=== PATIENT | male | born 1955 | race Caucasian/White ===

== ENCOUNTER 2019-06-26 18:53 | Emergency (ER) | payer MEDICARE, SELFPAY ==
--- NOTE | ~2019-06-26 | CT_ITS ---
EXAMINATION: CT brain wo con DATE: 06/26/2019 21:18 INDICATION: Tremor TECHNIQUE: Computed tomography (CT) of the head was performed without intravenous contrast. Sagittal and coronal reconstructions were performed. The mA was adjusted according to patient size. Iterative reconstruction technique was employed. The dose-length product was 681.00 mGy-cm. COMPARISON: None FINDINGS: No acute intracranial hemorrhage, acute infarction or abnormal extra axial fluid collection. There is mild scattered white matter hypoattenuation most prominent in the right peritrigonal white matter co nsistent with chronic small vessel ischemic disease. Symmetric prominence of the sulci consistent wi th mild age-appropriate diffuse cerebral volume loss. Ventricles are normal and symmetric. No mass/m ass effect. The orbits and mastoid air cells are normal. Small osteoma in the left ethmoid sinus. Mil d hyperostosis frontalis. IMPRESSION: 1. No acute intracranial process. 2. Age-related changes including mild diffuse volume loss and mild scattered white matter hypoattenua tion consistent with chronic small vessel ischemic disease. Reviewed, dictated and finalized at location A. R BUILDER LOADER IMPRESSION: 1. No acute intracranial process. 2. Age-related changes including mild diffuse volume loss and mild scattered wh ite matter hypoattenuation consistent with chronic small vessel ischemic diseas e.
--- NOTE | 2019-06-26 19:18 | ED.EXTPRO ---
HPI - Extremity Problem General Chief complaint: Extremity Problem,Nontraumatic Stated complaint: EXTREMITY CRAMPING [id number] Time Seen by Provider: 06/26/19 19:14 Source: patient Mode of arrival: ambulatory Limitations: no limitations History of Present Illness HPI Narrative: The pt is a 63 y/o male who presents to the ED c/o bilateral hand cramping onset 2 months ago. Pt states that he went to his PCP, Erin Nicole APRN, who prescribed him Duloxetine one week ago along with magnesium. Pt notes that he has not received much relief, so it was recommended that he take 2 Duloxetine tablets in addition to his muscle relaxers. Pt reports TAN, but denies CP and SOB. MD Complaint: other (Bilateral hand cramping) Onset (ago): month(s) (2) Relieving factors: nothing Associated symptoms: other (TAN) Related Data Allergies Allergy/AdvReac Type Severity Reaction Status Date / Time No Known Allergies Allergy Unknown Unverified 08/03/11 08:43 Review of Systems Review of Systems: All systems reviewed & are unremarkable except as noted in HPI and below Cardiovascular: Cardiovascular: Denies chest pain Respiratory: Respiratory: Denies dyspnea Musculoskeletal: Musculoskeletal: Reports other (Bilateral hand cramping) Neurologic: Reports headache(s) PMFSH Past Medical History Medical History (Updated 06/26/19 @ 22:00 by Kallie Zhu MD) Bronchitis Hypertension Obesity Sleep apnea Surgical History Surgical History (Updated 06/26/19 @ 19:21 by Chano Mora) H/O colonoscopy Social History Social History (Updated 04/27/19 @ 20:16 by Aden Yusuf PA-C) Smoking status: Never smoker Comments PCP: Erin Nicole APRN Exam Const: General: cooperative, no acute distress and alert Nutritional Appearance: obese Orientation/consciousness: patient oriented x3 Limitations: no limitations HENMT: Mouth: Yes lip normal and Yes moist mucous membranes Resp: Effort & Inspection: normal respiratory effort Auscultation: clear to auscultation bilaterally Cardio: Rate: regular rate Rhythm: regular rhythm GI: GI Palp: Yes Soft to palpation and No Tenderness to palpation present (GI) Auscultation: normal bowel sounds Skin: General skin exam: normal color Neuro: General: patient oriented x3 Cognition (Neuro): normal cognition Speech: normal speech Extrem: General: normal to inspection, full ROM and no clubbing, cyanosis or edema Psych: Mental Status: mental status grossly normal Affect: normal affect Attitude: cooperative Course Course Emergency Course: Patient with no acute findings noted on labs. On reevaluation, patient with slight tremor to his right hand which was not notable on his initial exam. Patient states he has been having issues with a tremor. CT scan of the brain was ordered and is unremarkable except for age-related changes. Patient advised following up with his primary care physician to discuss neurology referral on account of his tremor. Patient continue current medications. Vital Signs Vital signs: Vital Signs Temperature 97.3 F L 06/26/19 19:22 Pulse Rate 85 06/26/19 19:22 Respiratory Rate 19 06/26/19 19:22 Blood Pressure 122/83 06/26/19 19:22 Pulse Oximetry 97 06/26/19 19:22 Temperature 97.3 F L 06/26/19 19:22 Pulse Rate 63 06/26/19 20:57 Respiratory Rate 18 06/26/19 20:57 Blood Pressure 113/68 06/26/19 20:57 Pulse Oximetry 100 06/26/19 20:57 MDM - Extremity (Nontraumatic) Lab Data Attestation: I reviewed the patient's lab results. Result diagrams: 06/26/19 19:40 06/26/19 19:40 Labs: Lab Results 06/26/19 06/26/19 06/26/19 Range/Units 19:40 19:40 20:33 WBC 6.5 (4.5-10.0) K/mm3 RBC 4.70 (4.6-6.20) M/mm3 Hgb 14.2 (14.0-18.0) g/dL Hct 42.9 (42.0-52.0) % MCV 91.3 (80-100) fl MCH 30.2 (26-34) pg MCHC 33.1 (32-36) g/dl RDW 14.1 (11.5-14.5) % Plt Count 231 (150-375)
[2019-06-26 19:22] VITALS: BP 122/83; PULSE 85; RESP 19; TEMP 36.3; O2SAT 97
[2019-06-26 19:45] VITALS: BP 137/78; PULSE 82; RESP 15; O2SAT 98
[2019-06-26 19:46] LABS: Basophils Absolute Auto 0.1 K/mm3 (0.0-0.1); Basophils Percent Auto 0.9 % (0.2-1.2); Eosinophils Absolute Auto 0.3 K/mm3 (0-0.3); Eosinophils Percent Auto 3.9 % (0-4.4); Hematocrit 42.9 % (42.0-52.0); Hemoglobin 14.2 g/dL (14.0-18.0); Immature Granulocyte Absolute 0.03 K/mm3 (0.00-0.031); Immature Granulocyte Percent A 0.5 % (0-0.5); Lymphocytes Absolute Auto 1.31 K/mm3 (0.9-3.2); Lymphocytes Percent Auto 20.3 % (18.3-44.2); Mean Corpuscular HGB Conc 33.1 g/dl (32-36); Mean Corpuscular Hemoglobin 30.2 pg (26-34); Mean Corpuscular Volume 91.3 fl (80-100); Mean Platelet Volume 9.2 fl (7.4-10.4); Monocytes Absolute Auto 0.7 K/mm3 (0.1-0.6); Monocytes Percent Auto 10.4 % (2.6-8.5); Neutrophils Absolute Auto 4.1 K/mm3 (1.3-6.7); Platelet Count Result 231 k/mm3 (150-375); Red Cell Distribution Width 14.1 % (11.5-14.5); White Blood Count 6.5 K/mm3 (4.5-10.0)
[2019-06-26 19:58] LABS: Alanine Aminotransferase 30 U/L (4-50); Alkaline Phosphatase 71 U/L (38-126); Aspartate Amino Transferase 30 U/L (17-59); Bilirubin,Total 0.3 mg/dL (0.2-1.3); Blood Urea Nitrogen 19 mg/dL (9-20); Calcium 8.8 mg/dL (8.4-10.2); Carbon Dioxide 24 mmol/L (22-30); Chloride 99 mmol/L (98-107); Estimated CRCL calculation 84 ml/min; Estimated Glomerular Filt Rate 55; Glucose 79 mg/dL (75-110); Magnesium 2.2 mg/dL (1.6-2.3); Phosphorus 3.5 mg/dL (2.5-4.5); Potassium 3.9 mmol/L (3.4-5.0); Sodium 136 mmol/L (137-145)
--- NOTE | 2019-06-26 20:08 | PC.NURSE ---
pt states he isn't able to urinate at this time. refused straight ctah. pt given urinal at bedside. instructed to use call light when hes able to urinate.
[2019-06-26 20:35] VITALS: BP 126/71; PULSE 76; RESP 16; O2SAT 97
[2019-06-26 20:42] LABS: Add Urine Microscopic? YES; Appearance Urine Clear (Clear); Bacteria Urine Trace /hpf; Bilirubin Urine Negative (Negative); Blood Urine Negative (Negative); Color Urine Yellow (Yellow); Glucose Urine UA Negative (Negative); Ketones Urine Negative (Negative); Leukocyte Esterase Ur Negative LEU/UL (Negative); Mucus Urine Heavy /lpf; Nitrate Urine Negative (Negative); Protein Urine 1+ mg/dL (Negative); RBC Urine 0-2 /hpf (0-2); Specific Grav Ur 1.024 (1.001-1.035); Squamous Epithelial Cell Urine Moderate /hpf (Few); Urobilinogen Urine Negative mg/dL (<2.0); WBC Urine 0-3 /hpf
--- NOTE | 2019-06-26 20:50 | PC.NURSE ---
pt states his hands are cramping at this time. md notified.
[2019-06-26 20:57] VITALS: BP 113/68; PULSE 63; RESP 18; O2SAT 100
[2019-06-26 21:59] VITALS: BP 119/74; PULSE 63; RESP 18; O2SAT 96
== END 2019-06-26 22:24 | disposition home or self-care (01) ==
PROVIDERS: Emergency Provider Emergency Medicine; PCP Nurse Practitioner Family
DX: R25.2 Cramp and spasm (principal); R25.1 Tremor, unspecified; G47.30 Sleep apnea, unspecified; E66.9 Obesity, unspecified; Z68.42 Body mass index [BMI] 45.0-49.9, adult; I10 Essential (primary) hypertension
CPT/HCPCS: 36415; 70450; 80053; 81001; 83735; 84100; 85025; 96374; 99284; J3360

== ENCOUNTER 2019-06-28 17:00 | Emergency (ER) | payer MEDICARE, SELFPAY ==
[2019-06-28 17:10] VITALS: BP 157/86; PULSE 91; RESP 18; TEMP 36.4; O2SAT 97
--- NOTE | 2019-06-28 17:25 | ED.MALEGU ---
HPI - Male Genitourinary General Chief complaint: Urogenital-Male Stated complaint: unable to urinate Time Seen by Provider: 06/28/19 17:23 Source: patient Mode of arrival: ambulatory Limitations: no limitations History of Present Illness HPI Narrative: A 63 y/o male presents to the ED with c/o urinary retention. Pt states that since 1400 today he has not been able to urinate. He notes that he can only go in little amounts each time and has suprapubic ABD pain when he urinates. The ABD pain is rated an 8/10 in severity in the ED and is described as a burning sensation. He adds that he has had urinary incontinence for the past 3 months. Pt denies dysuria, CP, fever, and SOB. He has a PMHx of gallstones. Complaint: other (Urinary retention) Onset (ago): hour(s) (3) Duration: constant Associated symptoms: Reports incontinence and other (ABD pain) Related Data Allergies Allergy/AdvReac Type Severity Reaction Status Date / Time No Known Allergies Allergy Unknown Unverified 08/03/11 08:43 Review of Systems Review of Systems: All systems reviewed & are unremarkable except as noted in HPI and below Constitutional: Constitutional: Denies fever(s) Cardiovascular: Cardiovascular: Denies chest pain Respiratory: Respiratory: Denies dyspnea Gastrointestinal: Gastrointestinal: Reports abdominal pain Genitourinary: Genitourinary: Reports oliguria, Denies dysuria and Reports urinary incontinence [facility] Past Medical History Medical History (Updated 06/28/19 @ 21:33 by Maya Vazquez MD) Arthritis Bronchitis Chronic back pain Depression Gallstones GERD (gastroesophageal reflux disease) Head ache Hypertension Obesity Seasonal allergies Sleep apnea Surgical History Surgical History (Updated 06/28/19 @ 17:38 by Jenna [place]) H/O colonoscopy History of ankle surgery Bilateral tendon repair History of carpal tunnel release Social History Social History Smoking status: Never smoker Gender identity (if verbalized by the patient): Male Exam Const: General: no acute distress and well developed Orientation/consciousness: oriented to person, oriented to place, oriented to time and patient oriented x3 HENMT: Head: normocephalic Ears: external ears normal General nose exam: Normal external nose present Eyes: General: appearance normal, both eyes and all related structures Conjunctivae: conjunctivae normal Neck: Neck: normal visual inspection and full ROM Chest: Chest palpation & inspection: normal inspection of the chest and no tenderness Resp: Effort & Inspection: normal respiratory effort Auscultation: clear to auscultation bilaterally Cardio: Rate: regular rate Rhythm: regular rhythm GI: GI Palp: No abdominal tenderness and Yes Soft to palpation Skin: General skin exam: normal color and turgor normal Neuro: General: oriented to person, oriented to place, oriented to time and patient oriented x3 Cognition (Neuro): normal cognition Extrem: General: normal to inspection, full ROM and no pedal edema Psych: Appearance: grossly normal Mental Status: mental status grossly normal Affect: normal affect Course Vital Signs Vital signs: Vital Signs Temperature 36.4 C 06/28/19 17:10 Pulse Rate 91 06/28/19 17:10 Respiratory Rate 18 06/28/19 17:10 Blood Pressure 157/86 H 06/28/19 17:10 Pulse Oximetry 97 06/28/19 17:10 Temperature 37.5 C 06/28/19 21:44 Pulse Rate 88 06/28/19 21:44 Respiratory Rate 18 06/28/19 21:44 Blood Pressure 117/81 06/28/19 21:44 Pulse Oximetry 97 06/28/19 21:44 MDM - Male Genitourinary Lab Data Result diagrams: 06/28/19 18:06 06/28/19 18:06 Labs: Lab Results 06/28/19 06/28/19 06/28/19 Range/Units 18:06 18:06 18:06 WBC 10.1 H (4.5-10.0) K/mm3 RBC 4.76 (4.6-6.20) M/mm3 Hgb 14.4 (14.0-18.0) g/dL Hct 43.5 (42.0-52.0) % MCV 91.4 (80-100
[2019-06-28 18:16] LABS: Basophils Absolute Auto 0.1 K/mm3 (0.0-0.1); Basophils Percent Auto 0.6 % (0.2-1.2); Eosinophils Absolute Auto 0.2 K/mm3 (0-0.3); Eosinophils Percent Auto 2.3 % (0-4.4); Hematocrit 43.5 % (42.0-52.0); Hemoglobin 14.4 g/dL (14.0-18.0); Immature Granulocyte Absolute 0.04 K/mm3 (0.00-0.031); Immature Granulocyte Percent A 0.4 % (0-0.5); Lymphocytes Absolute Auto 1.03 K/mm3 (0.9-3.2); Lymphocytes Percent Auto 10.2 % (18.3-44.2); Mean Corpuscular HGB Conc 33.1 g/dl (32-36); Mean Corpuscular Hemoglobin 30.3 pg (26-34); Mean Corpuscular Volume 91.4 fl (80-100); Mean Platelet Volume 9.4 fl (7.4-10.4); Monocytes Absolute Auto 0.9 K/mm3 (0.1-0.6); Neutrophils Absolute Auto 7.8 K/mm3 (1.3-6.7); Neutrophils Percent Auto 77.5 % (45.5-73.1); Platelet Count Result 246 k/mm3 (150-375); Red Blood Count 4.76 M/mm3 (4.6-6.20); Red Cell Distribution Width 14.3 % (11.5-14.5); White Blood Count 10.1 K/mm3 (4.5-10.0)
[2019-06-28 18:25] LABS: Add Urine Microscopic? YES; Appearance Urine Turbid (Clear); Bilirubin Urine Negative (Negative); Blood Urine 3+ (Negative); Color Urine Yellow (Yellow); Glucose Urine UA Negative (Negative); Ketones Urine Trace mg/dL (Negative); Leukocyte Esterase Ur 2+ LEU/UL (Negative); Nitrate Urine Negative (Negative); Protein Urine 2+ mg/dL (Negative); RBC Urine >75 /hpf (0-2); Specific Grav Ur 1.024 (1.001-1.035); Urobilinogen Urine Negative mg/dL (<2.0); WBC Urine >75 /hpf
[2019-06-28 18:29] LABS: Blood Urea Nitrogen 19 mg/dL (9-20); Calcium 9.1 mg/dL (8.4-10.2); Carbon Dioxide 28 mmol/L (22-30); Chloride 98 mmol/L (98-107); Estimated CRCL calculation 78 ml/min; Estimated Glomerular Filt Rate 51; Glucose 107 mg/dL (75-110); Potassium 4.8 mmol/L (3.4-5.0); Sodium 138 mmol/L (137-145)
--- NOTE | 2019-06-28 18:45 | PC.NURSE ---
Patient requesting medication for headache, Dr George briceño.
[2019-06-28 19:39] VITALS: BP 114/70; PULSE 80; RESP 18; TEMP 36.6; O2SAT 99
[2019-06-28 20:58] VITALS: BP 122/72; PULSE 88; RESP 18; O2SAT 98
[2019-06-28 21:44] VITALS: BP 117/81; PULSE 88; RESP 18; TEMP 37.5; O2SAT 97
== END 2019-06-28 21:49 | disposition home or self-care (01) ==
PROVIDERS: Emergency Provider Emergency Medicine; PCP Nurse Practitioner Family
DX: N39.0 Urinary tract infection, site not specified (principal); M19.90 Unspecified osteoarthritis, unspecified site; K21.9 Gastro-esophageal reflux disease without esophagitis; I10 Essential (primary) hypertension; E66.9 Obesity, unspecified; Z68.42 Body mass index [BMI] 45.0-49.9, adult; G47.30 Sleep apnea, unspecified
CPT/HCPCS: 36415; 80048; 81001; 85025; 87077; 87086; 87088; 87186; 99283

== ENCOUNTER 2019-07-02 14:56 | Outpatient (CLI) | payer MEDICARE, SELFPAY ==
--- NOTE | ~2019-07-02 | CT_ITS ---
EXAMINATION: CT abdomen pelvis w con DATE: 07/02/2019 15:53 INDICATION: Abdominal pain. TECHNIQUE: Computed tomography (CT) of the abdomen and pelvis was performed with 100 mL Omnipaque 350 intravenous contrast. Automated exposure control and iterative reconstruction technique were employe d. The dose-length product was 1726.45 mGy-cm. COMPARISON: None. FINDINGS: The visualized portions of the lung bases demonstrate mild atelectasis. There are a few pul monary nodules measuring up to 3 mm, likely benign. No pleural effusion. The heart size is normal. No pericardial effusion. The liver, spleen, gallbladder, pancreas, and adrenal glands are normal. There is cortical thinning of the kidneys. There is 11 mm cyst in left kidney. There is diverticulosis of the colon without evidence of diverticulitis. There are no dilated loops of bowel. The appendix is no rmal. There is mild periportal lymphadenopathy. There is a left inguinal hernia containing fat. There is no free intraperitoneal fluid. There are bridging endplate osteophytes at multiple levels in the thoracic spine, consistent with diffuse idiopathic skeletal hyperostosis (DISH). There is mild lumbar spondylosis. IMPRESSION: 1. Mild periportal lymphadenopathy, likely reactive. 2. Small left inguinal hernia containing fat. Reviewed, dictated and finalized at location A. ACE GRINDER
[2019-07-02 16:47] LABS: Basophils Absolute Auto 0.1 K/mm3 (0.0-0.1); Basophils Percent Auto 0.8 % (0.2-1.2); Eosinophils Absolute Auto 0.2 K/mm3 (0-0.3); Eosinophils Percent Auto 2.8 % (0-4.4); Hematocrit 43.8 % (42.0-52.0); Hemoglobin 14.6 g/dL (14.0-18.0); Immature Granulocyte Absolute 0.05 K/mm3 (0.00-0.031); Immature Granulocyte Percent A 0.7 % (0-0.5); Lymphocytes Absolute Auto 1.39 K/mm3 (0.9-3.2); Lymphocytes Percent Auto 18.5 % (18.3-44.2); Mean Corpuscular HGB Conc 33.3 g/dl (32-36); Mean Corpuscular Volume 90.1 fl (80-100); Mean Platelet Volume 9.7 fl (7.4-10.4); Monocytes Percent Auto 13.8 % (2.6-8.5); Neutrophils Absolute Auto 4.8 K/mm3 (1.3-6.7); Neutrophils Percent Auto 63.4 % (45.5-73.1); Platelet Count Result 266 k/mm3 (150-375); Red Blood Count 4.86 M/mm3 (4.6-6.20); Red Cell Distribution Width 14.1 % (11.5-14.5); White Blood Count 7.5 K/mm3 (4.5-10.0)
[2019-07-02 17:02] LABS: Alanine Aminotransferase 27 U/L (4-50); Alkaline Phosphatase 62 U/L (38-126); Amylase 47 U/L (30-110); Aspartate Amino Transferase 33 U/L (17-59); Bilirubin,Total 0.8 mg/dL (0.2-1.3); Blood Urea Nitrogen 17 mg/dL (9-20); Calcium 8.6 mg/dL (8.4-10.2); Carbon Dioxide 22 mmol/L (22-30); Chloride 100 mmol/L (98-107); Estimated Glomerular Filt Rate > 60; Glucose 100 mg/dL (75-110); Lipase 68 U/L (23-300); Potassium 4.5 mmol/L (3.4-5.0); Sodium 133 mmol/L (137-145)
== END 2019-07-02 14:57 | disposition home or self-care (01) ==
PROVIDERS: PCP Nurse Practitioner Family; Visit Provider Internal Medicine
DX: R10.84 Generalized abdominal pain (principal); R50.9 Fever, unspecified; R30.0 Dysuria; K40.90 Unilateral inguinal hernia, without obstruction or gangrene, not specified as recurrent
CPT/HCPCS: 36415; 74177; 80053; 82150; 83690; 85025; Q9967

== ENCOUNTER 2019-07-27 13:19 | Emergency (ER) | payer MEDICARE, SELFPAY ==
--- NOTE | ~2019-07-27 | XR_ITS ---
EXAMINATION: XR chest 2V DATE: 07/27/2019 14:08 INDICATION: Shortness of breath with exertion. Wheezing. TECHNIQUE: Frontal and lateral views of the chest were obtained. COMPARISON: Chest 2 views 04/27/2019, CT abdomen and pelvis 07/02/2019 FINDINGS: The chest demonstrates clear lungs without pneumonia, pleural effusion, or pneumothorax. Th e heart size is normal. IMPRESSION: 1. No acute cardiopulmonary disease. Reviewed, dictated and finalized at location A.
--- NOTE | 2019-07-27 13:33 | ED.SOB ---
HPI - SOB/Dyspnea General Chief Complaint: Shortness of Breath/Dyspnea Stated Complaint: sob, cough Time Seen by Provider: 07/27/19 13:22 Source: patient and RN notes reviewed Mode of arrival: ambulatory Limitations: no limitations History of Present Illness HPI Narrative: Pt is a 63 y/o male who presents to the ED with c/o SOB starting several days ago. He notes that he was diagnosed with bronchitis in May, stating that he had relatively severe SOB at that time. Pt notes that he was prescribed an Albuterol nebulizer and Singulair for his symptoms. He states that he quit using the treatments for awhile, but notes that he began using them again several days ago. Pt states that he has been doubling the dosage of his breathing treatments due to his increased SOB. He reports chest congestion, wheezing, diaphoresis, and a productive cough accompanying his SOB, but denies any fever, chills, rhinorrhea, sore throat, CP, or chest pressure. Pt denies having any Hx of COPD. MD elicited complaint: shortness of breath Pertinent past history: other (recent bronchitis) Onset (ago): day(s) (several) Known history of: other (bronchitis) Associated symptoms: cough (productive), wheezing, diaphoresis and chest congestion Treatment prior to arrival: bronchodilator Related Data Allergies Allergy/AdvReac Type Severity Reaction Status Date / Time No Known Allergies Allergy Unknown Unverified 07/27/19 13:41 Review of Systems Review of Systems: All systems reviewed & are unremarkable except as noted in HPI and below Constitutional: Constitutional: Denies chills and Denies fever(s) ENT: Denies nasal discharge and Denies sore throat Cardiovascular: Cardiovascular: Denies chest pain, Reports diaphoresis and Denies other (chest pressure) Respiratory: Respiratory: Reports chest congestion, Reports cough (productive), Reports dyspnea and Reports wheezing PMFSH Past Medical History Medical History (Updated 07/27/19 @ 16:01 by Frantz Cardoso MD) Arthritis Bronchitis Carpal tunnel syndrome Chronic back pain Depression Gallstones GERD (gastroesophageal reflux disease) Head ache Hypertension Obesity Seasonal allergies Sleep apnea Surgical History Surgical History H/O colonoscopy History of ankle surgery Bilateral tendon repair History of carpal tunnel release Social History Social History (Reviewed 03/28/20 @ 13:44 by [place] Smoking status: Never smoker Gender identity (if verbalized by the patient): Male Exam Narrative: Exam Narrative: GENERAL: Well-appearing, well-nourished, and in no acute distress. HEAD: Normocephalic, atraumatic. ENT: Mucous membranes moist. CHEST: Diffuse expiratory wheezing. No respiratory distress. HEART: Regular rate and rhythm. Normal peripheral pulses. ABDOMEN: Soft, nontender, nondistended. EXTREMITIES: Normal range of motion. 1+ edema. SKIN: Warm, dry, no rash. NEURO: Alert and oriented x3. Course Course Emergency Course: Patient informed of results. Improved with nebulizer treatment but still with some wheezing. Feels comfortable with discharge home with oral steroids. Patient reports he does not need a prescription for inhaler or nebulizer treatment. Vital Signs Vital signs: Vital Signs Temperature 98 F 07/27/19 13:39 Pulse Rate 77 07/27/19 13:39 Respiratory Rate 18 07/27/19 13:39 Blood Pressure 149/91 H 07/27/19 13:39 Pulse Oximetry 95 07/27/19 13:39 Temperature 98 F 07/27/19 13:39 Pulse Rate 75 07/27/19 15:15 Respiratory Rate 24 H 07/27/19 15:15 Blood Pressure 131/79 07/27/19 15:15 Pulse Oximetry 99 07/27/19 15:15 MDM - SOB/Dyspnea Lab Data Result diagrams: 07/27/19 13:43 07/27/19 13:43 Labs: Lab Results 07/27/19 07/27/19 Range/Units 13:43 13:43 WBC 6.6 (4.5-10.0) K/mm3 RBC 4.42 L (4.6-6.20) M/mm3 Hgb 13.4 L (14.0-18.0) g/dL Hct
[2019-07-27 13:39] VITALS: BP 149/91; PULSE 77; RESP 18; TEMP 36.6; O2SAT 95
--- NOTE | 2019-07-27 13:41 | ECG_ITS ---
Measurements Intervals [place] Rate: 68 P: 31 [place]: 195 QRS: -44 QRSD: 113 T: 37 QT: 386 QTc: 413 Interpretive Statements SINUS RHYTHM LEFT AXIS DEVIATION INTRAVENTRICULAR CONDUCTION DELAY DELAYED PRECORDIAL R/S TRANSITION BASELINE WANDER- II, V2 BORDERLINE ECG Electronically Signed On 07-27-2019 16:02:46 CDT by Prabhakar Cornell D.O.
[2019-07-27 13:42] VITALS: PULSE 77
[2019-07-27 13:47] LABS: Basophils Absolute Auto 0.1 K/mm3 (0.0-0.1); Basophils Percent Auto 1.2 % (0.2-1.2); Eosinophils Absolute Auto 0.4 K/mm3 (0-0.3); Eosinophils Percent Auto 6.2 % (0-4.4); Hemoglobin 13.4 g/dL (14.0-18.0); Immature Granulocyte Absolute 0.02 K/mm3 (0.00-0.031); Immature Granulocyte Percent A 0.3 % (0-0.5); Lymphocytes Absolute Auto 1.25 K/mm3 (0.9-3.2); Mean Corpuscular HGB Conc 32.7 g/dl (32-36); Mean Corpuscular Hemoglobin 30.3 pg (26-34); Mean Corpuscular Volume 92.8 fl (80-100); Mean Platelet Volume 10.1 fl (7.4-10.4); Monocytes Absolute Auto 0.5 K/mm3 (0.1-0.6); Monocytes Percent Auto 7.9 % (2.6-8.5); Neutrophils Absolute Auto 4.3 K/mm3 (1.3-6.7); Neutrophils Percent Auto 65.4 % (45.5-73.1); Platelet Count Result 210 k/mm3 (150-375); Red Blood Count 4.42 M/mm3 (4.6-6.20); Red Cell Distribution Width 14.6 % (11.5-14.5); White Blood Count 6.6 K/mm3 (4.5-10.0)
[2019-07-27] MEDS: IPRATROPIUM BR 0.02% INH SOLN 0.5 MG/2.5 ML VIAL 1.5 MG INHALATION (13:49)
[2019-07-27] MEDS: ALBUTEROL SULFATE NEB 2.5 MG/0.5 ML INH 15 MG INHALATION (13:49)
[2019-07-27 13:50] VITALS: PULSE 70; RESP 16; O2SAT 97
[2019-07-27 14:00] LABS: Blood Urea Nitrogen 18 mg/dL (9-20); Calcium 8.8 mg/dL (8.4-10.2); Carbon Dioxide 22 mmol/L (22-30); Chloride 104 mmol/L (98-107); Estimated CRCL calculation 91 ml/min; Estimated Glomerular Filt Rate > 60; Glucose 155 mg/dL (75-110); Potassium 3.6 mmol/L (3.4-5.0); Sodium 135 mmol/L (137-145)
[2019-07-27 14:30] VITALS: BP 107/77; PULSE 68; RESP 12; O2SAT 100
[2019-07-27 15:15] VITALS: BP 131/79; PULSE 75; PULSE 77; RESP 21; RESP 24; O2SAT 99
[2019-07-27 16:09] VITALS: BP 117/63; PULSE 67; RESP 15; O2SAT 98
== END 2019-07-27 16:10 | disposition home or self-care (01) ==
PROVIDERS: Emergency Provider Emergency Medicine; PCP Nurse Practitioner Family
DX: J40 Bronchitis, not specified as acute or chronic (principal); M19.90 Unspecified osteoarthritis, unspecified site; K21.9 Gastro-esophageal reflux disease without esophagitis; I10 Essential (primary) hypertension; G47.30 Sleep apnea, unspecified; E66.9 Obesity, unspecified; Z68.42 Body mass index [BMI] 45.0-49.9, adult; I45.9 Conduction disorder, unspecified; R94.31 Abnormal electrocardiogram [ECG] [EKG]
CPT/HCPCS: 36415; 71046; 80048; 85025; 93005; 99283

== ENCOUNTER 2020-05-30 07:03 | Outpatient (NON) | payer MEDICARE, SELFPAY ==
[2020-05-30 22:28] LABS: SARS-CoV-2 RNA PCR Negative
== END 2020-05-30 07:04 ==
LOC: ANHCOVIDDT 07:03
PROVIDERS: PCP Nurse Practitioner Family; Visit Provider Registered Nurse
DX: Z20.822 Contact with and (suspected) exposure to COVID-19 (principal); R06.2 Wheezing; R05 Cough; R09.81 Nasal congestion
CPT/HCPCS: C9803; U0003; U0005

== ENCOUNTER 2022-05-18 15:57 | Outpatient (CLI) | payer OTHER, MEDICARE, SELFPAY ==
--- NOTE | ~2022-05-18 | MR_ITS ---
EXAMINATION: MR lumbar spine wo con DATE: 05/18/2022 16:36 INDICATION: Back pain. TECHNIQUE: Magnetic resonance imaging (MRI) of the lumbar spine was performed without intravenous con trast. Sequences included sagittal T2-weighted FSE, sagittal T2-weighted FS FSE, sagittal T1-weighted FSE, and axial T2-weighted FSE. COMPARISON: Lumbar spine radiographs 05/18/2022 FINDINGS: There is 3 degrees levocurvature of lumbar spine. There is mild chronic anterior wedging of L1 vertebral body. There are Schmorl's nodes at multiple levels. There is mildly decreased disc heig ht at L5-S1 with endplate remodeling. The distal spinal cord signal intensity is normal. The conus me dullaris is at L1. The following disc levels are specifically discussed: L1-L2: The disc does not extend beyond the endplate margin. There is mild bilateral facet joint osteo arthritis. There is no neural foraminal stenosis. There is no central canal stenosis. L2-L3: The disc is bulging. There is severe bilateral facet joint osteoarthritis. There is mild bilat eral neural foraminal stenosis. There is no central canal stenosis. L3-L4: The disc is bulging. There is severe bilateral facet joint osteoarthritis. There is mild bilat eral neural foraminal stenosis. There is mild central canal stenosis. L4-L5: There is a right foraminal protrusion. There is moderate and severe left facet joint osteoarth ritis. There is mild bilateral neural foraminal stenosis. There is no central canal stenosis. L5-S1: There is a left foraminal protrusion. There is severe bilateral facet joint osteoarthritis. Th ere is mild bilateral neural foraminal stenosis. There is no central canal stenosis. IMPRESSION: 1. Mild lumbar spondylosis. Reviewed, dictated and finalized at location A. TRONIC DATA INTERCHANGE SPECIALIST IMPRESSION: 1. Mild lumbar spondylosis.
--- NOTE | ~2022-05-18 | XR_ITS ---
EXAMINATION: XR lumbar spine min 4V DATE: 05/18/2022 16:20 INDICATION: Back pain. TECHNIQUE: 5 views of lumbar spine were obtained. COMPARISON: None. FINDINGS: Bone alignment is normal. Vertebral body heights are normal. There is moderately decreased disc height at L5-S1. There are endplate osteophytes at all levels. There is severe facet joint osteo arthritis at multiple levels bilaterally. IMPRESSION: 1. Moderate lower lumbar spondylosis. Reviewed, dictated and finalized at location A. F ENGINEER WATERWORKS
== END 2022-05-18 15:58 | disposition home or self-care (01) ==
LOC: ANHIMG 15:59
PROVIDERS: PCP Nurse Practitioner Family; Visit Provider Nurse Practitioner Adult Health
DX: M47.26 Other spondylosis with radiculopathy, lumbar region (principal)
CPT/HCPCS: 72110; 72148

== ENCOUNTER 2022-05-18 20:51 | Emergency (ER) | payer MEDICARE, SELFPAY ==
[2022-05-18] VITALS (11 sets, daily range): BP systolic 102–136; BP diastolic 60–78; PULSE 66–102; RESP 18–19; TEMP 36.4; O2SAT 96–99
[2022-05-18 21:09] LABS: Appearance Urine Cloudy (Clear); Bilirubin Urine 1+ (Negative); Blood Urine 2+ (Negative); Color Urine Amber (Yellow); Glucose Urine UA Negative (Negative); Ketones Urine Negative (Negative); Leukocyte Esterase Ur 1+ LEU/UL (Negative); Nitrate Urine Negative (Negative); Protein Urine 1+ mg/dL (Negative); Specific Grav Ur 1.025 (1.001-1.035); Urobilinogen Urine 0.2 mg/dL (<2.0); pH Urine 5.5 (5.0-9.0)
[2022-05-18 21:13] LABS: Bacteria Urine Trace /hpf; Mucus Urine Few /lpf; RBC Urine 21-50 /hpf (0-2); Squamous Epithelial Cell Urine Rare /hpf (Few); WBC Urine >75 /hpf
[2022-05-18 21:15] LABS: Add Urine Microscopic? YES
--- NOTE | 2022-05-18 22:44 | PC.NURSE ---
Bladder scan 100ml post void
[2022-05-18] MEDS: CIPROFLOXACIN 500 MG TAB PO (23:07)
--- NOTE | 2022-05-18 23:18 | ED.MALEGU ---
HPI - Male Genitourinary General Chief complaint: Urogenital-Male Stated complaint: r/o UTI Time Seen by Provider: 05/18/22 21:25 History of Present Illness HPI Narrative: Patient is a 66-year-old male who presents ER with concerns for UTI. Reports dysuria for the last 2 days. When he has to go the bathroom he cannot stop and urinates on himself. He has had intermittent incontinence over the last months. 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 No fevers or chills or sweats. No lower abdominal pain. Does not feel like he is unable to urinate when he wants to urinate. No testicular discomfort or swelling or redness Related Data Home Medications Medication Instructions Recorded Confirmed albuterol sulfate 90 mcg/actuation 1 puff inhalation Q4H PRN 05/03/22 05/03/22 aerosol inhaler diazepam 10 mg tablet (Valium) 10 mg PO TID PRN 05/03/22 05/03/22 hydrochlorothiazide 12.5 mg tablet 12.5 mg PO DAILY 05/03/22 05/03/22 lisinopril 20 mg tablet 20 mg PO DAILY 05/03/22 05/03/22 methocarbamol 750 mg tablet 750 mg PO TID 05/03/22 05/03/22 Allergies Allergy/AdvReac Type Severity Reaction Status Date / Time No Known Allergies Allergy Unknown Verified 05/18/22 22:58 Review of Systems Review of Systems: All systems reviewed & are unremarkable except as noted in HPI and below Constitutional: Constitutional: Denies chills, Denies fatigue and Denies fever(s) Cardiovascular: Cardiovascular: Denies chest pain, Denies rapid heart rate and Denies radiating jaw, neck or arm pain Respiratory: Respiratory: Denies cough and Denies dyspnea Gastrointestinal: Gastrointestinal: Denies abdominal pain, Denies nausea and Denies vomiting Genitourinary: Genitourinary: Reports dysuria, Denies penile discharge, Denies testicular pain, Reports urinary frequency and Reports urinary incontinence [facility] Past Medical History Medical History (Updated 05/18/22 @ 23:19 by Frantz Cardoso MD) Arthritis Bronchitis Carpal tunnel syndrome Chronic back pain Depression Gallstones GERD (gastroesophageal reflux disease) Head ache Hypertension Lumbar radiculopathy Lumbar spondylosis Obesity Seasonal allergies Sleep apnea Surgical History Surgical History H/O colonoscopy History of ankle surgery Bilateral tendon repair History of carpal tunnel release Social History Social History Smoking status: Never smoker Gender identity (if verbalized by the patient): Male Exam Narrative: GENERAL: Well-appearing, morbidly obese, and in no acute distress. HEAD: Normocephalic, atraumatic. ENT: Mucous membranes moist. CHEST: Clear to auscultation. No respiratory distress. HEART: Regular rate and rhythm. Normal peripheral pulses. ABDOMEN: Soft, nontender, nondistended. EXTREMITIES: Normal range of motion. No edema. SKIN: Warm, dry, no rash. NEURO: Alert and oriented x3. PSYCH: Normal mood and affect. Course Course Emergency Course: Bladder scan with 100 mL. No evidence for retention. Will be started on ciprofloxacin for UTI. Recommend follow-up with his PCP. Vital Signs Vital signs: Vital Signs Temperature 97.6 F 05/18/22 20:52 Pulse Rate 102 H 05/18/22 20:52 Respiratory Rate 18 05/18/22 20:52 Blood Pressure 136/67 05/18/22 20:52 Pulse Oximetry 96 05/18/22 20:52 Temperature 97.6 F 05/18/22 20:52 Pulse Rate 102 H 05/18/22 20:52 Respiratory Rate 18 05/18/22 20:52 Blood Pressure 104/60 05/18/22 22:15 Pulse Oximetry 99 05/18/22 22:15 MDM - Male Genitourinary Lab Data Labs: Lab Results 05/18/22 Range/Units 21:01 Urine Color Nasrin (Yellow) Urine Appearance Cloudy H (Clear) Urine pH 5.5 (5.0-9.0) Ur Specific [place] 1.025 (1.001-1.035) Urine Protein 1+ H (Negative) mg/dL Urine Glucose (UA) Negative (Negative) mg/dL Urine
== END 2022-05-18 23:33 | disposition home or self-care (01) ==
PROVIDERS: Emergency Medicine; Emergency Provider Emergency Medicine; PCP Nurse Practitioner Family
DX: N39.0 Urinary tract infection, site not specified (principal); I10 Essential (primary) hypertension; J45.909 Unspecified asthma, uncomplicated
CPT/HCPCS: 81001; 87077; 87086; 87186; 99283; A9270

== ENCOUNTER 2023-04-03 15:33 | Emergency (ER) | payer MEDICARE, SELFPAY ==
--- NOTE | ~2023-04-03 | XR_ITS ---
EXAMINATION: XR chest 2V DATE: 04/03/2023 21:05 INDICATION: Shortness of breath. Chest pain. TECHNIQUE: Frontal and lateral views of the chest were obtained. COMPARISON: Chest 2 views 07/27/19 FINDINGS: There is mild atelectasis at left lung base. No pleural effusion or pneumothorax. The heart size is normal. IMPRESSION: 1. Mild atelectasis at left lung base. Reviewed, dictated and finalized at location [facility]. RESTAURANT
[2023-04-03 16:11] VITALS: BP 135/71; PULSE 85; RESP 18; TEMP 37; O2SAT 97
--- NOTE | 2023-04-03 20:25 | ECG_ITS ---
Measurements Intervals [place] Rate: 51 P: 67 [place]: 232 QRS: -29 QRSD: 113 T: -2 QT: 442 QTc: 407 Interpretive Statements SINUS BRADYCARDIA WITH FIRST DEGREE AV BLOCK WITH OCCASIONAL VENTRICULAR PREMATURE COMPLEXES BORDERLINE LEFT AXIS DEVIATION [QRS AXIS < -20] LOW QRS VOLTAGE IN PRECORDIAL LEADS [QRS DEFLECTION < 1.0 mV IN CHEST LEADS] PATTERN CONSISTENT WITH PULMONARY DISEASE NONSPECIFIC ST CHANGES COMPARED TO ECG 07/27/2019 13:30:28 SINUS BRADYCARDIA NOW PRESENT Electronically Signed On 04-04-2023 13:26:10 VEHICLE CHECK IN CLERK by Marie Aguilar M.D.
--- NOTE | 2023-04-03 20:26 | ED.NAVMDI ---
HPI - Nausea/Vomiting/Diarrhea General Chief complaint: Nausea/Vomiting/Diarrhea Stated complaint: vomiting Time Seen by Provider: 04/03/23 20:08 History of Present Illness HPI Narrative: Patient is a 67-year-old male with history of hypertension presenting with vomiting and diarrhea. Patient states that for the last 4-5 days he has been nauseated with multiple episodes of emesis. States that he has had persistent diarrhea. States that he has had some intermittent shortness of breath and an episode of chest pain this morning. He states that these resolve spontaneously. He called his doctor today who advised she come in for evaluation. He states that he currently does not feel nauseated but he did throw up several hours ago. reports subjective fever. He also complains of a headache. No numbness or weakness. No cough, abdominal pain, dysuria, leg swelling. Related Data Home Medications Medication Instructions Recorded Confirmed albuterol sulfate 90 mcg/actuation 1 puff inhalation Q4H PRN 05/03/22 05/03/22 aerosol inhaler diazepam 10 mg tablet (Valium) 10 mg PO TID PRN 05/03/22 05/03/22 hydrochlorothiazide 12.5 mg tablet 12.5 mg PO DAILY 05/03/22 05/03/22 lisinopril 20 mg tablet 20 mg PO DAILY 05/03/22 05/03/22 methocarbamol 750 mg tablet 750 mg PO TID 05/03/22 05/03/22 Allergies Allergy/AdvReac Type Severity Reaction Status Date / Time No Known Allergies Allergy Unknown Verified 04/03/23 15:34 Review of Systems Review of Systems: All systems reviewed & are unremarkable except as noted in HPI and below PMFSH Past Medical History Medical History Arthritis Bronchitis Carpal tunnel syndrome Chronic back pain Depression Gallstones GERD (gastroesophageal reflux disease) Head ache Hypertension Lumbar radiculopathy Lumbar spondylosis Obesity Seasonal allergies Sleep apnea Surgical History Surgical History H/O colonoscopy History of ankle surgery Bilateral tendon repair History of carpal tunnel release Social History Social History Smoking status: Never smoker Gender identity (if verbalized by the patient): Male Exam Narrative: GENERAL: Well-appearing, nontoxic, no acute distress HEAD: Normocephalic, atraumatic. EYES: PERRLA and EOMI. ENT: Grossly unremarkable NECK: Supple. CHEST: Clear to auscultation. No respiratory distress. HEART: Regular rate and rhythm. ABDOMEN: Soft, nontender, nondistended EXTREMITIES: Normal range of motion. No edema. SKIN: Warm, dry, no rash. NEURO: No focal deficits. Alert and oriented x3. PSYCH: Normal mood and affect. Course Vital Signs Vital signs: Vital Signs Temperature 98.6 F 04/03/23 16:11 Pulse Rate 85 04/03/23 16:11 Respiratory Rate 18 04/03/23 16:11 Blood Pressure 135/71 04/03/23 16:11 Pulse Oximetry 97 04/03/23 16:11 Oxygen Delivery Room Air 04/03/23 16:11 Temperature 97.9 F 04/03/23 20:51 Pulse Rate 68 04/04/23 01:09 Respiratory Rate 16 04/04/23 01:09 Blood Pressure 130/68 04/04/23 01:09 Pulse Oximetry 100 04/04/23 01:09 Oxygen Delivery Room Air 04/03/23 16:11 MDM - Nausea/Vomiting/Diarrhea MDM Narrative Medical decision making narrative: 67-year-old male presenting with vomiting and diarrhea for several days. Vitals are within normal limits. Exam remarkable for the above. EKG per my interpretation shows normal sinus rhythm, left axis deviation, first-degree AV block, nonspecific T-wave flattening, no ST elevations or depressions. Similar to prior from 2019. Blood work is unremarkable. Chest x-ray without acute abnormalities. Patient received fluids, migraine cocktail and is now asking for discharge. States that he feels much improved. I suspect he has a viral illness contributing to his symptoms. We mary ann
[2023-04-03] MEDS: SODIUM CHLORIDE 0.9% IV 1,000 ML 999 ML IV CONT (20:45)
[2023-04-03] MEDS: KETOROLAC 30 MG/ML VIAL (*BKC) IV PUSH (20:45)
[2023-04-03 20:51] VITALS: BP 125/76; PULSE 55; RESP 16; TEMP 36.6; O2SAT 100
[2023-04-03 20:57] LABS: Basophils Absolute Auto 0.1 K/mm3 (0.0-0.1); Basophils Percent Auto 0.5 % (0.2-1.2); Eosinophils Absolute Auto 0.1 K/mm3 (0-0.3); Eosinophils Percent Auto 1.2 % (0-4.4); Hematocrit 39.3 % (42.0-52.0); Hemoglobin 13.2 g/dL (14.0-18.0); Immature Granulocyte Absolute 0.03 K/mm3 (0.00-0.031); Immature Granulocyte Percent A 0.3 % (0-0.5); Lymphocytes Absolute Auto 1.95 K/mm3 (0.9-3.2); Lymphocytes Percent Auto 20.7 % (18.3-44.2); Mean Corpuscular HGB Conc 33.6 g/dl (32-36); Mean Corpuscular Hemoglobin 30.7 pg (26-34); Mean Corpuscular Volume 91.4 fl (80-100); Mean Platelet Volume 10.5 fl (7.4-10.4); Monocytes Percent Auto 10.1 % (2.6-8.5); Neutrophils Absolute Auto 6.3 K/mm3 (1.3-6.7); Neutrophils Percent Auto 67.2 % (45.5-73.1); Platelet Count Result 173 k/mm3 (150-375); Red Cell Distribution Width 14.1 % (11.5-14.5); White Blood Count 9.4 K/mm3 (4.5-10.0)
[2023-04-03 21:11] LABS: Alanine Aminotransferase 16 U/L (6-50); Albumin Level 3.8 g/dL (3.5-5.1); Alkaline Phosphatase 90 U/L (38-126); Anion Gap 6 mmol/L (8-16); Aspartate Amino Transferase 24 U/L (17-59); Bilirubin,Total 0.9 mg/dL (0.2-1.3); Blood Urea Nitrogen 18 mg/dL (9-20); Calcium 8.4 mg/dL (8.4-10.2); Carbon Dioxide 28 mmol/L (22-30); Chloride 101 mmol/L (98-107); Estimated Glomerular Filt Rate 60; Glucose 100 mg/dL (65-110); Lipase 61 U/L (23-300); Potassium 3.4 mmol/L (3.4-5.0); Sodium 135 mmol/L (137-145)
[2023-04-03 21:12] LABS: INR 1.1; Prothrombin Time 14.6 Seconds (11.1-14.7)
[2023-04-03 21:13] LABS: Partial Thromboplastin Time 37.2 SECONDS (22.3-36.8)
[2023-04-03 21:22] LABS: NT Pro B Type Natriuretic Pept 1880 pg/mL (19.9-100); Troponin I < 0.012 ng/mL (0.000-0.034)
[2023-04-03 21:38] LABS: Influenza A QL RT-PCR Negative (Negative); Influenza B QL RT-PCR Negative (Negative); SARS-CoV-2 RNA PCR Negative (Negative)
[2023-04-03 21:58] LABS: Appearance Urine Clear (Clear); Bilirubin Urine Negative (Negative); Blood Urine Negative (Negative); Color Urine Yellow (Yellow); Glucose Urine UA Negative (Negative); Ketones Urine Trace mg/dL (Negative); Leukocyte Esterase Ur Negative LEU/UL (Negative); Nitrate Urine Negative (Negative); Protein Urine Negative (Negative); Specific Grav Ur 1.023 (1.001-1.035)
[2023-04-03 22:03] LABS: Add Urine Microscopic? NO
[2023-04-03] MEDS: PROCHLORPERAZINE EDISYLATE 10 MG/2 ML VIAL IV PUSH (23:32)
[2023-04-03] MEDS: SODIUM CHLORIDE 0.9% IV 500 ML 999 ML IV CONT (23:32)
[2023-04-03] MEDS: diphenhydrAMINE HCl INJ 50 MG/ML VIAL 25 MG IV PUSH (23:32)
[2023-04-04 00:31] LABS: Troponin I < 0.012 ng/mL (0.000-0.034)
[2023-04-04 01:09] VITALS: BP 130/68; PULSE 68; RESP 16; O2SAT 100
== END 2023-04-04 01:10 | disposition home or self-care (01) ==
PROVIDERS: Student in an Organized Health Care Education/Training Program; Emergency Provider Emergency Medicine; PCP Nurse Practitioner Family
DX: B34.9 Viral infection, unspecified (principal); R51.9 Headache, unspecified; R06.02 Shortness of breath; Z20.822 Contact with and (suspected) exposure to COVID-19; I10 Essential (primary) hypertension; G47.30 Sleep apnea, unspecified; E66.9 Obesity, unspecified; K21.9 Gastro-esophageal reflux disease without esophagitis; M19.90 Unspecified osteoarthritis, unspecified site; F32.A Depression, unspecified; I44.0 Atrioventricular block, first degree; I49.3 Ventricular premature depolarization; R94.31 Abnormal electrocardiogram [ECG] [EKG]
CPT/HCPCS: 36415; 71046; 80053; 81003; 83690; 83880; 84484; 85025; 85610; 85730; 87636; 93005; 96361; 96374; 96375; 99284; J0780; J1200; J1885; J7030; J7040

== ENCOUNTER 2023-05-09 16:10 | Outpatient (CLI) | payer MEDICARE, SELFPAY ==
[2023-05-09 16:50] LABS: Basophils Absolute Auto 0.1 K/mm3 (0.0-0.1); Basophils Percent Auto 0.7 % (0.2-1.2); Eosinophils Absolute Auto 0.2 K/mm3 (0-0.3); Eosinophils Percent Auto 3.2 % (0-4.4); Hematocrit 44.6 % (42.0-52.0); Hemoglobin 14.7 g/dL (14.0-18.0); Immature Granulocyte Absolute 0.02 K/mm3 (0.00-0.031); Immature Granulocyte Percent A 0.3 % (0-0.5); Lymphocytes Absolute Auto 1.45 K/mm3 (0.9-3.2); Lymphocytes Percent Auto 20.9 % (18.3-44.2); Mean Corpuscular Hemoglobin 30.9 pg (26-34); Mean Corpuscular Volume 93.7 fl (80-100); Mean Platelet Volume 10.2 fl (7.4-10.4); Monocytes Absolute Auto 0.5 K/mm3 (0.1-0.6); Monocytes Percent Auto 7.8 % (2.6-8.5); Neutrophils Absolute Auto 4.7 K/mm3 (1.3-6.7); Neutrophils Percent Auto 67.1 % (45.5-73.1); Platelet Count Result 204 k/mm3 (150-375); Red Blood Count 4.76 M/mm3 (4.6-6.20); Red Cell Distribution Width 14.4 % (11.5-14.5); White Blood Count 6.9 K/mm3 (4.5-10.0)
[2023-05-09 17:02] LABS: Alanine Aminotransferase 26 U/L (6-50); Albumin Level 3.8 g/dL (3.5-5.1); Alkaline Phosphatase 121 U/L (38-126); Anion Gap 5 mmol/L (8-16); Aspartate Amino Transferase 27 U/L (17-59); Bilirubin,Total 1.4 mg/dL (0.2-1.3); Blood Urea Nitrogen 14 mg/dL (9-20); Calcium 8.6 mg/dL (8.4-10.2); Carbon Dioxide 30 mmol/L (22-30); Chloride 102 mmol/L (98-107); Cholesterol 149 mg/dL (0-200); Estimated Glomerular Filt Rate > 60; Glucose 100 mg/dL (65-110); HDL Direct 42 mg/dL; Sodium 137 mmol/L (137-145); Triglycerides 71 mg/dL (<150); Uric Acid 5.3 mg/dL (3.5-8.5)
[2023-05-09 17:11] LABS: Appearance Urine Cloudy (Clear); Bacteria Urine None Seen /hpf; Bilirubin Urine Negative (Negative); Blood Urine Negative (Negative); Color Urine Dark Yellow (Yellow); Glucose Urine UA Negative (Negative); Ketones Urine Trace mg/dL (Negative); Leukocyte Esterase Ur Negative LEU/UL (Negative); Nitrate Urine Negative (Negative); Non Pathogenic Casts 0-2; Protein Urine Negative (Negative); RBC Urine 0-2 /hpf (0-2); Specific Grav Ur 1.023 (1.001-1.035); Squamous Epithelial Cell Urine Occasional /hpf (Few); WBC Urine 0-5 /hpf
[2023-05-09 17:13] LABS: LDL Cholesterol Direct 81 mg/dL
[2023-05-09 17:14] LABS: Add Urine Microscopic? YES
[2023-05-09 17:36] LABS: Vitamin D 25 Hydroxy 40.8 ng/mL
[2023-05-10 09:37] LABS: Magnesium 2.3 mg/dL (1.6-2.3)
== END 2023-05-09 16:11 | disposition home or self-care (01) ==
LOC: ANHLAB 16:19
PROVIDERS: PCP Nurse Practitioner Family; Visit Provider Nurse Practitioner Family
DX: E78.00 Pure hypercholesterolemia, unspecified (principal); I10 Essential (primary) hypertension; Z12.5 Encounter for screening for malignant neoplasm of prostate; E55.9 Vitamin D deficiency, unspecified; E53.8 Deficiency of other specified B group vitamins; F41.9 Anxiety disorder, unspecified
CPT/HCPCS: 36415; 80053; 80061; 81001; 82306; 82607; 82746; 83735; 84153; 84443; 84550; 85025; G0103

== ENCOUNTER 2024-03-24 15:09 | Emergency (ER) | payer OTHER, MEDICARE, SELFPAY ==
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
[2024-03-24 15:12] VITALS: BP 111/61; PULSE 60; RESP 14; TEMP 36.5; O2SAT 98
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
[2024-03-24] MEDS: KETOROLAC 15 MG/ML VIAL (*BKC) IM (17:31)
[2024-03-24] MEDS: oxyCODONE HCL (*CRX) 5 MG TAB IR PO (17:31)
[2024-03-24 18:51] LABS: Add Urine Microscopic? YES; Appearance Urine Clear (Clear); Bacteria Urine None Seen /hpf; Bilirubin Urine Negative (Negative); Blood Urine Negative (Negative); Color Urine Dark Yellow (Yellow); Glucose Urine UA Negative (Negative); Ketones Urine Negative (Negative); Leukocyte Esterase Ur Negative LEU/UL (Negative); Mucus Urine Present /lpf; Need Manual Microscopic Reviewed; Nitrate Urine Negative (Negative); Non Pathogenic Casts 0-2; Protein Urine Trace mg/dL (Negative); RBC Urine 0-2 /hpf (0-2); Specific Grav Ur 1.024 (1.001-1.035); Squamous Epithelial Cell Urine None Seen /hpf (Few); WBC Urine 0-5 /hpf (0-3); pH Urine 5.5 (5.0-9.0)
--- NOTE | 2024-03-24 19:06 | PC.NURSE ---
Report received from DESTINI De León. Assumed care of patient at this time.
[2024-03-24 20:05] VITALS: BP 123/75; PULSE 45; RESP 17; TEMP 36.8; O2SAT 100
== END 2024-03-24 20:08 | disposition home or self-care (01) ==
PROVIDERS: Emergency Provider Emergency Medicine; PCP Nurse Practitioner Family
DX: M54.9 Dorsalgia, unspecified (principal); G89.29 Other chronic pain; I10 Essential (primary) hypertension; J45.909 Unspecified asthma, uncomplicated; E66.9 Obesity, unspecified; Z68.37 Body mass index [BMI] 37.0-37.9, adult; G47.30 Sleep apnea, unspecified; K21.9 Gastro-esophageal reflux disease without esophagitis; M47.812 Spondylosis without myelopathy or radiculopathy, cervical region; M48.14 Ankylosing hyperostosis [Forestier], thoracic region; M47.816 Spondylosis without myelopathy or radiculopathy, lumbar region; F32.A Depression, unspecified; Z79.899 Other long term (current) drug therapy
CPT/HCPCS: 72125; 72128; 72131; 81001; 96372; 99284; A9270; J1885

== ENCOUNTER 2024-06-04 10:35 | Emergency (ER) | payer MEDICARE, SELFPAY ==
--- NOTE | 2024-06-04 10:44 | PC.NURSE ---
left before triaged. Handed this RN papers from his PCP and has order for xray left knee and outpt labs. Pt reports he is going to front of the building for lab/radiology
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
--- OUTSIDE RECORDS SUMMARY | 2024-06-04 11:04 | XMS_ITS | Encounter Summary ---
Author Organization [facility] Address [address] [place] [address]. [place], [place] [address] [place] [address] Care Team Providers Care Transmission And Coordination Engineer Name Role Phone Erin Nicole SUJATHA Primary Care Provider [phone] Renny Weaver MD Unavailable [phone] Encounter Details Date Type Department Care Team (Late st Contact Info) Description 12/02/2019 Prep for Procedure [facility] [place] [address] Denis Higgins MD [address] [place] [address] Social History Tobacco Use Types Packs/Day Years Used Date Smoking Tobacco: Never Smokeless Tobacco: Never Alcohol Use Standard Drinks/Week Comments Yes 0 (1 standard drink = 0.6 oz pur e alcohol) 2-3 beers a week AUDIT-C Answer Date Recorded Frequency of Alcohol Consumption 4 or more times a week 08/30/2018 Average Number of Drinks Not on file 019 Frequency of Binge Drinking Not on file 06/2018 PHQ-2 Answer Date Recorded PHQ-2 Score 2 05/07/2019 Sex and Gender Information Value Date Recorded Sex Assigned at Male 06/04/2024 9:38 AM CRATE BUILDER Legal Sex Male 10:27 PM CRATE BUILDER Gender Identity Male 06/04/2024 9:38 AM CRATE BUILDER Sexual Orientation Not on file 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 No / Unsure 12/02/2019 2:24 PM CDT documented as of this encounter Plan of Treatment Upcoming Encounters Date Type Department Care Team (Late st Contact Info) Description 07/02/2024 1:20 PM CRATE BUILDER Office Visit [facility] Family & Internal Medicine - [place] [id number] [place] [address] Erin Nicole FNP [address] [place] [address] documented as of this encounter Visit Diagnoses Diagnosis Preop examination- Primary Preoperative examination, unspecified documented in this encounter Additional Health Concerns Infection Onset Date Last Indicated Resolved Time COVID-19 Rule Out 02/01/2020 02/01/2020 02/02/2020 1:26 PM CDT COVID-19 Rule Out 03/17/2020 09/11/2019 03/17/2020 10:13 AM CRATE BUILDER COVID-19 Rule Out 05/26/2020 05/30/2020 06/02/2020 12:34 AM CRATE BUILDER COVID-19 Rule Out 04/13/2022 04/13/2022 04/20/2022 12:32 AM CRATE BUILDER Assessment Noted Time PHQ-9 Depression Total Score: 5 05/31/19 20 1:19 PM CRATE BUILDER documented as of this encounter Care Teams Transmission And Coordination Engineer Relationship Specialty Start Date End Date Erin Nicole FNP [address] [place] [address] PCP - General Nurse Practitioner Family 12/06/18 Renny Weaver MD [address] [place] [address] PCP - Med Group - [facility] Attributed Provider 03/05/19 05/01/20 documented as of this encounter
--- OUTSIDE RECORDS SUMMARY | 2024-06-04 11:04 | XMS_ITS | Referral Summary ---
Author Organization [facility] Address [address] [facility] [place] [address] Care Team Providers Care Computing Tutor Name Role Phone Erin Nicole APRN-ENERGY DERIVATIVES TRADER Primary Care Provider [phone] Source Comments [facility],non-owned Affiliates and Associated Physician Practices is amultiple site organization consisting of ambulatory clinics and hospital sitesin [place], [place], [place] and [place]. This disclosure is being madepursuant to the Care Everywhere program and may not contain all information available regarding this patient. Last updated 18.[facility] Allergies No known active allergies Medications * Be aware that medications may not be up to date on this document. Alwaysverify current medications with the patient. Medication Sig Dispensed Refills Start Date End Date Status METOPROLOL TARTRATE PO Take by mouth. Active hydrocodone-acetaminop hen (NORCO) 5-325 MG tablet Take 1 Tab by mouth every 4 hours as needed for Pain. Active ibuprofen (MOTRIN) 800 MG tablet Take 800 mg by mouth every 6 hours as needed for Pain. Active oxyCODONE-acetaminophe n (PERCOCET) 5-325 MG tablet Take 1 Tab by mouth every 4 hours as needed for Pain. 10 Tab 0 02/19/2014 Active Social History Tobacco Use Types Packs/Day Years Used Date Smoking Tobacco: Never Alcohol Use Standard Drinks/Week Comments Yes 5 (1 standard drink = 0.6 oz pur e alcohol) Sex and Gender Information Value Date Recorded Sex Assigned at Not on file Gender Identity Not on file Sexual Orientation Not on file Last Filed Vital Signs Vital Sign Reading Time Taken Comments Blood Pressure 132/83 02/19/2014 12:23 PM CDT Pulse 61 02/19/2014 12:23 PM CDT Temperature 36.5 ??C (97.7 ??F) 02/19/2014 12:23 PM C DT Respiratory Rate 20 02/19/2014 12:23 PM CDT Oxygen Saturation 96% 02/19/2014 12:23 PM CDT Inhaled Oxygen Concentration - - Weight 165.6 kg (365 lb) 02/19/2014 12:23 PM CDT Height 190.5 cm (6' 3 ) 02/19/2014 12:23 PM CDT Body Mass Index 45.62 02/19/2014 12:23 PM CDT Plan of Treatment Not on file Care Teams Computing Tutor Relationship Specialty Start Date End Date Erin Nicole APRN-PRO [address] [place] [address] PCP - General 07/03/19
--- OUTSIDE RECORDS SUMMARY | 2024-06-04 11:04 | XMS_ITS | Encounter Summary ---
Author Organization [facility] Address [address] [place] [address]. [place], [place] [address] [place] [address] Care Team Providers Care Records And Tape Recordings Engineer Name Role Phone Erin Nicole Primary Care Provider [phone] Reason for Referral * Imaging (Routine) - New Request Specialty Diagnoses / Procedures Referred By José Miguel rivera Referred To Contact RADIOLOGY Diagnoses Chronic pain of left knee Procedures XR KNEE LT 3V Erin Nicole FNP [address] [place] [address] Phone: tel: fax: Referral ID Status Reason Start Date Expiration Date V isits Requested Visits Authorized [id number] New Request 06/04/2024 06/04/2025 1 1 SION ORDER TECHNICIAN * Consultation (Routine) - New Request Specialty Diagnoses / Procedures Referred By José Miguel rivera Referred To Contact NEUROLOGY Diagnoses Tremors of nervous system Family history of Parkinson disease Procedures OFFICE/OUTPATIENT NEW LOW MDM 30-44 MINUTES OFFICE/OUTPT VISIT,NEW,LEVL IV OFFICE/OUTPT VISIT,NEW,LEVL V OFFICE/OUTPT VISIT,EST,LEVL III OFFICE/OUTPT VISIT,EST,LEVL IV OFFICE/OUTPT VISIT,EST,LEVL V Erin Nicole FNP [address] [place] [address] Phone: tel: fax: Referral ID Status Reason Start Date Expiration Date Visits Requested Visits Authorized [id number] New Request Specialty Services 06/04/2024 07/05/2025 1 1 SION ORDER TECHNICIAN Reason for Visit * Reason Comments Information Need a help at home, Depression Having thoughts, Encounter Details Date Type Department Care Team (Late st Contact Info) Description 06/04/2024 9:20 AM DIVISION ORDER TECHNICIAN Office Visit [facility] Family & Internal Medicine [id number] [place] [address] Erin Nicole FNP [address] [place], [place] [phone] Information (Need a help at home, /); Depression (Having thoughts, ) Social History Tobacco Use Types Packs/Day Years Used Date Smoking Tobacco: Never Smokeless Tobacco: Never Tobacco Cessation:Counseling Given: Not Answered Alcohol Use Standard Drinks/Week Comments Yes 0 (1 standard drink = 0.6 oz pur e alcohol) 2-3 beers a week AUDIT-C Answer Date Recorded Frequency of Alcohol Consumption 4 or more times a week 08/30/2018 Average Number of Drinks Not on file Frequency of Binge Drinking Not on file 06/2018 PHQ-2 Answer Date Recorded Patient Health Questionnaire-2 Score 6 06/04/2024 Sex and Gender Information Value Date Recorded Sex Assigned at Male 06/04/2024 9:38 AM DIVISION ORDER TECHNICIAN Legal Sex Male 10:27 PM DIVISION ORDER TECHNICIAN Gender Identity Male 06/04/2024 9:38 AM DIVISION ORDER TECHNICIAN Sexual Orientation Not on file 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 Not on file Not on file Not on file Not on file Not on file Not on file documented as of this encounter Last Filed Vital Signs Vital Sign Reading Time Taken Comments Blood Pressure 130/60 06/04/2024 9:40 AM DIVISION ORDER TECHNICIAN Pulse 62 06/04/2024 9:40 AM DIVISION ORDER TECHNICIAN Temperature 36.6 ??C (97.9 ??F) 06/04/2024 9:40 AM CS T Respiratory Rate 15 06/04/2024 9:40 AM DIVISION ORDER TECHNICIAN Oxygen Saturation 99% 06/04/2024 9:40 AM DIVISION ORDER TECHNICIAN Inhaled Oxygen Concentration - - Weight 145.3 kg (320 lb 6.4 oz) 06/04/2024 9:40 AM DIVISION ORDER TECHNICIAN Height 190.5 cm (6' 3 ) 06/04/2024 9:40 AM DIVISION ORDER TECHNICIAN Body Mass Index 40.05 06/04/2024 9:40 AM DIVISION ORDER TECHNICIAN documented in this encounter Plan of Treatment Upcoming Encounters Date Type Department Care Team (Late st Contact Info) Description 07/02/2024 1:20 PM DIVISION ORDER TECHNICIAN Office Visit [facility] Family & Internal Medicine - [place] [address] [place] [address] Erin Nicole FNP [address] [place] [address] Scheduled Orders Name Type Priority Associated Diagnoses Orde r Schedule XR KNEE LT 3V Imaging Routine Chronic pain of left knee Expected: 06/04/2024, Expires: 06/04/2025 Scheduled Referrals Name Type Priority Associated Diagnoses Orde r Schedule Ambulatory referral to Neurology (OTHER) Referral Routine Tremors of nervous system Family history of Parkinson disease Ordered: 06/04/2024 documented as of this encounter Visit Diagnoses Diagnosis 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 Chronic a-fib (CMS/HCC HHS/HCC) Atrial fibrillation Morbid obesity (CMS/HCC HHS/HCC) Morbid obesity Other chronic pain Tremors of nervous system Abnormal involuntary movements Family history of Parkinson disease Chronic pain of left knee Pain in joint, lower leg documented in this encounter Additional Health Concerns Assessment Noted Time PHQ-9 Depression Total Score: 24 025 9:38 AM DIVISION ORDER TECHNICIAN documented as of this encounter Care Teams Records And Tape Recordings Engineer Relationship Specialty Start Date End Date Erin Nicole FNP [address] [place] [address] PCP - General Nurse Practitioner Family 12/06/18 documented as of this encounter
--- OUTSIDE RECORDS SUMMARY | 2024-06-04 11:04 | XMS_ITS | Clinical Summary ---
Author Organization [facility] Address [address] [place] [address]. [place], [place] [id number] [place] [address] Care Team Providers Care University Administrator Name Role Phone Erin Nicole SUJATHA Primary Care Provider [phone] Allergies No known active allergies Medications Cholecalciferol (VITAMIN D) 2000 units Tab Take 1 tablet (50 mcg total) by mouth daily. 30 tablet 019 Active hydrocortisone 2.5 % Cream cream Apply 1 each topically 2 (two) times daily as needed (rash). 019 Active magnesium 250 MG tabletIndication s:Leg cramp Take 2 tablets (500 mg total) by mouth daily. 30 tablet 020 Active NEBULIZER/TUBING /MOUTHPIECE KIT, DME,Indications: COPD (chronic obstructive pulmonary disease) ([facility]) 1 kit by Other route every 4 (four) hours as needed. 1 kit 1 020 Active Additional Information Patient not taking.Reported on 06/04/2024 Multiple Vitamins-Mineral s (MENS MULTIVITAMIN OR) Take 1 tablet by mouth daily. Active SYRINGE-NEEDLE, DISP, 3 ML (LUER LOCK SAFETY SYRINGES) 25G X 1 3 ML MiscIndications: Vitamin B 12 deficiency 1 Device by Does not apply route monthly. 50 each 020 Active albuterol sulfate HFA (PROAIR HFA) 108 (90 Base) MCG/ACT inhalerIndicatio ns:SOB (shortness of breath) Inhale 2 puffs into the lungs every 6 (six) hours as needed for Wheezing. 1 Inhaler 11 Active Additional Information Patient not taking.Reported on 06/04/2024 NEBULIZER SUPPLY, DME,Indications: COPD (chronic obstructive pulmonary disease) ([facility]) 1 Package by Other route every 4 (four) hours as needed. 1 Package Active Additional Information Patient not taking.Reported on 06/04/2024 nitroglycerin 0.[address] 1 tablet (0.4 mg total) under the tongue every 15 (fifteen) minutes as needed. Active folic acid 400 MCG tablet daily. Active IPRATROPIUM-ALBU TEROL 0.5-2.5 (3) MG/3ML SolutionIndicati ons:SOB (shortness of breath) INHALE THE CONTENTS OF ONE VIAL (3 ML) BY MOUTH VIA NEBULIZER EVERY 4 HOURS 90 mL 1 Active Additional Information Patient not taking.Reported on 06/04/2024 NEBULIZER DEVICE, DME,Indications: Chronic obstructive pulmonary disease, unspecified COPD type ([facility]) Take 1 Device by nebulization every 4 (four) hours as needed. 1 Device Active Additional Information Patient not taking.Reported on 06/04/2024 fluticasone furoate-vilanter ol (BREO ELLIPTA) 100-25 MCG/INH inhaler Breo Ellipta 100 mcg-25 mcg/dose powder for inhalation TAKE 1 PUFF BY MOUTH EVERY DAY Active triamcinolone (KENALOG) 0.1 % ointmentIndicati ons:Rash Apply topically 3 (three) times daily as needed. To legs and areas of concern 454 g 1 Active Cyanocobalamin (VITAMIN B-12) 50 MCG Tab Active atorvastatin (LIPITOR) 20 MG tabletIndication s:Hypercholester olemia take 1 tablet by mouth every day 90 tablet 3 Active naloxone (NARCAN) 4 MG/0.1ML nasal sprayIndications :High risk medication use 1 spray by Nasal route as needed for Opioid reversal. may repeat every 2 to 3 minutes in alternating nostrils until medical assistance becomes available 1 each 024 04/04/ 2025 Active lisinopril (PRINIVIL) 40 MG tabletIndication s:Essential hypertension take 1 tablet by mouth every day 90 tablet 3 024 Active nystatin (MYCOSTATIN) creamIndications :Rash Apply to buttock rash two times a day 30 g 2 024 Active Additional Information Patient not taking.Reported on 06/04/2024 hydroCHLOROthiaz ofelia (MICROZIDE) 12.5 MG capsuleIndicatio ns:Essential hypertension,Loc alized swelling of both lower legs Take 1 capsule (12.5 mg total) by mouth every morning. 90 capsule 024 Active omeprazole (PRILOSEC) 40 MG capsuleIndicatio ns:GERD (gastroesophagea l reflux disease) TAKE 1 CAPSULE (40 MG TOTAL) BY MOUTH DAILY. 90 capsule 024 Active traZODone (DESYREL) 100 MG tabletIndication s:Primary insomnia Take 2 tablets (200 mg total) by mouth nightly as needed. FOR SLEEP 180 tablet 1 024 Active ibuprofen (MOTRIN) 800 MG tabletIndication s:Osteoarthritis of multiple joints, unspecified osteoarthritis type TAKE 1 TABLET BY MOUTH EVERY 8 HOURS NEEDED 90 tablet 1 024 Active neomycin-polymyx in-dexamethasone (MAXITROL) 3.5-63721-1.1 SuspensionIndica tions:Ear pain Place into both eyes 4 (four) times daily. 5 mL 025 Active methocarbamol (ROBAXIN) 750 MG TabIndications:O steoarthritis of multiple joints, unspecified osteoarthritis type TAKE 1 TABLET BY MOUTH FOUR TIMES DAILY NEEDED (PAIN). 120 tablet 025 Active HYDROcodone-acet aminophen (NORCO) 5-325 MG tabletIndication s:Chronic Pain Take 1-2 tablets by mouth every 8 (eight) hours as needed for Pain. Indications: Chronic Pain 120 tablet 025 Active diazePAM (VALIUM) 5 MG tabletIndication s:Other chronic pain,DDD (degenerative disc disease), cervical,DDD (degenerative disc disease), lumbar TAKE 1-2 TABS BY MOUTH EVERY 12 HOURS NEEDED FOR ANXIETY/MUSCLE SPASMS. DONT TAKE W/ HYDROCODONE 60 tablet 1 025 Active DULoxetine (CYMBALTA) 20 MG capsuleIndicatio ns:Mild episode of recurrent major depressive disorder (CMS/HCC),Other chronic pain Take 1 capsule (20 mg total) by mouth daily. 90 capsule 1 025 Active albuterol (2.5 MG/3ML) 0.083% nebulizer solutionIndicati ons:COPD (chronic obstructive pulmonary disease) (CMS/HCC HHS/HCC) Take 3 mLs (2.5 mg total) by nebulization every 4 (four) hours as needed for Wheezing. 360 mL 1 021 2024 Discontinued(P t. elected to discontinue med) neomycin-polymyx in-hydrocortison e (CORTISPORIN) otic solutionIndicati ons:Ear pain Place 3 drops in ear(s) 4 (four) times daily for 10 days. 10 mL 023 2024 Discontinued(R eorder) DULoxetine (CYMBALTA) 30 MG capsuleIndicatio ns:Other chronic pain TAKE 3 CAPSULES BY MOUTH EVERY DAY 270 capsule 1 023 2024 Discontinued(D ose adjustment) methocarbamol (ROBAXIN) 750 MG TabIndications:O steoarthritis of multiple joints, unspecified osteoarthritis type Take 1 tablet (750 mg total) by mouth 4 (four) times daily as needed (pain). 120 tablet 024 2024 Discontinued IBRAHIMA Soria, (MEDROL DOSEPAK) 4 MG tabletIndication s:Chronic midline low back pain with left-sided sciatica Take 1 tablet (4 mg total) by mouth see administration instructions. 6 TABLETS ON DAY ONE, 5 TABLETS DAY TWO, 4 TABLETS DAY THREE, 3 TABLETS DAY FOUR, 2 TABLETS DAY FIVE, AND 1 TABLET DAY SIX 1 each 024 2024 Discontinued(T herapy completed) diazePAM (VALIUM) 5 MG tabletIndication s:Other chronic pain,DDD (degenerative disc disease), cervical,DDD (degenerative disc disease), lumbar TAKE 1-2 TABS BY MOUTH EVERY 12 HOURS NEEDED FOR ANXIETY/MUSCLE SPASMS. DONT TAKE W/ HYDROCODONE 60 tablet 1 025 2024 Discontinued(R eorder) HYDROcodone-acet aminophen (NORCO) 5-325 MG tabletIndication s:Chronic Pain Take 1-2 tablets by mouth every 8 (eight) hours as needed for Pain. Indications: Chronic Pain 120 tablet 025 2024 Discontinued(R eorder) neomycin-polymyx in-hydrocortison e (CORTISPORIN) otic solutionIndicati ons:Ear pain Place 3 drops in ear(s) 4 (four) times daily for 10 days. 10 mL 025 2024 Discontinued Hospital, Clinic, or Other Facility Administered Medication Ordered Dose Route Frequency Start Date End Date Status cyanocobalamin (B-12) injection 1,000 mcgIndications:B12 deficiency 1000 mcg IM Once 05/31/2019 Active Active Problems Problem Noted Date Diagnosed Date Lumbar spondylosis 05/09/2023 Family history of diabetes mellitus 02/06/2023 Acquired buried penis 07/18/2022 Recurrent UTI 06/08/2022 Other chronic pain 06/08/2022 At risk for self care deficit 06/08/2022 Unsatisfactory living conditions 06/08/2022 Paroxysmal atrial fibrillation ([facility]) 03/18/2022 Sciatica 03/16/2022 Fall, subsequent encounter 03/16/2022 Chronic a-fib ([facility]) 03/16/2022 Renal mass 02/14/2022 Tendinopathy of right biceps tendon 12/21/2021 Decreased range of motion of right shoulder 11/30 Benign prostatic hyperplasia 07/19/2021 Candidal balanitis 07/19/2021 Microscopic hematuria 07/19/2021 Mass of left thigh 07/14/2021 Fungal skin infection 07/14/2021 Irritation of penis 12/30/2020 Hypercholesterolemia 10/30/2020 Allergic dermatitis 09/14/2020 Family history of heart disease 09/14/2020 Obstructive sleep apnea 09/11/2020 Backache 09/08/2020 Disorder of bursae of shoulder region 09/08/2020 Disorder of rotator cuff 09/08/2020 Disorder of knee 09/08/2020 Enthesopathy of hip region 09/08/2020 Hip pain 09/08/2020 Lumbosacral strain 09/08/2020 Neck sprain 09/08/2020 Recurrent dislocation of shoulder region 021 Shoulder joint pain 09/08/2020 Mild episode of recurrent major depressive disor cl 06/08/2020 Muscle cramps 06/19/2019 Rash 02/10/2019 Vitamin B12 deficiency 02/07/2019 Gastroesophageal reflux dise ase, esophagitis presence not specified 02/07/2019 Neuropathy 10/28/2018 Fatigue, unspecified type 10/28/2018 Gallstones 10/08/2018 Lumbar radiculopathy 10/03/2018 Bradycardia 09/04/2018 Morbid obesity ([facility]) 09/04/2018 Essential hypertension 09/04/2018 Osteoarthritis of multiple j oints, unspecified osteoarthritis type 09/04/2018 Vitamin D deficiency 09/04/2018 Primary insomnia 09/04/2018 Anxiety 09/04/2018 DDD (degenerative disc disease), cervical 2018 DDD (degenerative disc disease), lumbar 09/05/19 19 Chronic back pain 07/06/2017 Chronic back pain 07/05/2017 Resolved Problems Problem Noted Date Diagnosed Date Resolved Date Localized swelling of both lower legs 07/14/2021 02/08/2023 Premature atrial contraction 11/27/2020 02/08/2023 Chest pain, unspecified type 09/14/2020 02/08/2023 Chronic obstructive pulmonar y disease ([facility]) 09/11/2020 07/08/2021 Traumatic injury of external genitalia 09/08/2020 05/09/2023 Sinus node dysfunction ([facility]) 09/11/2019 09/14/2020 Chronic coughing 08/13/2019 02/06/2023 History of chronic cough 08/13/201911/2022 Chronic nausea 08/13/2019 02/06/2023 Acute cystitis without hematuria 08/13/2019 09/14/2020 SOB (shortness of breath) 08/13/2019 Urinary frequency 08/13/2019 09/14/2020 Depression 06/19/2019 06/08/2022 Wheezing 06/05/2019 02/06/2023 B12 deficiency 06/05/2019 09/14/2020 Facial numbness 02/10/2019 06/08/2022 Influenza vaccine needed 02/10/201903/2020 Dark brown-colored urine 10/28/2018 Abdominal bloating 10/08/2018 Pilonidal cyst with abscess 10/08/2018 02/08/2023 Chronic right shoulder pain 09/04/2018 02/06/2023 Right upper quadrant abdominal pain 09/04/2018 02/06/2023 Encounters Date Type Department Care Team Description 06/04/2024 9:20 AM ANIMAL ANATOMIST Office Visit [facility] Internal [address] [address] Erin Nicole FNP Information (Need a help at home, /); Depression (Having thoughts, ) 06/04/2024 Travel 05/28/[address] [phone] Erin Nicole FNP Prior Authorization (Diazepam 5mg tablets) 05/21/2024 Orders Only [facility] [address] [phone] Erin Nicole FNP 05/03/2024 Telephone [facility] [address] [address] Erin Nicole FNP Medication Request 04/05/2024 Scan [facility] Scanned, [facility] 04/04/[address] [phone] Erin Nicole FNP Refill Request 03/24/2024 Scan [facility] Scanned, [facility] CT (SCAN); Lab (SCAN) 03/08/[address] [address] Erin Nicole FNP Medication 03/08/2024 Orders Only [facility] [address] [address] Je Luna PA-C 03/05/2024 9:40 AM ANIMAL ANATOMIST Office Visit [facility] [address] [address] Erin Nicole FNP Follow Up (Patient due for follow up.); Anxiety; Hypertension; Hyperlipidemia; Back Pain (Patient c/o increasing sciatic pain x 3 weeks.); Wound (Patient c/o wound on buttocks x 3 weeks. Patient believes it may be healing. Patient states it has come and gone for approximately 10 years. ) 03/05/2024 Telephone [facility] [address] [address] Erin Nicole FNP Information 03/05/2024 Travel from Last 3 Months Immunizations Name Administration Dates Next Due Arexvy Respiratory Syncytial Virus (RSV, adjuvanted) 0.5 mL, PF 04/28/2023 Fluzone High Dose (IIV, triv alent, 0.5mL) 12/10/2023 Fluzone High Dose - >Age 65 (Prefilled Syringe) 02/06/2023,03/08/2022,03/30/2021,2018 Influenza (Generic) 01/29/2018 Influenza Adult (Generic) 02/06/2023,11/2021,03/30/2021,2019,05/17/2018,05/17/2018,01/29/2018,1 ,04/09/2014 PFIZER COVID-19 (ORIGINAL FORMULATION, PURPLE CAP) mRNA, LNP-S, PF, 30 MCG/0.3 ML DOSE 04/16/2021,08/24/2020,07/26/2020 Pneumococcal (Pneumovax 23) 12/29/2020 Pneumococcal (Prevnar 13) 05/31/2019 Tdap (Generic) 12/10/2023 Family History Medical History Relation Comments Cancer Brother 1 Bone Diabetes Brother 1 Pacemaker Brother 1 Sleep Apnea Brother 1 Diabetes Brother 2 Lung Cancer Brother 2 Sleep Apnea Brother 2 CHF Father Diabetes Father Parkinson's Disease Maternal Grandfather Obesity Maternal Grandmother Parkinson's Disease Maternal Uncle Anxiety Mother CHF Mother Hypertension Mother Obesity Mother Relation Status Comments Brother 1 (Age 72) Brother 2 (Age 64) Brother 3 Alive Father Maternal Grandfather Maternal Grandmother Maternal Uncle Mother Sister Alive Social History Tobacco Use Types Packs/Day Years [...] Sex Assigned at Male 06/04/2024 9:38 AM ANIMAL ANATOMIST Legal Sex Male 10:27 PM ANIMAL ANATOMIST Gender Identity Male 06/04/2024 9:38 AM ANIMAL ANATOMIST Sexual Orientation Not on file 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05 06/04/2024 9:40 AM ANIMAL ANATOMIST Plan of Treatment Upcoming Encounters Date Type Department Care Team (Late st Contact Info) Description 07/02/2024 1:20 PM ANIMAL ANATOMIST Office Visit [facility] Family & Internal Medicine - [address] [phone] Erin Nicole FNP [address] [place] [id number] Health Maintenance Due Date Last Done Comments Zoster Vaccines (1 of 2) 09/07/2003 Annual Medicare Wellness Visit 2018 COVID-19 Vaccine ( season) 2023 04/28/2023, 04/16/2021, 08/24/2020, Additional history exists PHQ-2 (Physician [place]) 05/01/2024 05/09/2023 Colorectal Cancer Screening Colonoscopy (10 Years) 09/21/2028 09/21/2018 DTaP, Tdap and Td Vaccines (2 - Td or Tdap) 12/09/2033 12/10/2023 AAA SCREENING Completed 10/03/2019 Pneumococcal Vaccine: 65+ Years Completed 12/29/2020, 05/31/2019 Hepatitis C Completed 07/08/2021 RSV Immunization or 60+ Years Completed 04/28/2023 Influenza Adult Completed 12/10/2023, 12/2022, 02/06/2023, Additional history exists Meningococcal B Vaccine Aged Out No l onger eligible based on patient's age to complete this topic Meningococcal Vaccine Aged Out No vicky marlon eligible based on patient's age to complete this topic RSV Immunizations Under 20 Months Aged Out No longer eligible based on patient's age to complete this topic Procedures Procedure Name Priority Date/Time Associated Diagnosis Comments CT GENERIC 03/24/2024 CT GENERIC 03/24/2024 CT GENERIC 03/24/2024 OUTSIDE LAB (SCAN ORDER) 03/24/2024 MG/PCCL UDS W CONF Routine 03/05/2024 10 :42 AM ANIMAL ANATOMIST High risk medication use Other chronic pain HEPATITIS C ANTIBODY 07/08/2021 3:[address] ABD+PEL W CON STAT 10/03/2019 3:51 PM CDT Generalized abdominal pain Fever, unspecified fever cause Dysuria COLONOSCOPY GENERIC (SCAN ORDER) Routine 09/21/2018 from Last 3 Months or Most Recently Relevant to Health Maintenance Results * CT GENERIC (03/24/2024) Only the most recent of3 resultswithin the time period is included. Anatomical Region Laterality Modality Other 03/24/2024 [facility] Scanned SCANNING Final Resu lt * OUTSIDE LAB (SCAN ORDER) (03/24/2024) 03/24/2024 [facility] Scanned SCANNING Final Resu lt * (ABNORMAL) MG/PCCL UDS W CONF (03/05/2024 10:42 AM ANIMAL ANATOMIST) RESULT SUMMARY [facility] Comment: ?Prescribed ?Prescribed ?Not Prescribed ?Consistent ?Inconsistent ?Inconsistent ?Diazepam ?Hydrocodone ? PRESCRIBED DRUG 1 (U) Hydrocodone [facility] PRESCRIBED DRUG 2 (U) Diazepam [facility] FENTANYL SCREEN (U) NEGATIVE <0.5 ng/mL [facility] MORPHINE (U) NEGATIVE <10 ng/mL [facility] DESMETHYLTRAMADOL (U) NEGATIVE <100 ng/mL [facility] TRAMADOL (U) NEGATIVE <100 ng/mL [facility] TRAMADOL COMMENTS [facility] Comment:See LDT Notes AMPHETAMINES PM NEGATIVE <500 ng/mL [facility] BARBITURATES PM (U) NEGATIVE <300 ng/mL [facility] BENZODIAZEPINES PM (U) POSITIVE(A) <100 ng/mL [facility] [place] ALPHAHYDROXYALPRAZOLAM PM (U) NEGATIVE <25 ng/mL [facility] [place] [facility] MIDAZOLAM PM (U) NEGATIVE <50 ng/mL [facility] [place] ALPHAHYDROXYTRIAZOLAM PM (U) NEGATIVE <50 ng/mL [facility] [place] AMINOCLONAZEPAM PM (U) NEGATIVE <25 ng/mL [facility] [place] OH ET FLURAZEPAM PM (U) NEGATIVE <50 ng/mL [facility] [place] LORAZEPAM PM (U) NEGATIVE <50 ng/mL [facility] [place] NORDIAZEPAM PM (U) 486(H) <50 ng/mL [facility] [place] NORDIAZEPAM PM MM (U) CONSISTENT [facility] [place] [facility] OXAZEPAM PM (U) 1,047(H) <50 ng/mL [facility] [place] OXAZEPAM PM MEDMATCH (U) CONSISTENT [facility] [place] [facility] TEMAZEPAM PM 1,095(H) <50 ng/mL [facility] [place] TEMAZEPAM PM MEDMATCH (U) CONSISTENT [facility] [place] BENZODIAZEPINES COMMENTS [facility] [place] Comment:See Benzodiazepines Notes, LDT Notes COCAINE METABOLITE PM (U) NEGATIVE <150 ng/mL [facility] [place] MARIJUANA METABOLITE PM (U) NEGATIVE <20 ng/mL [facility] [place] METHADONE PM (U) NEGATIVE <100 ng/mL [facility] [place] OPIATES PM (U) POSITIVE(A) <100 ng/mL [facility] [place] CODEINE PM (U) NEGATIVE <50 ng/mL [facility] [place] HYDROCODONE PM (U) 131(H) <50 ng/mL [facility] [place] HYDROCODONE PM MEDMATCH (U) CONSISTENT [facility] [place] HYDROMORPHONE PM (U) 60(H) <50 ng/mL [facility] [place] HYDROMORPHONE PM MEDMATCH CONSISTENT [facility] [place] MORPHINE PM (U) NEGATIVE <50 ng/mL [facility] [place] NORHYDROCODONE PM (U) 376(H) <50 ng/mL [facility] [place] NORHYDROCODONE PM MM (U) CONSISTENT [facility] [place] OPIATES COMMENTS [facility] Comment:See Opiates Notes, L DT Notes OXYCODONE PM (U) NEGATIVE <100 ng/mL [facility] [place] CREATININE RANDOM (U) 77.8 > or = 20.0 mg/dL [facility] [place] pH PM (U) 7.4 4.5 - 9.0 [facility] [place] OXIDANT NEGATIVE <200 mcg/mL [facility] NOTE [facility] Comment: This drug testing is for medical treatment only. Analysis was performed as non-forensic testing and these results should be used only by healthcare providers to render diagnosis or treatment, or to monitor progress of medical conditions. Benzodiazepines Notes: Nordiazepam, Temazepam, Oxazepam detected is consistent with the use of the drug Diazepam. Temazepam ??can be a prescribed drug. Nordiazepam is also a metabolite of Chlordiazepoxide and Clorazepate. Oxazepam can be a prescribed drug and is also a metabolite of Chlordiazepoxide, Clorazepate and Temazepam. Nordiazepam, Oxazepam detected is consistent with the use of the drug Chlordiazepoxide. Nordiazepam is a also metabolite of Diazepam and Clorazepate. Oxazepam can be a prescribed drug and is also a metabolite of Diazepam and Temazepam. Temazepam, Oxazepam detected is consistent with the use of the drug Temazepam. Temazepam ??can be a prescribed drug and is also a metabolite of Diazepam. Oxazepam can be a prescribed drug and also a metabolite of Diazepam, Chlordiazepoxide, Clorazepate and Temazepam. Oxazepam detected is consistent with the use of the drug Oxazepam. Oxazepam can be a prescribed drug and is also a metabolite of Diazepam, Chlordiazepoxide, Clorazepate and Temazepam. Opiates Notes: Hydrocodone, Norhydrocodone, Hydromorphone detected is consistent with the use of the drug Hydrocodone. Hydromorphone detected is consistent with the use of the drug Hydromorphone. Hydromorphone can be a prescribed drug and is also a metabolite of Hydrocodone. LDT Notes: Confirmation tests were developed and their analytical performance characteristics have been determined by [facility]. It has not been cleared or approved by the FDA. This assay has been validated pursuant to the CLIA regulations and is used for clinical purposes. [employer] enables providers to identify if drug use is consistent or inconsistent with a corresponding prescribed medication(s) list. Healthcare Providers needing Interpretation assistance, please contact us at [phone] ( ) M-F, 8am to 10pm EST URINE SPECIMEN / Unknown 03/05/2024 10:42 AM ANIMAL ANATOMIST 03/06/2024 12:43 AM ANIMAL ANATOMIST Narrative Resulting Agency Comment Performing Organization Information: ?Site ID: ?Name: [facility] ?Address: [address] [place] [address] ?Director: Rogelio Barrios ?Site ID: [place] ?Name: [email or web address] ?Address: [address] [place] [address] ?Director: Marilyn Gordon MD Erin Nicole CUSTOMER RELATIONS CONSULTANT URINE ORDERABLES Final Result [employer] DIAGNOSTICS - LUCIA ORDERS [facility] [address] [place] [place] [address], [facility] [place] [facility] [address] [place] [address] * HEPATITIS C ANTIBODY (07/08/2021 3:20 PM ANIMAL ANATOMIST) HEPATITIS C AB <0.1 0.0 - 0.9 s/co ratio [facility] 1 Comment: ?Negative: ? < 0.8 ? Indeterminate: 0.8 - 0.9 ?Positive: ? > 0.9 The CDC recommends that a positive HCV antibody result be followed up with a HCV Nucleic Acid Amplification test ([id number]). 07/08/2021 3:20 PM ANIMAL ANATOMIST 07/08/2021 Narrative [facility] - 07/09/2021 12:10 PM ANIMAL ANATOMIST Performed at: ??01 - [facility] [address] ??[id number] Rerecording Mixer: Blaise Kirk PhD, Phone: ??[phone] us Erin [facility] Final Result Performing Organization Address City/State/[facility] Co de Phone Number [facility] [address] [place] [address] [facility] 1 * CT ABD+PEL W CON (10/03/2019 3:51 PM CDT) Anatomical Region Laterality Modality Abdomen Computed Tomogra phy 10/03/2019 3:51 PM CDT us Renny Weaver MD CT Final Result * COLONOSCOPY (09/21/2018) us Erin [facility] SCANNING Final Result from Last 3 Months or Most Recently Relevant to Health Maintenance Insurance [employer] Care Teams University Administrator Relationship Specialty Start Date End Date Erin Nicole FNP [facility] [place] [address] PCP - General Nurse Practitioner Family 12/06/18
--- OUTSIDE RECORDS SUMMARY | 2024-06-04 11:04 | XMS_ITS | Clinical Summary ---
Author Organization [facility] Address [address] [place] [address] Care Team Providers Care Naturopathic Oncology Provider Name Role Phone Erin Nicole APRN-COMPOSITE BOND TECHNICIAN Primary Care Provider [phone] Source Comments [facility],non-owned Affiliates and Associated Physician Practices is amultiple site organization consisting of ambulatory clinics and hospital sitesin [place], [place], [place] and [place]. This disclosure is being madepursuant to the Care Everywhere program and may not contain all information available regarding this patient. Last updated 18.[facility] Allergies No known active allergies Medications * [...] 02/19/2014 12:23 PM CDT Plan of Treatment Health Maintenance Due Date Last Done Comments COLOGUARD (AGES 45-75) - COLON CA SCREENING 1953 COLON MONITORING 1953 COLONOSCOPY - COLON CA SCREENING 1953 CT COLONOGRAPHY - COLON CA SCREENING 1953 Colorectal Cancer Screening 1953 FIT - COLON CA SCREENING 1953 FLEX SIG - COLON CA SCREENING 1953 LIPID TESTING 1953 HEPATITIS C SCREENING 09/02/1971 DTAP/TDAP/TD VACCINES (1 - Tdap) 1972 PNEUMOCOCCAL VACCINE 50+ (1 of 1 - PCV) 09/07/2003 ZOSTER VACCINE (1 of 2) 09/07/2003 Respiratory Syncytial Virus (RSV) Vaccine Pt: or over 60 yrs (1 - Risk 60-74 years 1-dose series) 2013 COVID-19 VACCINE (1 - 2023- season) 2023 INFLUENZA VACCINE (#1) 2023 0, 05/17/2018, 01/29/2018, Additional history exists DEPRESSION SCREENING 05/01/2024 HEPATITIS B VACCINE Aged Out No longe r eligible based on patient's age to complete this topic HIB VACCINE Aged Out No longer eligi ble based on patient's age to complete this topic HPV VACCINE Aged Out No longer eligi ble based on patient's age to complete this topic MENINGOCOCCAL (Group B) VACCINE Aged Out No longer eligible based on patient's age to complete this topic MENINGOCOCCAL VACCINE Aged Out No vicky marlon eligible based on patient's age to complete this topic Care Teams Naturopathic Oncology Provider Relationship Specialty Start Date End Date Erin Nicole APRN-PRO [address] [place] [address] PCP - General 07/03/19
--- OUTSIDE RECORDS SUMMARY | 2024-06-04 11:05 | XMS_ITS | Continuity of Care Document ---
Author Organization [facility] Address [address] [facility] [address] [place] [address] Phone Care Team Providers Care Premises Technician Name Role Phone Rajendra Yoo MD Unavailable Unavailable Allergies, Adverse Reactions, Alerts Substance Reaction Status Criticality No Known Allergies Active No Inform ation Medications Medication Instructions Dosage Effective Dates (start - stop) Status Comments HYDROCODONE-ACETAMINOPHE N (unknown strength) Not Available - Active DIAZEPAM (unknown strength) Not Available - Active CYCLOBENZAPRINE HCL (unknown strength) Not Available - Active TRAZODONE HCL (unknown strength) Not Available - Active Procedures Procedure Date RADEX SPI LUMBOSAC 2/3 VIEWS DISABILITY EXAMINATION Advance Directives Directive Yes / No Effective Date File Name No Information Encounters Encounter Description Practice Location Reason(s) For Visit Diagnoses Date Provider Providers Copied on Encounter DISABILITY EXAMINATION [facility] , [address] [facility] [address], [place], [address], [place] tel:[phone] [facility] My back hurts alot (chief complaint) Body mass index (BMI) 45.0-49.9, adultLow back pain Fredo Drew. [address] [facility] [address] [place], [place], [id number]. tel:[phone] Family History Family Member Type Diagnosis Age At Onset Mother Problem (finding) Alive and well Father Problem (finding) Alive and well Payers Payer name Insurance type Covered alliance party ID Authoriza tion(s) No Information Social History Type Description Quantity Date Captured Comments Alcohol Use Details Unknown Caffeine Use Details Unknown Tobacco Use Status Never smoked tobacco 2016 Smoking Status Never smoker Non-Smoking Tobacco Use Details : No Details Available : No Details Available Sex Male Vital Signs Date / Time: Height Weight BMI Pulse Rate Blood Pressure Temperature Respiratory Rate Body Surface Area Head Circumference Head Circ. Percentile Wt./Otilio. Percentile BMI percentile Pulse Ox Inhaled Ox 3:08 PM 75.00 in 172.365 kg (380.00 lbs) 47.5 0 kg/m eter (2) 130/76 mm[Hg] Chief Complaint And Reason For Visit From encounter dated '05/30/2016 14:15'. My back hurts alot (chief complaint) Reason For Referral Reason For Referral No Information Plan Of Treatment Date Type Action Status Referral Ordered: RADEX SPI LUMBOSAC 2/3 VIEWS ordered History Of Present Illness Encounter Date Complaint History Of Prese nt Illness My back hurts alot Functional Status Date Functional Assessmen t No Information Instructions Date Instruction Additional Infor mation Dietary needs education Related to Body mass index (BMI) 45.0-49.9, adult Assessments Type Assessment Date assessment Body mass index (BMI) 45.0-49.9, adult assessment Low back pain Patient Care Teams Name Effective Dates (start - stop) Status Members No Information
--- OUTSIDE RECORDS SUMMARY | 2024-06-04 11:05 | XMS_ITS | Clinical Summary ---
Author Organization [facility] Address [address] [place] [phone] Care Team Providers Care Abalone Fisherman Name Role Phone Erin Nicole NP Primary Care Provider [phone] Allergies No known active allergies Medications betamethasone valerate (VALISONE) 0.1 % ointment Apply topically 2 (two) times a day Apply for 3 week on and 1 week off then repeat. 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 Gender Identity Not on file Sexual Orientation Not on file Obstetrics History Plan of Treatment Health Maintenance Due Date Last Done Comments Colon Cancer Screening-Colonoscopy 1953 Depression Screening 1953 Fall Risk Assessment 1953 Hepatitis C Screening 1953 DTaP/Tdap/Td Vaccine (1 - Tdap) 1964 Hepatitis B Screening 09/07/1971 Zoster Vaccine (1 of 2) 09/07/2003 Abdominal Aortic Aneurysm (A AA) Screen 2018 Well Visit 65+ 2018 Covid-19 Vaccine (2023-2 5 season) 2023 04/16/2021, 08/24/2020, 07/26/2020 Influenza Vaccine (#1) 2023 , 03/30/2021, 02/03/2020, Additional history exists Pneumococcal vaccine 65+ Completed 12/29/2020, 05/03 Insurance [employer] CHOICE MEDICARE PPO Care Teams Abalone Fisherman Relationship Specialty Start Date End Date Erin Nicole NP [address] [place] [address] PCP - General Nurse Practitioner 08/17/22
--- OUTSIDE RECORDS SUMMARY | 2024-06-04 11:05 | XMS_ITS | Encounter Summary ---
Author Organization [facility] Address [address] [place] [address]. [place], [place] [address] [place] [address] Care Team Providers Care Ditching Machine Operating Engineer Name Role Phone Erin Nicole SUJATHA Primary Care Provider [phone] Encounter Details Date Type Department Care Team (Late Contact Info) Description 02/16/2023 Blast Ramp Message Enc [facility] Family & Internal Medicine [address] [phone] [facility] Provider phone number Social History Tobacco Use Types Packs/Day Years [...] Answer Date Recorded Patient Health Questionnaire-2 Score 0 02/06/2023 Sex and Gender Information Value Date Recorded Sex Assigned at Male 06/04/2024 9:38 AM BROKER Legal Sex Male 10:27 PM BROKER Gender Identity Male 06/04/2024 9:38 AM BROKER Sexual Orientation Not on file 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 Not on file Not on file Not on file Not on file Not on file Not on file documented as of this encounter Plan of Treatment Upcoming Encounters Date Type Department Care Team (Late Contact Info) Description 07/02/2024 1:20 PM BROKER Office Visit [facility] Family & Internal Medicine - [place] [address] [place] [address] Erin Nicole FNP [address] [place] [address] documented as of this encounter Visit Diagnoses Not on filedocumented in this encounter Additional Health Concerns Assessment Noted Time PHQ-9 Depression Total Score: 1 02/07/20 23 2:52 PM CDT documented as of this encounter Care Teams Ditching Machine Operating Engineer Relationship Specialty Start Date End Date Erin Nicole FNP [address] [place] [address] PCP - General Nurse Practitioner Family 12/06/18 documented as of this encounter
--- OUTSIDE RECORDS SUMMARY | 2024-06-04 11:05 | XMS_ITS | Encounter Summary ---
Author Organization [facility] Address [address] [place] [address]. [place], [place] [address] [place] [address] Care Team Providers Care Mirror Framer Name Role Phone Erin Nicole SUJATHA Primary Care Provider [phone] Renny Weaver MD Unavailable [phone] Encounter Details Date Type Department Care Team (Late st Contact Info) Description 01/29/2020 Prep for Procedure [facility] Pre-Admission Testing 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 No / Unsure 01/28/2020 3:31 PM CDT documented as of this encounter Plan of Treatment Upcoming Encounters Date Type Department Care Team (Late st Contact Info) Description 07/02/2024 1:20 PM TURNER MACHINE OPERATOR Office Visit [facility] Family & Internal Medicine - [place] [id number] [place] [address] Corey Erin, APPLIED RESEARCHER [address] [place], [place] [id number] documented as of this encounter Results * PRE-SURGICAL/PRE-PROCEDURE CORONAVIRUS (COVID 19) (02/01/2020 11:55 AM CDT) CORONAVIRUS SARS COV 2 PCR (RESP) NOT DETECTED NOT DETECTED 02/02/2020 1:26 PM CDT [facility] Comment: A Not Detected (negative) test result for this test means that SARS- CoV-2 RNA was not present in the specimen above the limit of detection. A negative result does not rule out the possibility of COVID-19 and should not be used as the sole basis for treatment or patient management decisions. ??If COVID-19 is still suspected, based on exposure history together with other clinical findings, re-testing should be considered in consultation with public health authorities. Laboratory test results should always be considered in the context of clinical observations and epidemiological data in making a final diagnosis and patient management decisions. Please review the Fact Sheets and FDA authorized labeling available for health care providers and patients using the following websites: https://www.[employer]/home/Covid-19/HCP/NAAT/fact-sheet2 https://www.[employer]/home/Covid-19/Patients/NAAT/ fact-sheet2 This test has been authorized by the FDA under an Emergency Use Authorization (EUA) for use by authorized laboratories. Due to the current public health emergency, [facility] is receiving a high volume of samples from a wide variety of swabs and media for COVID-19 testing. In order to serve patients during this public health crisis, samples from appropriate clinical sources are being tested. Negative test results derived from specimens received in non-commercially manufactured viral collection and transport media, or in media and sample collection kits not yet authorized by FDA for COVID-19 testing should be cautiously evaluated and the patient potentially subjected to extra precautions such as additional clinical monitoring, including collection of an additional specimen. Methodology: ??Nucleic Acid Amplification Test (NAAT) includes PCR or TMA Additional information about COVID-19 can be found at the [facility] website: www.[employer]/Covid19. Test performed at [facility] [address] ??[id number] Director: ART BROCK DO,MPH FIRST TEST NO 02/01/2020 3:53 PM CDT [facility] EMPLOYED IN HEALTHCARE NO 02/01/2020 3:53 PM CDT [facility] SYMPTOMATIC DEFINED BY CDC NO 02/01/2020 3:53 PM CDT [facility] DATE OF SYMPTOM ONSET NO 02/01/2020 5:08 PM CDT [facility] HOSPITALIZATION STATUS NO 02/01/2020 3:53 PM CDT [facility] PATIENT IN ICU NO 02/01/2020 3:53 PM CDT [facility] RESIDENT OF [facility] NO 02/01/2020 3:53 PM CDT [facility] NOT 02/01/2020 5:08 PM CDT [facility] PATIENT'S RACE WHITE OR 02/01/2020 3:53 PM CDT [facility] ETHNICITY NONHISPANIC 02/01/2020 3:53 PM CDT [facility] SOURCE (QST) NASOPHARYNGEAL SWAB 02/01/2020 3:53 PM CDT [facility] NASOPHARYNGEAL SWAB / Unknown 02/01/2020 11:55 AM CDT us Denis Higgins MD MICROBIOLOGY - GENERAL CECILE KUNZ Final Result [facility] [address] [place] [address], [place] [phone] [facility] [address] [place] [address], [place] documented in this encounter Visit Diagnoses Diagnosis Preop examination- Primary Preoperative examination, unspecified documented in this encounter Additional Health Concerns Infection Onset Date Last Indicated Resolved Time COVID-19 Rule Out 02/01/2020 02/01/2020 02/02/2020 1:26 PM CDT COVID-19 Rule Out 03/17/2020 09/11/2019 03/17/2020 10:13 AM TURNER MACHINE OPERATOR COVID-19 Rule Out 05/26/2020 05/30/2020 06/02/2020 12:34 AM TURNER MACHINE OPERATOR COVID-19 Rule Out 04/13/2022 04/13/2022 04/20/2022 12:32 AM TURNER MACHINE OPERATOR Assessment Noted Time PHQ-9 Depression Total Score: 5 05/31/19 20 1:19 PM TURNER MACHINE OPERATOR documented as of this encounter Care Teams Mirror Framer Relationship Specialty Start Date End Date Erin Nicole FNP [address] [place] [address] PCP - General Nurse Practitioner Family 12/06/18 Renny Weaver MD [address] [place] [address] PCP - Med Group - [facility] Attributed Provider 03/05/19 05/01/20 documented as of this encounter
--- OUTSIDE RECORDS SUMMARY | 2024-06-04 11:05 | XMS_ITS | Referral Summary ---
Author Organization [facility] Address [address] [place] [phone] Care Team Providers Care Surgical Sales Representative Name Role Phone Erin Nicole NP Primary Care Provider [phone] Allergies No known active allergies Medications betamethasone valerate (VALISONE) 0.1 % ointment Apply topically 2 (two) times a day Apply for 3 week on and 1 week off then repeat. 30 g 11 Active Active Problems No known active problems Social History Tobacco Use Types Packs/Day Years Used Date Smoking Tobacco: Never Assessed Sex and Gender Information Value Date Recorded Sex Assigned at Not on file Legal Sex Male 6:40 PM CLINICAL RESEARCH NURSE COORDINATOR Gender Identity Not on file Sexual Orientation Not on file Plan of Treatment Not on file Insurance [employer] CHOICE MEDICARE PPO Care Teams Surgical Sales Representative Relationship Specialty Start Date End Date Erin Nicole NP [address] [place] [address] PCP - General Nurse Practitioner 08/17/22
--- OUTSIDE RECORDS SUMMARY | 2024-06-04 11:05 | XMS_ITS | Patient Health Summary ---
Author Organization [facility] Address [address] [facility] [place] [address] Care Team Providers Care Loss Prevention/Safety District Manager Name Role Phone Erin Nicole APRN-CANDLE MAKING SUPERVISOR Primary Care Provider [phone] Note from [facility],non-owned Affiliates and Associated Physician Practices is amultiple site organization consisting of ambulatory clinics and hospital sitesin [place], [place], [place] and [place]. This disclosure is being madepursuant to the Care Everywhere program and may not contain all information available regarding this patient. Last updated 18.[facility] [employer] Allergies No known active allergies Medications * Be aware that medications may not be up to date on this document. Alwaysverify current medications with the patient. * METOPROLOL TARTRATE PO Take by mouth. * hydrocodone-acetaminophen (NORCO) 5-325 MG tablet Take 1 Tab by mouth every 4 hours as needed for Pain. * ibuprofen (MOTRIN) 800 MG tablet Take 800 mg by mouth every 6 hours as needed for Pain. * oxyCODONE-acetaminophen (PERCOCET) 5-325 MG tablet(Started 02/19/2014) Take 1 Tab by mouth every 4 hours as needed for Pain. Social History Tobacco Use Types Packs/Day Years [...] Mass Index 45.62 02/19/2014 12:23 PM CDT Procedures * XR ANKLE LEFT 3VW OR MORE(Performed 02/19/2014) Performed for Ankle pain, left Results * XR ANKLE 3+ VW LEFT (02/19/2014 4:20 AM CDT) Anatomical Region Laterality Modality Lower Extremity Radiographic Pam ging 02/19/2014 8:38 AM CDT Impressions 02/19/2014 8:39 AM CDT 1. No acute fracture or dislocation. Narrative 02/19/2014 8:39 AM CDT Left ankle 02/19/2014. Indication: Trauma. Comparison: None. Findings: 3 views of the left ankle. No acute fracture. No dislocation. The mortise is not widened. There is small osseous fragment distal to the medial malleolus, well corticated, sequela of remote trauma. Procedure Note Inga Blackmon MD - 02/19/2014 Left ankle 02/19/2014. Indication: Trauma. Comparison: None. Findings: 3 views of the left ankle. No acute fracture. No dislocation. The mortise is not widened. There is small osseous fragment distal to the medial malleolus, well corticated, sequela of remote trauma. IMPRESSION 1. No acute fracture or dislocation. Daniel Vidal MD [facility] Care Teams Loss Prevention/Safety District Manager Relationship Specialty Start Date End Date Erin Nicole APRN-CANDLE MAKING SUPERVISOR [address] [place], [place] [phone] PCP - General 07/03/19
--- OUTSIDE RECORDS SUMMARY | 2024-06-04 11:05 | XMS_ITS | CONTINUITY OF CARE DOCUMENT ---
Author Name moses lopes Address Unknown Organization [facility] Address [address] [place] [address] Phone [phone] Care Team Providers Care Family Partner Name Role Phone Sourav Harris MD Unavailable VINAY STEIN MD Unavailable VINAY STEIN MD Unavailable PROBLEMS Condition Status Date Provider Notes Hypercholesterolemia active Negro Sanders RN Long-term (current) use of o ther medications active Negro Sanders RN Chest pain active Lorena Phoenix NP Hypertension active Lorena Phoenix NP Chronic back pain active Lorena Phoenix NP Obstructive sleep apnea active Lorena marcos NP Morbid obesity active Lorena Phoenix NP COPD active Lorena Phoenix NP Indigestion active Sourav Harris MD PACs active Chano Reese Atrial fibrillation, paroxysmal active Warren Salcedo ENCOUNTERS Date Type Provider Location Encounter Diag nosis - In-person encounter Office Visit Sourav Harris MD [facility] - In-person encounter Office Visit Sourav Harris MD [facility] - In-person encounter Office Visit Sourav Harris MD [facility] - In-person encounter Office Visit Sourav Harris MD [facility] - In-person encounter Office Visit Sourav Harris MD [facility] Atrial fibrillation, paroxysmal - In-person encounter Office Visit Sourav Harris MD [facility] PACs - In-person encounter Office Visit Sourav Harris MD [facility] Chest painHypertensionChronic back painObstructive sleep apneaMorbid obesityCOPDIndigestion VITAL SIGNS Date Observation Value Provider Body Mass Index (Ratio) 40.74 kg/m2 Grah katharine Nori blood pressure, cuff size large Ke rri Gruenenfelder blood pressure, diastolic 86 mm[Hg] Ke rri Gruenenfelder blood pressure, systolic 142 mm[Hg] Jase ri Seferinouenenfelder oxygen saturation, oximetry 98 % Tere Wallacenenfelder respiratory rate E&M 12 /min Tere G gopienenfelder pulse rate 61 /min Tere Wallacenesivae er weight E&M 326 [lb_av] Tere Gruenenfe er height E&M 75 [in_i] Tere Wallacenesivae er Body Mass Index (Ratio) 41.99 kg/m2 Warren Salcedo blood pressure, cuff size large Ke rri Gruenenfelder blood pressure, diastolic 60 mm[Hg] Ke rri Gruenenfelder blood pressure, systolic 120 mm[Hg] Ker ri Gruenenfelder oxygen saturation, oximetry 95 % Tere Gruenenfelder respiratory rate E&M 14 /min Tere G ruenenfelder pulse rate 63 /min Tere Gruenenfe lder weight E&M 336 [lb_av] Tere Wallacenenfe er height E&M 75 [in_i] Tere Grjosefnenfe er Body Mass Index (Ratio) 43.62 kg/m2 Warren Ahmedzai blood pressure, cuff size large Ke rri Gruenenfelder blood pressure, diastolic 72 mm[Hg] Ke rri Gruenenfelder blood pressure, systolic 126 mm[Hg] Jase ri Wallacenenfelder oxygen saturation, oximetry 96 % Tere Grjosefnenfelder respiratory rate E&M 14 /min Tere Lisbeth gopienenfelder pulse rate 61 /min Tere Gruenenfe er weight E&M 349 [lb_av] Tere Wallacenenfe [facility] height E&M 75 [in_i] Tere Kamaljitnfe [facility] Body Mass Index (Ratio) 42.49 kg/m2 Warren Ahmedzai blood pressure, diastolic 90 mm[Hg] Li nkLogic blood pressure, systolic 141 mm[Hg] Jeannine kLogic blood pressure, diastolic 90 mm[Hg] St ephanie Soquel blood pressure, systolic 141 mm[Hg] Gregg phanie Soquel oxygen saturation, oximetry 97 % Sumi Soquel pulse rate 66 /min Sumi Lohma n respiratory rate E&M 16 /min Britton ie Cory blood pressure, cuff size large St ephanie Soquel weight E&M 340 [lb_av] Sumi Lohma n height E&M 75 [in_i] Sumi Lohma n Body Mass Index (Ratio) 42.62 kg/m2 Warren Sorianojennifer blood pressure, diastolic 79 mm[Hg] Ri lyndsay Ward blood pressure, systolic 116 mm[Hg] Percy aliyah Ward blood pressure, cuff size large Ri lyndsay Ward pulse rate 55 /min Elida Myles son oxygen saturation, oximetry 98 % Elida Ward respiratory rate E&M 16 /min Ashok Ward weight E&M 341 [lb_av] lEida Myles son height E&M 75 [in_i] Elida Myles son Body Mass Index (Ratio) 45.49 kg/m2 Jonathan Harris MD blood pressure, diastolic 72 mm[Hg] Li nkLogic blood pressure, systolic 118 mm[Hg] Jeannine kLogic blood pressure, cuff size large Ke rri Gruenese blood pressure, diastolic 72 mm[Hg] Ke rri Gruenenfelder blood pressure, systolic 118 mm[Hg] Jase ri Yefri oxygen saturation, oximetry 96 % Tere Yefri respiratory rate E&M 18 /min Tere claroseldnikki pulse rate 67 /min Tere Ameena lder weight E&M 364 [lb_av] Tere Toriee lder height E&M 75 [in_i] Tere Seferinouenesivae lder Body Mass Index (Ratio) 43.24 kg/m2 Jonathan Harrsi MD blood pressure, resting Yes Ildefonso emily Phoenix NP blood pressure, cuff size large Ke rri Gruenenfelder blood pressure, diastolic 80 mm[Hg] Ke rri Gruenese blood pressure, systolic 122 mm[Hg] Ker ri Seferinouenechaier oxygen saturation, oximetry 98 % Tere Asif respiratory rate E&M 18 /min Tere sanchez pulse rate 66 /min Tere Lindquist er weight E&M 346 [lb_av] Tere begumer height E&M 75 [in_i] Tere Lindquist nikki ALLERGIES No Known Drug Allergies RESULTS Date Observation Value Provider Reference Range Interpretation Location 5 B-type natriuretic peptide 24.7 pg/mL [facility] 0.0-100.0 5 magnesium, serum 2.3 mg/dL [facility] 1.6-2.3 5 prothrombin time (patient) 10.5 s [facility] 9.1-12.0 5 international normalized ratio (INR) 1.0 [facility] 0.9-1.2 5 lipoprotein, beta, serum, point, quantitative, calculated 129 mg/dL [facility] 0-99 High 5 HDL cholesterol, serum 43 mg/dL [facility] >39 5 triglyceride, serum, random 70 mg/dL [facility] 0-149 5 cholesterol, serum 185 mg/dL [facility] 873-681 4732/05/1 5 platelet count 242 X10E3/UL [facility] 371-068 0573/05/1 5 red blood cell distribution width 12.7 % [facility] 11.6-15.4 5 mean corpuscular hemoglobin concentration, RBC 34.3 G/DL [facility] 31.5-35.7 5 mean corpuscular hemoglobin, RBC 30.8 pg [facility] 26.6-33.0 5 mean corpuscular volume, RBC 90 fL [facility] 79-97 5 hematocrit, blood 41.1 % [facility] 37.5-51.0 5 hemoglobin, blood 14.1 g/dL [facility] 13.0-17.7 erythrocyte (RBC) count 4.58 X10E6/UL [facility] 4.14-5.80 5 leukocyte count, blood 5.2 X10E3/UL [facility] 3.4-10.8 5 alanine aminotransferase (SGPT), serum 12 1/L [facility] 0-44 5 aspartate aminotransferase (SGOT), serum 14 1/L [facility] 0-40 5 alkaline phosphatase, serum 88 1/L [facility] 39-117 5 bilirubin, serum, total 0.6 mg/dL [facility] 0.0-1.2 5 albumin/globulin ratio, serum 1.6 [facility] 1.2-2.2 globulin, serum 2.5 [facility] 1.5-4.5 5 albumin, serum 3.9 g/dL [facility] 3.8-4.8 protein, total, serum 6.4 g/dL [facility] 6.0-8.5 5 calcium, serum 8.6 mg/dL [facility] 8.6-10.2 5 carbon dioxide, venous blood 26 mmol/L [facility] 20-29 5 chloride, serum 102 mmol/L [facility] 96-106 5 potassium, serum 4.5 mmol/L [facility] 3.5-5.2 5 sodium, serum 141 mmol/L [facility] 632-170 9017/05/1 5 urea nitrogen/creatinine ratio, serum 15 [facility] 10-24 5 eGFR if 80 mL/min/{1 .73_m2} [facility] >59 5 eGFR if not 69 mL/min/{1 .73_m2} [facility] >59 5 creatinine, serum 1.10 mg/dL [facility] 0.76-1.27 5 urea nitrogen, blood 16 mg/dL [facility] 8-27 5 blood glucose, random 97 mg/dL [facility] 65-99 HISTORY OF MEDICATION USE Medication Status Instructions Dates Provider Indications Com ments metoprolol succinate 50 mg tablet extended release 24 hr active Take 1 tablet by mouth at bedtime Myriam Lewis NP magnesium oxide 400 mg magnesium tablet active Take 1 tablet by mouth twice a day Warren Ahmedzai Eliquis 5 mg tablet active Warren Ahmedzai atorvastatin 20 mg tablet active TAKE 1 TABLET BY MOUTH ONCE DAILY Myriam Lewis NP omeprazole 40 mg capsule,delayed release(DR/EC) active 1 capsule twice a day Sourav Harris MD nitroglycerin 0.4 mg tablet, sublingual active DISSOLVE ONE TABLET UNDER TONGUE NEEDED FOR CHEST PAIN EVERY 5 MINUTES FOR 3 TOTAL DOSES. IF NO RELIEF AFTER THIRD DOSE, GO TO ER Roma Wagner Lipitor 80 mg tablet active 1 tablet once a day Sourav Harris MD diazepam 10 mg tablet active as needed Tere Asif METHOCARBAMOL 750 MG TABS active as needed Tere Asif ibuprofen 800 mg tablet active as needed Tere Asif ProAir HFA 90 mcg/actuation HFA aerosol inhaler active as directed Tere Asif Ventolin HFA 90 mcg/actuation HFA aerosol inhaler active 2 puff every four to six hours Tere Asif duloxetine 60 mg capsule,delayed release(DR/EC) active Take 1 once a day Tere Asif lisinopril 40 mg tablet active Take 1 tablet by mouth once a day Warren Salcedo amlodipine 5 mg tablet completed 1 tablet by mouth once a day - Myriam Lewis NP prednisone 10 mg tablet active Take as directed Tere Asif SOCIAL HISTORY Date Observation Value Provider alcohol use, average drinks per day 2 /d Sourav Harris MD alcohol use, type beer Sourav lozano MD alcohol use yes Sourav naylor MD passive cigarette sm becky exposure yes Sourav Harris MD smoking status Never smoker Sourav jackson MD smoking status Never smoker Myriam Dylan garrett NP social history E&M S moking History: Katt mcgowan has never smoked. Warren Salcedo social history reviewed E&M revi ewed - no changes required Warren Salcedo Exercise counseling yes Tere walker passive cigarette sm becky exposure yes Tere Asif smoking status Never smoker Tere gil social history E&M S moking History: Katt mcgowan has never smoked. Warren Salcedo social history reviewed E&M revi ewed - no changes required Warren Salcedo Exercise counseling yes Gisselle Ray passive cigarette sm becky exposure yes Sumi Ray smoking status Never smoker Sumi ingram social history E&M S moking History: Katt mcgowan has never smoked. Warren Salcedo social history reviewed E&M revi ewed - no changes required Warren beatrice Exercise counseling yes Elida Ward passive cigarette sm becky exposure yes Elida Ward smoking status Never smoker Elida joshi social history E&M S moking History: Katt mcgowan has never smoked. Chano Reese social history reviewed E&M revi ewed - no changes required Chano Reese Exercise counseling yes Tere walker passive cigarette sm becky exposure yes Tere Asif smoking status Never smoker Tere gil alcohol use, frequency 2-3 times a week S wolf Phoenix DIRECTOR SCRIPT alcohol use, type beer Lorena leon DIRECTOR SCRIPT alcohol use, average drinks per day 2 /d Lorena Phoenix ALVARO alcohol use yes Lorena Phoenix ALVARO passive cigarette sm becky exposure yes Lorena Phoenix ALVARO Exercise counseling yes Lorena hilton ALVARO smoking status Never smoker Tere gil INSURANCE PROVIDERS Payer name Policy type / Coverage type [place] [employer] party ID [employer] PPO O [id number] ADVANCE DIRECTIVES Name Date DISCUSSED - NO DECISION MADE TREATMENT PLAN Date Name Performer [id number],C, B P today: 120/60 P rior BP: 126/72 (09/02/2022) Labs Reviewed: C reat: 1.10 (09/12/2020) C hol: 185 (09/12/2020) HDL: 43 (09/12/2020) The following medications were removed from the medication list: Amlodipine 5 Mg Tablet (Amlodipine) ..... 1 tablet by mouth once a day His updated medication list for this problem includes: Metoprolol Succinate 50 Mg Tablet Extended Release 24 Hr (Metoprolol succinate) ..... Take 1 tablet by mouth at bedtime Lisinopril 40 Mg Tablet (Lisinopril) ..... Take 1 tablet by mouth once a day Myriam Lewis DIRECTOR SCRIPT [id number],C,EKG today SB 58 Myriam Lewis DIRECTOR SCRIPT [id number],C,E KG today SB 58 T he following medications were removed from the medication list: Amlodipine 5 Mg Tablet (Amlodipine) ..... 1 tablet by mouth once a day His updated medication list for this problem includes: Metoprolol Succinate 50 Mg Tablet Extended Release 24 Hr (Metoprolol succinate) ..... Take 1 tablet by mouth at bedtime Lisinopril 40 Mg Tablet (Lisinopril) ..... Take 1 tablet by mouth once a day Nitroglycerin 0.4 Mg Tablet, Sublingual (Nitroglycerin) ..... 1 tablet as needed Myriam Escalonajayleen DIRECTOR SCRIPT [id number],C,V arying pressures at home with BPs as high as 160-170. Will keep him on Metoprolol 50 mg which he is taking BID, will increase his Lisinopril 20 mg to two tablets daily BP today: 126/72 P rior BP: 141/90 (07/01/2022) Labs Reviewed: C reat: 1.10 (09/12/2020) C hol: 185 (09/12/2020) HDL: 43 (09/12/2020) [facility] [id number],C,N o recent episodes. EKG todays showed sinus rhythm. phototypesetting equipment monitor showed Sinus Rhythm with occasional PVCs and rare PACs. The average HR was 60bpm with a maximum rate of 115bpm and a minimum rate of 43bpm. VE?s were documented as triplets, couplets, trigeminal cycles, and isolated beats with a total burden of 1.63%. [facility] [id number],C,M ild Obstructive Airways Disease f rom PFT [facility] [id number],C, H is updated medication list for this problem includes: Atorvastatin 20 Mg Tablet (Atorvastatin) Lipitor 80 Mg Tablet (Atorvastatin) ..... 1 tablet once a day [facility] [id number],C,A dvised him to reduce salt intake. BP today: 141/90 P rior BP: 116/79 (03/18/2022) Labs Reviewed: C reat: 1.10 (09/12/2020) C hol: 185 (09/12/2020) HDL: 43 (09/12/2020) [facility] [id number],C,E cho showed normal LVEF. C hest pain is unlikley cardiac related. He is asymptmatic currently. Warren Salcedo [id number],C,E KG todays showed sinus rhythm. phototypesetting equipment monitor showed Sinus Rhythm with occasional PVCs and rare PACs. The average HR was 60bpm with a maximum rate of 115bpm and a minimum rate of 43bpm. VE?s were documented as triplets, couplets, trigeminal cycles, and isolated beats with a total burden of 1.63%. Warren Salcedo [id number],C,No sxs curren tly Warren Salcedo [id number],C, B P today: 116/79 P rior BP: 118/72 (11/27/2020) Labs Reviewed: C reat: 1.10 (09/12/2020) C hol: 185 (09/12/2020) HDL: 43 (09/12/2020) Warren Salcedo [id number],S, Warren Soriano i [id number],C,N ew finding of AFIB at the hospital after he injured himself from a slip and fall at work. I will arrange for telemetry to assess for AF burden. W ill check echo and PFTs as well. He has been started on Eliquis 5 mg BID Warren Salcedo [id number],B, r ega stress showed abnormal perfusion imaging in inferior wall which is small n ml BNP e cho with EF 60%, normal LVSF, mild LVH, no sig valve pathology His updated medication list for this problem includes: Nitroglycerin 0.4 Mg Tablet, Sublingual (Nitroglycerin) ..... 1 tablet as needed Lisinopril 20 Mg Tablet (Lisinopril) ..... Take 1 twice a day Amlodipine 5 Mg Tablet (Amlodipine) ..... 1 tablet by mouth once a day Orders: 9 9214 MOD 30-39min (CPT-37655) C omplete Echo (CPT-17768) A tamy Duplex Ultrasound (CPT-13541) Monitor - Telemetry (Mobile Cardiac) (CPT-39298) S chedule Followup (*) Sourav Harris MD [id number],S, n eeds AAA screening BP today: 118/72 P rior BP: 122/80 (09/11/2020) His updated medication list for this problem includes: Lisinopril 20 Mg Tablet (Lisinopril) ..... Take 1 twice a day Amlodipine 5 Mg Tablet (Amlodipine) ..... 1 tablet by mouth once a day Orders: E KG (CPT-43341) 9213 MOD 30-39min (CPT-95141) C omplete Echo (CPT-21908) A tamy Duplex Ultrasound (CPT-60588) M onitor - Telemetry (Mobile Cardiac) (CPT-24590) S chedule Followup (*) Sourav Harris MD [id number],S, a void NSAID if possible. t aking ibuprofen every other day O rders: 9213 MOD 30-39min (CPT-29994) C omplete Echo (CPT-45720) A tamy Duplex Ultrasound (CPT-03009) M onitor - Telemetry (Mobile Cardiac) (CPT-51461) Sourav Harris MD [id number],S, c an not tolerate CPAP Orders: 9213 MOD 30-39min (CPT-12560) C omplete Echo (CPT-21020) A tamy Duplex Ultrasound (CPT-45929) M onitor - Telemetry (Mobile Cardiac) (CPT-54686) Sourav Harris MD [id number],S, i mproved with exercise c [place] 1 week tele in 1 year Orders: 9213 MOD 30-39min (CPT-06966) C omplete Echo (CPT-06058) A tamy Duplex Ultrasound (CPT-82855) M onitor - Telemetry (Mobile Cardiac) (CPT-56832) Chano Reese [id number],S, w eight loss encouraged Chano Reese [id number],S, a void NSAID if possible. t aking ibuprofen every other day Chano Reese [id number],B, r ega stress showed abnormal perfusion imaging in inferior wall which is small n ml BNP e cho with EF 60%, normal LVSF, mild LVH, no sig valve pathology His updated medication list for this problem includes: Nitroglycerin 0.4 Mg Tablet, Sublingual (Nitroglycerin) ..... 1 tablet as needed Lisinopril 20 Mg Tablet (Lisinopril) ..... Take 1 twice a day Amlodipine 5 Mg Tablet (Amlodipine) ..... 1 tablet by mouth once a day Orders: 9 9213 MOD 30-39min (CPT-77457) C omplete Echo (CPT-41620) A tamy Duplex Ultrasound (CPT-74777) M onitor - Telemetry (Mobile Cardiac) (CPT-42017) Chano Reese [id number],S, n eeds AAA screening BP today: 118/72 P rior BP: 122/80 (09/11/2020) His updated medication list for this problem includes: Lisinopril 20 Mg Tablet (Lisinopril) ..... Take 1 twice a day Amlodipine 5 Mg Tablet (Amlodipine) ..... 1 tablet by mouth once a day Orders: E KG (CPT-52431) 9 14 MOD 30-39min (CPT-49168) C omplete Echo (CPT-60869) A tamy Duplex Ultrasound (CPT-61031) M onitor - Telemetry (Mobile Cardiac) (CPT-96109) Chano Reese [id number],S, c an not tolerate CPAP Chano Reese Electrophysiology Ashkan Mckeon i Electrophysiology:EK G today sinus bradycardia H is updated medication list for this problem includes: Nitroglycerin 0.4 Mg Tablet, Sublingual (Nitroglycerin) ..... Dissolve one tablet under tongue as needed for chest pain every 5 minutes for 3 total doses. if no relief after third dose, go to er Metoprolol Succinate 50 Mg Tablet Extended Release 24 Hr (Metoprolol succinate) ..... Take 1 tablet by mouth at bedtime Lisinopril 40 Mg Tablet (Lisinopril) ..... Take 1 tablet by mouth once a day Sourav Harris MD Electrophysiology:does not delonte ate CPAP Sourav Harris MD Electrophysiology: H is updated medication list for this problem includes: Atorvastatin 20 Mg Tablet (Atorvastatin) ..... Take 1 tablet by mouth once daily Lipitor 80 Mg Tablet (Atorvastatin) ..... 1 tablet once a day Sourav Harris MD Electrophysiology:no recurrance w ill obtain f/u echo and AAA Echo 10/27/22 showed EF 62% s evere enlargement of right atrium and ventricle Sourav Harris MD Electrophysiology:we ll controlled B P today: 142/86 P rior BP: 120/60 (09/16/2022) Labs Reviewed: C reat: 1.10 (09/12/2020) C hol: 185 (09/12/2020) HDL: 43 (09/12/2020) LDL: 129 (09/12/2020) T (09/12/2020) His updated medication list for this problem includes: Metoprolol Succinate 50 Mg Tablet Extended Release 24 Hr (Metoprolol succinate) ..... Take 1 tablet by mouth at bedtime Lisinopril 40 Mg Tablet (Lisinopril) ..... Take 1 tablet by mouth once a day Sourav Harris MD Electrophysiology: B P today: 120/60 P rior BP: 126/72 (09/02/2022) Labs Reviewed: C reat: 1.10 (09/12/2020) C hol: 185 (09/12/2020) HDL: 43 (09/12/2020) The following medications were removed from the medication list: Amlodipine 5 Mg Tablet (Amlodipine) ..... 1 tablet by mouth once a day His updated medication list for this problem includes: Metoprolol Succinate 50 Mg Tablet Extended Release 24 Hr (Metoprolol succinate) ..... Take 1 tablet by mouth at bedtime Lisinopril 40 Mg Tablet (Lisinopril) ..... Take 1 tablet by mouth once a day Myriam Joshua DIRECTOR SCRIPT Electrophysiology:EKG today SB 5 8 Myriam Escalonajayleen DIRECTOR SCRIPT Electrophysiology:EK G today SB 58 T he following medications were removed from the medication list: Amlodipine 5 Mg Tablet (Amlodipine) ..... 1 tablet by mouth once a day His updated medication list for this problem includes: Metoprolol Succinate 50 Mg Tablet Extended Release 24 Hr (Metoprolol succinate) ..... Take 1 tablet by mouth at bedtime Lisinopril 40 Mg Tablet (Lisinopril) ..... Take 1 tablet by mouth once a day Nitroglycerin 0.4 Mg Tablet, Sublingual (Nitroglycerin) ..... 1 tablet as needed Myriam Hellergerard DIRECTOR SCRIPT Electrophysiology:Julieta winston pressures at home with BPs as high as 160-170. Will keep him on Metoprolol 50 mg which he is taking BID, will increase his Lisinopril 20 mg to two tablets daily BP today: 126/72 P rior BP: 141/90 (07/01/2022) Labs Reviewed: C reat: 1.10 (09/12/2020) C hol: 185 (09/12/2020) HDL: 43 (09/12/2020) Warren Salcedo Electrophysiology:No recent episodes. EKG todays showed sinus rhythm. phototypesetting equipment monitor showed Sinus Rhythm with occasional PVCs and rare PACs. The average HR was 60bpm with a maximum rate of 115bpm and a minimum rate of 43bpm. VE?s were documented as triplets, couplets, trigeminal cycles, and isolated beats with a total burden of 1.63%. Warren Salcedo Cardiology:Mild Obst ructive Airways Disease f rom PFT Warren Salcedo Cardiology: H is updated medication list for this problem includes: Atorvastatin 20 Mg Tablet (Atorvastatin) Lipitor 80 Mg Tablet (Atorvastatin) ..... 1 tablet once a day Warren Salcedo Cardiology:Advised h im to reduce salt intake. BP today: 141/90 P rior BP: 116/79 (03/18/2022) Labs Reviewed: C reat: 1.10 (09/12/2020) C hol: 185 (09/12/2020) HDL: 43 (09/12/2020) Warren radhaedilson Cardiology:Echo show ed normal LVEF. C hest pain is unlikley cardiac related. He is asymptmatic currently. Warren Arenasradhaedilson Cardiology:EKG today s showed sinus rhythm. phototypesetting equipment monitor showed Sinus Rhythm with occasional PVCs and rare PACs. The average HR was 60bpm with a maximum rate of 115bpm and a minimum rate of 43bpm. VE?s were documented as triplets, couplets, trigeminal cycles, and isolated beats with a total burden of 1.63%. Warren beatrice Electrophysiology:No sxs current ly Warren radhafrandy Electrophysiology: B P today: 116/79 P rior BP: 118/72 (11/27/2020) Labs Reviewed: C reat: 1.10 (09/12/2020) C hol: 185 (09/12/2020) HDL: 43 (09/12/2020) [facility] Electrophysiology:Ne w finding of AFIB at the hospital after he injured himself from a slip and fall at work. I will arrange for telemetry to assess for AF burden. W ill check echo and PFTs as well. He has been started on Eliquis 5 mg BID Warren Arenasradhaedilson Electrophysiology Fo llow up : r ega stress showed abnormal perfusion imaging in inferior wall which is small n ml BNP e cho with EF 60%, normal LVSF, mild LVH, no sig valve pathology & #13;His updated medication list for this problem includes: Nitroglycerin 0.4 Mg Tablet, Sublingual (Nitroglycerin) ..... 1 tablet as needed Lisinopril 20 Mg Tablet (Lisinopril) ..... Take 1 twice a day Amlodipine 5 Mg Tablet (Amlodipine) ..... 1 tablet by mouth once a day Orders: 9 9214 MOD 30-39min (CPT-71802) C omplete Echo (CPT-67829) A tamy Duplex Ultrasound (CPT-07041) M onitor - Telemetry (Mobile Cardiac) (CPT-20322) S chedule Followup (*) Sourav Harris MD Electrophysiology Fo llow up : n eeds AAA screening BP today: 118/72 P rior BP: 122/80 (09/11/2020) His updated medication list for this problem includes: Lisinopril 20 Mg Tablet (Lisinopril) ..... Take 1 twice a day Amlodipine 5 Mg Tablet (Amlodipine) ..... 1 tablet by mouth once a day Orders: E KG (CPT-82878) 9 9214 MOD 30-39min (CPT-33463) C omplete Echo (CPT-47200) A tamy Duplex Ultrasound (CPT-38576) M onitor - Telemetry (Mobile Cardiac) (CPT-93265) S chedule Followup (*) Sourav Harris MD Electrophysiology Fo llow up : a void NSAID if possible. t aking ibuprofen every other day O rders: 9 14 MOD 30-39min (CPT-02412) C omplete Echo (CPT-49551) A tamy Duplex Ultrasound (CPT-64119) M onitor - Telemetry (Mobile Cardiac) (CPT-58112) Sourav Harris MD Electrophysiology Fo llow up : c an not tolerate CPAP Orders: 9 14 MOD 30-39min (CPT-27195) C omplete Echo (CPT-01147) A tamy Duplex Ultrasound (CPT-46538) M onitor - Telemetry (Mobile Cardiac) (CPT-39330) Sourav Harris MD Electrophysiology Fo llow up : i mproved with exercise c heck 1 week tele in 1 year Orders: 9 14 MOD 30-39min (CPT-97772) C omplete Echo (CPT-10855) A tamy Duplex Ultrasound (CPT-61664) M onitor - Telemetry (Mobile Cardiac) (CPT-38256) Chano Reese Electrophysiology Fo llow up : w eight loss encouraged Chano Reese Electrophysiology Fo llow up : a void NSAID if possible. t aking ibuprofen every other day Chano Reese Electrophysiology Fo llow up : r ega stress showed abnormal perfusion imaging in inferior wall which is small n ml BNP e cho with EF 60%, normal LVSF, mild LVH, no sig valve pathology & #13;His updated medication list for this problem includes: Nitroglycerin 0.4 Mg Tablet, Sublingual (Nitroglycerin) ..... 1 tablet as needed Lisinopril 20 Mg Tablet (Lisinopril) ..... Take 1 twice a day Amlodipine 5 Mg Tablet (Amlodipine) ..... 1 tablet by mouth once a day Orders: 9 9213 MOD 30-39min (CPT-35297) C omplete Echo (CPT-49022) A tamy Duplex Ultrasound (CPT-14846) M onitor - Telemetry (Mobile Cardiac) (CPT-22834) Chano Reese Electrophysiology Fo llow up : n eeds AAA screening BP today: 118/72 P rior BP: 122/80 (09/11/2020) His updated medication list for this problem includes: Lisinopril 20 Mg Tablet (Lisinopril) ..... Take 1 twice a day Amlodipine 5 Mg Tablet (Amlodipine) ..... 1 tablet by mouth once a day Orders: E KG (CPT-72582) 9 14 MOD 30-39min (CPT-95741) C omplete Echo (CPT-02689) A tamy Duplex Ultrasound (CPT-84520) M onitor - Telemetry (Mobile Cardiac) (CPT-20499) Chano Reese Electrophysiology Fo llow up : c an not tolerate CPAP Chano Reese Electrophysiology Ne w Patient - call patient please:PPI one capsule twice a day - total duration of treatment 2 months Sourav Harris MD Electrophysiology Ne w Patient - call patient please:avoid NSAID if possible. Orders: S tress Regadenoson (CPT-33844) C omplete Echo (CPT-76815) C OMPREHENSIVE METABOLIC PANEL, W/EGFR (47584) L IPID PANEL (4710) C BC (H/H, RBC, INDICES, WBC, PLT) (1759) M AGNESIUM (622) B TYPE NATRIURETIC PEPTIDE (BNP) (72449) P ROTHROMBIN TIME WITH INR (8847) T SH, free T4, total T3 (7444) 9 9205 HIGH 60-74 min (CPT-17241) Sourav Harris MD Electrophysiology Ne w Patient - call patient please: H is updated medication list for this problem includes: Proair Hfa 108 (90 Base) Mcg/act Inhalation Aerosol Solution (Albuterol sulfate) ..... As directed Ventolin Hfa 108 (90 Base) Mcg/act Inhalation Aerosol Solution (Albuterol sulfate) ..... 2 puffs every 4-6 hours Orders: B TYPE NATRIURETIC PEPTIDE (BNP) (08549) P ROTHROMBIN TIME WITH INR (8847) T SH, free T4, total T3 (7444) 9 9205 HIGH 60-74 min (CPT-14161) Sourav Harris MD Electrophysiology Ne w Patient - call patient please:weight loss encouraged O rders: S tress Regadenoson (CPT-26638) C omplete Echo (CPT-63742) C OMPREHENSIVE METABOLIC PANEL, W/EGFR (31842) L IPID PANEL (7600) C BC (H/H, RBC, INDICES, WBC, PLT) (1759) M AGNESIUM (622) B TYPE NATRIURETIC PEPTIDE (BNP) (45560) P ROTHROMBIN TIME WITH INR (8847) T SH, free T4, total T3 (7444) 9 9205 HIGH 60-74 min (CPT-59240) Sourav Harris MD Electrophysiology Ne w Patient - call patient please:can not tolerate CPAP O rders: S tress Regadenoson (CPT-30861) C omplete Echo (CPT-74302) C OMPREHENSIVE METABOLIC PANEL, W/EGFR (32866) L IPID PANEL (7600) C BC (H/H, RBC, INDICES, WBC, PLT) (1759) M AGNESIUM (622) B TYPE NATRIURETIC PEPTIDE (BNP) (37468) P ROTHROMBIN TIME WITH INR (8847) T SH, free T4, total T3 (7444) 9 9205 HIGH 60-74 min (CPT-02746) Sourav Harris MD Electrophysiology Ne w Patient - call patient please:controlled Will decrease amlodipine to 5 mg daily Orders: S tress Regadenoson (CPT-90664) C omplete Echo (CPT-98795) C OMPREHENSIVE METABOLIC PANEL, W/EGFR (12845) L IPID PANEL (7600) C BC (H/H, RBC, INDICES, WBC, PLT) (1759) M AGNESIUM (622) B TYPE NATRIURETIC PEPTIDE (BNP) (28740) P ROTHROMBIN TIME WITH INR (8847) T SH, free T4, total T3 (7444) 9 9205 HIGH 60-74 min (CPT-87257) His updated medication list for this problem includes: Lisinopril 20 Mg Oral Tablet (Lisinopril) ..... Take one pill twice a day Amlodipine Besylate 5 Mg Oral Tablet (Amlodipine besylate) ..... One tab by mouth daily BP today: 122/80 Sourav Harris MD Electrophysiology Ne w Patient - call patient please:Stress test E cho L abs Lorena Phoenix NP Electrophysiology Ne w Patient - call patient please:controlled Will decrease amlodipine to 5 mg daily Lorena Phoenix NP Electrophysiology Ne w Patient - call patient please:can not tolerate CPAP Lorena Phoenix NP Electrophysiology Ne w Patient - call patient please:weight loss encouraged Lorena Alban JOHN Date Name Aorta Duplex Ultraso und Complete Echo Aorta Duplex Ultraso und Monitor - Telemetry (Mobile Cardiac) DLCO - 57099 FRC - 25521 FVC - 68287 Complete Echo Monitor - Telemetry (Mobile Cardiac) Aorta Duplex Ultraso und Complete Echo TSH, free T4, total T3 PROTHROMBIN TIME WIT H INR B TYPE NATRIURETIC P EPTIDE (BNP) MAGNESIUM CBC (H/H, RBC, INDIC ES, WBC, PLT) LIPID PANEL COMPREHENSIVE METABO LIC PANEL, W/EGFR Complete Echo Stress Regadenoson HISTORY OF PROCEDURES Procedure Date Procedure Name Provider Procedure Notes S tatus EKG Sourav fitzpatrick MD completed Schedule Followup Sourav woodson MD [address] Harris completed EKG Sourav fitzpatrick MD completed EKG Sourav fitzpatrick MD completed Spirometry Sourav fitzpatrick MD completed FVC / MVV with bronchodilator - 86227 Sourav Harris MD completed FRC - 40799 Sourav fitzpatrick MD completed SpO2 w/o 6min walk/titration Sourav Harris MD completed SVC - 49449 Sourav fitzpatrick MD completed DLCO - 22133 Sourav fitzpatrick MD completed EKG Sourav fitzpatrick MD completed Schedule Followup Sourav woodson MD fu in 1 year completed EKG Sourav fitzpatrick MD completed Spirometry Sourav fitzpatrick MD completed FVC / MVV with bronchodilator - 96705 Sourav Harris MD completed FRC - 61080 Sourav fitzpatrick MD completed SVC - 43204 Sourav fitzpatrick MD completed EKG Sourav fitzpatrick MD completed
--- OUTSIDE RECORDS SUMMARY | 2024-06-04 11:05 | XMS_ITS | Encounter Summary ---
Author Organization [facility] Address [address] [place] [address]. 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 Not on file Not on file Not on file Not on file Not on file Not on file Not on file documented as of this encounter Plan of Treatment Upcoming Encounters Date Type Department Care Team (Late st Contact Info) Description 07/02/2024 1:20 PM FORGING PRESS OPERATOR Office Visit [facility] [address] [id number] Erin Nicole FNP [address] [place] [address] documented as of this encounter Visit Diagnoses Not on filedocumented in this encounter Additional Health Concerns Assessment Noted Time PHQ-9 Depression Total Score: 24 06/04/ 025 9:38 AM FORGING PRESS OPERATOR documented as of this encounter Care Teams Ham Doctor Relationship Specialty Start Date End Date Erin Nicole FNP [address] [place] [id number] PCP - General Nurse Practitioner Family 12/06/18 documented as of this encounter
--- OUTSIDE RECORDS SUMMARY | 2024-06-04 11:21 | XMS_ITS | CONTINUITY OF CARE DOCUMENT ---
Author Name moses lopes Address Unknown Organization [facility] Address [address] [place] [address] Phone [phone] Care Team Providers Care Automobile Sales Representative Name Role Phone Sourav Harris MD Unavailable [phone] VINAY STEIN MD Unavailable [phone] VINAY STEIN MD Unavailable PROBLEMS Condition Status [...] In-person encounter Office Visit Sourav Harris MD [facility] - In-person encounter Office Visit Sourav Harris MD [facility] - In-person encounter Office Visit Sourav Harris MD [facility] - In-person encounter Office Visit Sourav Harris MD [facility] - In-person encounter Office Visit Sourav Harris MD [facility] Atrial fibrillation, paroxysmal - In-person encounter Office Visit Sourav Harris MD [facility] PACs - In-person encounter Office Visit Sourav Harris MD [facility] Chest painHypertensionChronic back painObstructive sleep apneaMorbid [...] G gopienenfelder pulse rate 61 /min Tere Wallacenesviae er weight E&M 326 [lb_av] Tere Gruenenfe [...] er weight E&M 349 [lb_av] Tere Wallacenenfe [facility] height E&M 75 [in_i] Tere Kamaljitnfe [facility] Body Mass Index (Ratio) 42.49 kg/m2 Warren Ahmedzai blood pressure, diastolic 90 mm[Hg] Li nkLogic blood pressure, systolic 141 mm[Hg] Jeannine kLogic blood pressure, diastolic 90 mm[Hg] St ephanie Boston blood pressure, systolic 141 mm[Hg] Gregg phanie Boston oxygen saturation, oximetry 97 % Sumi Boston pulse rate 66 /min Sumi Lohma n respiratory rate E&M 16 /min Britton ie Cory blood pressure, cuff size large St ephanie Boston weight E&M 340 [lb_av] Sumi Lohma n [...] /min Ashok Ward weight E&M 341 [lb_av] Elida Myles son height E&M 75 [in_i] Elida [...] Body Mass Index (Ratio) 43.24 kg/m2 Jonathan Harris MD blood pressure, resting Yes Ildefonso emily [...] 0-149 5 cholesterol, serum 185 mg/dL [employer] [phone]/05/1 5 platelet count 242 X10E3/UL [employer] [phone]/05/1 5 red blood cell distribution width 12.7 [...] 3.5-5.2 5 sodium, serum 141 mmol/L [employer] [phone]/05/1 5 urea nitrogen/creatinine ratio, serum 15 [employer] [...] 2-3 times a week S wolf Phoenix MOLD RUNNER alcohol use, type beer Lorena leon MOLD RUNNER alcohol use, average drinks per day 2 /d Lorena Phoenix ALVARO alcohol use yes Lorena Phoenix ALVARO passive cigarette sm becky exposure yes Lorena Phoenix ALVARO Exercise counseling yes Lorena hilton ALVARO smoking status Never smoker Tere gil INSURANCE PROVIDERS Payer name Policy type / Coverage type [employer] party ID [employer] PPO O [id number] ADVANCE DIRECTIVES Name Date DISCUSSED - NO DECISION MADE TREATMENT PLAN Date Name Performer [id number],C, B P today: 120/60 P rior BP: [...] by mouth once a day Myriam Lewis MOLD RUNNER [id number],C,EKG today SB 58 Myriam Lewis MOLD RUNNER [id number],C,E KG today SB 58 T he following [...] ..... 1 tablet as needed Myriam Escalonajayleen MOLD RUNNER [id number],C,V arying pressures at home with BPs as high as 160-170. Will keep him on Metoprolol 50 mg which he is taking BID, will increase his Lisinopril 20 mg to two tablets daily BP today: 126/72 P rior BP: 141/90 (07/01/2022) Labs Reviewed: C reat: 1.10 (09/12/2020) C hol: 185 (09/12/2020) HDL: 43 (09/12/2020) Warren [facility] [id number],C,N o recent episodes. EKG todays showed sinus rhythm. library monitor showed Sinus Rhythm with occasional PVCs and rare PACs. The average HR was 60bpm with a maximum rate of 115bpm and a minimum rate of 43bpm. VE?s were documented as triplets, couplets, trigeminal cycles, and isolated beats with a total burden of 1.63%. Warren [facility] [id number],C,M ild Obstructive Airways Disease f rom PFT [facility] [id number],C, H is updated medication list for this problem includes: Atorvastatin 20 Mg Tablet (Atorvastatin) Lipitor 80 Mg Tablet (Atorvastatin) ..... 1 tablet once a day [facility] [id number],C,A dvised him to reduce salt intake. BP today: 141/90 P rior BP: 116/79 (03/18/2022) Labs Reviewed: C reat: 1.10 (09/12/2020) C hol: 185 (09/12/2020) HDL: 43 (09/12/2020) [facility] [id number],C,E cho showed normal LVEF. C hest pain is unlikley cardiac related. He is asymptmatic currently. Warren Salcedo [id number],C,E KG todays showed sinus rhythm. library monitor showed Sinus Rhythm with occasional PVCs and rare PACs. The average HR was 60bpm with a maximum rate of 115bpm and a minimum rate of 43bpm. VE?s were documented as triplets, couplets, trigeminal cycles, and isolated beats with a total burden of 1.63%. Warren Salcedo [id number],C,No sxs curren tly Warren Salcedo [id number],C, B P today: 116/79 P rior BP: 118/72 (11/27/2020) Labs Reviewed: C reat: 1.10 (09/12/2020) C hol: 185 (09/12/2020) HDL: 43 (09/12/2020) Warren Salcedo [id number],S, Warren Soriano i [id number],C,N ew finding of AFIB at the hospital after he injured himself from a slip and fall at work. I will arrange for telemetry to assess for AF burden. W ill check echo and PFTs as well. He has been started on Eliquis 5 mg BID Warren Salcedo [id number],B, r ega stress showed abnormal perfusion imaging [...] a day Orders: 9 9214 MOD 30-39min (CPT-68929) C omplete Echo (CPT-61380) A tamy Duplex Ultrasound (CPT-20127) Monitor - Telemetry (Mobile Cardiac) (CPT-12052) S chedule Followup (*) Sourav Harris MD [id number],S, n eeds AAA screening BP today: 118/72 P rior BP: 122/80 (09/11/2020) His updated medication list for this problem includes: Lisinopril 20 Mg Tablet (Lisinopril) ..... Take 1 twice a day Amlodipine 5 Mg Tablet (Amlodipine) ..... 1 tablet by mouth once a day Orders: E KG (CPT-73781) 9213 MOD 30-39min (CPT-59580) C omplete Echo (CPT-92686) A tamy Duplex Ultrasound (CPT-39102) M onitor - Telemetry (Mobile Cardiac) (CPT-61354) S chedule Followup (*) Sourav Harris MD [id number],S, a void NSAID if possible. t aking ibuprofen every other day O rders: 9213 MOD 30-39min (CPT-60461) C omplete Echo (CPT-98371) A tamy Duplex Ultrasound (CPT-56260) M onitor - Telemetry (Mobile Cardiac) (CPT-04156) Sourav Harris MD [id number],S, c an not tolerate CPAP Orders: 9213 MOD 30-39min (CPT-60092) C omplete Echo (CPT-36986) A tamy Duplex Ultrasound (CPT-39693) M onitor - Telemetry (Mobile Cardiac) (CPT-68699) Sourav Harris MD [id number],S, i mproved with exercise c arnelk 1 week tele in 1 year Orders: 9213 MOD 30-39min (CPT-00614) C omplete Echo (CPT-70722) A tamy Duplex Ultrasound (CPT-15868) M onitor - Telemetry (Mobile Cardiac) (CPT-85292) Chano Reese [id number],S, w eight loss encouraged Chano Reese [id number],S, a void NSAID if possible. t aking ibuprofen every other day Chano Reese [id number],B, r ega stress showed abnormal perfusion imaging [...] a day Orders: 9 9213 MOD 30-39min (CPT-61629) C omplete Echo (CPT-01639) A tamy Duplex Ultrasound (CPT-19151) M onitor - Telemetry (Mobile Cardiac) (CPT-19516) Chano Reese [id number],S, n eeds AAA screening BP today: 118/72 P rior BP: 122/80 (09/11/2020) His updated medication list for this problem includes: Lisinopril 20 Mg Tablet (Lisinopril) ..... Take 1 twice a day Amlodipine 5 Mg Tablet (Amlodipine) ..... 1 tablet by mouth once a day Orders: E KG (CPT-81120) 9 14 MOD 30-39min (CPT-21744) C omplete Echo (CPT-75885) A tamy Duplex Ultrasound (CPT-52798) M onitor - Telemetry (Mobile Cardiac) (CPT-95106) Chano Reese [id number],S, c an not tolerate CPAP Chano Reese [...] by mouth once a day Myriam Joshua MOLD RUNNER Electrophysiology:EKG today SB 5 8 Myriam Escalonajayleen MOLD RUNNER Electrophysiology:EK G today SB 58 T he [...] ..... 1 tablet as needed Myriam Hellergerard MOLD RUNNER Electrophysiology:Julieta winston pressures at home with BPs [...] recent episodes. EKG todays showed sinus rhythm. library monitor showed Sinus Rhythm with occasional PVCs [...] Arenasradhaedilson Cardiology:EKG today s showed sinus rhythm. library monitor showed Sinus Rhythm with occasional PVCs [...] hol: 185 (09/12/2020) HDL: 43 (09/12/2020) [facility]:Ne w finding of AFIB [...] a day Orders: 9 9214 MOD 30-39min (CPT-29102) C omplete Echo (CPT-89643) A tamy Duplex Ultrasound (CPT-86987) M onitor - Telemetry (Mobile Cardiac) (CPT-64497) S chedule Followup (*) Sourav Harris MD Electrophysiology Fo llow up : n eeds AAA screening BP today: 118/72 P rior BP: 122/80 (09/11/2020) His updated medication list for this problem includes: Lisinopril 20 Mg Tablet (Lisinopril) ..... Take 1 twice a day Amlodipine 5 Mg Tablet (Amlodipine) ..... 1 tablet by mouth once a day Orders: E KG (CPT-75171) 9 9214 MOD 30-39min (CPT-96212) C omplete Echo (CPT-96670) A tamy Duplex Ultrasound (CPT-11526) M onitor - Telemetry (Mobile Cardiac) (CPT-50605) S chedule Followup (*) Sourav Harris MD Electrophysiology Fo llow up : a void NSAID if possible. t aking ibuprofen every other day O rders: 9 14 MOD 30-39min (CPT-95983) C omplete Echo (CPT-81574) A tamy Duplex Ultrasound (CPT-46023) M onitor - Telemetry (Mobile Cardiac) (CPT-12309) Sourav Harris MD Electrophysiology Fo llow up : c an not tolerate CPAP Orders: 9 14 MOD 30-39min (CPT-26170) C omplete Echo (CPT-58843) A tamy Duplex Ultrasound (CPT-50429) M onitor - Telemetry (Mobile Cardiac) (CPT-65585) Sourav Harris MD Electrophysiology Fo llow up : i mproved with exercise c heck 1 week tele in 1 year Orders: 9 14 MOD 30-39min (CPT-35868) C omplete Echo (CPT-87372) A tamy Duplex Ultrasound (CPT-49077) M onitor - Telemetry (Mobile Cardiac) (CPT-72237) Chano Reese Electrophysiology Fo llow up : [...] a day Orders: 9 9213 MOD 30-39min (CPT-76764) C omplete Echo (CPT-28759) A tamy Duplex Ultrasound (CPT-61697) M onitor - Telemetry (Mobile Cardiac) (CPT-37802) Chano Reese Electrophysiology Fo llow up : n eeds AAA screening BP today: 118/72 P rior BP: 122/80 (09/11/2020) His updated medication list for this problem includes: Lisinopril 20 Mg Tablet (Lisinopril) ..... Take 1 twice a day Amlodipine 5 Mg Tablet (Amlodipine) ..... 1 tablet by mouth once a day Orders: E KG (CPT-99216) 9 14 MOD 30-39min (CPT-94663) C omplete Echo (CPT-50290) A tamy Duplex Ultrasound (CPT-25516) M onitor - Telemetry (Mobile Cardiac) (CPT-81449) Chano Reese Electrophysiology Fo llow up : c an not tolerate CPAP Chano Reese Electrophysiology Ne w Patient - call patient please:PPI one capsule twice a day - total duration of treatment 2 months Sourav Harris MD Electrophysiology Ne w Patient - call patient please:avoid NSAID if possible. Orders: S tress Regadenoson (CPT-33296) C omplete Echo (CPT-76298) C OMPREHENSIVE METABOLIC PANEL, W/EGFR (33325) L IPID PANEL (1260) C BC (H/H, RBC, INDICES, WBC, PLT) (1759) M AGNESIUM (622) B TYPE NATRIURETIC PEPTIDE (BNP) (17217) P ROTHROMBIN TIME WITH INR (8847) T SH, free T4, total T3 (7444) 9 9205 HIGH 60-74 min (CPT-26464) Sourav Harris MD Electrophysiology Ne w Patient - call patient please: H is updated medication list for this problem includes: Proair Hfa 108 (90 Base) Mcg/act Inhalation Aerosol Solution (Albuterol sulfate) ..... As directed Ventolin Hfa 108 (90 Base) Mcg/act Inhalation Aerosol Solution (Albuterol sulfate) ..... 2 puffs every 4-6 hours Orders: B TYPE NATRIURETIC PEPTIDE (BNP) (55555) P ROTHROMBIN TIME WITH INR (8847) T SH, free T4, total T3 (7444) 9 9205 HIGH 60-74 min (CPT-17502) Sourav Harris MD Electrophysiology Ne w Patient - call patient please:weight loss encouraged O rders: S tress Regadenoson (CPT-89167) C omplete Echo (CPT-12625) C OMPREHENSIVE METABOLIC PANEL, W/EGFR (51818) L IPID PANEL (7600) C BC (H/H, RBC, INDICES, WBC, PLT) (1759) M AGNESIUM (622) B TYPE NATRIURETIC PEPTIDE (BNP) (53568) P ROTHROMBIN TIME WITH INR (8847) T SH, free T4, total T3 (7444) 9 9205 HIGH 60-74 min (CPT-22900) Sourav Harris MD Electrophysiology Ne w Patient - call patient please:can not tolerate CPAP O rders: S tress Regadenoson (CPT-60493) C omplete Echo (CPT-13830) C OMPREHENSIVE METABOLIC PANEL, W/EGFR (05983) L IPID PANEL (7600) C BC (H/H, RBC, INDICES, WBC, PLT) (1759) M AGNESIUM (622) B TYPE NATRIURETIC PEPTIDE (BNP) (20517) P ROTHROMBIN TIME WITH INR (8847) T SH, free T4, total T3 (7444) 9 9205 HIGH 60-74 min (CPT-20784) Sourav Harris MD Electrophysiology Ne w Patient - call patient please:controlled Will decrease amlodipine to 5 mg daily Orders: S tress Regadenoson (CPT-56502) C omplete Echo (CPT-07351) C OMPREHENSIVE METABOLIC PANEL, W/EGFR (02767) L IPID PANEL (7600) C BC (H/H, RBC, INDICES, WBC, PLT) (1759) M AGNESIUM (622) B TYPE NATRIURETIC PEPTIDE (BNP) (76352) P ROTHROMBIN TIME WITH INR (8847) T SH, free T4, total T3 (7444) 9 9205 HIGH 60-74 min (CPT-86286) His updated medication list for this problem [...] Monitor - Telemetry (Mobile Cardiac) DLCO - 17157 FRC - 11850 FVC - 65786 Complete Echo Monitor - Telemetry (Mobile Cardiac) [...] completed FVC / MVV with bronchodilator - 82766 Sourav Harris MD completed FRC - 62340 Sourav fitzpatrick MD completed SpO2 w/o 6min walk/titration Sourav Harris MD completed SVC - 50493 Sourav fitzpatrick MD completed DLCO - 25800 Sourav fitzpatrick MD completed EKG Sourav fitzpatrick MD completed Schedule Followup Sourav woodson MD fu in 1 year completed EKG Sourav fitzpatrick MD completed Spirometry Sourav fitzpatrick MD completed FVC / MVV with bronchodilator - 15038 Sourav Harris MD completed FRC - 78988 Sourav fitzpatrick MD completed SVC - 49387 Sourav fitzpatrick MD completed EKG Sourav fitzpatrick MD completed
--- OUTSIDE RECORDS SUMMARY | 2024-06-04 11:22 | XMS_ITS | Data Portability ---
Author Organization [place] - [facility] [employer], Main Office Address [address] [place] [address] Care Team Providers Care Switch Cleaner Name Role Phone VERNON AQUINO Primary Care Provider Assessment No assessment recorded. Plan of Treatment Reminders Order Date Submit Date Provider Last Modified By Organization Details Last Modified Time Details Appointments None recorded. Lab PSA, serum or plasma 2022 023 [facility], [address] [place], [address], 3 18:58:04 Referral urologist referral - Dr Kahn - buried phallus and renal mass 2022 023 [place] [address] Ludin Kahn MD, [facility] [address], [address], 3 11:16:14 Procedures None recorded. Surgeries None recorded. Imaging CT, abdomen, w/wo contrast [address] ([facility]), [address] [place], [address], 3 14:23:28 Medication Orders nystatin 100,000 unit/gram topical cream 2022 023 [facility] [address] In [facility], [address] [place], [address], 3 12:00:11 Patient TargetsNo targets recorded. Patient InstructionsNo instructions recorded. Reason for Referral Urologist Referral for Renal mass Dr Kahn - buried phallus and renal mass Referring Physician: Igor London, Urology, Encounter Date: 07/18/2022 Results Created Date Observation Date Name Description Value Unit Range Abnormal Flag Note LastModifiedBy Organization Detail LastModifiedTime 07/20/19 22 07/19/2021 urina lysis , dipst ick Leukocytes (reference range: negative jeanne/??l) Negati ve Not Available [address], [address], 07/19/2021 11:22:42 07/20/19 22 07/19/2021 urina lysis , dipst ick Nitrite (reference rage: negative mg/dl) negati ve Not Available [address], [address], 07/19/2021 11:22:42 07/20/19 22 07/19/2021 urina lysis , dipst ick Urobilinogen (reference range: 0.2-1 mg/dl) 0.2 Not Available [address], [address], 07/19/2021 11:22:42 07/20/19 22 07/19/2021 urina lysis , dipst ick Protein (reference range: negative mg/dl) Negati ve Not Available [address], [address], 07/19/2021 11:22:42 07/20/19 22 07/19/2021 urina lysis , dipst ick pH (reference range: 5-7) 5.5 Not Available [address], [address], 07/19/2021 11:22:42 07/20/19 22 07/19/2021 urina lysis , dipst ick Blood (reference range: negative Merlin/??l) Modera te Not Available [address], [place] [address], [place], [address], 07/19/2021 11:22:42 07/20/19 22 07/19/2021 urina lysis , dipst ick Specific Bomont (reference range: 1.005-1.030) 1.030 Not Available [address], [address], 07/19/2021 11:22:42 07/20/19 22 07/19/2021 urina lysis , dipst ick Ketone (reference range: negative mg/dl) Negati ve Not Available [address], [address], 07/19/2021 11:22:42 07/20/19 22 07/19/2021 urina lysis , dipst ick Bilirubin (reference range: negative mg/dl) Negati ve Not Available [address], [address], 07/19/2021 11:22:42 07/20/19 22 07/19/2021 urina lysis , dipst ick Glucose (reference range: negative mg/dl) Negati ve Not Available [address], [address], 07/19/2021 11:22:42 07/20/19 22 07/19/2021 US, bladd er No observ ation record ed. [id number] [facility] [address] [facility], [address], [place], [address], 06/29/2022 06:20:00 11/12/19 22 08/17/2021 CT, urogr am No observ ation record ed. [id number] [facility] Lab Orders [address] [place], [address], 06/29/2022 06:20:00 10/04/19 23 09/29/2022 urofl owmet rogra m No observ ation record ed. [email or web address] Not Available 2022 15:15:59 10/06/19 23 07/22/2022 CT, abdom en, w/wo contr ast No observ ation record ed. [email or web address] [facility] ([facility]) [address] [place], [address], 10/05/2022 11:29:10 Result Notes None recorded. Problems Name Problem SNOMED Code Status Onset Date Resolution Date Notes Provider Name and Address Organization Details Recorded Time Injury of shoulder region 134463419 Completed Not Available [facility] 3 06:15:25 Disorder of knee 310544607 Active Not Available [facility] 3 06:15:25 Backache 183798081 Active Not Available [facility] 3 06:15:25 Microscopi c hematuria 073933801 Active 2021 Not Available [facility] 3 06:15:25 Neck sprain 422162158 Active Not Available [facility] 3 06:15:25 Lumbar sprain 514131785 Completed Not Available [facility] 3 06:15:25 Benign prostatic hyperplasi a 445673480 Active 2021 Not Available [facility] 3 06:15:25 Edema 826396361 Active Not Available [facility] 3 06:15:25 Shoulder joint pain 528317259 Active Not Available [facility] 3 06:15:25 Recurrent dislocatio n of shoulder region 73320293 Active Not Available [facility] 3 06:15:25 Renal mass 061105681 Active 2021 Not Available [facility] 3 06:15:25 Enthesopat hy of hip region 15877226 Active Not Available [facility] 3 06:15:25 Lumbosacra l strain 599873462 Active Not Available [facility] 3 06:15:25 Sinusitis 29214611 Active 2016 Not Available [facility] 3 06:15:25 Osteoarthr itis 245981440 Active Not Available [facility] 3 06:15:25 Disorder of rotator cuff 848943651 Active Not Available [facility] 3 06:15:25 Obesity 593171417 Active Not Available [facility] 3 06:15:26 Traumatic injury of external genitalia 430159861 Active Not Available [facility] 3 06:15:26 Shoulder pain 96064688 Completed Not Available [facility] 3 06:15:26 Hip pain 37544864 Completed Not Available [facility] 3 06:15:26 Cough 02401281 Active 2016 Not Available [facility] 3 06:15:26 Candidal balanitis 08534038 Active 2021 Not Available [facility] 3 06:15:26 Disorder of bursa of shoulder region 43856595 Active Not Available [facility] 3 06:15:26 Essential hypertensi on 34003874 Active Not Available [facility] 3 06:15:26 Acquired buried penis 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 Active 2022 Igor London MD [address], [place] [address], [place], [address] , [facility] [employer] 3 11:59:24 Pain in scrotum 42508680 Active 2022 Igor London MD [address], [place], [address] , [facility] [employer] 3 13:09:45 Notes:Medical History: Anxie ty/Depression Rhinosinusitis Eosinophils 310/uL Alpha-1 antitrypsin PiMM 142 mg% Obesity with JOHN, off CPAP Hypertension SHIKHA Sigmoid diverticulosis Normocytic anemia Bilateral parapelvic cysts Right nephrolithiasis BPH Spine and hip DDD Surgical History: T&A 1954 Bilateral ankle surgery Cholecystectomy Problem Notes None recorded. Procedures Surgical History Date Name Laterality Status Provider Name and Address Organization Details Recorded Time Cholecystectomy completed Not Available [facility] 06/29/2022 06:12:03 Imaging Results Imaging Date Name Status LastModified by Organization Details LastModified Time 07/19/2021 US, bladder completed [id number] [place] [address] [facility], [address], [place], [address], 06/29/2022 06:20:00 08/17/2021 CT, urogram completed [id number] [facility] Lab Orders [address] [place], [address], 06/29/2022 06:20:00 09/29/2022 uroflowmetrogram completed [email or web address] Informat ion not available 10/03/2022 15:15:59 07/22/2022 CT, abdomen, w/wo contrast completed [email or web address] [facility] ([facility]) [address] [place], [address], 10/05/2022 11:29:10 Procedure Notes None recorded. Medical Equipment None Reported. Medications Name Sig Start Date Stop Date Status Note LastModified by Organization Details LastModified Time carisoprodo l 350 mg tablet TAKE ONE TABLET BY MOUTH TWICE A DAY 03/31 completed Not Available Not Available Not Available cyclobenzap rine 10 mg tablet TAKE 1 TABLET BY MOUTH EVERY 8 HOURS active Not Available Not Available No t Available amoxicillin 500 mg capsule Take 1 capsule 3 times a day by oral route for 6 days. active Not Available Not Available No t Available silver sulfadiazin e 1 % topical cream apply to affected area once daily active Not Available Not Available No t Available betamethaso ne valerate 0.1 % topical ointment APPLY TOPICALLY TO AFFECTED AREA(S) 2 TIMES A DAY FOR 3 WEEKS ON AND 1 WEEK OFF THEN REPEAT. active Not Available Not Available No t Available neomycin-po lymyxin-hyd rocort 3.5 mg/mL-10,00 0 unit/mL-1 % ear solution PLACE 3 DROPS IN EAR(S) 4 TIMES A DAY FOR 10 DAYS active Not Available Not Available No t Available atorvastati n 80 mg tablet TAKE 1 TABLET BY MOUTH DAILY 03/31 completed Not Available Not Available Not Available prednisone 10 mg tablet Take 1 tablet as needed by oral route. 07/19 completed Not Available Not Available Not Available cefuroxime axetil 250 mg tablet TAKE 1 TABLET BY MOUTH 2 TIMES DAILY FOR 10 DAYS. active Not Available Not Available No t Available atorvastati n 20 mg tablet TAKE 1 TABLET BY MOUTH EVERY DAY active Not Available Not Available No t Available ipratropium 0.5 mg-albutero l 3 mg (2.5 mg base)/3 mL nebulizatio n soln INAHLE CONTENTS OF 1 VIAL (3ML) EVERY 4 HOURS active Not Available Not Available No t Available bumetanide 2 mg tablet Take 1 tablet(s) every day by oral route in the morning for 14 days. active Not Available Not Available No t Available clindamycin HCl 300 mg capsule Take 1 capsule 3 times a day by oral route for 5 days. active Not Available Not Available No t Available albuterol sulfate 2.5 mg/3 mL (0.083 %) solution for nebulizatio n USE 1 VIAL VIA NEBULIZER EVERY 4 HOURS NEEDED FOR WHEEZING 03/31 completed Not Available Not Available Not Available azithromyci n 250 mg tablet TAKE 2 TABLETS BY MOUTH TODAY, THEN TAKE 1 TABLET DAILY FOR 4 DAYS 03/31 completed Not Available Not Available Not Available ibuprofen 800 mg tablet TAKE 1 TABLET BY MOUTH EVERY 8 HOURS NEEDED FOR PAIN active Not Available Not Available No t Available metoprolol tartrate 100 mg tablet Take 1 tablet twice a day by oral route. 09/30 completed Not Available Not Available Not Available nystatin 100,000 unit/gram topical ointment Apply by topical route bid to affected area. 12/22 completed Not Available Not Available Not Available fluconazole 150 mg tablet TAKE 1 TABLET (150 MG TOTAL) BY MOUTH ONCE FOR 1 DOSE. active Not Available Not Available No t Available metoprolol succinate ER 50 mg tablet,exte nded release 24 hr TAKE 1 TABLET BY MOUTH TWICE A DAY active Not Available Not Available No t Available Lotrisone 1 %-0.05 % topical cream APPLY TO THE AFFECTED AND SURROUNDI NG AREAS OF SKIN BY TOPICAL ROUTE 2 TIMES PER DAY IN THE MORNING AND EVENING FOR 2 WEEKS 09/30 completed Not Available Not Available Not Available hydrocodone 5 mg-acetamin ophen 325 mg tablet TAKE 1 TO 2 TABLETS BY MOUTH EVERY 6 HOURS NEEDED FOR CHRONIC PAIN. *KEEP APPT IN AUGUST FOR REFILLS active Not Available Not Available No t Available Keflex 500 mg capsule Take 1 capsule 3 times a day by oral route for 6 days. active Not Available Not Available No t Available meloxicam 15 mg tablet Take 1 tablet(s) every day by oral route. 07/19 completed Not Available Not Available Not Available lisinopril 20 mg tablet TAKE 1 TABLET BY MOUTH EVERY DAY active Not Available Not Available No t Available prednisone 20 mg tablet TAKE 1 TABLET BY MOUTH TWICE A DAY 03/31 completed Not Available Not Available Not Available metoprolol succinate ER 100 mg tablet,exte nded release 24 hr TK 1 T PO ONCE D 07/19 completed Not Available Not Available Not Available Biaxin 500 mg tablet Take 1 tablet every 12 hours by oral route for 5 days. active Not Available Not Available No t Available phentermine 37.5 mg tablet Take 1 tablet every day by oral route. 05/09 completed Not Available Not Available Not Available amlodipine 5 mg tablet TK 1 T PO QD 09/30 completed Not Available Not Available Not Available ciprofloxac in 500 mg tablet Take 1 tablet by oral route active Not Available Not Available No t Available peg-electro lyte solution 420 gram oral solution TK UTD BY OFFICE 09/30 completed Not Available Not Available Not Available omeprazole 40 mg capsule,del ayed release 07/19 completed Not Available Not Available Not Available triamcinolo ne acetonide 0.1 % topical cream RENETTA EXT AA BID 09/30 completed Not Available Not Available Not Available Depo-Medrol 80 mg/mL suspension for injection 05/19 completed Not Available Not Available Not Available nystatin-tr iamcinolone 100,000 unit/gram-0 .1 % topical ointment APPLY TO AFFECTED AREA TWICE A DAY active Not Available Not Available No t Available oxycodone-a cetaminophe n 5 mg-325 mg tablet TAKE 1 TABLET BY MOUTH EVERY 6 HOURS NEEDED FOR PAIN active Not Available Not Available No t Available methocarbam ol 750 mg tablet TAKE 1 TABLET (750 MG TOTAL) BY MOUTH 4 (FOUR) TIMES DAILY NEEDED (PAIN). active Not Available Not Available No t Available Aldactone 25 mg tablet Take 1 tablet(s) every day by oral route in the morning . active Not Available Not Available No t Available trazodone 100 mg tablet TAKE 1 TABLET BY MOUTH EVERY DAY AT BEDTIME NEEDED FOR SLEEP active Not Available Not Available No t Available amlodipine 10 mg tablet TAKE 1 TABLET BY MOUTH EVERY DAY 03/31 completed Not Available Not Available Not Available neomycin-po lymyxin-dex ameth 3.5 mg/mL-10,00 0 unit/mL-0.1 % eye drops 3 drops TID to the affected ear 12/22 completed Not Available Not Available Not Available triamcinolo ne acetonide 0.1 % topical ointment APPLY THREE TIMES DAILY TO AREAS ON LEGS AND AREAS OF CONCERN NEEDED active Not Available Not Available No t Available nystatin 100,000 unit/gram topical cream APPLY TO FORESKIN RASH TWO TIMES A DAY active Not Available Not Available No t Available lisinopril 10 mg tablet TK 1 T PO DAILY 09/30 completed Not Available Not Available Not Available promethazin e 25 mg tablet TK 1/2 T PO Q 6 H 09/30 completed Not Available Not Available Not Available hydrochloro thiazide 12.5 mg capsule TAKE 1 CAPSULE BY MOUTH EVERY DAY IN THE MORNING active Not Available Not Available No t Available nitroglycer in 0.4 mg sublingual tablet 03/31 completed Not Available Not Available Not Available omeprazole 20 mg capsule,del ayed release 09/30 completed Not Available Not Available Not Available hydrocodone 5 mg-acetamin ophen 500 mg tablet TAKE ONE TABLET BY MOUTH THREE TIMES A DAY active Not Available Not Available No t Available mupirocin 2 % topical ointment APPLY TO AFFECTED AREA 3 TIMES A DAY FOR 7 DAYS 03/31 completed Not Available Not Available Not Available diazepam 10 mg tablet TAKE ONE TABLET BY MOUTH EVERY 12 HOURS NEEDED FOR ANXIETY. active Not Available Not Available No t Available Cheratussin AC 10 mg-100 mg/5 mL oral liquid Take 10 mL 3 times a day by oral route. active Not Available Not Available No t Available methylpredn isolone 4 mg tablets in a dose pack TAKE 6 TABLETS ON DAY 1 DIRECTED ON PACKAGE AND DECREASE BY 1 TAB EACH DAY FOR A TOTAL OF 6 DAYS active Not Available Not Available No t Available lisinopril 40 mg tablet TAKE 1 TABLET BY MOUTH EVERY DAY active Not Available Not Available No t Available cefdinir 300 mg capsule TAKE 1 CAPSULE BY MOUTH TWICE A DAY FOR 10 DAYS active Not Available Not Available No t Available neomycin 3.5 mg-polymyxi n 10,000 unit-hydroc ort 10 mg/mL eye drop,susp 3 drops in affected ear twice a day active Not Available Not Available No t Available fluticasone propionate 50 mcg/actuati on nasal spray,suspe nsion USE 2 SPRAYS INTO EACH NOSTRIL ONCE A DAY AT DINNER 03/31 completed Not Available Not Available Not Available doxycycline hyclate 100 mg tablet TAKE 1 TABLET BY MOUTH TWICE DAILY FOR 10 DAYS 03/31 completed Not Available Not Available Not Available amoxicillin 875 mg-potassiu m clavulanate 125 mg tablet TAKE 1 TABLET BY MOUTH TWICE A DAY FOR 10 DAYS active Not Available Not Available No t Available neomycin-po lymyxin-hyd rocort 3.5 mg-10,000 unit/mL-1 % ear drops,susp INSTILL 3 DROPS INTO AFFECTED EAR(S) BY OTIC ROUTE 2 TIMES PER DAY active Not Available Not Available No t Available nitrofurant oin monohydrate /macrocryst als 100 mg capsule TAKE 1 CAPSULE BY MOUTH TWICE A DAY FOR 10 DAYS active Not Available Not Available No t Available duloxetine 30 mg capsule,del ayed release TAKE 3 CAPSULES BY MOUTH EVERY DAY active Not Available Not Available No t Available duloxetine 60 mg capsule,del ayed release TAKE 1 CAPSULE BY MOUTH EVERY DAY active Not Available Not Available No t Available ibuprofen (bulk) 02/23 completed Not Available Not Available Not Available Zostavax (PF) 19,400 unit/0.65 mL subcutaneou s suspension 02/23 completed Not Available Not Available Not Available ProAir HFA 90 mcg/actuati on aerosol inhaler INL 2 PFS ITL Q 6 H PRF WHZ 03/31 completed Not Available Not Available Not Available lidocaine 2 % mucosal jelly in applicator Take by mucous route. active Not Available Not Available No t Available Prevnar 13 (PF) 0.5 mL intramuscul ar syringe 10/25 completed Not Available Not Available Not Available Breo Ellipta 100 mcg-25 mcg/dose powder for inhalation TAKE 1 PUFF BY MOUTH EVERY DAY active Not Available Not Available No t Available Belsomra 15 mg tablet Take 1 tablet every day by oral route at bedtime for 30 days. active Not Available Not Available No t Available Fluvirin 4340-4057 45 mcg (15 mcg x 3)/0.5 mL intramuscul ar suspension 10/25 completed Not Available Not Available Not Available Vitals Date Recorded Body mass index (BMI) Body height Body height Oxygen saturation Oxygen saturation in Arterial blood by Pulse oximetry Body temperature Body weight Systolic blood pressure Diastolic blood pressure Provider Name and Address Organization Details Last Updated DateTime 3 44.6 kg/m2 190.5 cm 190.5 cm 96 % 96 % 99.1 [degF] 759064. 48 g 143 mm[Hg] 93 mm[Hg] Not Available [facility] 3 06:14:17 Date Recorded Body height Provider Name an d Address Organization Details Last Updated DateTime 07/18/2022 190.5 cm Kallie Granda MA [employer] 07/18/2022 11:20:05 Date Recorded Heart rate Oxygen saturation Oxygen saturation in Arterial blood by Pulse oximetry Body mass index (BMI) Body weight Body temperature Provider Name and Address Organization Details Last Updated DateTime 3 55 /min 98 % 98 % 43.6 kg/m2 474182. 74 g 97.3 [degF] JO Jarvis [employer] 3 11:25:23 Date Recorded Body height Provider Name an d Address Organization Details Last Updated DateTime 10/05/2022 190.5 cm Kallie Granda MA [employer] 10/05/2022 11:33:09 Date Recorded Body temperature Body mass index (BMI) Body weight Heart rate Oxygen saturation Oxygen saturation in Arterial blood by Pulse oximetry Provider Name and Address Organization Details Last Updated DateTime 3 97.7 [degF] 44.4 kg/m2 507912. 29 g 54 /min 96 % 96 % JO Jarvis [place] - [facility] [employer] 3 11:38:42 Social History Question Answer Notes LastModified by Organizat ion Details LastModified Time Tobacco Smoking Status Never Smoker Not Available [facility] 06/29/2022 06:11:56 What Is Your Level Of Alcohol Consumption? Occasional [id number] Information not available 06/29/2022 What Is Your Level Of Caffeine Consumption? Moderate [id number] Information not available 06/29/2022 Have You Ever Been Counseled For Unhealthy Alcohol Use? No [id number] Information not available 06/29/2022 Do You Use Any Illicit Or Recreational Drugs? No [id number] Information not available 06/29/2022 Has Tobacco Cessation Counseling Been Provided? No [id number] Information not available 06/29/2022 Do You Or Have You Ever Used Any Other Forms Of Tobacco Or Nicotine? No [id number] Information not available 06/29/2022 Sex: Unknown Functional Status None recorded. Mental Status None recorded. Family History Nothing Reported. Medical History Condition Response HYPERTENSION Y Immunizations Vaccine Type Date Status Note Provider Nam e and Address Organization Details Recorded Time Influenza, split virus, quadrivalent, PF 7 completed Not Available [facility] 06/29/2022 06:19:45 Influenza, split virus, quadrivalent, preservative 4 completed Not Available [facility] 06/29/2022 06:19:45 Past Encounters Encounter ID Performer Location Encounter Start Date Encounter Closed Date Diagnosis/Indication Diagnosis SNOMED-CT Code Diagnosis ICD10 Code Diagnosis Note [id number] [facility] [address] [address] 10/06/2020 00:00:00 10/06/2020 15:28:25 [id number] [facility] [address] [address] 12/31/2020 00:00:00 12/31/2020 15:49:54 [id number] [facility] [address], [address] [place] [address] 02/09/2021 00:00:00 02/09/2021 16:07:37 [id number] [facility] [address], [address] [address] 07/19/2021 00:00:00 07/19/2021 15:52:23 [id number] [facility] Urology [address], [address] [address] 02/14/2022 00:00:00 02/14/2022 12:57:49 [id number] Igor London MD [address], [address] [address] 07/18/2022 11:07:54 07/18/2022 12:18:15 Renal mass 150403927 N28.89 plan for f/u CT to assess for interval change-pt aware of risk of cancer-kimani l in 1 week if not heard fromo ffice to confirm we received results, Microscopic hematuria 19 0957000 R31.29 PSA 1.28, cytology normalcyst oscopy normal 02/14/22CT with 13 mm renal massoption s discussed with partial nx, IR RMBx, RFA, or observatio n/surveill ance given small size Screening for malignant neoplasm of prostate 241676463 Z12.5 check PSA, Acquired buried penis 23 5773420 N48.83 we will add topical nystatinDi scussed in great detail the rationale, contraindi cations, interactio ns, and possible side effects of the medication . Pt expressed understand ing-ultima tely he will need to consider penile exhumation /reconstru ctive surgery as he has trapped/bu ried phallus-I will have him see reconstruc tive urology at [facility] (Dr Kahn) as he may require a multidisci plinary approach to fix this ( ie plastics and urology) [id number] Chano Peters MD [facility] Urology [address], [address] [address] 09/29/2022 14:37:40 09/29/2022 14:42:27 [id number] Chano Peters MD [facility] [address], [address] [place] [address] 10/05/2022 11:25:50 10/05/2022 11:58:08 Renal mass [id number] N28.89 :Benign cysts -- no further surveillan ce needed Microscopic hematuria 19 0646759 R31.29 PSA 1.28, cytology normalcyst oscopy normal 02/14/22CT with 13 mm renal mass -- dedicated imaging showed benign renal cysts Screening for malignant neoplasm of prostate 743832576 Z12.5 PSA normal 06/2022 at age 67 -- will advise cessation of prostate cancer screening based on guidelines , though he and his PCP may continue if they wish Acquired buried penis 23 0805563 N48.83 -[facility] (Dr Kahn) as he may require a multidisci plinary approach to fix this ( ie plastics and urology) Health Concerns Section Related Observation LastModified by Organization Detai ls LastModified Time None Recorded Concern Status LastModified by Organization Details LastModified Time None Recorded Advance Directives Directive None Recorded Payers Encounter Date Sequence Insurance Name Policy Number Policy Galvez Covered Member ID Galvez Member ID Guarantor Name 07/18/2022 1 [facility] (MEDICARE REPLACEMENT/A DVANTAGE - HMO) [id number] Vernon Tobin [id number] Vernon Tobin 09/29/2022 1 [facility] (MEDICARE REPLACEMENT/A DVANTAGE - HMO) [id number] Vernon Tobin [id number] Vernon Tobin 10/05/2022 1 [facility] (MEDICARE REPLACEMENT/A DVANTAGE - HMO) [id number] Vernon Tobin [id number] Vernon Tobin Notes Date Note Type Note Provider Name and Address Organization Details Recorded Time 07/19/2021 text/html [employer] bypatient.Quality:bloo d color Severity:no pain Context:none mentioned Modifying Factors:nothing gives relief Associated Symptoms:no abdominal pain; no back pain; no groin pain; no chills; no constipation; no diarrhea; no dribbling; no dysuria; complete emptying; no frequency; no hematuria; no nausea; no nocturia; no odor; no straining stream; no stress incontinence; no temperature; no urgency; no urge incontinence; no vomiting; no weight lossNotes:hx of GH in 2018 wiht negative evaulation. Now with moderate blood on ua. Not Available [facility] 07/19/2021 15:52:23 07/18/2022 text/html Vernon is here f or follow-up for hematuria evaluation. He had microscopic hematuria cystoscopy today shows mild BPH. His CT urogram shows a 13 mm left renal hypodensity slightly increased in size from 2019 and 2017. He is asymptomatic from this. Options were discussed to monitor this with serial imaging versus RFA ablation, IR renal mass biopsy, partial nephrectomy. He is agreeable for surveillance and a CT in 6 months. 07/18/2022 Vernon is here for follow-up. He has not had any follow-up imaging of his 13 mm renal mass. He understands he needs follow-up imaging to assess whether or not this changes in size he understands the risk of malignancy. He has had no recent PSA his voiding symptoms are related to his foreskin being tethered and buried. He complains that his penis no longer sticks out. He has lost some weight. 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 he has been using triamcinolone and triple abx cream to his foreskin. Igor London MD [address] [place] [address], [address], [address], [facility] 07/18/2022 12:12:43 10/05/2022 text/html Vernon is here f or follow-up for hematuria evaluation. He had microscopic hematuria cystoscopy today shows mild BPH. His CT urogram shows a 13 mm left renal hypodensity slightly increased in size from 2019 and 2017. He is asymptomatic from this. Options were discussed to monitor this with serial imaging versus RFA ablation, IR renal mass biopsy, partial nephrectomy. He is agreeable for surveillance and a CT in 6 months. 07/18/2022 Vernon is here for follow-up. He has not had any follow-up imaging of his 13 mm renal mass. He understands he needs follow-up imaging to assess whether or not this changes in size he understands the risk of malignancy. He has had no recent PSA his voiding symptoms are related to his foreskin being tethered and buried. He complains that his penis no longer sticks out. He has lost some weight. 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 he has been using triamcinolone and triple abx cream to his foreskin. 07/21/2022 CT Abd WWO ([place]) - bilateral renal cysts -- no suspicious lesions PSA TREND:06/2022 - 1.37 08/2022 UroFlow -- Unobstructed -- qAvg 28cc/s with 205 voided volume 10/05/2022 - Patient of Dr London, here to establish with me. PSA last visit normal. Interval imaging showed no concern for renal mass. Patient referred to [facility] Urologist at [facility] for buried penis. He has an appt there today at 2PM that he is concerned about making (it's 11AM now) due to issues with ride/transportation. His focus today is on his buried penis and LUTS Chano Peters MD [address] [place] [address], [facility] [address], [place], [address], [place] [facility] [employer] 10/05/2022 11:59:11
--- OUTSIDE RECORDS SUMMARY | 2024-06-04 11:22 | XMS_ITS | Continuity of Care Document ---
Author Organization [facility] Address [address] [facility] [address] [place] [address] Phone Care Team Providers Care Decommissioning Well Site Manager Name Role Phone Rajendra Yoo MD Unavailable [...] on Encounter DISABILITY EXAMINATION [facility] , [address] [facility] [address], [place], [address], [place] tel:[phone] [facility] My back hurts alot (chief complaint) Body mass index (BMI) 45.0-49.9, adultLow back pain Fredo Drew. [address] [facility] [address] [place], [place], [id number]. tel:[phone] Family History Family Member Type Diagnosis Age At Onset Mother Problem (finding) Alive and well Father Problem (finding) Alive and well Payers Payer name Insurance type Covered green party ID Authoriza tion(s) No Information Social [...]
== END 2024-06-04 11:06 | disposition left against medical advice (07) ==
PROVIDERS: PCP Nurse Practitioner Family
DX: Z53.21 Procedure and treatment not carried out due to patient leaving prior to being seen by health care provider (principal)
CPT/HCPCS: 99199

== ENCOUNTER 2024-06-04 11:01 | Outpatient (CLI) | payer MEDICARE, SELFPAY ==
--- NOTE | ~2024-06-04 | XR_ITS ---
Left Knee Technique: AP, lateral, and sunrise views were obtained. Clinical History: Pain Findings: No fracture or dislocation is seen. Osseous alignment is anatomic. Moderate tricompartmenta l degenerative change present. Soft tissues are unremarkable. No joint effusion is seen. Impression: Moderate tricompartmental degenerative change. Reviewed, dictated and finalized at [facility]. E HALL HOST/HOSTESS Impression: Moderate tricompartmental degenerative change.
--- OUTSIDE RECORDS SUMMARY | 2024-06-04 11:47 | XMS_ITS | Clinical Summary ---
Author Organization [facility] Address [address] [place] [address] Care Team Providers Care Aeronautical Engineering Officer Name Role Phone Erin Nicole NP Primary Care Provider [phone] Allergies No known active allergies Medications betamethasone [...] on file Legal Sex Male 6:40 PM SUPERVISOR HEADING Gender Identity Not on file Sexual Orientation [...] Insurance [employer] CHOICE MEDICARE PPO Care Teams Aeronautical Engineering Officer Relationship Specialty Start Date End Date Erin Nicole NP [address] [place] [address] PCP - General Nurse Practitioner 08/17/22
--- OUTSIDE RECORDS SUMMARY | 2024-06-04 11:47 | XMS_ITS | Continuity of Care Document ---
Author Organization [facility] Address [address] [facility] [address] [place] [address] Phone Care Team Providers Care Account Management Assistant Name Role Phone Rajendra Yoo MD Unavailable [...] on Encounter DISABILITY EXAMINATION [facility] , [address] [facility] [address], [place], [address], [place] tel:[phone] [facility] My back hurts alot (chief complaint) Body mass index (BMI) 45.0-49.9, adultLow back pain Fredo Drew. [address] [facility] [address] [place], [place], [id number]. tel:[phone] Family History Family Member Type Diagnosis Age [...]
--- OUTSIDE RECORDS SUMMARY | 2024-06-04 11:47 | XMS_ITS | Referral Summary ---
Author Organization [facility] Address [address] [place] [phone] Care Team Providers Care Airline Stewardess Name Role Phone Erin Nicole NP Primary Care Provider [phone] Allergies No known active allergies Medications betamethasone [...] on file Legal Sex Male 6:40 PM PROGRAM COORDINATOR Gender Identity Not on file Sexual Orientation Not on file Plan of Treatment Not on file Insurance [employer] CHOICE MEDICARE PPO Care Teams Airline Stewardess Relationship Specialty Start Date End Date Erin Nicole NP [address] [place] [address] PCP - General Nurse Practitioner 08/17/22
[2024-06-04 12:24] LABS: Add Urine Microscopic? NO; Appearance Urine Clear (Clear); Bilirubin Urine Negative (Negative); Blood Urine Negative (Negative); Color Urine Yellow (Yellow); Glucose Urine UA Negative (Negative); Ketones Urine Negative (Negative); Leukocyte Esterase Ur Negative LEU/UL (Negative); Nitrate Urine Negative (Negative); Protein Urine Negative (Negative); Urobilinogen Urine 0.2 mg/dL (<2.0)
[2024-06-04 12:27] LABS: Eosinophils Absolute Auto 0.2 K/mm3 (0-0.3); Eosinophils Percent Auto 5.3 % (0-4.4); Hematocrit 39.4 % (42.0-52.0); Immature Granulocyte Absolute 0.01 K/mm3 (0.00-0.031); Immature Granulocyte Percent A 0.2 % (0-0.5); Lymphocytes Absolute Auto 1.18 K/mm3 (0.9-3.2); Lymphocytes Percent Auto 28.2 % (18.3-44.2); Mean Corpuscular Hemoglobin 31.3 pg (26-34); Mean Corpuscular Volume 94.7 fl (80-100); Monocytes Absolute Auto 0.5 K/mm3 (0.1-0.6); Monocytes Percent Auto 11.7 % (2.6-8.5); Neutrophils Absolute Auto 2.3 K/mm3 (1.3-6.7); Neutrophils Percent Auto 53.6 % (45.5-73.1); Platelet Count Result 157 k/mm3 (150-375); Red Blood Count 4.16 M/mm3 (4.6-6.20); Red Cell Distribution Width 15.4 % (11.5-14.5); White Blood Count 4.2 K/mm3 (4.5-10.0)
[2024-06-04 12:35] LABS: Alanine Aminotransferase 20 U/L (6-50); Albumin Level 3.3 g/dL (3.5-5.1); Alkaline Phosphatase 77 U/L (38-126); Anion Gap 5 mmol/L (4-12); Aspartate Amino Transferase 25 U/L (17-59); Bilirubin,Total 0.8 mg/dL (0.2-1.3); Blood Urea Nitrogen 19 mg/dL (9-20); Calcium 8.3 mg/dL (8.4-10.2); Carbon Dioxide 28 mmol/L (22-30); Chloride 104 mmol/L (98-107); Cholesterol 109 mg/dL (0-200); Estimated Glomerular Filt Rate > 60; Glucose 92 mg/dL (65-110); HDL Direct 46 mg/dL; Sodium 137 mmol/L (137-145); Triglycerides 35 mg/dL (<150); Uric Acid 6.5 mg/dL (3.5-8.5)
[2024-06-04 12:46] LABS: LDL Cholesterol Direct 60 mg/dL
[2024-06-04 13:09] LABS: Vitamin D 25 Hydroxy 32.8 ng/mL
[2024-06-04 13:41] LABS: Folic Acid 7.4 ng/mL (2.76->20)
== END 2024-06-04 11:02 | disposition home or self-care (01) ==
PROVIDERS: PCP Nurse Practitioner Family; Visit Provider Nurse Practitioner Family
DX: M17.11 Unilateral primary osteoarthritis, right knee (principal); G89.29 Other chronic pain; E53.8 Deficiency of other specified B group vitamins; E55.9 Vitamin D deficiency, unspecified; E66.01 Morbid (severe) obesity due to excess calories; E78.00 Pure hypercholesterolemia, unspecified; F41.9 Anxiety disorder, unspecified; I10 Essential (primary) hypertension
CPT/HCPCS: 36415; 73562; 80053; 80061; 81003; 82306; 82607; 82746; 83735; 84443; 84550; 85025

== ENCOUNTER 2024-08-22 18:36 | Emergency (ER) | payer MEDICARE, SELFPAY ==
--- NOTE | ~2024-08-22 | XR_ITS ---
HISTORY: fall, injury COMPARISON: None TECHNIQUE: 2 views of the left shoulder were performed FINDINGS: No acute fracture. The glenohumeral and acromioclavicular joint spaces are significantly narrowed with osteophyte format ion. The visualized portion of the adjacent left lung is clear. The humeral head is well seated within the glenoid fossa. IMPRESSION: Degenerative disease, without acute fracture or anterior dislocation. Reviewed, dictated and finalized at location A.
--- NOTE | ~2024-08-22 | XR_ITS ---
HISTORY: FALL, INJURY COMPARISON: None TECHNIQUE: 3 views of the right hand were performed. FINDINGS: No acute fracture is identified. Gullwing deformity is identified within the proximal interphalangeal joint spaces of the second, thir d, fourth and fifth digits. Joint space narrowing is identified within the distal interphalangeal joint spaces of the second, thi rd, fourth and fifth digits. The remaining joint spaces are otherwise preserved. The carpal arcs are intact. Mild radiocarpal joint space narrowing with sclerosis of the distal radius is present. Bone mineralization is age-appropriate No significant soft tissue swelling. No radiopaque foreign body is identified. IMPRESSION: Degenerative disease, without acute fracture or dislocation within the right hand, as detailed above. Reviewed, dictated and finalized at location A. IMPRESSION: Degenerative disease, without acute fracture or dislocation within the right ballard nd, as detailed above.
--- NOTE | ~2024-08-22 | CT_ITS ---
History: Fall PROCEDURE: CT cervical spine without intravenous contrast. COMPARISON: None TECHNIQUE: Multiple contiguous axial images of the cervical spine were performed without the administration of i ntravenous contrast. DLP: 578 mGy-cm FINDINGS: Severe degenerative disease is identified with osteophyte formation, disc space narrowing, endplate c hanges and facet arthropathy. No acute fractures are present. The bilateral lung apices are unremarkable. No soft tissue abnormality is present. The airway is patent. Impression: Degenerative disease, without acute fracture. Reviewed, dictated and finalized at location A. Impression: Degenerative disease, without acute fracture.
--- NOTE | ~2024-08-22 | XR_ITS ---
HISTORY: injury, fall COMPARISON: None TECHNIQUE: 3 views of the left wrist were performed. FINDINGS: No acute fracture is identified. The carpal arcs are intact. Mild radiocarpal joint space narrowing with sclerosis of the distal radius is present. The remaining visualized joint spaces are otherwise preserved. Bone mineralization is age-appropriate. No significant soft tissue swelling is noted. No radiopaque foreign body is identified. IMPRESSION: Degenerative disease without acute fracture. Reviewed, dictated and finalized at location A.
--- NOTE | ~2024-08-22 | CT_ITS ---
History: Fall PROCEDURE: CT head without contrast. COMPARISON: 06/26/2019 TECHNIQUE: Axial imaging of the head performed from the skull base to the vertex without IV contrast. Sagittal a nd coronal reformations obtained. DLP: 681 mGy-cm FINDINGS: The ventricles are normal in size, shape and position. There is no mass, mass effect or midline shift. There is no abnormal extra-axial fluid collection or intracranial hemorrhage. Visualized paranasal sinuses are clear. The mastoid air cells are well aerated. No acute displaced fractures within the overlying cranium. Impression: No acute intracranial hemorrhage or suspicious mass effect. Reviewed, dictated and finalized at location A. Impression: No acute intracranial hemorrhage or suspicious mass effect.
--- NOTE | ~2024-08-22 | XR_ITS ---
HISTORY: fall, injury COMPARISON: None TECHNIQUE: 2 views of the left forearm were performed FINDINGS: No acute or subacute fracture. Joint spaces are preserved and alignment is maintained. Soft tissues are unremarkable without radiopaque foreign body or significant calcification. Age-appropriate mineralization. IMPRESSION: No acute or subacute fracture, as detailed above. Reviewed, dictated and finalized at location A.
--- OUTSIDE RECORDS SUMMARY | 2024-08-22 18:39 | XMS_ITS | Clinical Summary ---
Author Organization [facility] Address [address] [place] [address] Care Team Providers Care Morale Officer Name Role Phone Erin Nicole SUJATHA Primary Care Provider [phone] Allergies No known active allergies Medications Cholecalciferol (VITAMIN D) 2000 units Tab Take 1 tablet (50 mcg total) by mouth daily. 30 tablet Active hydrocortisone 2.5 % Cream cream Apply 1 each topically 2 (two) times daily as needed (rash). Active magnesium 250 MG tabletIndications :Leg cramp Take 2 tablets (500 mg total) by mouth daily. 30 tablet Active NEBULIZER/TUBING/ MOUTHPIECE KIT, DME,Indications:C OPD (chronic obstructive pulmonary disease) ([facility]) 1 kit by Other route every 4 (four) hours as needed. 1 kit 1 Active Additional Information Patient not taking.Reported on 06/04/2024 Multiple Vitamins-Minerals (MENS MULTIVITAMIN OR) Take 1 tablet by mouth daily. Active SYRINGE-NEEDLE, DISP, 3 ML (LUER LOCK SAFETY SYRINGES) 25G X 1 3 ML MiscIndications:V itamin B 12 deficiency 1 Device by Does not apply route monthly. 50 each 020 Active albuterol sulfate HFA (PROAIR HFA) 108 (90 Base) MCG/ACT inhalerIndication s:SOB (shortness of breath) Inhale 2 puffs into the lungs every 6 (six) hours as needed for Wheezing. 1 Inhaler 11 Active Additional Information Patient not taking.Reported on 06/04/2024 NEBULIZER SUPPLY, DME,Indications:C OPD (chronic obstructive pulmonary disease) ([facility]) 1 Package by Other route every 4 (four) hours as needed. 1 Package Active Additional Information Patient not taking.Reported on 06/04/2024 nitroglycerin 0.[address] 1 tablet (0.4 mg total) under the tongue every 15 (fifteen) minutes as needed. Active folic acid 400 MCG tablet daily. Active IPRATROPIUM-ALBUT TAMMY 0.5-2.5 (3) MG/3ML SolutionIndicatio ns:SOB (shortness of breath) INHALE THE CONTENTS OF ONE VIAL (3 ML) BY MOUTH VIA NEBULIZER EVERY 4 HOURS 90 mL 1 Active Additional Information Patient not taking.Reported on 06/04/2024 NEBULIZER DEVICE, DME,Indications:C hronic obstructive pulmonary disease, unspecified COPD type ([facility]) Take 1 Device by nebulization every 4 (four) hours as needed. 1 Device Active Additional Information Patient not taking.Reported on 06/04/2024 fluticasone furoate-vilantero l (BREO ELLIPTA) 100-25 MCG/INH inhaler Breo Ellipta 100 mcg-25 mcg/dose powder for inhalation TAKE 1 PUFF BY MOUTH EVERY DAY Active triamcinolone (KENALOG) 0.1 % ointmentIndicatio ns:Rash Apply topically 3 (three) times daily as needed. To legs and areas of concern 454 g 1 Active Cyanocobalamin (VITAMIN B-12) 50 MCG Tab Active lisinopril (PRINIVIL) 40 MG tabletIndications :Essential hypertension take 1 tablet by mouth every day 90 tablet 3 Active omeprazole (PRILOSEC) 40 MG capsuleIndication s:GERD (gastroesophageal reflux disease) TAKE 1 CAPSULE (40 MG TOTAL) BY MOUTH DAILY. 90 capsule Active traZODone (DESYREL) 100 MG tabletIndications :Primary insomnia Take 2 tablets (200 mg total) by mouth nightly as needed. FOR SLEEP 180 tablet 1 024 Active neomycin-polymyxi n-dexamethasone (MAXITROL) 3.5-74167-7.1 SuspensionIndicat ions:Ear pain Place into both eyes 4 (four) times daily. 5 mL 025 Active methocarbamol (ROBAXIN) 750 MG TabIndications:Os teoarthritis of multiple joints, unspecified osteoarthritis type TAKE 1 TABLET BY MOUTH FOUR TIMES DAILY NEEDED (PAIN). 120 tablet 025 Active DULoxetine (CYMBALTA) 20 MG capsuleIndication s:Mild episode of recurrent major depressive disorder,Other chronic pain Take 1 capsule (20 mg total) by mouth daily. 90 capsule 1 025 Active diazePAM (VALIUM) 5 MG tabletIndications :Other chronic pain,DDD (degenerative disc disease), cervical,DDD (degenerative disc disease), lumbar TAKE 1-2 TABS BY MOUTH EVERY 12 HOURS NEEDED FOR ANXIETY/MUSCLE SPASMS. DONT TAKE W/ HYDROCODONE 60 tablet 1 025 Active atorvastatin (LIPITOR) 20 MG tabletIndications :Hypercholesterol emia TAKE 1 TABLET BY MOUTH EVERY DAY 90 tablet 025 Active ibuprofen (MOTRIN) 800 MG tabletIndications :Osteoarthritis of multiple joints, unspecified osteoarthritis type TAKE 1 TABLET BY MOUTH EVERY 8 HOURS NEEDED 90 tablet 025 Active hydroCHLOROthiazi de (MICROZIDE) 12.5 MG capsuleIndication s:Essential hypertension,Loca lized swelling of both lower legs Take 1 capsule (12.5 mg total) by mouth every morning. 90 capsule 025 Active HYDROcodone-aceta minophen (NORCO) 5-325 MG tabletIndications :Chronic Pain Take 1-2 tablets by mouth every 8 (eight) hours as needed for Pain. Indications: Chronic Pain 120 tablet 025 Active naloxone (NARCAN) 4 MG/0.1ML nasal sprayIndications: High risk medication use 1 spray by Nasal route as needed for Opioid reversal. may repeat every 2 to 3 minutes in alternating nostrils until medical assistance becomes available 1 each 024 2024 ibuprofen (MOTRIN) 800 MG tabletIndications :Osteoarthritis of multiple joints, unspecified osteoarthritis type TAKE 1 TABLET BY MOUTH EVERY 8 HOURS NEEDED 90 tablet 025 2024 Discontinued HYDROcodone-aceta minophen (NORCO) 5-325 MG tabletIndications :Chronic Pain Take 1-2 tablets by mouth every 8 (eight) hours as needed for Pain. Indications: Chronic Pain 120 tablet 025 2024 Discontinued(R eorder) hydroCHLOROthiazi de (MICROZIDE) 12.5 MG capsuleIndication s:Essential hypertension,Loca lized swelling of both lower legs TAKE 1 CAPSULE BY MOUTH EVERY DAY IN THE MORNING 90 capsule 025 2024 Discontinued(R eorder) Hospital, Clinic, or Other Facility Administered Medication Ordered Dose Route Frequency Start Date End Date Status cyanocobalamin (B-12) injection 1,000 mcgIndications:B12 deficiency 1000 mcg IM Once 05/31/2019 Active Active Problems Problem Noted Date Diagnosed Date Chronic pain of left knee 06/05/2024 Family history of Parkinson disease 06/05/2024 Tremors of nervous system 06/05/2024 Lumbar spondylosis 05/09/2023 Family history of diabetes mellitus 02/06/2023 Acquired buried penis 07/18/2022 Recurrent UTI 06/08/2022 Other chronic pain 06/08/2022 At risk for self care deficit 06/08/2022 Unsatisfactory living conditions 06/08/2022 Paroxysmal atrial fibrillation ([facility]) 03/18/2022 Sciatica 03/16/2022 Fall, subsequent encounter 03/16/2022 Chronic a-fib ([facility]) 03/16/2022 Renal mass 02/14/2022 Tendinopathy of [...] Lumbar radiculopathy 10/03/2018 Bradycardia 09/04/2018 Morbid obesity 09/04/2018 Essential hypertension 09/04/2018 Osteoarthritis of multiple j oints, unspecified osteoarthritis type 09/04/2018 Vitamin D deficiency 09/04/2018 Primary insomnia 09/04/2018 Anxiety 09/04/2018 DDD (degenerative disc disease), cervical 2018 DDD (degenerative disc disease), lumbar 09/05/19 Chronic back pain 07/06/2017 Chronic back pain 07/05/2017 Resolved Problems Problem Noted Date Diagnosed Date Resolved Date Localized swelling of both lower legs 07/14/2021 02/08/2023 Premature atrial contraction 11/27/2020 02/08/2023 Chest pain, unspecified type 09/14/2020 02/08/2023 Chronic obstructive pulmonar y disease ([facility]) 09/11/2020 07/08/2021 Traumatic injury of external genitalia 09/08/2020 05/09/2023 Sinus node dysfunction ([facility]) 09/11/2019 09/14/2020 Chronic coughing 08/13/2019 02/06/2023 [...] Encounters Date Type Department Care Team Description 07/31/[address] [phone] Erin Nicole FNP Refill Request 07/01/[address] [address] Erin Nicole FNP Refill Request 07/01/[address] [phone] Erin Nicole FNP Advice 06/07/[address] [phone] Erin Nicole FNP Medication Request; Radiology Results 06/06/2024 Patient Outreach [address] [phone] Dena Carrera, TRAINING INSTRUCTOR Care Management 06/06/[address] [phone] Erin Nicole FNP Prior Authorization (Dizepam (Valium) 5mg ) 06/04/2024 9:20 AM PERINATAL COORDINATOR Office Visit [address] [phone] Erin Nicole FNP Information (Need a help at home, /); Depression (Having thoughts, ) 06/04/2024 Scan [facility] Scanned, [facility] Image (SCAN); Lab (SCAN) 06/04/2024 Travel 05/28/2024 Telephone [facility] Family & Internal Medicine [address] [address] Erin Nicole FNP Prior Authorization (Diazepam 5mg tablets) from Last 3 Months Immunizations Immunization Administration Dates Next Due Arexvy Respiratory Syncytial [...] Sex Assigned at Male 06/04/2024 9:38 AM PERINATAL COORDINATOR Legal Sex Male 10:27 PM PERINATAL COORDINATOR Gender Identity Male 06/04/2024 9:38 AM PERINATAL COORDINATOR Sexual Orientation Not on file 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 on file Not on file Not on file Not on file Not on file Not on file Not on file Last Filed Vital Signs Vital Sign Reading Time Taken Comments Blood Pressure 130/60 06/04/2024 9:40 AM PERINATAL COORDINATOR Pulse 62 06/04/2024 9:40 AM PERINATAL COORDINATOR Temperature 36.6 C (97.9 F) 06/04/2024 9:40 AM PERINATAL COORDINATOR Respiratory Rate 15 06/04/2024 9:40 AM PERINATAL COORDINATOR Oxygen Saturation 99% 06/04/2024 9:40 AM PERINATAL COORDINATOR Inhaled Oxygen Concentration - - Weight 145.3 kg (320 lb 6.4 oz) 06/04/2024 9:40 AM PERINATAL COORDINATOR Height 190.5 cm (6' 3 ) 06/04/2024 9:40 AM PERINATAL COORDINATOR Body Mass Index 40.05 06/04/2024 9:40 AM PERINATAL COORDINATOR Plan of Treatment Upcoming Encounters Date Type Department Care Team (Late st Contact Info) Description 11/28/2024 11:20 AM CDT Office Visit [facility] Multispecialty Care - [address], [address] [place] [phone] Prachi Mojica MD [address] [place] [address] Health Maintenance Due Date Last Done Comments Zoster Vaccines (1 of 2) 09/07/2003 Annual Medicare Wellness Visit 2018 COVID-19 Vaccine (6 - Pfizer risk 2023- season) 2024 06/27/2024, 04/28/2023, 04/16/2021, Additional history exists Colorectal Cancer Screening Colonoscopy (10 Years) 09/21/2028 09/21/2018 DTaP, Tdap and Td Vaccines (2 - Td or Tdap) 12/09/2033 12/10/2023 AAA SCREENING Completed 10/03/2019 Pneumococcal Vaccine: 50+ Years Completed 12/29/2020, 05/31/2019 Hepatitis C Completed 07/08/2021 RSV Immunization or 60+ Years Completed 04/28/2023 PHQ-2 (Physician [place]) Completed 06/04/2024 Meningococcal B Vaccine Aged Out No l onger eligible based on patient's age to complete this topic Meningococcal Vaccine Aged Out No vicky marlon eligible based on patient's age to complete this topic RSV Immunizations Under 20 Months Aged Out No longer eligible based on patient's age to complete this topic Procedures Procedure Name Priority Date/Time Associated Diagnosis Comments OUTSIDE LAB (SCAN ORDER) 06/04/2024 OUTSIDE LAB (SCAN ORDER) 06/04/2024 OUTSIDE LAB (SCAN ORDER) 06/04/2024 OUTSIDE LAB (SCAN ORDER) 06/04/2024 OUTSIDE LAB (SCAN ORDER) 06/04/2024 IMAGE GENERIC 06/04/2024 HEPATITIS C ANTIBODY 07/08/2021 3:[address] ABD+PEL W CON STAT 10/03/2019 3:51 PM CDT Generalized abdominal pain Fever, unspecified fever cause Dysuria COLONOSCOPY GENERIC (SCAN ORDER) Routine 09/21/2018 from Last 3 Months or Most Recently Relevant to Health Maintenance Results * OUTSIDE LAB (SCAN ORDER) (06/04/2024) Only the most recent of5 resultswithin the time period is included. 06/04/2024 [facility] Scanned SCANNING Final Resu lt * IMAGE GENERIC (06/04/2024) Anatomical Region Laterality Modality Other 06/04/2024 [facility] Scanned SCANNING Final Resu lt * HEPATITIS C ANTIBODY (07/08/2021 3:20 PM PERINATAL COORDINATOR) HEPATITIS C AB <0.1 0.0 - 0.9 s/co ratio [facility] 1 Comment: Negative: < 0.8 Indeterminate: 0.8 - 0.9 Positive: > 0.9 The CDC recommends that a positive HCV antibody result be followed up with a HCV Nucleic Acid Amplification test (143781). 07/08/2021 3:20 PM PERINATAL COORDINATOR 07/08/2021 Narrative [facility] - 07/09/2021 12:10 PM PERINATAL COORDINATOR Performed at: [facility] [id number] Manager Linux: Blaise Kirk PhD, Phone: [phone] Erin [facility] Final Result Performing Organization Address [facility] Phone Number [facility] [address] [place] [address] [facility] 1 * CT ABD+PEL W CON (10/03/2019 3:51 PM CDT) Anatomical Region Laterality Modality Abdomen Computed Tomogra phy 10/03/2019 3:51 PM CDT Renny Weaver MD CT Final Result * COLONOSCOPY (09/21/2018) Erin [facility] SCANNING Final Result from Last 3 Months or Most Recently Relevant to Health Maintenance Insurance [employer] Care Teams Morale Officer Relationship Specialty Start Date End Date Erin Nicole FNP [address] [place] [address] PCP - General Nurse Practitioner Family 12/06/18
--- OUTSIDE RECORDS SUMMARY | 2024-08-22 18:39 | XMS_ITS | Encounter Summary ---
Author Organization [facility] Address [address] [place] [address] Care Team Providers Care Gynecology Teacher Name Role Phone Erin Nicole SUJATHA Primary Care Provider [phone] Renny Weaver MD Unavailable [phone] Encounter Details Date Type Department Care Team (Late st Contact Info) Description 12/02/2019 Prep for Procedure [facility] Pre-Admission Testing [facility] [place], [place] [id number] Denis Higgins MD [address] [place] [phone] Social History Tobacco Use Types Packs/Day [...] Sex Assigned at Male 06/04/2024 9:38 AM SAMPLE SUPERVISOR Legal Sex Male 10:27 PM SAMPLE SUPERVISOR Gender Identity Male 06/04/2024 9:38 AM SAMPLE SUPERVISOR Sexual Orientation Not on file 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 Not on file Not [...] Description 11/28/2024 11:20 AM CDT Office Visit [facility] Multispecialty Care - [facility] [address] [facility], [address] [place] [address] Prachi Mojica MD [address] [place] [address] documented as of this encounter Visit Diagnoses Diagnosis Preop examination- Primary Preoperative examination, unspecified documented in this encounter Additional Health Concerns Infection Onset Date Last Indicated Resolved Time COVID-19 Rule Out 02/01/2020 02/01/2020 02/02/2020 1:26 PM CDT COVID-19 Rule Out 03/17/2020 09/11/2019 03/17/2020 10:13 AM SAMPLE SUPERVISOR COVID-19 Rule Out 05/26/2020 05/30/2020 06/02/2020 12:34 AM SAMPLE SUPERVISOR COVID-19 Rule Out 04/13/2022 04/13/2022 04/20/2022 12:32 AM SAMPLE SUPERVISOR Assessment Noted Time PHQ-9 Depression Total Score: 5 05/31/19 20 1:19 PM SAMPLE SUPERVISOR documented as of this encounter Care Teams Gynecology Teacher Relationship Specialty Start Date End Date Erin Nicole FNP [address] [place] [address] PCP - General Nurse Practitioner Family 12/06/18 Renny Weaver MD [address] [place] [address] PCP - Med Group - [facility] Attributed Provider 03/05/19 05/01/20 documented as of this encounter
--- OUTSIDE RECORDS SUMMARY | 2024-08-22 18:39 | XMS_ITS | Clinical Summary ---
Author Organization [facility] Address [address] [place] [address] Care Team Providers Care Salad Maker Name Role Phone Erin Nicole APRN-THREADING MACHINE TENDER Primary Care Provider [phone] Source Comments [facility],non-owned Affiliates and Associated Physician Practices is amultiple site organization consisting of ambulatory clinics and hospital sitesin [place], [place], [place] and [place]. This disclosure is being madepursuant to the Care Everywhere program and may not contain all information available regarding this patient. Last updated 18.[facility] Allergies No known active allergies Medications * Be aware that medications may not be up to date on this document. Alwaysverify current medications with the patient. METOPROLOL TARTRATE PO Take by mouth. Active hydrocodone-acet aminophen (NORCO) 5-325 MG tablet Take 1 Tab by mouth every 4 hours as needed for Pain. Active ibuprofen (MOTRIN) 800 MG tablet Take 800 mg by mouth every 6 hours as needed for Pain. Active oxyCODONE-acetam inophen (PERCOCET) 5-325 MG tablet Take 1 Tab [...] at Not on file Legal Sex Male 9:05 AM ASSISTANT CREDIT MANAGER Gender Identity Not on file Sexual Orientation Not on file Last Filed Vital Signs Vital Sign Reading Time Taken Comments Blood Pressure 132/83 02/19/2014 12:23 PM CDT Pulse 61 02/19/2014 12:23 PM CDT Temperature 36.5 C (97.7 F) 02/19/2014 12:23 PM CDT Respiratory Rate 20 02/19/2014 12:23 PM CDT [...] FLEX SIG - COLON CA SCREENING 1953 DTAP/TDAP/TD VACCINES (1 - Tdap) 1972 PNEUMOCOCCAL VACCINE 50+ (1 of 1 - PCV) 09/07/2003 ZOSTER VACCINE (1 of 2) 09/07/2003 Respiratory Syncytial Virus (RSV) Vaccine Pt: or over 60 yrs (1 - Risk 60-74 years 1-dose series) 2013 COVID-19 VACCINE (1 - season) 2023 DEPRESSION SCREENING 05/01/2024 INFLUENZA VACCINE (Season Ended) 2024 02/03/2020, 05/17/2018, 01/29/2018, Additional history exists LIPID TESTING 07/08/2026 07/08/2021 HEPATITIS C SCREENING Completed 07/08/2021 HEPATITIS B VACCINE Aged Out No longe r eligible based on patient's age to complete this topic HIB VACCINE Aged Out No longer eligi ble based on patient's age to complete this topic HPV VACCINE Aged Out No longer eligi ble based on patient's age to complete this topic MENINGOCOCCAL (Group B) VACCINE SHARED DECISION-MAKING Aged Out No longer eligible based on patient's age to complete this topic MENINGOCOCCAL GROUPS A/C/Y/W VACCINE Aged Out No longer eligible based on patient's age to complete this topic Insurance COMMERCIAL GENERIC COMMERCIAL GENERIC PAYOR GENERIC Care Teams Salad Maker Relationship Specialty Start Date End Date Erin Nicole APRN-THREADING MACHINE TENDER [address] [place] [address] PCP - General 07/03/19
--- OUTSIDE RECORDS SUMMARY | 2024-08-22 18:39 | XMS_ITS | Encounter Summary ---
Author Organization [facility] Address [address] [place] [address] Care Team Providers Care Neck Skewer Name Role Phone Erin Nicole SUJATHA Primary Care Provider [phone] Renny Weaver MD Unavailable [phone] Encounter Details Date Type Department Care Team (Late st Contact Info) Description 01/29/2020 Prep for Procedure [place] Pre-Admission Testing [facility] [place], [place] [id number] Denis Higgins MD [address] [place] [address] Social History Tobacco Use Types Packs/Day [...] Sex Assigned at Male 06/04/2024 9:38 AM CHECK OUT CASHIER Legal Sex Male 10:27 PM CHECK OUT CASHIER Gender Identity Male 06/04/2024 9:38 AM CHECK OUT CASHIER Sexual Orientation Not on file 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 Not on file Not [...] Description 11/28/2024 11:20 AM CDT Office Visit [facility] Multispecialty Care - [facility] [address], [address] [place] [phone] Prachi Mojica MD [address] [place] [address] documented as of this encounter Results * PRE-SURGICAL/PRE-PROCEDURE CORONAVIRUS (COVID 19) (02/01/2020 11:55 AM CDT) CORONAVIRUS SARS COV 2 PCR (RESP) NOT DETECTED NOT DETECTED 02/02/2020 1:26 PM CDT [facility] Comment: A Not Detected (negative) test result for this test means that SARS- CoV-2 RNA was not present in the specimen above the limit of detection. A negative result does not rule out the possibility of COVID-19 and should not be used as the sole basis for treatment or patient management decisions. If COVID-19 is still suspected, based on exposure [...] providers and patients using the following websites: https://www.[employer].com/home/Covid-19/HCP/NAAT/fact-sheet2 https://www.[employer]/home/Covid-19/Patients/NAAT/ fact-sheet2 This test has been authorized by the FDA under an Emergency Use Authorization (EUA) for use by authorized laboratories. Due to the current public health emergency, [employer] is receiving a high volume of samples [...] including collection of an additional specimen. Methodology: Nucleic Acid Amplification Test (NAAT) includes PCR or TMA Additional information about COVID-19 can be found at the [employer] website: www.[employer]/Covid19. Test performed at [facility] [place] [address] [place] [address] Director: ART BROCK DO,MPH FIRST TEST NO 02/01/2020 3:53 PM CDT [facility] EMPLOYED IN HEALTHCARE NO 02/01/2020 3:53 PM CDT [facility] SYMPTOMATIC DEFINED BY CDC NO 02/01/2020 3:53 PM CDT [facility] DATE OF SYMPTOM ONSET NO 02/01/2020 5:08 PM CDT [facility] HOSPITALIZATION STATUS NO 02/01/2020 3:53 PM CDT [facility] PATIENT IN ICU NO 02/01/2020 3:53 PM CDT [facility] RESIDENT OF [facility] NO 02/01/2020 3:53 PM CDT [facility] NOT 02/01/2020 5:08 PM CDT [facility] PATIENT'S RACE WHITE OR 02/01/2020 3:53 PM CDT [facility] ETHNICITY NONHISPANIC 02/01/2020 3:53 PM CDT [facility] SOURCE (QST) NASOPHARYNGEAL SWAB 02/01/2020 3:53 PM CDT [facility] NASOPHARYNGEAL SWAB / Unknown 02/01/2020 11:55 AM CDT us Denis Higgins MD MICROBIOLOGY - GENERAL CECILE KUNZ Final Result [facility] [address] [place] [address], [facility] [address] [place] [address], documented in this encounter Visit Diagnoses Diagnosis Preop examination- Primary Preoperative examination, unspecified documented in this encounter Additional Health Concerns Infection Onset Date Last Indicated Resolved Time COVID-19 Rule Out 02/01/2020 02/01/2020 02/02/2020 1:26 PM CDT COVID-19 Rule Out 03/17/2020 09/11/2019 03/17/2020 10:13 AM CHECK OUT CASHIER COVID-19 Rule Out 05/26/2020 05/30/2020 06/02/2020 12:34 AM CHECK OUT CASHIER COVID-19 Rule Out 04/13/2022 04/13/2022 04/20/2022 12:32 AM CHECK OUT CASHIER Assessment Noted Time PHQ-9 Depression Total Score: 5 05/31/19 20 1:19 PM CHECK OUT CASHIER documented as of this encounter Care Teams Neck Skewer Relationship Specialty Start Date End Date Erin Nicole FNP [address] [place] [address] PCP - General Nurse Practitioner Family 12/06/18 Renny Weaver MD [address] [place] [address] PCP - Med Group - [facility] Attributed Provider 03/05/19 05/01/20 documented as of this encounter
--- OUTSIDE RECORDS SUMMARY | 2024-08-22 18:40 | XMS_ITS | Data Portability ---
Author Organization [place] - [facility] [employer], Main Office Address [address] [place] [address] Care Team Providers Care Booth Usher Name Role Phone VERNON AQUINO Primary Care Provider Assessment No assessment recorded. Plan of Treatment Reminders Order Date Submit Date Provider Last Modified By Organization Details Last Modified Time Details Appointments None recorded. Lab PSA, serum or plasma 2022 023 [facility], [address] [place], [address], 3 18:58:04 Referral urologist referral - Dr Kahn - buried phallus and renal mass 2022 023 [place] [address] Ludin Kahn MD, [facility] [address], [address], 3 11:16:14 Procedures None recorded. Surgeries None recorded. Imaging CT, abdomen, w/wo contrast [address] ([facility] Scheduling), [address] [place], [address], 3 14:23:28 Medication Orders nystatin 100,000 unit/gram topical cream 2022 023 [facility] [address] In [facility], [address] [place], [address], 3 12:00:11 Patient TargetsNo targets recorded. Patient InstructionsNo instructions recorded. Reason for Referral Urologist Referral for Renal mass Dr Kahn - buried phallus and renal mass Referring Physician: Igor London, Urology, Encounter Date: 07/18/2022 Results Created Date Observation Date Name Description Value Unit Range Abnormal Flag Note LastModifiedBy Organization Detail LastModifiedTime 07/20/19 22 07/19/2021 urina lysis , dipst ick Leukocytes (reference range: negative jeanne/ l) Negati ve Not Available [address], [address], 07/19/2021 11:22:42 07/20/19 22 07/19/2021 urina lysis , dipst ick Nitrite (reference rage: negative mg/dl) negati ve Not Available [address], [address], 07/19/2021 11:22:42 07/20/19 22 07/19/2021 urina lysis , dipst ick Urobilinogen (reference range: 0.2-1 mg/dl) 0.2 Not Available [address], [address], 07/19/2021 11:22:42 07/20/19 22 07/19/2021 urina lysis , dipst ick Protein (reference range: negative mg/dl) Negati ve Not Available [address], [address], 07/19/2021 11:22:42 07/20/19 22 07/19/2021 urina lysis , dipst ick pH (reference range: 5-7) 5.5 Not Available [address], [address], 07/19/2021 11:22:42 07/20/19 22 07/19/2021 urina lysis , dipst ick Blood (reference range: negative Merlin/ l) Modera te Not Available [address], [address], [address], 07/19/2021 11:22:42 07/20/19 22 07/19/2021 urina lysis , dipst ick Specific [place] (reference range: 1.005-1.030) 1.030 Not Available [address], [address], 07/19/2021 11:22:42 07/20/19 22 07/19/2021 urina lysis , dipst ick Ketone (reference range: negative mg/dl) Negati ve Not Available [address], [address], 07/19/2021 11:22:42 07/20/19 22 07/19/2021 urina lysis , dipst ick Bilirubin (reference range: negative mg/dl) Negati ve Not Available [address], [address], 07/19/2021 11:22:42 07/20/19 22 07/19/2021 urina lysis , dipst ick Glucose (reference range: negative mg/dl) Negati ve Not Available [address], [address], 07/19/2021 11:22:42 07/20/19 22 07/19/2021 US, bladd er No observ ation record ed. [id number] [place] [address] [facility], [address], [place], [address], 06/29/2022 06:20:00 11/12/19 22 08/17/2021 CT, urogr am No observ ation record ed. [id number] [facility] Add On Lab Orders [address] [place], [address], 06/29/2022 06:20:00 10/04/19 23 09/29/2022 urofl owmet rogra m No observ ation record ed. [email or web address] Not Available 2022 15:15:59 10/06/19 23 07/22/2022 CT, abdom en, w/wo contr ast No observ ation record ed. [email or web address] [facility] ([facility]) [address] [place], [address], 10/05/2022 11:29:10 Result Notes None recorded. Problems Name Problem SNOMED Code Status Onset Date Resolution Date Notes Provider Name and Address Organization Details Recorded Time Injury of shoulder region 459127667 Completed Not Available [facility] 3 06:15:25 Disorder of knee 658911920 Active Not Available [facility] 3 06:15:25 Backache 196233121 Active Not Available [facility] 3 06:15:25 Microscopi c hematuria 005669870 Active 2021 Not Available [facility] 3 06:15:25 Neck sprain 769910263 Active Not Available [facility] 3 06:15:25 Lumbar sprain 305406144 Completed Not Available [facility] 3 06:15:25 Benign prostatic hyperplasi a 395612517 Active 2021 Not Available [facility] 3 06:15:25 Edema 011881491 Active Not Available [facility] 3 06:15:25 Shoulder joint pain 221803942 Active Not Available [facility] 3 06:15:25 Recurrent dislocatio n of shoulder region 33535413 Active Not Available [facility] 3 06:15:25 Renal mass 371035860 Active 2021 Not Available [facility] 3 06:15:25 Enthesopat hy of hip region 05084553 Active Not Available [facility] 3 06:15:25 Lumbosacra l strain 836204918 Active Not Available [facility] 3 06:15:25 Sinusitis 40692251 Active 2016 Not Available [facility] 3 06:15:25 Osteoarthr itis 009867868 Active Not Available [facility] 3 06:15:25 Disorder of rotator cuff 550304918 Active Not Available [facility] 3 06:15:25 Obesity 914643489 Active Not Available [facility] 3 06:15:26 Traumatic injury of external genitalia 401688245 Active Not Available [facility] 3 06:15:26 Shoulder pain 88475344 Completed Not Available [facility] 3 06:15:26 Hip pain 51585634 Completed Not Available [facility] 3 06:15:26 Cough 23721268 Active 2016 Not Available [facility] 3 06:15:26 Candidal balanitis 25830488 Active 2021 Not Available [facility] 3 06:15:26 Disorder of bursa of shoulder region 61858251 Active Not Available [facility] 3 06:15:26 Essential hypertensi on 52060633 Active Not Available [facility] 3 06:15:26 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 3 11:59:24 Pain in scrotum Active 2022 Igor London MD [address], [address], [place], [address] , [facility] [employer] [facility] 3 13:09:45 Notes:Medical History: Anxie ty/Depression Rhinosinusitis Eosinophils 310/uL Alpha-1 antitrypsin PiMM 142 mg% Obesity with JOHN, off CPAP Hypertension HSIKHA Sigmoid diverticulosis Normocytic anemia Bilateral parapelvic cysts [...] Details LastModified Time 07/19/2021 US, bladder completed [id number] [facility] [place] [address] [facility], [address], [place], [address], 06/29/2022 06:20:00 08/17/2021 CT, urogram completed [id number] [facility] Add On Lab Orders [address] [place], [address], 06/29/2022 06:20:00 09/29/2022 uroflowmetrogram completed [email or web address] Informat ion not available 10/03/2022 15:15:59 07/22/2022 CT, abdomen, w/wo contrast completed [email or web address] [facility] ([facility]) [address] [place], [address], 10/05/2022 11:29:10 Procedure Notes None recorded. Medical [...] Available Not Available No t Available Fluvirin 0868-0001 45 mcg (15 mcg x 3)/0.5 mL intramuscul ar suspension 10/25 completed Not Available Not Available Not Available Vitals Date Recorded Body mass index (BMI) Body height Oxygen saturation Oxygen saturation in Arterial blood by Pulse oximetry Body temperature Body weight Systolic blood pressure Diastolic blood pressure Provider Name and Address Organization Details Last Updated DateTime 2 44.6 kg/m2 190.5 cm 96 % 96 % 99.1 [degF] 605563. 48 g 143 mm[Hg] 93 mm[Hg] Not Available [facility] 3 06:14:17 Date Recorded Body height Provider Name an d Address Organization Details Last Updated DateTime 02/14/2022 190.5 cm Not Available [facility] 3 06:14:18 Date Recorded Body height Provider Name an d Address Organization Details Last Updated DateTime 07/18/2022 190.5 cm Kallie Granda MA [employer] 07/18/2022 11:20:05 Date Recorded Heart rate Oxygen saturation Oxygen saturation in Arterial blood by Pulse oximetry Body mass index (BMI) Body weight Body temperature Provider Name and Address Organization Details Last Updated DateTime 3 55 /min 98 % 98 % 43.6 kg/m2 524465. 74 g 97.3 [degF] JO Jarvis [employer] 3 11:25:23 Date Recorded Body height Provider Name an d Address Organization Details Last Updated DateTime 10/05/2022 190.5 cm Kallie Granda MA [employer] 10/05/2022 11:33:09 Date Recorded Body temperature Body mass index (BMI) Body weight Heart rate Oxygen saturation Oxygen saturation in Arterial blood by Pulse oximetry Provider Name and Address Organization Details Last Updated DateTime 3 97.7 [degF] 44.4 kg/m2 716307. 29 g 54 /min 96 % 96 % JO Jarvis [place] [facility] [place] [employer] 3 11:38:42 Social History Question Answer Notes LastModified by Organizat ion Details LastModified Time Tobacco Smoking Status Never Smoker Not Available [facility] 06/29/2022 06:11:56 What Is Your Level Of Alcohol Consumption? Occasional [id number] Information not available 06/29/2022 What Is Your Level Of Caffeine Consumption? Moderate [id number] Information not available 06/29/2022 Have You Ever Been Counseled For Unhealthy Alcohol Use? No [id number] Information not available 06/29/2022 Do You Use Any Illicit Or Recreational Drugs? No [id number] Information not available 06/29/2022 Has Tobacco Cessation Counseling Been Provided? No [id number] Information not available 06/29/2022 Do You Or Have You Ever Used Any Other Forms Of Tobacco Or Nicotine? No [id number] Information not available 06/29/2022 Sex: Unknown Functional Status None recorded. Mental Status None recorded. Family History Nothing Reported. Medical History Condition Response HYPERTENSION Y Immunizations Vaccine Type Date Status Note Provider Nam e and Address Organization Details Recorded Time Influenza, split virus, quadrivalent, PF 7 completed Not Available [facility] 06/29/2022 06:19:45 Influenza, split virus, quadrivalent, preservative 4 completed Not Available [facility] 06/29/2022 06:19:45 Past Encounters Encounter ID Performer Location Encounter Start Date Encounter Closed Date Diagnosis/Indication Diagnosis SNOMED-CT Code Diagnosis ICD10 Code Diagnosis Note [id number] [facility] [address] [address] 10/06/2020 00:00:00 10/06/2020 15:28:25 [id number] [facility] [address] [address] 12/31/2020 00:00:00 12/31/2020 15:49:54 [id number] [facility] [place] [address] 0 02/09/2021 00:00:00 02/09/2021 16:07:37 [id number] [facility] [address] [address] 07/19/2021 00:00:00 07/19/2021 15:52:23 [id number] [facility] [address] 1 02/14/2022 00:00:00 02/14/2022 12:57:49 [id number] MD KINA [facility] [address] [address] 07/18/2022 11:07:54 07/18/2022 12:18:15 Renal mass 974078506 N28.89 plan for f/u CT to assess for interval change-pt aware of risk of cancer-kimani l in 1 week if not heard fromo ffice to confirm we received results, Microscopic hematuria 19 9367794 R31.29 PSA 1.28, cytology normalcyst oscopy normal 02/14/22CT with 13 mm renal massoption s discussed with partial nx, IR RMBx, RFA, or observatio n/surveill ance given small size Screening for malignant neoplasm of prostate 467454262 Z12.5 check PSA, Acquired buried penis 23 5665996 N48.83 we will add topical nystatinDi scussed in great detail the rationale, contraindi cations, interactio ns, and possible side effects of the medication . Pt expressed understand ing-ultima tely he will need to consider penile exhumation /reconstru ctive surgery as he has trapped/bu ried phallus-I will have him see reconstruc tive urology at [facility] (Dr Kahn) as he may require a multidisci plinary approach to fix this ( ie plastics and urology) [id number] MD ARLETTE BryantS[facility] [place] [id number] [place] [address] 09/29/2022 14:37:40 09/29/2022 14:42:27 [id number] Chano Peters MD AHRadha[facility] [address] [place] [address] 10/05/2022 11:25:50 10/05/2022 11:58:08 Renal mass 531277671 N28.89 :Benign cysts -- no further surveillan ce needed Microscopic hematuria 19 2282229 R31.29 PSA 1.28, cytology normalcyst oscopy normal 02/14/22CT with 13 mm renal mass -- dedicated imaging showed benign renal cysts Screening for malignant neoplasm of prostate 755773816 Z12.5 PSA normal 06/2022 at age 67 -- will advise cessation of prostate cancer screening based on guidelines , though he and his PCP may continue if they wish Acquired buried penis 23 9152112 N48.83 -Referred to reconstruc tive urology at [facility] (Dr Kahn) as he may require a [...] Galvez Member ID Guarantor Name 07/18/[address] [facility] (MEDICARE REPLACEMENT/A DVANTAGE - HMO) [id number] Venron Tobin [id number] Vernon Tobin 09/29/[address] [facility] (MEDICARE REPLACEMENT/A DVANTAGE - HMO) [id number] Vernon Tobin [id number] Vernon Tobin 10/05/[address] [facility] (MEDICARE REPLACEMENT/A DVANTAGE - HMO) [id number] Vernon Tobin [id number] Vernon Tobin Notes Date Note Type Note [...] with moderate blood on ua. Not Available [facility] 07/19/2021 15:52:23 07/18/2022 text/html Vernon is here [...] cream to his foreskin. Igor London MD [address] [place] [address], [address], [facility] 07/18/2022 12:12:43 10/05/2022 text/html Vernon is here [...] to his foreskin. 07/21/2022 CT Abd [facility] ([place]) - bilateral renal cysts -- no suspicious lesions PSA TREND:06/2022 - 1.37 08/2022 UroFlow -- Unobstructed -- qAvg 28cc/s with 205 voided volume 10/05/2022 - Patient of Dr London, here to establish with me. PSA last visit normal. Interval imaging showed no concern for renal mass. Patient referred to Recon Urologist at [facility] for buried penis. He has an appt there today at 2PM that he is concerned about making (it's 11AM now) due to issues with ride/transportation. His focus today is on his buried penis and LUTS Chano Peters MD [address] [place] [address], [facility] [address], [place], [address], [place] [facility] [place] [facility] 10/05/2022 11:59:11
--- OUTSIDE RECORDS SUMMARY | 2024-08-22 18:40 | XMS_ITS | Clinical Summary ---
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
--- OUTSIDE RECORDS SUMMARY | 2024-08-22 18:40 | XMS_ITS | Referral Summary ---
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
--- OUTSIDE RECORDS SUMMARY | 2024-08-22 18:40 | XMS_ITS | Continuity of Care Document ---
Author Organization [facility] Address [address] [facility] [address] [place] [address] Phone Care Team Providers Care Ice Cream Maker Name Role Phone Rajendra Yoo MD Unavailable [...] on Encounter DISABILITY EXAMINATION [facility] , [address] [facility] [address], [place], [address], [place] tel:[phone] [facility] My back hurts alot (chief complaint) Body mass index (BMI) 45.0-49.9, adultLow back pain Fredo Drew. [address] [facility] [address] [place], [place], [id number]. tel:[phone] Family History Family Member Type Diagnosis Age At Onset Mother Problem (finding) Alive and well Father Problem (finding) Alive and well Payers Payer name Insurance type Covered constitution party ID Authoriza tion(s) No Information Social [...]
--- OUTSIDE RECORDS SUMMARY | 2024-08-22 18:40 | XMS_ITS | Patient Health Record ---
Author Organization [facility] Address [address] [place] [phone] Support Name Relationship Address Phone Malachi Tobin Guarantor Unknown [phone] Reason For Referral No Information Plan Of Treatment Pending Test Test Name Order Date Urinalysis, Routine 10/14/2022 Vision Screening 10/14/2022 Vision Screening 10/21/2022 Hearing Screening 10/14/2022 Insurance Providers Payer Name Payer Address Payer Phone Subscriber Number Group Number Insured Name Patient Relationship to Insured Coverage Start Date Coverage End Date Hina BURR Physical Recerts/ [email or web address] Malachi Tobin Self - patient is the insured
--- OUTSIDE RECORDS SUMMARY | 2024-08-22 18:40 | XMS_ITS | Encounter Summary ---
Author Organization [facility] Address [address] [place] [address] Care Team Providers Care Block Chopper Hand Name Role Phone Erin Nicole SUJATHA Primary Care Provider [phone] Encounter Details Date Type Department Care Team (Late Contact Info) Description 02/16/[address] 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 Multis[facility]ial[facility] - [facility] [address] [facility], [address] [place] [address] Prachi Mojica MD [address] [place] [address] documented as of this encounter Visit Diagnoses Not on filedocumented in this encounter Additional Health Concerns Assessment Noted Time PHQ-9 Depression Total Score: 1 02/07/20 23 2:52 PM CDT documented as of this encounter Care Teams Block Chopper Hand Relationship Specialty Start Date End Date Erin Nicole FNP [address] [place] [address] PCP - General Nurse Practitioner Family 12/06/18 documented as of this encounter
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
--- OUTSIDE RECORDS SUMMARY | 2024-08-22 18:40 | XMS_ITS | CONTINUITY OF CARE DOCUMENT ---
Author Name moses lopes Address Unknown Organization [facility] Address [address] [place] [address] Phone [phone] Care Team Providers Care Dean Of Girls Name Role Phone Sourav Harris MD Unavailable VINAY STEIN MD Unavailable [phone] VINAY STEIN MD Unavailable [phone] PROBLEMS Condition Status Date Provider Notes Hypercholesterolemia [...] In-person encounter Office Visit Sourav Harris MD [facility] - In-person encounter Office Visit Sourav Harris MD [facility] - In-person encounter Office Visit Sourav Harris MD [facility] - In-person encounter Office Visit Sourav Harris MD [facility] - In-person encounter Office Visit Sourav Harris MD [facility] Atrial fibrillation, paroxysmal - In-person encounter Office Visit Sourav Harris MD [facility] PACs - In-person encounter Office Visit Sourav Harris MD [facility] Chest painHypertensionChronic back painObstructive sleep apneaMorbid [...] er weight E&M 349 [lb_av] Tere Wallacenenfe [facility] height E&M 75 [in_i] Tere Kamaljitnfe [facility] Body Mass Index (Ratio) 42.49 kg/m2 Warren Ahmedzai blood pressure, diastolic 90 mm[Hg] Li [facility]Log[facility] blood pressure, systolic 141 mm[Hg] Jeannine [facility]Logic blood pressure, diastolic 90 mm[Hg] [facility] blood pressure, systolic 141 mm[Hg] Gregg phanie [facility] oxygen saturation, oximetry 97 % Sumi [facility] pulse rate 66 /min Sumi Lohma n respiratory rate E&M 16 /min Britton ie [facility] blood pressure, cuff size large [facility] weight E&M 340 [lb_av] Sumi Lohma n [...] Lindquist er weight E&M 346 [lb_av] Tere begmuer height E&M 75 [in_i] Tere Lindquist nikki [...] 0-149 5 cholesterol, serum 185 mg/dL [facility] [phone]/05/1 5 platelet count 242 X10E3/UL [facility] [phone]/05/1 5 red blood cell distribution width 12.7 [...] 3.5-5.2 5 sodium, serum 141 mmol/L [facility] [phone]/05/1 5 urea nitrogen/creatinine ratio, serum 15 [employer] [...] 2-3 times a week S wolf [place] WATCH ASSEMBLY INSTRUCTOR alcohol use, type beer Lorena leon WATCH ASSEMBLY INSTRUCTOR alcohol use, average drinks per day 2 /d Lorena [place] ALVARO alcohol use yes Lorena [place] ALVARO passive cigarette sm becky exposure yes Lorena [place] ALVARO Exercise counseling yes Lorena hilton ALVARO smoking status Never smoker Tere gil INSURANCE PROVIDERS Payer name Policy type / Coverage type [place] red libertarian ID [employer] PPO O [id number] ADVANCE DIRECTIVES Name Date DISCUSSED - NO DECISION MADE TREATMENT PLAN Date Name Performer [id number],C, B P today: 120/60 P rior BP: [...] by mouth once a day Myriam Lewis WATCH ASSEMBLY INSTRUCTOR [id number],C,EKG today SB 58 Myriam Lewis WATCH ASSEMBLY INSTRUCTOR [id number],C,E KG today SB 58 T he following [...] ..... 1 tablet as needed Myriam Escalonajayleen WATCH ASSEMBLY INSTRUCTOR [id number],C,V arying pressures at home with BPs as high as 160-170. Will keep him on Metoprolol 50 mg which he is taking BID, will increase his Lisinopril 20 mg to two tablets daily BP today: 126/72 P rior BP: 141/90 (07/01/2022) Labs Reviewed: C reat: 1.10 (09/12/2020) C hol: 185 (09/12/2020) HDL: 43 (09/12/2020) Warren [facility] [id number],C,N o recent episodes. EKG todays showed sinus rhythm. director of operations showed Sinus Rhythm with occasional PVCs and rare PACs. The average HR was 60bpm with a maximum rate of 115bpm and a minimum rate of 43bpm. VE?s were documented as triplets, couplets, trigeminal cycles, and isolated beats with a total burden of 1.63%. [facility] [id number],C,M ild Obstructive Airways Disease f rom PFT [facility] [id number],C, H is updated medication list for this problem includes: Atorvastatin 20 Mg Tablet (Atorvastatin) Lipitor 80 Mg Tablet (Atorvastatin) ..... 1 tablet once a day [facility] [id number],C,A dvised him to reduce salt intake. BP today: 141/90 P rior BP: 116/79 (03/18/2022) Labs Reviewed: C reat: 1.10 (09/12/2020) C hol: 185 (09/12/2020) HDL: 43 (09/12/2020) [facility] [id number],C,E cho showed normal LVEF. C hest pain is unlikley cardiac related. He is asymptmatic currently. Warren Salcedo [id number],C,E KG todays showed sinus rhythm. director of operations showed Sinus Rhythm with occasional PVCs and rare PACs. The average HR was 60bpm with a maximum rate of 115bpm and a minimum rate of 43bpm. VE?s were documented as triplets, couplets, trigeminal cycles, and isolated beats with a total burden of 1.63%. Warren Salcedo [id number],C,No sxs curren tly Warren Salcedo [id number],C, B P today: 116/79 P rior BP: 118/72 (11/27/2020) Labs Reviewed: C reat: 1.10 (09/12/2020) C hol: 185 (09/12/2020) HDL: 43 (09/12/2020) Warren Salcedo [id number],S, Warren Soriano i [id number],C,N ew finding of AFIB at the hospital after he injured himself from a slip and fall at work. I will arrange for telemetry to assess for AF burden. W ill check echo and PFTs as well. He has been started on Eliquis 5 mg BID Warren Salcedo [id number],B, r ega stress showed abnormal perfusion imaging [...] a day Orders: 9 9214 MOD 30-39min (CPT-81437) C omplete Echo (CPT-23128) A tamy Duplex Ultrasound (CPT-59396) Monitor - Telemetry (Mobile Cardiac) (CPT-15454) S chedule Followup (*) oSurav Harris MD [id number],S, n eeds AAA screening BP today: 118/72 P rior BP: 122/80 (09/11/2020) His updated medication list for this problem includes: Lisinopril 20 Mg Tablet (Lisinopril) ..... Take 1 twice a day Amlodipine 5 Mg Tablet (Amlodipine) ..... 1 tablet by mouth once a day Orders: E KG (CPT-53887) 9213 MOD 30-39min (CPT-17636) C omplete Echo (CPT-02591) A tamy Duplex Ultrasound (CPT-19227) M onitor - Telemetry (Mobile Cardiac) (CPT-78631) S chedule Followup (*) Sourav Harris MD [id number],S, a void NSAID if possible. t aking ibuprofen every other day O rders: 9213 MOD 30-39min (CPT-68801) C omplete Echo (CPT-16590) A tamy Duplex Ultrasound (CPT-41661) M onitor - Telemetry (Mobile Cardiac) (CPT-24668) Sourav Harris MD [id number],S, c an not tolerate CPAP Orders: 9213 MOD 30-39min (CPT-47419) C omplete Echo (CPT-02238) A tamy Duplex Ultrasound (CPT-55931) M onitor - Telemetry (Mobile Cardiac) (CPT-55123) Sourav Harris MD [id number],S, i mproved with exercise c arnelk 1 week tele in 1 year Orders: 9213 MOD 30-39min (CPT-84240) C omplete Echo (CPT-35672) A tamy Duplex Ultrasound (CPT-64156) M onitor - Telemetry (Mobile Cardiac) (CPT-01510) Chano Reese [id number],S, w eight loss encouraged Chano Reese [id number],S, a void NSAID if possible. t aking ibuprofen every other day Chano Reese [id number],B, r ega stress showed abnormal perfusion imaging [...] a day Orders: 9 9213 MOD 30-39min (CPT-72941) C omplete Echo (CPT-78751) A tamy Duplex Ultrasound (CPT-75479) M onitor - Telemetry (Mobile Cardiac) (CPT-21035) Chano Reese [id number],S, n eeds AAA screening BP today: 118/72 P rior BP: 122/80 (09/11/2020) His updated medication list for this problem includes: Lisinopril 20 Mg Tablet (Lisinopril) ..... Take 1 twice a day Amlodipine 5 Mg Tablet (Amlodipine) ..... 1 tablet by mouth once a day Orders: E KG (CPT-12327) 9 14 MOD 30-39min (CPT-12236) C omplete Echo (CPT-85037) A tamy Duplex Ultrasound (CPT-38751) M onitor - Telemetry (Mobile Cardiac) (CPT-66781) Chano Reese [id number],S, c an not tolerate CPAP Chano Reese [...] by mouth once a day Myriam Joshua WATCH ASSEMBLY INSTRUCTOR Electrophysiology:EKG today SB 5 8 Myriam Escalonajayleen WATCH ASSEMBLY INSTRUCTOR Electrophysiology:EK G today SB 58 T he [...] ..... 1 tablet as needed Myriam Hellergerard WATCH ASSEMBLY INSTRUCTOR Electrophysiology:Julieta winston pressures at home with BPs [...] recent episodes. EKG todays showed sinus rhythm. director of operations showed Sinus Rhythm with occasional PVCs and [...] Arenasradhaedilson Cardiology:EKG today s showed sinus rhythm. director of operations showed Sinus Rhythm with occasional PVCs and [...] hol: 185 (09/12/2020) HDL: 43 (09/12/2020) [facility]:Ne w finding of AFIB [...] a day Orders: 9 9214 MOD 30-39min (CPT-88616) C omplete Echo (CPT-70264) A tamy Duplex Ultrasound (CPT-93172) M onitor - Telemetry (Mobile Cardiac) (CPT-88851) S chedule Followup (*) Sourav Harris MD Electrophysiology Fo llow up : n eeds AAA screening BP today: 118/72 P rior BP: 122/80 (09/11/2020) His updated medication list for this problem includes: Lisinopril 20 Mg Tablet (Lisinopril) ..... Take 1 twice a day Amlodipine 5 Mg Tablet (Amlodipine) ..... 1 tablet by mouth once a day Orders: E KG (CPT-29990) 9 9214 MOD 30-39min (CPT-26680) C omplete Echo (CPT-75418) A tamy Duplex Ultrasound (CPT-22254) M onitor - Telemetry (Mobile Cardiac) (CPT-36826) S chedule Followup (*) Sourav Harris MD Electrophysiology Fo llow up : a void NSAID if possible. t aking ibuprofen every other day O rders: 9 14 MOD 30-39min (CPT-05476) C omplete Echo (CPT-35322) A tamy Duplex Ultrasound (CPT-92856) M onitor - Telemetry (Mobile Cardiac) (CPT-42899) Sourav Harris MD Electrophysiology Fo llow up : c an not tolerate CPAP Orders: 9 14 MOD 30-39min (CPT-32743) C omplete Echo (CPT-14801) A tamy Duplex Ultrasound (CPT-89542) M onitor - Telemetry (Mobile Cardiac) (CPT-41647) Sourav Harris MD Electrophysiology Fo llow up : i mproved with exercise c heck 1 week tele in 1 year Orders: 9 14 MOD 30-39min (CPT-60600) C omplete Echo (CPT-63130) A tamy Duplex Ultrasound (CPT-12655) M onitor - Telemetry (Mobile Cardiac) (CPT-92286) Chano Reese Electrophysiology Fo llow up : [...] a day Orders: 9 9213 MOD 30-39min (CPT-40446) C omplete Echo (CPT-05073) A tamy Duplex Ultrasound (CPT-37434) M onitor - Telemetry (Mobile Cardiac) (CPT-07363) Chano Resee Electrophysiology Fo llow up : n eeds AAA screening BP today: 118/72 P rior BP: 122/80 (09/11/2020) His updated medication list for this problem includes: Lisinopril 20 Mg Tablet (Lisinopril) ..... Take 1 twice a day Amlodipine 5 Mg Tablet (Amlodipine) ..... 1 tablet by mouth once a day Orders: E KG (CPT-55235) 9 14 MOD 30-39min (CPT-69094) C omplete Echo (CPT-50293) A tamy Duplex Ultrasound (CPT-40594) M onitor - Telemetry (Mobile Cardiac) (CPT-89279) Chano Reese Electrophysiology Fo llow up : c an not tolerate CPAP Chano Reese Electrophysiology Ne w Patient - call patient please:PPI one capsule twice a day - total duration of treatment 2 months Sourav Harris MD Electrophysiology Ne w Patient - call patient please:avoid NSAID if possible. Orders: S tress Regadenoson (CPT-33077) C omplete Echo (CPT-95304) C OMPREHENSIVE METABOLIC PANEL, W/EGFR (91689) L IPID PANEL (1610) C BC (H/H, RBC, INDICES, WBC, PLT) (1759) M AGNESIUM (622) B TYPE NATRIURETIC PEPTIDE (BNP) (87540) P ROTHROMBIN TIME WITH INR (8847) T SH, free T4, total T3 (7444) 9 9205 HIGH 60-74 min (CPT-93305) Sourav Harris MD Electrophysiology Ne w Patient - call patient please: H is updated medication list for this problem includes: Proair Hfa 108 (90 Base) Mcg/act Inhalation Aerosol Solution (Albuterol sulfate) ..... As directed Ventolin Hfa 108 (90 Base) Mcg/act Inhalation Aerosol Solution (Albuterol sulfate) ..... 2 puffs every 4-6 hours Orders: B TYPE NATRIURETIC PEPTIDE (BNP) (47065) P ROTHROMBIN TIME WITH INR (8847) T SH, free T4, total T3 (7444) 9 9205 HIGH 60-74 min (CPT-41152) Sourav Harris MD Electrophysiology Ne w Patient - call patient please:weight loss encouraged O rders: S tress Regadenoson (CPT-99871) C omplete Echo (CPT-42443) C OMPREHENSIVE METABOLIC PANEL, W/EGFR (22341) L IPID PANEL (7600) C BC (H/H, RBC, INDICES, WBC, PLT) (1759) M AGNESIUM (622) B TYPE NATRIURETIC PEPTIDE (BNP) (41606) P ROTHROMBIN TIME WITH INR (8847) T SH, free T4, total T3 (7444) 9 9205 HIGH 60-74 min (CPT-73483) Sourav Harris MD Electrophysiology Ne w Patient - call patient please:can not tolerate CPAP O rders: S tress Regadenoson (CPT-96464) C omplete Echo (CPT-58253) C OMPREHENSIVE METABOLIC PANEL, W/EGFR (08527) L IPID PANEL (7600) C BC (H/H, RBC, INDICES, WBC, PLT) (1759) M AGNESIUM (622) B TYPE NATRIURETIC PEPTIDE (BNP) (51544) P ROTHROMBIN TIME WITH INR (8847) T SH, free T4, total T3 (7444) 9 9205 HIGH 60-74 min (CPT-26621) Sourav Harris MD Electrophysiology Ne w Patient - call patient please:controlled Will decrease amlodipine to 5 mg daily Orders: S tress Regadenoson (CPT-29408) C omplete Echo (CPT-24510) C OMPREHENSIVE METABOLIC PANEL, W/EGFR (91268) L IPID PANEL (7600) C BC (H/H, RBC, INDICES, WBC, PLT) (1759) M AGNESIUM (622) B TYPE NATRIURETIC PEPTIDE (BNP) (14756) P ROTHROMBIN TIME WITH INR (8847) T SH, free T4, total T3 (7444) 9 9205 HIGH 60-74 min (CPT-19408) His updated medication list for this problem [...] Monitor - Telemetry (Mobile Cardiac) DLCO - 52219 FRC - 38635 FVC - 29464 Complete Echo Monitor - Telemetry (Mobile Cardiac) [...] completed FVC / MVV with bronchodilator - 58085 Sourav Harris MD completed FRC - 42224 Sourav fitzpatrick MD completed SpO2 w/o 6min walk/titration Sourav Harris MD completed SVC - 64183 Sourav fitzpatrick MD completed DLCO - 92850 Sourav fitzpatrick MD completed EKG Sourav fitzpatrick MD completed Schedule Followup Sourav woodson MD fu in 1 year completed EKG Sourav fitzpatrick MD completed Spirometry Sourav fitzpatrick MD completed FVC / MVV with bronchodilator - 84592 Sourav Harris MD completed FRC - 96224 Sourav fitzpatrick MD completed SVC - 53981 Sourav fitzpatrick MD completed EKG Sourav fitzpatrick MD completed
[2024-08-22 18:42] VITALS: BP 126/67; PULSE 56; RESP 20; TEMP 36.4; O2SAT 99
--- NOTE | 2024-08-22 19:45 | PC.NURSE ---
Pt road tested at this time. Pt ambulatory out of room and back into room. Pt able to get out and into bed by himself.
--- NOTE | 2024-08-22 20:10 | ED.FALL ---
HPI - Fall General Chief Complaint: Fall Stated Complaint: Fall-Laceration left hand, right middle finger Time Seen by Provider: 08/22/24 19:36 History of Present Illness HPI Narrative: 68-year-old male presenting to the emergency department for evaluation after a fall down several steps from his front porch. Patient states he was leaning forward to grab his keys any fell forward landing onto his left shoulder and wrist. Was able to get up unassisted, did not lose consciousness but did strike his head against the railing. Has a small laceration to the palmar aspect of his left hand. Some scattered abrasions over the forearm and left shoulder. His tetanus is updated as of last year. Denies any headache, vision changes, nausea, vomiting, abdominal pain or chest pain. He was otherwise in his normal state of health. Does not take any chronic anticoagulation. No other concerns at this time such as weakness or cycle repairer strength loss. Related Data Home Medications ?Medication ?Instructions ?Recorded ?Confirmed ?Last Taken ?Type albuterol sulfate 90 mcg/actuation 1 puff inhalation Q4H PRN 05/03/22 05/03/22 Unknown History aerosol inhaler diazepam 10 mg tablet (Valium) 10 mg PO TID PRN 05/03/22 05/03/22 Unknown History hydrochlorothiazide 12.5 mg tablet 12.5 mg PO DAILY 05/03/22 05/03/22 Unknown History lisinopril 20 mg tablet 20 mg PO DAILY 05/03/22 05/03/22 Unknown History methocarbamol 750 mg tablet 750 mg PO TID 05/03/22 05/03/22 Unknown History Allergies Allergy/AdvReac Type Severity Reaction Status Date / Time No Known Allergies Allergy Unknown Verified 08/22/24 18:37 Review of Systems Review of Systems: Was reviewed above in HPI [facility] Past Medical History Medical History Lumbar spondylosis Lumbar radiculopathy Carpal tunnel syndrome Chronic back pain Depression Arthritis GERD (gastroesophageal reflux disease) Gallstones Head ache Seasonal allergies Bronchitis Hypertension Sleep apnea Obesity Surgical History Surgical History History of carpal tunnel release History of ankle surgery Bilateral tendon repair H/O colonoscopy Social History Social History Smoking status: Never smoker Gender identity (if verbalized by the patient): Male Exam Narrative: GENERAL: [Well-appearing, well-nourished, and in no acute distress.] HEAD: [Normocephalic, atraumatic.] EYES: [PERRLA and EOMI.] ENT: Nares clear, no rhinorrhea or epistaxis. Mucous membranes moist. NECK: Supple. CHEST: [Clear to auscultation. No respiratory distress.] HEART: [Regular rate and rhythm]. No murmur heard. [Normal peripheral pulses.] ABDOMEN: [Soft, nondistended], [nontender], [No rigidity or guarding] EXTREMITIES: Normal range of motion. [No edema.] Able to oppose each digit, able to make a thumbs up and okay sign. Good range of motion of the wrist, elbow and shoulder. There is a stellate appearing laceration approximately 2 cm x 2 cm in the palmar surface left wrist with exposure of the underlying musculature but no bleeding or foreign body material. SKIN: Scattered abrasions over the dorsal left forearm and posterior left scapular without active bleeding. Laceration as described above. NEURO: [No focal deficits]. Alert and oriented [x3.] PSYCH: [Normal mood and affect.] Course Vital Signs Vital signs: Vital Signs Temperature 36.4 C 08/22/24 18:42 Pulse Rate 56 L 08/22/24 18:42 Respiratory Rate 20 08/22/24 18:42 Blood Pressure 126/67 08/22/24 18:42 Pulse Oximetry 99 08/22/24 18:42 Oxygen Delivery Room Air 08/22/24 18:42 Temperature 36.4 C 08/22/24 18:42 Pulse Rate 56 L 08/22/24 18:42 Respiratory Rate 20 08/22/24 18:42 Blood Pressure 126/67 08/22/24 18:42 Pulse Oximetry 99 08/22/24 18:42 Oxygen Delivery Room Air 08/22/24 18:42 Procedures Laceration Laceration 1: Date: 08/22/24 Time: 21:33 Site: hand Side (If applicable): left Size (cm): 4 Description: stellate, irregular and clean Depth: simple, single layer Local Anesthetic: lidocaine 2% and with epi Amount of anesthesia used (mL): 10 Pre-repair: wound explored, irrigated extensively and deep structures intact ====== Skin Level ====== Skin layer closed with: nylon Size (cm): 5-0 Number of sutures: 10 Technique: simple, interrupted ====== Subcutaneous Layer ====== ====== Muscle Layer ====== ====== Tendon Layer ====== Dressing: Non adherent dressing applied over top, gauze applied. MDM - Fall MDM Narrative Medical decision making narrative: 68-year-old male that presents to the emergency department after mechanical fall down several stairs from his porch. He leaned forward to get his keys and lost his balance, landed onto his left wrist and shoulder. Did not lose consciousness but did strike his head. Does not take any blood thinners. He has normal vital signs, unremarkable physical examination. Good neuro vasculature, there is a 2 x 2 cm laceration to the palmar surface left wrist. No active bleeding. Some scattered abrasions over his left upper extremity. X-rays were obtained of the left upper extremity including wrist forearm and shoulder. His tetanus is already up today. He was provide [place] for analgesia. Laceration will be repaired primarily and described above. Patient was given lidocaine with epinephrine for anesthesia locally and bandages applied to his wounds after the fact. Patient comfortable with discharge plan after negative x-rays. Patient's x-rays were unremarkable. His laceration was repaired without complication. He was instructed to return 10-14 days for suture check and removal. Patient verbalized understanding and was safe for discharge home at this time. Medical Records Attestation: I reviewed the patient's medical records. Imaging Data Attestation: I personally reviewed and interpreted this imaging study as follows: My impression: Impressions Head CT 08/22/24 20:30 Impression: No acute intracranial hemorrhage or suspicious mass effect. Cervical Spine CT 08/22/24 20:32 Impression: Degenerative disease, without acute fracture. Forearm X-Ray 08/22/24 20:43 IMPRESSION: No acute or subacute fracture, as detailed above. Shoulder X-Ray 08/22/24 20:46 IMPRESSION: Degenerative disease, without acute fracture or anterior dislocation. Wrist X-Ray 08/22/24 20:47 IMPRESSION: Degenerative disease without acute fracture. Hand X-Ray 08/22/24 20:48 IMPRESSION: Degenerative disease, without acute fracture or dislocation within the right hand, as detailed above. Discharge Plan Discharge Clinical Impression: CHI (closed head injury), Laceration, Fall Patient Disposition: Home Condition: Stable Instructions: Antibiotic Form, Laceration (ED), Head Injury (ED), Contusion in Adults (ED) Additional Instructions: We have placed 10 stitches in your left wrist. The should be evaluated 10-14 days for wound check and then removal. Return with any new or worsening concerns, follow-up with regular doctor, return to Urgent Care, emergency department or your primary doctor for wound check. Take Tylenol and ibuprofen for any aches or pains. Keep the area clean and dry and covered with bandages or gauze. Patient Language: Mohawk Prescriptions: No Action lisinopril 20 mg tablet 20 mg PO DAILY albuterol sulfate 90 mcg/actuation HFA aerosol inhaler 1 puff inhalation Q4H PRN diazepam [Valium] 10 mg tablet 10 mg PO TID PRN hydrochlorothiazide 12.5 mg tablet 12.5 mg PO DAILY methocarbamol 750 mg tablet 750 mg PO TID ciprofloxacin HCl [Cipro] 500 mg tablet 500 mg PO Q12H Qty: 14 0RF ondansetron HCl 4 mg tablet 4 mg PO Q8H PRN (Reason: nausea and vomiting) 4 Days Qty: 10 0RF montelukast [Singulair] 10 mg tablet 10 mg PO HS Qty: 14 0RF Follow-up/Referrals: TORRIE,BRYNN BINGHAM [Primary Care Provider] - Time of Disposition: 21:37
--- OUTSIDE RECORDS SUMMARY | 2024-08-22 20:37 | XMS_ITS | Clinical Summary ---
Author Organization [facility] [employer] Address [address] [place] [address] Care Team Providers Care Senior Capital Markets Specialist Name Role Phone Erin Nicole APRN-BEAD CUTTER Primary Care Provider [phone] Source Comments [facility] [employer],non-owned Affiliates and Associated Physician Practices is amultiple site organization consisting of ambulatory clinics and hospital sitesin [place], [place], [place] and [place]. This disclosure is being madepursuant to the Care Everywhere program and may not contain all information available regarding this patient. 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
--- OUTSIDE RECORDS SUMMARY | 2024-08-22 20:37 | XMS_ITS | Encounter Summary ---
Author Organization [facility] Address [address] [place] [address] Care Team Providers Care First Mate Name Role Phone Erin Nicole SUJATHA Primary Care Provider [phone] Renny Weaver MD Unavailable [phone] Encounter Details Date Type Department Care Team (Late st Contact Info) Description 01/29/2020 Prep for Procedure [facility] Pre-Admission Testing [facility] [place], [place] [id number] Denis Higgins MD [address] [place] [address] Social History Tobacco Use Types Packs/Day [...] Sex Assigned at Male 06/04/2024 9:38 AM AUTOMOTIVE SALES REPRESENTATIVE Legal Sex Male 10:27 PM AUTOMOTIVE SALES REPRESENTATIVE Gender Identity Male 06/04/2024 9:38 AM AUTOMOTIVE SALES REPRESENTATIVE Sexual Orientation Not on file 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 Not on file Not [...] Description 11/28/2024 11:20 AM CDT Office Visit [facility] Multispecialty Care - [facility] [address], [address] [place] [phone] Prachi Mojica MD [address] [place] [address] documented as of this encounter Results * PRE-SURGICAL/PRE-PROCEDURE CORONAVIRUS (COVID 19) (02/01/2020 11:55 AM CDT) CORONAVIRUS SARS COV 2 PCR (RESP) NOT DETECTED NOT DETECTED 02/02/2020 1:26 PM CDT [facility] Comment: A Not Detected (negative) test result [...] providers and patients using the following websites: https://www.Scur[employer].com/home/Covid-19/HCP/NAAT/fact-sheet2 https://www.Scurri.Silent Power/home/Covid-19/Patients/NAAT/ fact-sheet2 This test has been authorized by the FDA under an Emergency Use Authorization (EUA) for use by authorized laboratories. Due to the current public health emergency, [facility] is receiving a high volume of samples [...] about COVID-19 can be found at the [facility] website: www.inSparq.Silent Power/Covid19. Test performed at [facility] [place] [address] [place] [address] Director: ART BROCK DO,MPH FIRST TEST NO 02/01/2020 3:53 PM CDT [facility] EMPLOYED IN HEALTHCARE NO 02/01/2020 3:53 PM CDT [facility] SYMPTOMATIC DEFINED BY CDC NO 02/01/2020 3:53 PM CDT [facility] DATE OF SYMPTOM ONSET NO 02/01/2020 5:08 PM CDT [facility] HOSPITALIZATION STATUS NO 02/01/2020 3:53 PM CDT [facility] PATIENT IN ICU NO 02/01/2020 3:53 PM CDT [facility] RESIDENT OF [facility] NO 02/01/2020 3:53 PM CDT [facility] NOT 02/01/2020 5:08 PM CDT [facility] PATIENT'S RACE WHITE OR 02/01/2020 3:53 PM CDT [facility] ETHNICITY NONHISPANIC 02/01/2020 3:53 PM CDT [facility] SOURCE (QST) NASOPHARYNGEAL SWAB 02/01/2020 3:53 PM CDT [facility] NASOPHARYNGEAL SWAB / Unknown 02/01/2020 11:55 AM CDT us Denis Higgins MD MICROBIOLOGY - GENERAL CECILE KUNZ Final Result [facility] [address] [place] [address], [facility] [address] [place] [address], documented in this encounter Visit Diagnoses Diagnosis Preop examination- Primary Preoperative examination, unspecified documented in this encounter Additional Health Concerns Infection Onset Date Last Indicated Resolved Time COVID-19 Rule Out 02/01/2020 02/01/2020 02/02/2020 1:26 PM CDT COVID-19 Rule Out 03/17/2020 09/11/2019 03/17/2020 10:13 AM AUTOMOTIVE SALES REPRESENTATIVE COVID-19 Rule Out 05/26/2020 05/30/2020 06/02/2020 12:34 AM AUTOMOTIVE SALES REPRESENTATIVE COVID-19 Rule Out 04/13/2022 04/13/2022 04/20/2022 12:32 AM AUTOMOTIVE SALES REPRESENTATIVE Assessment Noted Time PHQ-9 Depression Total Score: 5 05/31/19 20 1:19 PM AUTOMOTIVE SALES REPRESENTATIVE documented as of this encounter Care Teams First Mate Relationship Specialty Start Date End Date Erin Nicole FNP [address] [place] [address] PCP - General Nurse Practitioner Family 12/06/18 Renny Weaver MD [address] [place] [address] PCP - Med Group - [facility] Attributed Provider 03/05/19 05/01/20 documented as of this encounter
--- OUTSIDE RECORDS SUMMARY | 2024-08-22 20:37 | XMS_ITS | Continuity of Care Document ---
Author Organization [facility] Address [address] [facility] [address] [place] [address] Phone Care Team Providers Care Carpenter Assembler Name Role Phone Rajendra Yoo MD Unavailable [...] on Encounter DISABILITY EXAMINATION [facility] , [address] [facility] [address], [place], [address], [place] tel:[phone] [facility] My back hurts alot (chief complaint) Body mass index (BMI) 45.0-49.9, adultLow back pain Fredo Drew. [address] [facility] [address] [place], [place], [id number]. tel:[phone] Family History Family Member Type Diagnosis Age [...]
--- OUTSIDE RECORDS SUMMARY | 2024-08-22 20:37 | XMS_ITS | Clinical Summary ---
Author Organization [facility] Address [address] [place] [address] Care Team Providers Care Supervisor Fur Floor Worker Name Role Phone Erin Nicole SUJATHA Primary Care Provider [phone] Allergies No known active allergies Medications Cholecalciferol [...] KIT, DME,Indications:C OPD (chronic obstructive pulmonary disease) ([facility]) 1 kit by Other route every [...] SUPPLY, DME,Indications:C OPD (chronic obstructive pulmonary disease) ([facility]) 1 Package by Other route every [...] hronic obstructive pulmonary disease, unspecified COPD type ([facility]) Take 1 Device by nebulization every [...] tablet 1 024 Active neomycin-polymyxi n-dexamethasone (MAXITROL) 3.5-38406-7.1 [address]ic[address] ions:Ear pain Place into both eyes [...] Unsatisfactory living conditions 06/08/2022 Paroxysmal atrial fibrillation ([facility]) 03/18/2022 Sciatica 03/16/2022 Fall, subsequent encounter 03/16/2022 Chronic a-fib ([facility]) 03/16/2022 Renal mass 02/14/2022 Tendinopathy of [...] 09/14/2020 02/08/2023 Chronic obstructive pulmonar y disease ([facility]) 09/11/2020 07/08/2021 Traumatic injury of external genitalia 09/08/2020 05/09/2023 Sinus node dysfunction ([facility]) 09/11/2019 09/14/2020 Chronic coughing 08/13/2019 02/06/2023 [...] Type Department Care Team Description 07/31/[address] [phone] Erin Nicole FNP Refill Request 07/01/[address] [phone] Erin Nicole FNP Refill Request 07/01/[address] [phone] Erin Nicole FNP Advice 06/07/[address] [phone] Erin Nicole FNP Medication Request; Radiology Results 06/06/2024 Patient Outreach [address] [address] Dena Carrera, BILLING ADMINISTRATOR Care Management 06/06/[address] [phone] Erin Nicole FNP Prior Authorization (Dizepam (Valium) 5mg ) 06/04/2024 9:20 AM ANIMAL KILLER Office Visit [address] [address] Erin Nicole FNP Information (Need a help at home, /); Depression (Having thoughts, ) 06/04/2024 Scan [facility] Scanned, [facility] Image (SCAN); Lab (SCAN) 06/04/2024 Travel 05/28/2024 Telephone [facility] Medical Group Family & Internal Medicine [address] [address] Erin Nicole FNP Prior Authorization [...] Assigned at Male 06/04/2024 9:38 AM ANIMAL KILLER Legal Sex Male 10:27 PM ANIMAL KILLER Gender Identity Male 06/04/2024 9:38 AM ANIMAL KILLER Sexual Orientation Not on file 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 Not on file Not on file Not on file Not on file Not on file Not on file Last Filed Vital Signs Vital Sign Reading Time Taken Comments Blood Pressure 130/60 06/04/2024 9:40 AM ANIMAL KILLER Pulse 62 06/04/2024 9:40 AM ANIMAL KILLER Temperature 36.6 C (97.9 F) 06/04/2024 9:40 AM ANIMAL KILLER Respiratory Rate 15 06/04/2024 9:40 AM ANIMAL KILLER Oxygen Saturation 99% 06/04/2024 9:40 AM ANIMAL KILLER Inhaled Oxygen Concentration - - Weight 145.3 kg (320 lb 6.4 oz) 06/04/2024 9:40 AM ANIMAL KILLER Height 190.5 cm (6' 3 ) 06/04/2024 9:40 AM ANIMAL KILLER Body Mass Index 40.05 06/04/2024 9:40 AM ANIMAL KILLER Plan of Treatment Upcoming Encounters Date Type Department Care Team (Late st Contact Info) Description 11/28/2024 11:20 AM CDT Office Visit [facility] Medical Group Multispecialty Care - [address], [address] [place] [phone] Prachi Mojica MD [address] [place] [address] Health Maintenance Due Date Last Done Comments [...] or 60+ Years Completed 04/28/2023 PHQ-2 (Physician [place]) Completed 06/04/2024 Meningococcal B Vaccine Aged Out [...] 06/04/2024 HEPATITIS C ANTIBODY 07/08/2021 3:[address] ABD+PEL W CON STAT 10/03/2019 3:51 [...] HEPATITIS C ANTIBODY (07/08/2021 3:20 PM ANIMAL KILLER) HEPATITIS C AB <0.1 0.0 - 0.9 s/co ratio [facility] 1 Comment: Negative: < 0.8 Indeterminate: 0.8 - 0.9 Positive: > 0.9 The CDC recommends that a positive HCV antibody result be followed up with a HCV Nucleic Acid Amplification test (619969). 07/08/2021 3:20 PM ANIMAL KILLER 07/08/2021 Narrative [facility] - 07/09/2021 12:10 PM ANIMAL KILLER Performed at: [facility] [id number] Medical Review Coordinator: Blaise Kirk PhD, Phone: [phone] Erin [facility] Final Result Performing Organization Address [facility] Phone Number [facility] [address] [place] [address] [facility] 1 * CT ABD+PEL W CON (10/03/2019 3:51 PM CDT) Anatomical Region Laterality Modality Abdomen Computed Tomogra phy 10/03/2019 3:51 PM CDT Renny Weaver MD CT Final Result * COLONOSCOPY (09/21/2018) Erin ADAIRP SCANNING Final Result from Last 3 Months or Most Recently Relevant to Health Maintenance Insurance [employer] Care Teams Supervisor Fur Floor Worker Relationship Specialty Start Date End Date Erin Nicole FNP [address] [place] [address] PCP - General Nurse Practitioner Family 12/06/18
--- OUTSIDE RECORDS SUMMARY | 2024-08-22 20:37 | XMS_ITS | Encounter Summary ---
Author Organization [facility] Address [address] [place] [address] Care Team Providers Care Tractor Sweeper Driver Name Role Phone Erin Nicole SUJATHA Primary Care Provider [phone] Renny Weaver MD Unavailable [phone] Encounter Details Date Type Department Care Team (Late st Contact Info) Description 12/02/2019 Prep for Procedure [place] Pre-Admission Testing [facility] [place], [place] [id number] Denis Higgins MD [address] [place] [address] Social History Tobacco Use Types Packs/Day [...] Sex Assigned at Male 06/04/2024 9:38 AM SPEEDER HAND Legal Sex Male 10:27 PM SPEEDER HAND Gender Identity Male 06/04/2024 9:38 AM SPEEDER HAND Sexual Orientation Not on file 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 Multispecialty Care - [facility] [address] [facility], [address] [place] [address] Prachi Mojica MD [address] [place] [address] documented as of this encounter Visit Diagnoses Diagnosis Preop examination- Primary Preoperative examination, unspecified documented in this encounter Additional Health Concerns Infection Onset Date Last Indicated Resolved Time COVID-19 Rule Out 02/01/2020 02/01/2020 02/02/2020 1:26 PM CDT COVID-19 Rule Out 03/17/2020 09/11/2019 03/17/2020 10:13 AM SPEEDER HAND COVID-19 Rule Out 05/26/2020 05/30/2020 06/02/2020 12:34 AM SPEEDER HAND COVID-19 Rule Out 04/13/2022 04/13/2022 04/20/2022 12:32 AM SPEEDER HAND Assessment Noted Time PHQ-9 Depression Total Score: 5 05/31/19 20 1:19 PM SPEEDER HAND documented as of this encounter Care Teams Tractor Sweeper Driver Relationship Specialty Start Date End Date Erin Nicole FNP [address] [place] [address] PCP - General Nurse Practitioner Family 12/06/18 Renny Weaver MD [address] [place] [address] PCP - Med Group - [facility] Attributed Provider 03/05/19 05/01/20 documented as of this encounter
--- OUTSIDE RECORDS SUMMARY | 2024-08-22 20:38 | XMS_ITS | Encounter Summary ---
Author Organization [facility] Address [address] [place] [address] Care Team Providers Care Access Service Representative Name Role Phone Erin Nicole SUJATHA Primary Care Provider [phone] Encounter Details Date Type Department Care Team (Late Contact Info) Description 02/16/2023 [employer] Message Enc [facility] Medical Group Family & Internal Medicine [address] [phone] [id number], 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 Not on file Not on file Not on file Not on file Not on file Not on file Not on file documented as of this encounter Plan of Treatment Upcoming Encounters Date Type Department Care Team (Late Contact Info) Description 11/28/2024 11:20 AM CDT Office Visit [facility] Medical Group Multispecialty Care - [facility] [address] [facility], [address] [place] [address] Prachi Mojica MD [address] [place] [address] documented as of this encounter Visit Diagnoses Not on filedocumented in this encounter Additional Health Concerns Assessment Noted Time PHQ-9 Depression Total Score: 1 02/07/20 23 2:52 PM CDT documented as of this encounter Care Teams Access Service Representative Relationship Specialty Start Date End Date Erin Nicole FNP [address] [place] [address] PCP - General Nurse Practitioner Family 12/06/18 documented as of this encounter
--- OUTSIDE RECORDS SUMMARY | 2024-08-22 20:38 | XMS_ITS | Referral Summary ---
Author Organization [facility] Address [address] [place] [address] Care Team Providers Care Field Adjuster Name Role Phone Erin Nicole NP Primary [...] on file Legal Sex Male 6:40 PM LASER ENGINEER Gender Identity Not on file Sexual Orientation Not on file Plan of Treatment Not on file Insurance [employer] CHOICE MEDICARE PPO Care Teams Field Adjuster Relationship Specialty Start Date End Date Erin Nicole NP [address] [place] [address] PCP - General Nurse Practitioner 08/17/22
--- OUTSIDE RECORDS SUMMARY | 2024-08-22 20:38 | XMS_ITS | Clinical Summary ---
Author Organization [facility] Address [address] [place] [address] Care Team Providers Care Glassine Machine Tender Name Role Phone Erin Nicole NP Primary [...] on file Legal Sex Male 6:40 PM AUDIOLOGY DIRECTOR Gender Identity Not on file Sexual Orientation [...] Insurance [employer] CHOICE MEDICARE PPO Care Teams Glassine Machine Tender Relationship Specialty Start Date End Date Erin Nicole NP [address] [place] [address] PCP - General Nurse Practitioner 08/17/22
--- OUTSIDE RECORDS SUMMARY | 2024-08-22 20:38 | XMS_ITS | CONTINUITY OF CARE DOCUMENT ---
Author Name moses lopes Address Unknown Organization [facility] Address [address] [place] [address] Phone [phone] Care Team Providers Care Medical Numerical Control Operator Name Role Phone Sourav Harris MD Unavailable [...] In-person encounter Office Visit Sourav Harris MD [facility] - In-person encounter Office Visit Sourav Harris MD [facility] - In-person encounter Office Visit Sourav Harris MD [facility] - In-person encounter Office Visit Sourav Harris MD [facility] - In-person encounter Office Visit Sourav Harris MD [facility] Atrial fibrillation, paroxysmal - In-person encounter Office Visit Sourav Harris MD [facility] PACs - In-person encounter Office Visit Sourav Harris MD [facility] Chest painHypertensionChronic back painObstructive sleep apneaMorbid [...] er weight E&M 349 [lb_av] Tere Wallacenenfe [facility] height E&M 75 [in_i] Tere Kamaljitnfe [facility] Body Mass Index (Ratio) 42.49 kg/m2 Warren Ahmedzai blood pressure, diastolic 90 mm[Hg] Li nkLogic blood pressure, systolic 141 mm[Hg] Jeannine kLogic blood pressure, diastolic 90 mm[Hg] [facility] ephanie [place] blood pressure, systolic 141 mm[Hg] Gregg phanie [place] oxygen saturation, oximetry 97 % Sumi [place] pulse rate 66 /min Sumi Lohma n respiratory rate E&M 16 /min Britton ie [place] blood pressure, cuff size large [facility] ephanie [place] weight E&M 340 [lb_av] Sumi Lohma n [...] 0-149 5 cholesterol, serum 185 mg/dL [facility] 080-058 5550/05/1 5 platelet count 242 X10E3/UL [facility] 094-245 8584/05/1 5 red blood cell distribution width 12.7 [...] 3.5-5.2 5 sodium, serum 141 mmol/L [facility] 744-563 5458/05/1 5 urea nitrogen/creatinine ratio, serum 15 [employer] [...] 2-3 times a week S wolf [place] GENETICS NURSE alcohol use, type beer Lorena leon GENETICS NURSE alcohol use, average drinks per day 2 /d Lorena [place] ALVARO alcohol use yes Lorena [place] ALVARO passive cigarette sm becky exposure yes Lorena [place] ALVARO Exercise counseling yes Lorena hilton ALVARO smoking status Never smoker Tere gil INSURANCE PROVIDERS Payer name Policy type / Coverage type [place] red green party ID [employer]MA[employer] PPO O [id number] ADVANCE DIRECTIVES Name Date DISCUSSED - NO DECISION MADE TREATMENT PLAN Date Name Performer [id number],C, B P today: 120/60 P rior BP: [...] by mouth once a day Myriam Lewis GENETICS NURSE [id number],C,EKG today SB 58 Myriam Lewis GENETICS NURSE [id number],C,E KG today SB 58 T he following [...] ..... 1 tablet as needed Myriam Escalonajayleen GENETICS NURSE [id number],C,V arying pressures at home with BPs as high as 160-170. Will keep him on Metoprolol 50 mg which he is taking BID, will increase his Lisinopril 20 mg to two tablets daily BP today: 126/72 P rior BP: 141/90 (07/01/2022) Labs Reviewed: C reat: 1.10 (09/12/2020) C hol: 185 (09/12/2020) HDL: 43 (09/12/2020) [facility] [id number],C,N o recent episodes. EKG todays showed sinus rhythm. engine monitor showed Sinus Rhythm with occasional PVCs and rare PACs. The average HR was 60bpm with a maximum rate of 115bpm and a minimum rate of 43bpm. VE?s were documented as triplets, couplets, trigeminal cycles, and isolated beats with a total burden of 1.63%. [facility] [id number],C,M ild Obstructive Airways Disease f rom PFT [facility] [id number],C, H is updated medication list for this problem includes: Atorvastatin 20 Mg Tablet (Atorvastatin) Lipitor 80 Mg Tablet (Atorvastatin) ..... 1 tablet once a day [facility] [id number],C,A dvised him to reduce salt intake. BP today: 141/90 P rior BP: 116/79 (03/18/2022) Labs Reviewed: C reat: 1.10 (09/12/2020) C hol: 185 (09/12/2020) HDL: 43 (09/12/2020) [facility] [id number],C,E cho showed normal LVEF. C hest pain is unlikley cardiac related. He is asymptmatic currently. Warren Slacedo [id number],C,E KG todays showed sinus rhythm. engine monitor showed Sinus Rhythm with occasional PVCs and rare PACs. The average HR was 60bpm with a maximum rate of 115bpm and a minimum rate of 43bpm. VE?s were documented as triplets, couplets, trigeminal cycles, and isolated beats with a total burden of 1.63%. Warren Salcedo [id number],C,No sxs curren tly Warren Salcedo [id number],C, B P today: 116/79 P rior BP: 118/72 (11/27/2020) Labs Reviewed: C reat: 1.10 (09/12/2020) C hol: 185 (09/12/2020) HDL: 43 (09/12/2020) Warren Salcedo [id number],S, Warren Soriano i [id number],C,N ew finding of AFIB at the hospital after he injured himself from a slip and fall at work. I will arrange for telemetry to assess for AF burden. W ill check echo and PFTs as well. He has been started on Eliquis 5 mg BID Warren Salcedo [id number],B, r ega stress showed abnormal perfusion imaging [...] a day Orders: 9 9214 MOD 30-39min (CPT-11708) C omplete Echo (CPT-16817) A tamy Duplex Ultrasound (CPT-57961) Monitor - Telemetry (Mobile Cardiac) (CPT-17502) S chedule Followup (*) Sourav Harris MD [id number],S, n eeds AAA screening BP today: 118/72 P rior BP: 122/80 (09/11/2020) His updated medication list for this problem includes: Lisinopril 20 Mg Tablet (Lisinopril) ..... Take 1 twice a day Amlodipine 5 Mg Tablet (Amlodipine) ..... 1 tablet by mouth once a day Orders: E KG (CPT-82771) 9213 MOD 30-39min (CPT-02789) C omplete Echo (CPT-76470) A tamy Duplex Ultrasound (CPT-98469) M onitor - Telemetry (Mobile Cardiac) (CPT-08043) S chedule Followup (*) Sourav Harris MD [id number],S, a void NSAID if possible. t aking ibuprofen every other day O rders: 9213 MOD 30-39min (CPT-65684) C omplete Echo (CPT-51149) A tamy Duplex Ultrasound (CPT-45389) M onitor - Telemetry (Mobile Cardiac) (CPT-72431) Sourav Harris MD [id number],S, c an not tolerate CPAP Orders: 9213 MOD 30-39min (CPT-66330) C omplete Echo (CPT-00360) A tamy Duplex Ultrasound (CPT-59763) M onitor - Telemetry (Mobile Cardiac) (CPT-58619) Sourav Harris MD [id number],S, i mproved with exercise c arnelk 1 week tele in 1 year Orders: 9213 MOD 30-39min (CPT-01670) C omplete Echo (CPT-70732) A tamy Duplex Ultrasound (CPT-65572) M onitor - Telemetry (Mobile Cardiac) (CPT-98757) Chano Reese [id number],S, w eight loss encouraged Chano Reese [id number],S, a void NSAID if possible. t aking ibuprofen every other day Chano Reese [id number],B, r ega stress showed abnormal perfusion imaging [...] a day Orders: 9 9213 MOD 30-39min (CPT-61160) C omplete Echo (CPT-71618) A tamy Duplex Ultrasound (CPT-74554) M onitor - Telemetry (Mobile Cardiac) (CPT-43842) Chano Reese [id number],S, n eeds AAA screening BP today: 118/72 P rior BP: 122/80 (09/11/2020) His updated medication list for this problem includes: Lisinopril 20 Mg Tablet (Lisinopril) ..... Take 1 twice a day Amlodipine 5 Mg Tablet (Amlodipine) ..... 1 tablet by mouth once a day Orders: E KG (CPT-94302) 9 14 MOD 30-39min (CPT-69962) C omplete Echo (CPT-65722) A tamy Duplex Ultrasound (CPT-39927) M onitor - Telemetry (Mobile Cardiac) (CPT-41152) Chano Reese [id number],S, c an not tolerate CPAP Chano Reese [...] by mouth once a day Myriam Joshua GENETICS NURSE Electrophysiology:EKG today SB 5 8 Myriam Escalonajayleen GENETICS NURSE Electrophysiology:EK G today SB 58 T he [...] ..... 1 tablet as needed Myriam Hellergerard GENETICS NURSE Electrophysiology:Julieta winston pressures at home with BPs [...] recent episodes. EKG todays showed sinus rhythm. engine monitor showed Sinus Rhythm with occasional PVCs [...] Arenasradhaedilson Cardiology:EKG today s showed sinus rhythm. engine monitor showed Sinus Rhythm with occasional PVCs [...] hol: 185 (09/12/2020) HDL: 43 (09/12/2020) [facility]:Ne w finding of AFIB at the [...] a day Orders: 9 9214 MOD 30-39min (CPT-11357) C omplete Echo (CPT-23242) A tamy Duplex Ultrasound (CPT-06433) M onitor - Telemetry (Mobile Cardiac) (CPT-71086) S chedule Followup (*) Sourav Harris MD Electrophysiology Fo llow up : n eeds AAA screening BP today: 118/72 P rior BP: 122/80 (09/11/2020) His updated medication list for this problem includes: Lisinopril 20 Mg Tablet (Lisinopril) ..... Take 1 twice a day Amlodipine 5 Mg Tablet (Amlodipine) ..... 1 tablet by mouth once a day Orders: E KG (CPT-20073) 9 9214 MOD 30-39min (CPT-83826) C omplete Echo (CPT-90666) A tamy Duplex Ultrasound (CPT-82278) M onitor - Telemetry (Mobile Cardiac) (CPT-68234) S chedule Followup (*) Sourav Harris MD Electrophysiology Fo llow up : a void NSAID if possible. t aking ibuprofen every other day O rders: 9 14 MOD 30-39min (CPT-71327) C omplete Echo (CPT-45559) A tamy Duplex Ultrasound (CPT-58499) M onitor - Telemetry (Mobile Cardiac) (CPT-22260) Sourav Harris MD Electrophysiology Fo llow up : c an not tolerate CPAP Orders: 9 14 MOD 30-39min (CPT-81556) C omplete Echo (CPT-71462) A tamy Duplex Ultrasound (CPT-41044) M onitor - Telemetry (Mobile Cardiac) (CPT-35237) Sourav Harris MD Electrophysiology Fo llow up : i mproved with exercise c heck 1 week tele in 1 year Orders: 9 14 MOD 30-39min (CPT-65437) C omplete Echo (CPT-74760) A tamy Duplex Ultrasound (CPT-17229) M onitor - Telemetry (Mobile Cardiac) (CPT-72966) Chano Reese Electrophysiology Fo llow up : [...] a day Orders: 9 9213 MOD 30-39min (CPT-40318) C omplete Echo (CPT-75805) A tamy Duplex Ultrasound (CPT-51652) M onitor - Telemetry (Mobile Cardiac) (CPT-57335) Chano Reese Electrophysiology Fo llow up : n eeds AAA screening BP today: 118/72 P rior BP: 122/80 (09/11/2020) His updated medication list for this problem includes: Lisinopril 20 Mg Tablet (Lisinopril) ..... Take 1 twice a day Amlodipine 5 Mg Tablet (Amlodipine) ..... 1 tablet by mouth once a day Orders: E KG (CPT-66119) 9 14 MOD 30-39min (CPT-17320) C omplete Echo (CPT-45941) A tamy Duplex Ultrasound (CPT-12458) M onitor - Telemetry (Mobile Cardiac) (CPT-37371) Chano Reese Electrophysiology Fo llow up : c an not tolerate CPAP Chano Reese Electrophysiology Ne w Patient - call patient please:PPI one capsule twice a day - total duration of treatment 2 months Sourav Harris MD Electrophysiology Ne w Patient - call patient please:avoid NSAID if possible. Orders: S tress Regadenoson (CPT-55960) C omplete Echo (CPT-07345) C OMPREHENSIVE METABOLIC PANEL, W/EGFR (44857) L IPID PANEL (8700) C BC (H/H, RBC, INDICES, WBC, PLT) (1759) M AGNESIUM (622) B TYPE NATRIURETIC PEPTIDE (BNP) (64462) P ROTHROMBIN TIME WITH INR (8847) T SH, free T4, total T3 (7444) 9 9205 HIGH 60-74 min (CPT-46556) Sourav Harris MD Electrophysiology Ne w Patient - call patient please: H is updated medication list for this problem includes: Proair Hfa 108 (90 Base) Mcg/act Inhalation Aerosol Solution (Albuterol sulfate) ..... As directed Ventolin Hfa 108 (90 Base) Mcg/act Inhalation Aerosol Solution (Albuterol sulfate) ..... 2 puffs every 4-6 hours Orders: B TYPE NATRIURETIC PEPTIDE (BNP) (25971) P ROTHROMBIN TIME WITH INR (8847) T SH, free T4, total T3 (7444) 9 9205 HIGH 60-74 min (CPT-62772) Sourav Harris MD Electrophysiology Ne w Patient - call patient please:weight loss encouraged O rders: S tress Regadenoson (CPT-04660) C omplete Echo (CPT-39498) C OMPREHENSIVE METABOLIC PANEL, W/EGFR (58959) L IPID PANEL (7600) C BC (H/H, RBC, INDICES, WBC, PLT) (1759) M AGNESIUM (622) B TYPE NATRIURETIC PEPTIDE (BNP) (33580) P ROTHROMBIN TIME WITH INR (8847) T SH, free T4, total T3 (7444) 9 9205 HIGH 60-74 min (CPT-63705) Sourav Harris MD Electrophysiology Ne w Patient - call patient please:can not tolerate CPAP O rders: S tress Regadenoson (CPT-98241) C omplete Echo (CPT-56930) C OMPREHENSIVE METABOLIC PANEL, W/EGFR (49465) L IPID PANEL (7600) C BC (H/H, RBC, INDICES, WBC, PLT) (1759) M AGNESIUM (622) B TYPE NATRIURETIC PEPTIDE (BNP) (12939) P ROTHROMBIN TIME WITH INR (8847) T SH, free T4, total T3 (7444) 9 9205 HIGH 60-74 min (CPT-90442) Sourav Harris MD Electrophysiology Ne w Patient - call patient please:controlled Will decrease amlodipine to 5 mg daily Orders: S tress Regadenoson (CPT-81189) C omplete Echo (CPT-33484) C OMPREHENSIVE METABOLIC PANEL, W/EGFR (10757) L IPID PANEL (7600) C BC (H/H, RBC, INDICES, WBC, PLT) (1759) M AGNESIUM (622) B TYPE NATRIURETIC PEPTIDE (BNP) (78056) P ROTHROMBIN TIME WITH INR (8847) T SH, free T4, total T3 (7444) 9 9205 HIGH 60-74 min (CPT-14205) His updated medication list for this problem [...] Monitor - Telemetry (Mobile Cardiac) DLCO - 83868 FRC - 81571 FVC - 19088 Complete Echo Monitor - Telemetry (Mobile Cardiac) [...] completed FVC / MVV with bronchodilator - 83633 Sourav Harris MD completed FRC - 19442 Sourav fitzpatrick MD completed SpO2 w/o 6min walk/titration Sourav Harris MD completed SVC - 70226 Sourav fitzpatrick MD completed DLCO - 98699 Sourav fitzpatrick MD completed EKG Sourav fitzpatrick MD completed Schedule Followup Sourav woodson MD fu in 1 year completed EKG Sourav fitzpatrick MD completed Spirometry Sourav fitzpatrick MD completed FVC / MVV with bronchodilator - 42202 Sourav Harris MD completed FRC - 69897 Sourav fitzpatrick MD completed SVC - 09585 Sourav fitzpatrick MD completed EKG Sourav fitzpatrick MD completed
[2024-08-22] MEDS: LIDO 2%/EPINEPHRINE 1:100,000 20 ML VIAL 15 ML INFILTRATE (20:44)
[2024-08-22] MEDS: HYDROcodone/acetaminophen (*CRX) 5-325 MG TABLET 1 TAB PO ×2 (20:44→21:56)
[2024-08-22 21:55] VITALS: BP 124/69; PULSE 56; RESP 16; TEMP 36.6; O2SAT 97
[2024-08-22 22:02] VITALS: BP 124/65; PULSE 56; RESP 16; TEMP 36.6; O2SAT 97
== END 2024-08-22 22:03 | disposition home or self-care (01) ==
PROVIDERS: Emergency Provider Student in an Organized Health Care Education/Training Program; PCP Nurse Practitioner Family
DX: S61.512A Laceration without foreign body of left wrist, initial encounter (principal); S09.90XA Unspecified injury of head, initial encounter; I10 Essential (primary) hypertension; M19.90 Unspecified osteoarthritis, unspecified site; K21.9 Gastro-esophageal reflux disease without esophagitis; G47.30 Sleep apnea, unspecified; F32.A Depression, unspecified; F41.9 Anxiety disorder, unspecified; W10.9XXA Fall (on) (from) unspecified stairs and steps, initial encounter; M47.812 Spondylosis without myelopathy or radiculopathy, cervical region; M19.012 Primary osteoarthritis, left shoulder; M19.032 Primary osteoarthritis, left wrist; M19.041 Primary osteoarthritis, right hand; M51.26 Other intervertebral disc displacement, lumbar region; M48.061 Spinal stenosis, lumbar region without neurogenic claudication
CPT/HCPCS: 12002; 70450; 72125; 73030; 73090; 73110; 73130; 99284; A9270; J2004

== ENCOUNTER 2024-08-24 08:52 | Outpatient (CLI) | payer OTHER, SELFPAY ==
--- NOTE | ~2024-08-24 | MR_ITS ---
MRI of the lumbar spine Clinical History: Back pain Technique: Axial T2-weighted images, and sagittal T1-weighted, T2-weighted, and T2 fat-sat images wer e acquired. Findings: There is no fracture or subluxation of lumbar spine. Vertebral bodies maintain normal heigh t and alignment. No bone marrow signal abnormality seen. At L1-L2, there is no disc bulge or herniation. There is moderate to advanced facet arthropathy. No c entral canal stenosis or neural foraminal narrowing. At L2-L3, there is no disc bulge or herniation. There is severe facet arthropathy. No central canal s tenosis. No definite neural foraminal narrowing. At L3-L4, there is mild disc bulge with severe facet arthropathy. There is mild to moderate central c anal stenosis. There is moderate left neural foraminal narrowing. Right neural foramen preserved. At L4-L5, there is central disc herniation with severe facet arthropathy, resulting in severe spinal canal stenosis/thecal sac compression. Probable compression of the descending bilateral L5-S1 level n erve roots. There is severe left neural foraminal compromise, and mild to moderate right neural sebastien inal compromise. At L5-S1, there is minimal disc bulge. There is advanced facet arthropathy. No central canal stenosis . There is moderate bilateral neural foraminal narrowing. Paravertebral soft tissues are unremarkable. Impression: Central disc herniation at L4-L5, contributing to severe spinal canal stenosis at this level and prob able impingement of the descending bilateral L5-S1 level nerve roots. Additional moderate to advanced degenerative changes of the lower lumbar spine, as detailed above. Reviewed, dictated and finalized at [facility]. Impression: Central disc herniation at L4-L5, contributing to severe spinal canal stenosis at this level and probable impingement of the descending bilateral L5-S1 level nerve roots. Additional moderate to advanced degenerative changes of the lower lumbar spine, as detailed above.
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
--- NOTE | ~2024-08-24 | MR_ITS ---
MRI of the thoracic spine Clinical History: Back pain Technique: Axial T2-weighted and gradient images, and sagittal T1-weighted, T2-weighted, and STIR subhash ges were acquired. Findings: There is no fracture or subluxation of the thoracic spine. Vertebral bodies maintain normal height and alignment. There mild to moderate degenerative changes at the mid to lower thoracic spine . No significant disc bulge or herniation seen at any thoracic level. There is no bipin spinal canal stenosis or cord compression. There is mildly prominent epidural fat posteriorly through most of the thoracic spine. No definite neural foraminal narrowing evident. No abnormal signal seen in the spinal cord. Paravertebral soft tissues are unremarkable. Impression: [id number]-[id number] degenerative disc narrowing through the mid to lower thoracic spine. Prominent posterior epidural fat, but no bipin canal stenosis or cord compression identified. No fracture or subluxation. Reviewed, dictated and finalized at [facility]. Impression: [id number] degenerative disc narrowing through the mid to lower thoracic spine. Prominent posterior epidural fat, but no bipin canal stenosis or cord compressi on identified. No fracture or subluxation.
--- OUTSIDE RECORDS SUMMARY | 2024-08-24 08:57 | XMS_ITS | Clinical Summary ---
Author Organization [facility] [employer] Address [address] [place] [address] Care Team Providers Care Certified Vehicle Fire Investigator Name Role Phone Erin Nicole APRN-SUPERVISOR POLE YARD Primary Care Provider [phone] Source Comments [facility] [employer],non-owned Affiliates and Associated Physician Practices is amultiple site organization consisting of ambulatory clinics and hospital sitesin [place], [place] and [place]. This disclosure is being madepursuant to the Care Everywhere program and may not contain all information available regarding this patient. 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
--- OUTSIDE RECORDS SUMMARY | 2024-08-24 08:57 | XMS_ITS | Encounter Summary ---
Author Organization [facility] Address [address] [place] [id number] Care Team Providers Care Gamma Ray Operator Name Role Phone Zachery Brownlee Primary Care Provider [phone] Reason for Visit * Reason Onset Date Comments Refill Request 08/23/2024 Encounter Details Date Type Department Care Team (Late st Contact Info) Description 08/23/2024 Telephone [facility] Family & Internal Medicine [facility] [address] [place] [address] Zachery Brownlee FNP [address] [place] [address] Refill Request Social History Tobacco Use Types Packs/Day Years [...] Sex Assigned at Male 06/04/2024 9:38 AM ELECTRIC METER TESTER HELPER Legal Sex Male 10:27 PM ELECTRIC METER TESTER HELPER Gender Identity Male 06/04/2024 9:38 AM ELECTRIC METER TESTER HELPER Sexual Orientation Not on file 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 on file Not on file Not on file Not on file Not on file Not on file Not on file documented as of this encounter Progress Notes * James Livingston MA - 08/23/2024 12:08 PM CDTAddended by: JAMES LIVINGSTON on: 08/23/2024 12:08 PM Modules accepted: Orders * James Livingston MA - 08/23/2024 12:04 PM CDT *Postponed Diazepam, requested too soon, not due until 08/29/2024 CSA: 03/05/2024 expires 03/05/2026 UDS: 03/05/2024 Hydrocodone last fill: 08/01/2024 #120 (20 day) Next fill due: 08/21/2024 Diazepam last fill: 07/30/2024 #30 * Maria Esther Fields - 08/23/2024 11:55 AM CDT Refill request received from Patient Medication: diazePAM (VALIUM) 5 MG tablet HYDROcodone-acetaminophen (NORCO) 5-325 MG tablet ibuprofen (MOTRIN) 800 MG tablet Pharmacy: [facility] [id number] [place] [address] Last visit with ZACHERY BROWNLEE in FAMILY PRACTICE was on: 06/04/2024 in [facility] Future Appointments Date Time Provider Department Center 11/28/2024 11:20 AM Prachi Mojica [place] [facility] [place] [facility] documented in this encounter Plan of Treatment Upcoming Encounters Date Type Department Care Team (Late st Contact Info) Description 11/28/2024 11:20 AM CDT Office Visit [facility] - [address], [address] [place] [phone] Prachi Mojica MD [address] [place] [address] documented as of this encounter Visit Diagnoses Diagnosis Osteoarthritis of multiple joints, unspecified osteoarthritis type Other chronic pain DDD (degenerative disc disease), cervical Degeneration of cervical intervertebral disc Degeneration of intervertebral disc of lumbar region with discogenic back pain and lower extremity pain documented in this encounter Additional Health Concerns Assessment Noted Time PHQ-9 Depression Total Score: 24 06/04/ 025 9:38 AM ELECTRIC METER TESTER HELPER documented as of this encounter Care Teams Gamma Ray Operator Relationship Specialty Start Date End Date Zachery Brownlee FNP [address] [place] [id number] PCP - General Nurse Practitioner Family 12/06/18 documented as of this encounter
--- OUTSIDE RECORDS SUMMARY | 2024-08-24 08:57 | XMS_ITS | Encounter Summary ---
Author Organization [facility] Address [address] [place] [address] Care Team Providers Care Spinning And Winding Supervisor Name Role Phone Erin Nicole SUJATHA Primary Care Provider [phone] Renny Weaver MD Unavailable [phone] Encounter Details Date Type Department Care Team (Late st Contact Info) Description 12/02/2019 Prep for Procedure [facility] Pre[facility] [place], [place] [id number] Denis Higgins MD [address] [place] [address] Social History Tobacco Use Types Packs/Day [...] Sex Assigned at Male 06/04/2024 9:38 AM SLOT SHIFT SUPERVISOR Legal Sex Male 10:27 PM SLOT SHIFT SUPERVISOR Gender Identity Male 06/04/2024 9:38 AM SLOT SHIFT SUPERVISOR Sexual Orientation Not on file 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pecialty Care - [facility] [address] [facility], [address] [place] [address] Prachi Mojica MD 3 [place] [address] documented as of this encounter Visit Diagnoses Diagnosis Preop examination- Primary Preoperative examination, unspecified documented in this encounter Additional Health Concerns Infection Onset Date Last Indicated Resolved Time COVID-19 Rule Out 02/01/2020 02/01/2020 02/02/2020 1:26 PM CDT COVID-19 Rule Out 03/17/2020 09/11/2019 03/17/2020 10:13 AM SLOT SHIFT SUPERVISOR COVID-19 Rule Out 05/26/2020 05/30/2020 06/02/2020 12:34 AM SLOT SHIFT SUPERVISOR COVID-19 Rule Out 04/13/2022 04/13/2022 04/20/2022 12:32 AM SLOT SHIFT SUPERVISOR Assessment Noted Time PHQ-9 Depression Total Score: 5 05/31/19 20 1:19 PM SLOT SHIFT SUPERVISOR documented as of this encounter Care Teams Spinning And Winding Supervisor Relationship Specialty Start Date End Date Erin Nicole FNP [address] [place] [address] PCP - General Nurse Practitioner Family 12/06/18 Renny Weaver MD [address] [place] [address] PCP - Med Group - [facility] Attributed Provider 03/05/19 05/01/20 documented as of this encounter
--- OUTSIDE RECORDS SUMMARY | 2024-08-24 08:57 | XMS_ITS | Encounter Summary ---
Author Organization [facility] Address [address] [place] [address] Care Team Providers Care Footwear Sales Representative Name Role Phone Erin Nicole Primary Care Provider [phone] Reason for Visit * Reason Onset Date Comments Advice 08/23/2024 Encounter Details Date Type Department Care Team (Late st Contact Info) Description 08/23/2024 Telephone [facility] Family & Internal Medicine [id number] [place] [address] Erin Nicole FNP [address] [place] [address] Advice Social History Tobacco Use Types Packs/Day Years [...] Sex Assigned at Male 06/04/2024 9:38 AM ADVICE CLERK Legal Sex Male 10:27 PM ADVICE CLERK Gender Identity Male 06/04/2024 9:38 AM ADVICE CLERK Sexual Orientation Not on file 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 He should never be in 20 min slot * Maria Esther Fields - 08/23/2024 11:53 AM CDT pt was not admitted but he fell 08/22/2024 and was seen at [facility]. They took xrays of his head, back, ect and also gave him stitches in his left hand closer to his wrist. was recommended to f/u with PCP There really isnt anything next week and I didn't want to throw him in the same days. Is there a good time you'd like to see him? Can I use a same day next week? Also, 20/40 min? documented in this encounter Plan of Treatment Upcoming Encounters Date Type Department Care Team (Late st Contact Info) Description 11/28/2024 11:20 AM CDT Office Visit [facility] Multispecialty Care - [address], [address] [place] [address] Prachi Mojica MD [address] [place] [address] documented as of this encounter Visit Diagnoses Not on filedocumented in this encounter Additional Health Concerns Assessment Noted Time PHQ-9 Depression Total Score: 24 025 9:38 AM ADVICE CLERK documented as of this encounter Care Teams Footwear Sales Representative Relationship Specialty Start Date End Date Erin Nicole FNP [address] [place] [address] PCP - General Nurse Practitioner Family 12/06/18 documented as of this encounter
--- OUTSIDE RECORDS SUMMARY | 2024-08-24 08:57 | XMS_ITS | Encounter Summary ---
Author Organization [facility] Address [address] [place] [address] Care Team Providers Care Straw Hat Plunger Operator Name Role Phone Erin Nicole SUJATHA Primary Care Provider [phone] Renny Weaver MD Unavailable [phone] Encounter Details Date Type Department Care Team (Late st Contact Info) Description 01/29/2020 Prep for Procedure [facility] Pre-Admission Testing [facility] [place], [place] [id number] Denis Higgins MD [address] [place] [address] Social History Tobacco Use Types Packs/Day [...] Sex Assigned at Male 06/04/2024 9:38 AM PARALEGAL INSTRUCTOR Legal Sex Male 10:27 PM PARALEGAL INSTRUCTOR Gender Identity Male 06/04/2024 9:38 AM PARALEGAL INSTRUCTOR Sexual Orientation Not on file 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 file Not on file Not [...] [facility] - [facility] [address] [facility], [address] [place] [phone] Prachi Mojica MD 3 [place] [address] documented as of this encounter Results * PRE-SURGICAL/PRE-PROCEDURE CORONAVIRUS (COVID 19) (02/01/2020 11:55 AM CDT) CORONAVIRUS SARS COV 2 PCR (RESP) NOT DETECTED NOT DETECTED 02/02/2020 1:26 PM CDT [facility] Comment: A Not Detected (negative) test result [...] providers and patients using the following websites: https://www.QuikC[employer].com/home/Covid-19/HCP/NAAT/fact-sheet2 https://www.[employer]ik[employer].PlayPhone/home/Covid-19/Patients/NAAT/ fact-sheet2 This test has been authorized by the FDA under an Emergency Use Authorization (EUA) for use by authorized laboratories. Due to the current public health emergency, [facility] is receiving a high volume of samples [...] about COVID-19 can be found at the [facility] website: www.Hatchtech.PlayPhone/Covid19. Test performed at Figure [address] [place] [address] [address] Director: ART BROCK DO,MPH FIRST TEST NO 02/01/2020 3:53 PM CDT [facility] EMPLOYED IN HEALTHCARE NO 02/01/2020 3:53 PM CDT [facility] SYMPTOMATIC DEFINED BY CDC NO 02/01/2020 3:53 PM CDT [facility] DATE OF SYMPTOM ONSET NO 02/01/2020 5:08 PM CDT [facility] HOSPITALIZATION STATUS NO 02/01/2020 3:53 PM CDT [facility] PATIENT IN ICU NO 02/01/2020 3:53 PM CDT [facility] RESIDENT OF [facility] NO 02/01/2020 3:53 PM CDT [facility] NOT 02/01/2020 5:08 PM CDT [facility] PATIENT'S RACE WHITE OR 02/01/2020 3:53 PM CDT [facility] ETHNICITY NONHISPANIC 02/01/2020 3:53 PM CDT [facility] SOURCE (QST) NASOPHARYNGEAL SWAB 02/01/2020 3:53 PM CDT [facility] NASOPHARYNGEAL SWAB / Unknown 02/01/2020 11:55 AM CDT us Denis Higgins MD MICROBIOLOGY - GENERAL CECILE KUNZ Final Result [facility] [address] [place] [address], Figure [address] [facility] [address] [place] [address], documented in this encounter Visit Diagnoses Diagnosis Preop examination- Primary Preoperative examination, unspecified documented in this encounter Additional Health Concerns Infection Onset Date Last Indicated Resolved Time COVID-19 Rule Out 02/01/2020 02/01/2020 02/02/2020 1:26 PM CDT COVID-19 Rule Out 03/17/2020 09/11/2019 03/17/2020 10:13 AM PARALEGAL INSTRUCTOR COVID-19 Rule Out 05/26/2020 05/30/2020 06/02/2020 12:34 AM PARALEGAL INSTRUCTOR COVID-19 Rule Out 04/13/2022 04/13/2022 04/20/2022 12:32 AM PARALEGAL INSTRUCTOR Assessment Noted Time PHQ-9 Depression Total Score: 5 05/31/19 20 1:19 PM PARALEGAL INSTRUCTOR documented as of this encounter Care Teams Straw Hat Plunger Operator Relationship Specialty Start Date End Date Erin Nicole FNP [address] [place] [address] PCP - General Nurse Practitioner Family 12/06/18 Renny Weaver MD [address] [place] [address] PCP - Med Group - [facility] Attributed Provider 03/05/19 05/01/20 documented as of this encounter
--- OUTSIDE RECORDS SUMMARY | 2024-08-24 08:57 | XMS_ITS | Clinical Summary ---
Author Organization [facility] Address [address] [place] [address] Care Team Providers Care Cash Office Worker Name Role Phone Erin Nicole SUJATHA Primary Care Provider [phone] Allergies No known active allergies Medications Cholecalciferol [...] KIT, DME,Indications:C OPD (chronic obstructive pulmonary disease) ([facility]) 1 kit by Other route every 4 [...] SUPPLY, DME,Indications:C OPD (chronic obstructive pulmonary disease) ([facility]) 1 Package by Other route every 4 [...] hronic obstructive pulmonary disease, unspecified COPD type ([facility]) Take 1 Device by nebulization every 4 [...] tablet 1 024 Active neomycin-polymyxi n-dexamethasone (MAXITROL) 3.5-86817-1.1 [address]pensionIndicat ions:Ear pain Place into both eyes [...] MOUTH EVERY DAY 90 tablet 025 Active hydroCHLOROthiazi de (MICROZIDE) 12.5 MG capsuleIndication s:Essential hypertension,Loca lized swelling of both lower legs Take 1 capsule (12.5 mg total) by mouth every morning. 90 capsule 025 Active ibuprofen (MOTRIN) 800 MG tabletIndications :Osteoarthritis of multiple joints, unspecified osteoarthritis type Take 1 tablet (800 mg total) by mouth every 8 (eight) hours as needed. 90 tablet 025 Active HYDROcodone-aceta minophen (NORCO) 5-325 MG [...] MORNING 90 capsule 025 2024 Discontinued(R eorder) ibuprofen (MOTRIN) 800 MG tabletIndications :Osteoarthritis of multiple joints, unspecified osteoarthritis type TAKE 1 TABLET BY MOUTH EVERY 8 HOURS NEEDED 90 tablet 025 2024 Discontinued(R eorder) HYDROcodone-aceta minophen (NORCO) 5-325 MG tabletIndications :Chronic Pain Take 1-2 tablets by mouth every 8 (eight) hours as needed for Pain. Indications: Chronic Pain 120 tablet 025 2024 Discontinued(R eorder) Hospital, Clinic, or [...] Unsatisfactory living conditions 06/08/2022 Paroxysmal atrial fibrillation ([facility]) 03/18/2022 Sciatica 03/16/2022 Fall, subsequent encounter 03/16/2022 Chronic a-fib ([facility]) 03/16/2022 Renal mass 02/14/2022 Tendinopathy of right [...] 09/14/2020 02/08/2023 Chronic obstructive pulmonar y disease ([facility]) 09/11/2020 07/08/2021 Traumatic injury of external genitalia 09/08/2020 05/09/2023 Sinus node dysfunction ([facility]) 09/11/2019 09/14/2020 Chronic coughing 08/13/2019 02/06/2023 History [...] Encounters Date Type Department Care Team Description 08/23/2024 Telephone [facility] Internal [address] [address] Erin Nicole, PHOTOGRAPHY COLORIST Refill Request 08/23/2024 Telephone [facility] Internal [address] [address] Erin Nicole, PHOTOGRAPHY COLORIST Advice 07/31/2024 Telephone [facility] Internal [address] [address] Erin Nicole, PHOTOGRAPHY COLORIST Refill Request 07/01/2024 Telephone [facility] Internal [address] [address] Erin Nicole, PHOTOGRAPHY COLORIST Refill Request 07/01/2024 Telephone [facility] Internal [address] [address] Erin Nicole FNP Advice 06/07/[address] [address] Erin Nicole FNP Medication Request; Radiology Results 06/06/2024 Patient Outreach [address] [phone] Dena Carrera, MOVABLE BULKHEAD INSTALLER Care Management 06/06/[address] [phone] Erin Nicole FNP Prior Authorization (Dizepam (Valium) 5mg ) 06/04/2024 9:20 AM GIFT CONSULTANT Office Visit [address] [phone] Erin Nicole FNP Information (Need a help at home, /); Depression (Having thoughts, ) 06/04/2024 [facility] [employer] [facility] Scanned, [facility] Image (SCAN); Lab (SCAN) 06/04/2024 Travel 05/28/[address] [address] Erin Nicole FNP Prior Authorization (Diazepam 5mg [...] Sex Assigned at Male 06/04/2024 9:38 AM GIFT CONSULTANT Legal Sex Male 10:27 PM GIFT CONSULTANT Gender Identity Male 06/04/2024 9:38 AM GIFT CONSULTANT Sexual Orientation Not on file 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 Not on file Not on file Not on file Not on file Not on file Not on file Last Filed Vital Signs Vital Sign Reading Time Taken Comments Blood Pressure 130/60 06/04/2024 9:40 AM GIFT CONSULTANT Pulse 62 06/04/2024 9:40 AM GIFT CONSULTANT Temperature 36.6 C (97.9 F) 06/04/2024 9:40 AM GIFT CONSULTANT Respiratory Rate 15 06/04/2024 9:40 AM GIFT CONSULTANT Oxygen Saturation 99% 06/04/2024 9:40 AM GIFT CONSULTANT Inhaled Oxygen Concentration - - Weight 145.3 kg (320 lb 6.4 oz) 06/04/2024 9:40 AM GIFT CONSULTANT Height 190.5 cm (6' 3 ) 06/04/2024 9:40 AM GIFT CONSULTANT Body Mass Index 40.05 06/04/2024 9:40 AM GIFT CONSULTANT Plan of Treatment Upcoming Encounters Date Type Department Care Team (Late st Contact Info) Description 11/28/2024 11:20 AM CDT Office Visit [facility] Multispecialty Care - [facility] [address] [facility], [address] [place] [phone] Prachi Mojica MD 3 [place], [place] [id number] Health Maintenance Due Date Last Done Comments [...] or 60+ Years Completed 04/28/2023 PHQ-2 (Physician [place]) Completed 06/04/2024 Meningococcal B Vaccine Aged Out [...] 06/04/2024 HEPATITIS C ANTIBODY 07/08/2021 3:[address] ABD+PEL W CON STAT 10/03/2019 3:51 PM CDT Generalized abdominal pain Fever, unspecified fever cause Dysuria COLONOSCOPY GENERIC (SCAN ORDER) Routine 09/21/2018 from Last 3 Months or Most Recently Relevant to Health Maintenance Results * OUTSIDE LAB (SCAN ORDER) (06/04/2024) Only the most recent of5 resultswithin the time period is included. 06/04/2024 [facility] Scanned SCANNING Final Resu lt * IMAGE GENERIC (06/04/2024) Anatomical Region Laterality Modality Other 06/04/2024 [facility] Scanned SCANNING Final Resu lt * HEPATITIS C ANTIBODY (07/08/2021 3:20 PM GIFT CONSULTANT) HEPATITIS C AB <0.1 0.0 - 0.9 s/co ratio [facility] 1 Comment: Negative: < 0.8 Indeterminate: 0.8 - 0.9 Positive: > 0.9 The CDC recommends that a positive HCV antibody result be followed up with a HCV Nucleic Acid Amplification test (467799). 07/08/2021 3:20 PM GIFT CONSULTANT 07/08/2021 Narrative [facility] - 07/09/2021 12:10 PM GIFT CONSULTANT Performed at: 01 - [facility] [id number] Stock Buyer: Blaise Kirk PhD, Phone: [phone] Erin [facility] Final Result [facility] [address] [place] [address] [facility] 1 * CT ABD+PEL W CON (10/03/2019 3:51 PM CDT) Anatomical Region Laterality Modality Abdomen Computed Tomogra phy 10/03/2019 3:51 PM CDT Renny Weaver MD CT Final Result * COLONOSCOPY (09/21/2018) Erin SOLARES SCANNING Final Result from Last 3 Months or Most Recently Relevant to Health Maintenance Insurance [employer] Care Teams Cash Office Worker Relationship Specialty Start Date End Date Erin Nicole FNP [address] [place] [address] PCP - General Nurse Practitioner Family 12/06/18
--- OUTSIDE RECORDS SUMMARY | 2024-08-24 08:57 | XMS_ITS | Continuity of Care Document ---
Author Organization [facility] Address [address] [facility] [address] [place] [address] Phone Care Team Providers Care Soda Fountain Operator Name Role Phone Rajendra Yoo MD Unavailable Unavailable Allergies, Adverse Reactions, Alerts Substance Reaction Status Criticality No Known Allergies Active No Inform ation Medications Medication Instructions Dosage Effective Dates (start - stop) Status Comments TRAZODONE HCL (unknown strength) Not Available - Active CYCLOBENZAPRINE HCL (unknown strength) Not Available - Active DIAZEPAM (unknown strength) Not Available - Active HYDROCODONE-ACETAMINOPHE N (unknown strength) Not Available - Active Procedures Procedure Date RADEX SPI LUMBOSAC 2/3 VIEWS DISABILITY EXAMINATION Advance Directives Directive Yes / No Effective Date File Name No Information Encounters Encounter Description Practice Location Reason(s) For Visit Diagnoses Date Provider Providers Copied on Encounter DISABILITY EXAMINATION [facility] , [address] [facility] [address], [place], [address], [place] tel:[phone] [facility] My back hurts alot (chief complaint) Body mass index (BMI) 45.0-49.9, adultLow back pain Fredo Drew. [address] [facility] [address] [place], [place], [id number]. tel:[phone] Family History Family Member Type Diagnosis Age [...]
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
--- OUTSIDE RECORDS SUMMARY | 2024-08-24 08:57 | XMS_ITS | Clinical Summary ---
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
--- OUTSIDE RECORDS SUMMARY | 2024-08-24 08:57 | XMS_ITS | Referral Summary ---
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
--- OUTSIDE RECORDS SUMMARY | 2024-08-24 08:57 | XMS_ITS | Encounter Summary ---
Author Organization [facility] Address [address] [place] [address] Care Team Providers Care Escape Wheel Tooth Cutter Name Role Phone Erin Nicole SUJATHA Primary Care Provider [phone] Encounter Details Date Type Department Care Team (Late Contact Info) Description 02/16/2023 [place] Mona Message Enc [facility] Family & Internal Medicine [address] [address] [employer], [facility] Provider phone number Social History Tobacco [...] Sex Assigned at Male 06/04/2024 9:38 AM DISK RECORDIST Legal Sex Male 10:27 PM DISK RECORDIST Gender Identity Male 06/04/2024 9:38 AM DISK RECORDIST Sexual Orientation Not on file 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 Not on file Not on file Not on file Not on file Not on file Not on file documented as of this encounter Plan of Treatment Upcoming Encounters Date Type Department Care Team (Late Contact Info) Description 11/28/2024 11:20 AM CDT Office Visit [facility] - [facility] [address] [facility], [address] [place] [address] Prachi Mojica MD [address] [place] [address] documented as of this encounter Visit Diagnoses Not on filedocumented in this encounter Additional Health Concerns Assessment Noted Time PHQ-9 Depression Total Score: 1 02/07/20 23 2:52 PM CDT documented as of this encounter Care Teams Escape Wheel Tooth Cutter Relationship Specialty Start Date End Date Erin Nicole FNP [address] [place] [address] PCP - General Nurse Practitioner Family 12/06/18 documented as of this encounter
--- OUTSIDE RECORDS SUMMARY | 2024-08-24 08:57 | XMS_ITS | CONTINUITY OF CARE DOCUMENT ---
Author Name moses lopes Address Unknown Organization [facility] Address [address] [place] [address] Phone [phone] Care Team Providers Care Tool Setter Apprentice Name Role Phone Sourav Harris MD Unavailable [phone] VINAY STEIN MD Unavailable VINAY STEIN MD [...] In-person encounter Office Visit Sourav Harris MD [facility] - In-person encounter Office Visit Sourav Harris MD [facility] - In-person encounter Office Visit Sourav Harris MD [facility] - In-person encounter Office Visit Sourav Harris MD [facility] - In-person encounter Office Visit Sourav Harris MD [facility] Atrial fibrillation, paroxysmal - In-person encounter Office Visit Sourav Harris MD [facility] PACs - In-person encounter Office Visit Sourav Harris MD [facility] Chest painHypertensionChronic back painObstructive sleep apneaMorbid [...] er weight E&M 349 [lb_av] Tere Wallac[facility]fe [facility] height E&M 75 [in_i] Tere Kamaljitnfe [facility] Body Mass Index (Ratio) 42.49 kg/m2 Warren Ahmedzai blood pressure, diastolic 90 mm[Hg] Li nkLogic blood pressure, systolic 141 mm[Hg] Jeannine kLogic blood pressure, diastolic 90 mm[Hg] [facility] e[facility] [place] blood pressure, systolic 141 mm[Hg] Gregg phanie [place] oxygen saturation, oximetry 97 % Sumi [place] pulse rate 66 /min Sumi Lohma n respiratory rate E&M 16 /min Britton ie [place] blood pressure, cuff size large [facility] [place] weight E&M 340 [lb_av] Sumi Lohma n [...] 0-149 5 cholesterol, serum 185 mg/dL [facility] [phone]/05/1 5 platelet count 242 X10E3/UL [facility] [phone]/05/1 5 red blood cell distribution width 12.7 [...] 3.5-5.2 5 sodium, serum 141 mmol/L [facility] [phone]/05/1 5 urea nitrogen/creatinine ratio, serum 15 [employer] [...] 2-3 times a week S wolf [place] BULL DRIVER alcohol use, type beer Lorena leon BULL DRIVER alcohol use, average drinks per day 2 /d Lorena [place] ALVARO alcohol use yes Lorena [place] ALVARO passive cigarette sm becky exposure yes Lorena [place] ALVARO Exercise counseling yes Lorena hilton ALVARO smoking status Never smoker Tere gil INSURANCE PROVIDERS Payer name Policy type / Coverage type Morrill red republican ID [employer] PPO O [id number] ADVANCE DIRECTIVES Name Date DISCUSSED - NO DECISION MADE TREATMENT PLAN Date Name Performer [id number],C, B P today: 120/60 P rior BP: [...] by mouth once a day Myriam Lewis BULL DRIVER [id number],C,EKG today SB 58 Myriam Lewis BULL DRIVER [id number],C,E KG today SB 58 T he following [...] ..... 1 tablet as needed Myriam Escalonajayleen BULL DRIVER [id number],C,V arying pressures at home with BPs as high as 160-170. Will keep him on Metoprolol 50 mg which he is taking BID, will increase his Lisinopril 20 mg to two tablets daily BP today: 126/72 P rior BP: 141/90 (07/01/2022) Labs Reviewed: C reat: 1.10 (09/12/2020) C hol: 185 (09/12/2020) HDL: 43 (09/12/2020) Warren [facility] [id number],C,N o recent episodes. EKG todays showed sinus rhythm. environmental monitoring technician showed Sinus Rhythm with occasional PVCs and rare PACs. The average HR was 60bpm with a maximum rate of 115bpm and a minimum rate of 43bpm. VE?s were documented as triplets, couplets, trigeminal cycles, and isolated beats with a total burden of 1.63%. [facility] [id number],C,M ild Obstructive Airways Disease f rom PFT [facility] [id number],C, H is updated medication list for this problem includes: Atorvastatin 20 Mg Tablet (Atorvastatin) Lipitor 80 Mg Tablet (Atorvastatin) ..... 1 tablet once a day [facility] [id number],C,A dvised him to reduce salt intake. BP today: 141/90 P rior BP: 116/79 (03/18/2022) Labs Reviewed: C reat: 1.10 (09/12/2020) C hol: 185 (09/12/2020) HDL: 43 (09/12/2020) [facility] [id number],C,E cho showed normal LVEF. C hest pain is unlikley cardiac related. He is asymptmatic currently. Warren Salcedo [id number],C,E KG todays showed sinus rhythm. environmental monitoring technician showed Sinus Rhythm with occasional PVCs and rare PACs. The average HR was 60bpm with a maximum rate of 115bpm and a minimum rate of 43bpm. VE?s were documented as triplets, couplets, trigeminal cycles, and isolated beats with a total burden of 1.63%. Warren Salcedo [id number],C,No sxs curren tly Warren Salcedo [id number],C, B P today: 116/79 P rior BP: 118/72 (11/27/2020) Labs Reviewed: C reat: 1.10 (09/12/2020) C hol: 185 (09/12/2020) HDL: 43 (09/12/2020) Warren Salcedo [id number],S, Warren Soriano i [id number],C,N ew finding of AFIB at the hospital after he injured himself from a slip and fall at work. I will arrange for telemetry to assess for AF burden. W ill check echo and PFTs as well. He has been started on Eliquis 5 mg BID Warren Salcedo [id number],B, r ega stress showed abnormal perfusion imaging [...] a day Orders: 9 9214 MOD 30-39min (CPT-72150) C omplete Echo (CPT-85683) A tamy Duplex Ultrasound (CPT-16465) Monitor - Telemetry (Mobile Cardiac) (CPT-52577) S chedule Followup (*) Sourav Harris MD [id number],S, n eeds AAA screening BP today: 118/72 P rior BP: 122/80 (09/11/2020) His updated medication list for this problem includes: Lisinopril 20 Mg Tablet (Lisinopril) ..... Take 1 twice a day Amlodipine 5 Mg Tablet (Amlodipine) ..... 1 tablet by mouth once a day Orders: E KG (CPT-06344) 9213 MOD 30-39min (CPT-70171) C omplete Echo (CPT-20138) A tamy Duplex Ultrasound (CPT-66092) M onitor - Telemetry (Mobile Cardiac) (CPT-80015) S chedule Followup (*) Sourav Harris MD [id number],S, a void NSAID if possible. t aking ibuprofen every other day O rders: 9213 MOD 30-39min (CPT-47501) C omplete Echo (CPT-35859) A tamy Duplex Ultrasound (CPT-87951) M onitor - Telemetry (Mobile Cardiac) (CPT-62237) Sourav Harris MD [id number],S, c an not tolerate CPAP Orders: 9213 MOD 30-39min (CPT-61057) C omplete Echo (CPT-67997) A tamy Duplex Ultrasound (CPT-04924) M onitor - Telemetry (Mobile Cardiac) (CPT-76541) Sourav Harris MD [id number],S, i mproved with exercise c [place] 1 week tele in 1 year Orders: 9213 MOD 30-39min (CPT-37950) C omplete Echo (CPT-81166) A tamy Duplex Ultrasound (CPT-21378) M onitor - Telemetry (Mobile Cardiac) (CPT-31248) Chano Reese [id number],S, w eight loss encouraged Chano Reese [id number],S, a void NSAID if possible. t aking ibuprofen every other day Chano Reese [id number],B, r ega stress showed abnormal perfusion imaging [...] a day Orders: 9 9213 MOD 30-39min (CPT-46680) C omplete Echo (CPT-61218) A tamy Duplex Ultrasound (CPT-64124) M onitor - Telemetry (Mobile Cardiac) (CPT-43616) Chano Reese [id number],S, n eeds AAA screening BP today: 118/72 P rior BP: 122/80 (09/11/2020) His updated medication list for this problem includes: Lisinopril 20 Mg Tablet (Lisinopril) ..... Take 1 twice a day Amlodipine 5 Mg Tablet (Amlodipine) ..... 1 tablet by mouth once a day Orders: E KG (CPT-68606) 9 14 MOD 30-39min (CPT-46547) C omplete Echo (CPT-73036) A tamy Duplex Ultrasound (CPT-01980) M onitor - Telemetry (Mobile Cardiac) (CPT-71992) Chano Reese [id number],S, c an not tolerate CPAP Chano Reese [...] by mouth once a day Myriam Joshua BULL DRIVER Electrophysiology:EKG today SB 5 8 Myriam Escalonajayleen BULL DRIVER Electrophysiology:EK G today SB 58 T he [...] ..... 1 tablet as needed Myriam Hellergerard BULL DRIVER Electrophysiology:Julieta winston pressures at home with BPs [...] recent episodes. EKG todays showed sinus rhythm. environmental monitoring technician showed Sinus Rhythm with occasional PVCs and [...] Arenasradhaedilson Cardiology:EKG today s showed sinus rhythm. environmental monitoring technician showed Sinus Rhythm with occasional PVCs and [...] hol: 185 (09/12/2020) HDL: 43 (09/12/2020) [facility]:Ne w finding of AFIB at the [...] a day Orders: 9 9214 MOD 30-39min (CPT-32174) C omplete Echo (CPT-18018) A tamy Duplex Ultrasound (CPT-49545) M onitor - Telemetry (Mobile Cardiac) (CPT-82086) S chedule Followup (*) Sourav Harris MD Electrophysiology Fo llow up : n eeds AAA screening BP today: 118/72 P rior BP: 122/80 (09/11/2020) His updated medication list for this problem includes: Lisinopril 20 Mg Tablet (Lisinopril) ..... Take 1 twice a day Amlodipine 5 Mg Tablet (Amlodipine) ..... 1 tablet by mouth once a day Orders: E KG (CPT-03411) 9 9214 MOD 30-39min (CPT-40369) C omplete Echo (CPT-82037) A tamy Duplex Ultrasound (CPT-26736) M onitor - Telemetry (Mobile Cardiac) (CPT-23251) S chedule Followup (*) Sourav Harris MD Electrophysiology Fo llow up : a void NSAID if possible. t aking ibuprofen every other day O rders: 9 14 MOD 30-39min (CPT-77037) C omplete Echo (CPT-28872) A tamy Duplex Ultrasound (CPT-26184) M onitor - Telemetry (Mobile Cardiac) (CPT-62585) Sourav Harris MD Electrophysiology Fo llow up : c an not tolerate CPAP Orders: 9 14 MOD 30-39min (CPT-06760) C omplete Echo (CPT-36160) A tamy Duplex Ultrasound (CPT-20430) M onitor - Telemetry (Mobile Cardiac) (CPT-55306) Sourav Harris MD Electrophysiology Fo llow up : i mproved with exercise c heck 1 week tele in 1 year Orders: 9 14 MOD 30-39min (CPT-42463) C omplete Echo (CPT-49421) A tamy Duplex Ultrasound (CPT-64647) M onitor - Telemetry (Mobile Cardiac) (CPT-81969) Chano Reese Electrophysiology Fo llow up : [...] a day Orders: 9 9213 MOD 30-39min (CPT-63755) C omplete Echo (CPT-57985) A tamy Duplex Ultrasound (CPT-50507) M onitor - Telemetry (Mobile Cardiac) (CPT-72152) Chano Reese Electrophysiology Fo llow up : n eeds AAA screening BP today: 118/72 P rior BP: 122/80 (09/11/2020) His updated medication list for this problem includes: Lisinopril 20 Mg Tablet (Lisinopril) ..... Take 1 twice a day Amlodipine 5 Mg Tablet (Amlodipine) ..... 1 tablet by mouth once a day Orders: E KG (CPT-39836) 9 14 MOD 30-39min (CPT-51593) C omplete Echo (CPT-89219) A tamy Duplex Ultrasound (CPT-14862) M onitor - Telemetry (Mobile Cardiac) (CPT-33379) Chano Reese Electrophysiology Fo llow up : c an not tolerate CPAP Chano Reese Electrophysiology Ne w Patient - call patient please:PPI one capsule twice a day - total duration of treatment 2 months Sourav Harris MD Electrophysiology Ne w Patient - call patient please:avoid NSAID if possible. Orders: S tress Regadenoson (CPT-84645) C omplete Echo (CPT-62942) C OMPREHENSIVE METABOLIC PANEL, W/EGFR (58091) L IPID PANEL (6850) C BC (H/H, RBC, INDICES, WBC, PLT) (1759) M AGNESIUM (622) B TYPE NATRIURETIC PEPTIDE (BNP) (25252) P ROTHROMBIN TIME WITH INR (8847) T SH, free T4, total T3 (7444) 9 9205 HIGH 60-74 min (CPT-48216) Sourav Harris MD Electrophysiology Ne w Patient - call patient please: H is updated medication list for this problem includes: Proair Hfa 108 (90 Base) Mcg/act Inhalation Aerosol Solution (Albuterol sulfate) ..... As directed Ventolin Hfa 108 (90 Base) Mcg/act Inhalation Aerosol Solution (Albuterol sulfate) ..... 2 puffs every 4-6 hours Orders: B TYPE NATRIURETIC PEPTIDE (BNP) (89862) P ROTHROMBIN TIME WITH INR (8847) T SH, free T4, total T3 (7444) 9 9205 HIGH 60-74 min (CPT-65502) Sourav Harris MD Electrophysiology Ne w Patient - call patient please:weight loss encouraged O rders: S tress Regadenoson (CPT-61748) C omplete Echo (CPT-62050) C OMPREHENSIVE METABOLIC PANEL, W/EGFR (83386) L IPID PANEL (7600) C BC (H/H, RBC, INDICES, WBC, PLT) (1759) M AGNESIUM (622) B TYPE NATRIURETIC PEPTIDE (BNP) (75248) P ROTHROMBIN TIME WITH INR (8847) T SH, free T4, total T3 (7444) 9 9205 HIGH 60-74 min (CPT-91532) Sourav Harris MD Electrophysiology Ne w Patient - call patient please:can not tolerate CPAP O rders: S tress Regadenoson (CPT-74783) C omplete Echo (CPT-16772) C OMPREHENSIVE METABOLIC PANEL, W/EGFR (39585) L IPID PANEL (7600) C BC (H/H, RBC, INDICES, WBC, PLT) (1759) M AGNESIUM (622) B TYPE NATRIURETIC PEPTIDE (BNP) (61800) P ROTHROMBIN TIME WITH INR (8847) T SH, free T4, total T3 (7444) 9 9205 HIGH 60-74 min (CPT-26437) Sourav Harris MD Electrophysiology Ne w Patient - call patient please:controlled Will decrease amlodipine to 5 mg daily Orders: S tress Regadenoson (CPT-52687) C omplete Echo (CPT-81490) C OMPREHENSIVE METABOLIC PANEL, W/EGFR (27395) L IPID PANEL (7600) C BC (H/H, RBC, INDICES, WBC, PLT) (1759) M AGNESIUM (622) B TYPE NATRIURETIC PEPTIDE (BNP) (99139) P ROTHROMBIN TIME WITH INR (8847) T SH, free T4, total T3 (7444) 9 9205 HIGH 60-74 min (CPT-77054) His updated medication list for this problem [...] Monitor - Telemetry (Mobile Cardiac) DLCO - 20410 FRC - 50909 FVC - 54885 Complete Echo Monitor - Telemetry (Mobile Cardiac) [...] completed FVC / MVV with bronchodilator - 00992 Sourav Harris MD completed FRC - 91879 Sourav fitzpatrick MD completed SpO2 w/o 6min walk/titration Sourav Harris MD completed SVC - 83640 Sourav fitzpatrick MD completed DLCO - 19690 Sourav fitzpatrick MD completed EKG Sourav fitzpatrick MD completed Schedule Followup Sourav woodson MD fu in 1 year completed EKG Sourav fitzpatrick MD completed Spirometry Sourav fitzpatrick MD completed FVC / MVV with bronchodilator - 26369 Sourav Harris MD completed FRC - 28517 Sourav fitzpatrick MD completed SVC - 29312 Sourav fitzpatrick MD completed EKG Sourav fitzpatrick MD completed
--- OUTSIDE RECORDS SUMMARY | 2024-08-24 08:58 | XMS_ITS | Patient Health Record ---
Author Organization [facility] Address [address] [place] [id number] Support Name Relationship Address Phone Malachi oTbin Guarantor Unknown [phone] Reason For Referral No Information Plan Of Treatment Pending Test Test Name Order Date Urinalysis, Routine 10/14/2022 Vision Screening 10/14/2022 Vision Screening 10/21/2022 Hearing Screening 10/14/2022 Insurance Providers Payer Name Payer Address Payer Phone Subscriber Number Group Number Insured Name Patient Relationship to Insured Coverage Start Date Coverage End Date Hina BURR Physical Recerts/ ndoms/iMgue [email or web address] [phone] Malachi Tobin Self - patient is the insured
--- OUTSIDE RECORDS SUMMARY | 2024-08-24 08:58 | XMS_ITS | Data Portability ---
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 Plan of Treatment Reminders Order Date Submit Date Provider Last Modified By Organization Details Last Modified Time Details Appointments None recorded. Lab PSA, serum or plasma 2022 023 [facility], [address] [place], [address], 3 18:58:04 Referral urologist referral - Dr Kahn - buried phallus and renal mass 2022 023 [place] [address] Ludin Kahn MD, [facility] [address], [address], 3 11:16:14 Procedures None recorded. Surgeries None recorded. Imaging CT, abdomen, w/wo contrast [address] ([facility]), [address] [place], [address], 3 14:23:28 Medication Orders nystatin 100,000 unit/gram topical cream 2022 023 [facility] [address] In [facility], [address] [place], [address], 3 12:00:11 Patient TargetsNo targets recorded. Patient [...] negative jeanne/ l) Negati ve Not Available [address], [address], 07/19/2021 11:22:42 07/20/19 22 07/19/2021 urina lysis , dipst ick Nitrite (reference rage: negative mg/dl) negati ve Not Available [address], [address], 07/19/2021 11:22:42 07/20/19 22 07/19/2021 urina lysis , dipst ick Urobilinogen (reference range: 0.2-1 mg/dl) 0.2 Not Available [address], [address], 07/19/2021 11:22:42 07/20/19 22 07/19/2021 urina lysis , dipst ick Protein (reference range: negative mg/dl) Negati ve Not Available [address], [address], 07/19/2021 11:22:42 07/20/19 22 07/19/2021 urina lysis , dipst ick pH (reference range: 5-7) 5.5 Not Available [address], [address], 07/19/2021 11:22:42 07/20/19 22 07/19/2021 urina lysis , dipst ick Blood (reference range: negative Merlin/ l) Modera te Not Available [address], [address], [address], 07/19/2021 11:22:42 07/20/19 22 07/19/2021 urina lysis , dipst ick Specific [place] (reference range: 1.005-1.030) 1.030 Not Available Z_[address], [address], 07/19/2021 11:22:42 07/20/19 22 07/19/2021 urina lysis , dipst ick Ketone (reference range: negative mg/dl) Negati ve Not Available [address], [address], 07/19/2021 11:22:42 07/20/19 22 07/19/2021 urina lysis , dipst ick Bilirubin (reference range: negative mg/dl) Negati ve Not Available [address], [address], 07/19/2021 11:22:42 07/20/19 22 07/19/2021 urina lysis , dipst ick Glucose (reference range: negative mg/dl) Negati ve Not Available [address], [address], 07/19/2021 11:22:42 07/20/19 22 07/19/2021 US, bladd er No observ ation record ed. [id number] [address] [facility], [address], [place], [address], 06/29/2022 06:20:00 11/12/19 22 08/17/2021 CT, urogr am No observ ation record ed. [id number] [facility] Add On Lab Orders [address] [place], [address], 06/29/2022 06:20:00 10/04/19 23 09/29/2022 urofl owmet rogra m No observ ation record ed. [email or web address] Not Available 2022 15:15:59 10/06/19 23 07/22/2022 CT, abdom en, w/wo contr ast No observ ation record ed. [email or web address] [facility] ([facility]) [address] [place], [address], 10/05/2022 11:29:10 Result Notes None recorded. Problems Name Problem SNOMED Code Status Onset Date Resolution Date Notes Provider Name and Address Organization Details Recorded Time Injury of shoulder region 970116338 Completed Not Available [facility] 3 06:15:25 Disorder of knee 163770621 Active Not Available [facility] 3 06:15:25 Backache 123023126 Active Not Available [facility] 3 06:15:25 Microscopi c hematuria 670280220 Active 2021 Not Available [facility] 3 06:15:25 Neck sprain 027959152 Active Not Available [facility] 3 06:15:25 Lumbar sprain 377227855 Completed Not Available [facility] 3 06:15:25 Benign prostatic hyperplasi a 332384040 Active 2021 Not Available [facility] 3 06:15:25 Edema 405903884 Active Not Available [facility] 3 06:15:25 Shoulder joint pain 539328498 Active Not Available [facility] 3 06:15:25 Recurrent dislocatio n of shoulder region 57721850 Active Not Available [facility] 3 06:15:25 Renal mass 382568014 Active 2021 Not Available [facility] 3 06:15:25 Enthesopat hy of hip region 89382999 Active Not Available [facility] 3 06:15:25 Lumbosacra l strain 343450579 Active Not Available [facility] 3 06:15:25 Sinusitis 47210511 Active 2016 Not Available [facility] 3 06:15:25 Osteoarthr itis 536058771 Active Not Available [facility] 3 06:15:25 Disorder of rotator cuff 299017480 Active Not Available [facility] 3 06:15:25 Obesity 437626118 Active Not Available [facility] 3 06:15:26 Traumatic injury of external genitalia 297972791 Active Not Available [facility] 3 06:15:26 Pain of shoulder region 35057229 Completed Not Available [facility] 3 06:15:26 Pain of hip region 88430561 Completed Not Available [facility] 3 06:15:26 Cough 68321052 Active 2016 Not Available [facility] 3 06:15:26 Candidal balanitis 20176248 Active 2021 Not Available [facility] 3 06:15:26 Disorder of bursa of shoulder region 02305466 Active Not Available [facility] 3 06:15:26 Essential hypertensi on 83279468 Active Not Available [facility] 3 06:15:26 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 Igor London MD [address], [facility] [address], [place], [address] , [facility] [employer] [facility] 3 11:59:24 Pain in scrotum 58100395 Active 2022 Igor London MD [address], [address], [place], [address] , [facility] [employer] [facility] 3 13:09:45 Notes:Medical History: Anxie ty/Depression Rhinosinusitis [...] Details LastModified Time 07/19/2021 US, bladder completed [id number] [place] [id number] [facility], [address], [place], [address], 06/29/2022 06:20:00 08/17/2021 CT, urogram completed [id number] [facility] Add On Lab Orders [address] [place], [address], 06/29/2022 06:20:00 09/29/2022 uroflowmetrogram completed [email or web address] Informat ion not available 10/03/2022 15:15:59 07/22/2022 CT, abdomen, w/wo contrast completed [email or web address] [facility] ([facility]) [address] [place], [address], 10/05/2022 11:29:10 Procedure Notes None recorded. Medical [...] Available Not Available No t Available Fluvirin 45 mcg (15 mcg x 3)/0.5 mL [...] cm 96 % 96 % 99.1 [degF] 490011. 48 g 143 mm[Hg] 93 mm[Hg] Not Available [facility] 3 06:14:17 Date Recorded Body height Provider Name an d Address Organization Details Last Updated DateTime 02/14/2022 190.5 cm Not Available [facility] 3 06:14:18 Date Recorded Body height Provider Name an d Address Organization Details Last Updated DateTime 07/18/2022 190.5 cm Kallie Granda MA [place] [employer] 07/18/2022 11:20:05 Date Recorded Heart rate Oxygen saturation Oxygen saturation in Arterial blood by Pulse oximetry Body mass index (BMI) Body weight Body temperature Provider Name and Address Organization Details Last Updated DateTime 3 55 /min 98 % 98 % 43.6 kg/m2 630967. 74 g 97.3 [degF] JO Jarvis [email or web address] 3 11:25:23 Date Recorded Body height Provider Name an d Address Organization Details Last Updated DateTime 10/05/2022 190.5 cm Kallie Granda MA [employer] 10/05/2022 11:33:09 Date Recorded Body temperature Body mass index (BMI) Body weight Heart rate Oxygen saturation Oxygen saturation in Arterial blood by Pulse oximetry Provider Name and Address Organization Details Last Updated DateTime 3 97.7 [degF] 44.4 kg/m2 003236. 29 g 54 /min 96 % 96 % JO Jarvis [place] [facility] [place] [employer] [facility] 3 11:38:42 Social History Question Answer Notes LastModified by Organizat ion Details LastModified Time Tobacco Smoking Status Never Smoker Not Available [facility] 06/29/2022 06:11:56 What Is Your Level Of Alcohol Consumption? Occasional [id number] Information not available 06/29/2022 What Is Your Level Of Caffeine Consumption? Moderate [id number] Information not available 06/29/2022 Have You Ever Been Counseled For Unhealthy Alcohol Use? No [id number] Information not available 06/29/2022 Do You Use Any Illicit Or Recreational Drugs? No [id number] Information not available 06/29/2022 Has Tobacco Cessation Counseling Been Provided? No [id number] Information not available 06/29/2022 Do You Or Have You Ever Used Any Other Forms Of Tobacco Or Nicotine? No [id number] Information not available 06/29/2022 Sex: Unknown Functional Status None recorded. Mental Status None recorded. Family History Nothing Reported. Medical History Condition Response HYPERTENSION Y Immunizations Vaccine Type Date Status Note Provider Nam e and Address Organization Details Recorded Time Influenza, split virus, quadrivalent, PF 7 completed Not Available [facility] 06/29/2022 06:19:45 Influenza, split virus, quadrivalent, preservative 4 completed Not Available [facility] 06/29/2022 06:19:45 Past Encounters Encounter ID Performer Location Encounter Start Date Encounter Closed Date Diagnosis/Indication Diagnosis SNOMED-CT Code Diagnosis ICD10 Code Diagnosis Note [id number] [facility] [address] [address] 10/06/2020 00:00:00 10/06/2020 15:28:25 [id number] [facility] [address] [place] [address] 12/31/2020 00:00:00 12/31/2020 15:49:54 [id number] [facility] [place] [address] [place] [address] 02/09/2021 00:00:00 02/09/2021 16:07:37 [id number] [facility] [address] [place] [address] 07/19/2021 00:00:00 07/19/2021 15:52:23 [id number] [facility] [place] [address] [place] [id number] 02/14/2022 00:00:00 02/14/2022 12:57:49 [id number] MD AVANI Tran [facility] [address] [place] [address] 07/18/2022 11:07:54 07/18/2022 12:18:15 Renal mass [id number] N28.89 plan for f/u CT to assess for interval change-pt aware of risk of cancer-kimani l in 1 week if not heard fromo ffice to confirm we received results, Microscopic hematuria 19 4792397 R31.29 PSA 1.28, cytology normalcyst oscopy normal 02/14/22CT with 13 mm renal massoption s discussed with partial nx, IR RMBx, RFA, or observatio n/surveill ance given small size Screening for malignant neoplasm of prostate 875921806 Z12.5 check PSA, Acquired buried penis 23 0483251 N48.83 we will add topical nystatinDi scussed in great detail the rationale, contraindi cations, interactio ns, and possible side effects of the medication . Pt expressed understand ing-ultima tely he will need to consider penile exhumation /reconstru ctive surgery as he has trapped/bu ried phallus-I will have him see reconstruc tive urology at [facility] (Dr Kahn) as he may require a multidisci plinary approach to fix this ( ie plastics and urology) [id number] MD ARLETTE BryantS_GMG [facility] [address] [place] [id number] 09/29/2022 14:37:40 09/29/2022 14:42:27 [id number] MD KINA Bryant_OLEGARIO [facility] [address] [place] [id number] 10/05/2022 11:25:50 10/05/2022 11:58:08 Renal mass [id number] N28.89 :Benign cysts -- no further surveillan ce needed Microscopic hematuria 19 9748951 R31.29 PSA 1.28, cytology normalcyst oscopy normal 02/14/22CT with 13 mm renal mass -- dedicated imaging showed benign renal cysts Screening for malignant neoplasm of prostate 337276251 Z12.5 PSA normal 06/2022 at age 67 -- will advise cessation of prostate cancer screening based on guidelines , though he and his PCP may continue if they wish Acquired buried penis 23 [id number] N48.83 -Referred to reconstruc tive urology at [facility] (Dr Kahn) as he may require a [...] Galvez Member ID Guarantor Name 07/18/2022 1 [facility] (MEDICARE REPLACEMENT/A DVANTAGE - HMO) [id number] Vernon Tobin [id number] Vernon Tobin 09/29/2022 1 [facility] (MEDICARE REPLACEMENT/A DVANTAGE - HMO) [id number] Vernon Tobin [id number] Vernon Tobin 10/05/2022 1 [facility] (MEDICARE REPLACEMENT/A DVANTAGE - HMO) [id number] Vernon Tobin [id number] Vernon Tobin Notes Date Note Type Note [...] with moderate blood on ua. Not Available [employer] 07/19/2021 15:52:23 07/18/2022 text/html Vernon is here [...] cream to his foreskin. Igor London MD [address] [place] [address], [address], [employer] 07/18/2022 12:12:43 10/05/2022 text/html Vernon is here [...] to his foreskin. 07/21/2022 CT Abd [facility]WO ([place]) - bilateral renal cysts -- no suspicious lesions PSA TREND:06/2022 - 1.37 08/2022 UroFlow -- Unobstructed -- qAvg 28cc/s with 205 voided volume 10/05/2022 - Patient of Dr London, here to establish with me. PSA last visit normal. Interval imaging showed no concern for renal mass. Patient referred to Recon Urologist at [facility] for buried penis. He has an appt there today at 2PM that he is concerned about making (it's 11AM now) due to issues with ride/transportation. His focus today is on his buried penis and LUTS Chano Peters MD [address] [place] [address], [facility] [address], [place], [address], [place] [facility] 10/05/2022 11:59:11
== END 2024-08-24 08:53 | disposition home or self-care (01) ==
PROVIDERS: PCP Nurse Practitioner Family
DX: S39.012D Strain of muscle, fascia and tendon of lower back, subsequent encounter (principal); S29.012D Strain of muscle and tendon of back wall of thorax, subsequent encounter; X58.XXXD Exposure to other specified factors, subsequent encounter; M51.26 Other intervertebral disc displacement, lumbar region; M51.369 Other intervertebral disc degeneration, lumbar region without mention of lumbar back pain or lower extremity pain; M47.892 Other spondylosis, cervical region
CPT/HCPCS: 72141; 72146; 72148

== ENCOUNTER 2024-10-17 18:52 | Emergency (ER) | payer MEDICARE, SELFPAY ==
--- NOTE | ~2024-10-17 | XR_ITS ---
HISTORY: hip pain after a fall COMPARISON: None TECHNIQUE: 2 views of the right hip along with an AP view of the pelvis FINDINGS: No acute fracture or dislocation is identified. Superior lateral sclerosis of the femoral acetabular joint space is present consistent with severe os teoarthritis. Joint space narrowing detected within the bilateral SI joints with sclerosis. Degenerative disease within the visualized portion of the lower lumbar spine. Mineralization is age-appropriate. IMPRESSION: Degenerative disease without acute fracture or dislocation Reviewed, dictated and finalized at location A.
--- NOTE | ~2024-10-17 | XR_ITS ---
HISTORY: fall COMPARISON: None TECHNIQUE: 3 views of the right elbow were performed FINDINGS: No acute fracture is identified. No elevation of the anterior or posterior fat pads are identified to suggest a joint effusion or occu lt fracture. Overlying soft tissues are unremarkable. Bone mineralization is age-appropriate. Severe degenerative disease is identified with osteophyte formation and joint space narrowing. IMPRESSION: Degenerative disease, without acute fracture. Reviewed, dictated and finalized at location A.
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
--- OUTSIDE RECORDS SUMMARY | 2024-10-17 18:55 | XMS_ITS | Data Portability ---
Author Organization [place] - [facility] [employer], Main Office Address [address] [place] [address] Care Team Providers Care Shank Archer Name Role Phone VERNON AQUINO Primary Care Provider Assessment No assessment recorded. Plan of Treatment Reminders Order Date Submit Date Provider Last Modified By Organization Details Last Modified Time Details Appointments None recorded. Lab PSA, serum or plasma 2022 023 [facility], [address] [place], [address], 3 18:58:04 Referral urologist referral - Dr Kahn - buried phallus and renal mass 2022 023 [place] [address] Ludin Kahn MD, [facility] [address], [address], 3 11:16:14 Procedures None recorded. Surgeries None recorded. Imaging CT, abdomen, w/wo contrast [address] ([facility]), [address] [place], [address], 3 14:23:28 Medication Orders nystatin 100,000 unit/gram topical cream 2022 023 [facility] [address] In [facility], [address] [place], [address], 3 12:00:11 Patient TargetsNo targets recorded. Patient [...] negative jeanne/ l) Negati ve Not Available [address], [address], 07/19/2021 11:22:42 07/20/19 22 07/19/2021 urina lysis , dipst ick Nitrite (reference rage: negative mg/dl) negati ve Not Available [address], [address], 07/19/2021 11:22:42 07/20/19 22 07/19/2021 urina lysis , dipst ick Urobilinogen (reference range: 0.2-1 mg/dl) 0.2 Not Available [address], [address], 07/19/2021 11:22:42 07/20/19 22 07/19/2021 urina lysis , dipst ick Protein (reference range: negative mg/dl) Negati ve Not Available [address], [address], 07/19/2021 11:22:42 07/20/19 22 07/19/2021 urina lysis , dipst ick pH (reference range: 5-7) 5.5 Not Available [address], [address], 07/19/2021 11:22:42 07/20/19 22 07/19/2021 urina lysis , dipst ick Blood (reference range: negative Merlin/ l) Modera te Not Available [address], [address], [address], 07/19/2021 11:22:42 07/20/19 22 07/19/2021 urina lysis , dipst ick Specific [place] (reference range: 1.005-1.030) 1.030 Not Available [address], [address], 07/19/2021 11:22:42 07/20/19 22 07/19/2021 urina lysis , dipst ick Ketone (reference range: negative mg/dl) Negati ve Not Available [address], [address], 07/19/2021 11:22:42 07/20/19 22 07/19/2021 urina lysis , dipst ick Bilirubin (reference range: negative mg/dl) Negati ve Not Available [address], [address], 07/19/2021 11:22:42 07/20/19 22 07/19/2021 urina lysis , dipst ick Glucose (reference range: negative mg/dl) Negati ve Not Available [address], [address], 07/19/2021 11:22:42 07/20/19 22 07/19/2021 US, bladd er No observ ation record ed. [id number] [place] [address] [facility], [address], [place], [address], 06/29/2022 06:20:00 11/12/19 22 08/17/2021 CT, urogr am No observ ation record ed. [id number] [facility] Add On Lab Orders [address] [place], [address], 06/29/2022 06:20:00 10/04/19 23 09/29/2022 urofl owmet rogra m No observ ation record ed. [email or web address] Not Available 2022 15:15:59 10/06/19 23 07/22/2022 CT, abdom en, w/wo contr ast No observ ation record ed. [email or web address] [facility] ([facility]) [address] [place], [address], 10/05/2022 11:29:10 Result Notes None recorded. Problems Name Problem SNOMED Code Status Onset Date Resolution Date Notes Provider Name and Address Organization Details Recorded Time Injury of shoulder region 286403408 Completed Not Available [facility] 3 06:15:25 Disorder of knee 597050310 Active Not Available [facility] 3 06:15:25 Backache 978412336 Active Not Available [facility] 3 06:15:25 Microscopi c hematuria 089267789 Active 2021 Not Available [facility] 3 06:15:25 Neck sprain 827379139 Active Not Available [facility] 3 06:15:25 Lumbar sprain 205341569 Completed Not Available [facility] 3 06:15:25 Benign prostatic hyperplasi a 901313704 Active 2021 Not Available [facility] 3 06:15:25 Edema 020869667 Active Not Available [facility] 3 06:15:25 Shoulder joint pain 879875282 Active Not Available [facility] 3 06:15:25 Recurrent dislocatio n of shoulder region 18379197 Active Not Available [facility] 3 06:15:25 Renal mass 450945126 Active 2021 Not Available [facility] 3 06:15:25 Enthesopat hy of hip region 54306042 Active Not Available [facility] 3 06:15:25 Lumbosacra l strain 180847261 Active Not Available [facility] 3 06:15:25 Sinusitis 89502786 Active 2016 Not Available [facility] 3 06:15:25 Osteoarthr itis 453755699 Active Not Available [facility] 3 06:15:25 Disorder of rotator cuff 884316402 Active Not Available [facility] 3 06:15:25 Obesity 666280183 Active Not Available [facility] 3 06:15:26 Traumatic injury of external genitalia 427376578 Active Not Available [facility] 3 06:15:26 Pain of shoulder region 50724498 Completed Not Available [facility] 3 06:15:26 Pain of hip region 11168904 Completed Not Available [facility] 3 06:15:26 Cough 24017709 Active 2016 Not Available [facility] 3 06:15:26 Candidal balanitis 88426606 Active 2021 Not Available [facility] 3 06:15:26 Disorder of bursa of shoulder region 37084485 Active Not Available [facility] 3 06:15:26 Essential hypertensi on 15834950 Active Not Available [facility] 3 06:15:26 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 Procedure Notes None [...] Available Not Available No t Available Fluvirin 1293-4511 45 mcg (15 mcg x 3)/0.5 mL intramuscul ar suspension 10/25 completed Not Available Not Available Not Available Vitals Date Recorded Body height Provider Name an d Address Organization Details Last Updated DateTime 07/18/2022 190.5 cm Kallie Granda [place] [facility] [place] [employer] 07/18/2022 11:20:05 Date Recorded Heart rate Oxygen saturation Oxygen saturation in Arterial blood by Pulse oximetry Body mass index (BMI) Body weight Body temperature Provider Name and Address Organization Details Last Updated DateTime 3 55 /min 98 % 98 % 43.6 kg/m2 383019. 74 g 97.3 [degF] JO Jarvis [place] [facility] 3 11:25:23 Date Recorded Body mass index (BMI) Body height Oxygen saturation Oxygen saturation in Arterial blood by Pulse oximetry Body temperature Body weight Systolic blood pressure Diastolic blood pressure Provider Name and Address Organization Details Last Updated DateTime 2 44.6 kg/m2 190.5 cm 96 % 96 % 99.1 [degF] 411657. 48 g 143 mm[Hg] 93 mm[Hg] Not Available [facility] 3 06:14:17 Date Recorded Body height Provider Name an d Address Organization Details Last Updated DateTime 10/05/2022 190.5 cm Kallie Granda MA [place] [employer] [facility] [employer] 10/05/2022 11:33:09 Date Recorded Body temperature Body mass index (BMI) Body weight Heart rate Oxygen saturation Oxygen saturation in Arterial blood by Pulse oximetry Provider Name and Address Organization Details Last Updated DateTime 3 97.7 [degF] 44.4 kg/m2 794637. 29 g 54 /min 96 % 96 % JO Jarvis [place] [employer] [facility] 3 11:38:42 Date Recorded Body height Provider Name an d Address Organization Details Last Updated DateTime 02/14/2022 190.5 cm Not Available [facility] 3 06:14:18 Social History Question Answer Notes LastModified by [employer] Details LastModified Time Tobacco Smoking Status Never Smoker Not Available [facility] 06/29/2022 06:11:56 What Is Your Level Of Caffeine Consumption? Moderate [id number] Information not available 06/29/2022 Have You Ever Been Counseled For Unhealthy Alcohol Use? No [id number] Information not available 06/29/2022 Has Tobacco Cessation Counseling Been Provided? No [id number] Information not available 06/29/2022 Sex: Unknown Functional Status Question Answer Note LastModified by [employer] Details LastModified Time Do you use any illicit or recreational drugs? No [id number] Information not available 06/29/2022 Do you or have you ever used any other forms of tobacco or nicotine? No [id number] Information not available 06/29/2022 What is your level of alcohol consumption? Occasional [id number] Information not available 06/29/2022 Mental Status None recorded. Family History Nothing Reported. Medical History Condition Response HYPERTENSION Y Immunizations Vaccine Type Date Status Note Provider Nam e and Address Organization Details Recorded Time Influenza, split virus, quadrivalent, PF 7 completed Not Available [facility] 06/29/2022 06:19:45 Influenza, split virus, quadrivalent, preservative 4 completed Not Available [facility] 06/29/2022 06:19:45 Past Encounters Encounter ID Performer Location Encounter Start Date Encounter Closed Date Diagnosis/Indication Diagnosis SNOMED-CT Code Diagnosis ICD10 Code Diagnosis Note [id number] [facility] [address] [place] [address] 0 10/06/2020 00:00:00 10/06/2020 15:28:25 [id number] Guanako Shaikh MD [facility] [place] [id number] 0 12/31/2020 00:00:00 12/31/2020 15:49:54 [id number] Guanako Shaikh [place] [place] [id number] 0 02/09/2021 00:00:00 02/09/2021 16:07:37 [id number] MD ARLETTE [facility] [address] [address] 07/19/2021 00:00:00 07/19/2021 15:52:23 [id number] MD ARLETTE [facility] [address] [address] 02/14/2022 00:00:00 02/14/2022 12:57:49 [id number] MD KINA Tran_L[facility] [address] [place], [place] [id number] 1 07/18/2022 11:07:54 07/18/2022 12:18:15 Renal mass 447033311 N28.89 plan for f/u CT to assess for interval change-pt aware of risk of cancer-kimani l in 1 week if not heard fromo ffice to confirm we received results, Microscopic hematuria 19 4353257 R31.29 PSA 1.28, cytology normalcyst oscopy normal 02/14/22CT with 13 mm renal massoption s discussed with partial nx, IR RMBx, RFA, or observatio n/surveill ance given small size Screening for malignant neoplasm of prostate 136974756 Z12.5 check PSA, Acquired buried penis 23 0706306 N48.83 we will add topical nystatinDi scussed in great detail the rationale, contraindi cations, interactio ns, and possible side effects of the medication . Pt expressed understand ing-ultima tely he will need to consider penile exhumation /reconstru ctive surgery as he has trapped/bu ried phallus-I will have him see reconstruc tive urology at [facility] (Dr Kahn) as he may require a multidisci plinary approach to fix this ( ie plastics and urology) [id number] MD KINA [facility] [address] [place] [address] 1 09/29/2022 14:37:40 09/29/2022 14:42:27 [id number] MD SARA BryantLisbeth [facility] [address] [place] [address] 1 10/05/2022 11:25:50 10/05/2022 11:58:08 Renal mass 555970707 N28.89 :Benign cysts -- no further surveillan ce needed Microscopic hematuria 19 9152233 R31.29 PSA 1.28, cytology normalcyst oscopy normal 02/14/22CT with 13 mm renal mass -- dedicated imaging showed benign renal cysts Screening for malignant neoplasm of prostate 471903056 Z12.5 PSA normal 06/2022 at age 67 -- will advise cessation of prostate cancer screening based on guidelines , though he and his PCP may continue if they wish Acquired buried penis 23 3963004 N48.83 -Referred to reconstruc tive urology at [facility] (Dr Kahn) as he may require [...] Member ID Galvez Member ID Guarantor Name 02/24/2023 1 [facility] (MEDICARE REPLACEMENT/ADV ANTAGE - HMO) [id number] Vernon Tobin [id number] Vernon Tobin 07/29/2024 [place] (PERSONAL INJURY) Vernon Tobin CASE #[id number] CASE [id number] 497 Vernon Tobin 07/29/2024 [place] INSURANCE - OCCUPATIONAL ACCIDENT Vernon Tobin 07/29/2024 [place] [employer] - OCCUPATIONAL ACCIDENT Vernon Tobin 07/29/2024 [place] (PERSONAL INJURY) Vernon Tobin CASE #[id number] CASE #[id number] 497 Vernon Tobin 07/29/2024 [place] INSURANCE - OCCUPATIONAL ACCIDENT Vernon Tobin 07/29/2024 [place] (PERSONAL INJURY) Vernon Tobin CASE #[id number] CASE #[id number] 497 Vernon Tobin 07/29/2024 1 [employer] (MEDICARE REPLACEMENT/ADV ANTAGE - PPO) Vernon Tobin [id number] Vernon Tobin Notes Date Note Type Note [...] with moderate blood on ua. Not Available [employer] 07/19/2021 15:52:23 07/18/2022 text/html Vernon is here [...] cream to his foreskin. Igor London MD [address] [place] [address], [place], [address], [employer] 07/18/2022 12:12:43 10/05/2022 text/html Vernon is here [...] to his foreskin. 07/21/2022 CT Abd WWO ([place]) - bilateral renal cysts -- no suspicious lesions PSA TREND:06/2022 - 1.37 08/2022 [facility] -- Unobstructed -- qAvg 28cc/s with 205 voided volume 10/05/2022 - Patient of Dr London, here to establish with me. PSA last visit normal. Interval imaging showed no concern for renal mass. Patient referred to Recon Urologist at [facility] for buried penis. He has an appt there today at 2PM that he is concerned about making (it's 11AM now) due to issues with ride/transportation. His focus today is on his buried penis and LUTS Chano Peters MD [address] [place] [address], [facility] [address], [place], [address], [place] [facility] [employer] [facility] 10/05/2022 11:59:11
--- OUTSIDE RECORDS SUMMARY | 2024-10-17 18:55 | XMS_ITS | Clinical Summary ---
Author Organization [facility] Address [address] [facility] [place] [address] Care Team Providers Care Employee Communications Specialist Name Role Phone Erin Nicole APRN-PACKING ROOM WORKER Primary Care Provider [phone] Source Comments [facility],non-owned Affiliates and Associated Physician Practices is amultiple site organization consisting of ambulatory clinics and hospital sitesin [place], [place], [place] and [place]. This disclosure is being madepursuant to the Care Everywhere program and may not contain all information available regarding this patient. 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
--- OUTSIDE RECORDS SUMMARY | 2024-10-17 18:55 | XMS_ITS | Continuity of Care Document ---
Author Organization [facility] Address [address] [facility] [address] [place] [address] Phone Care Team Providers Care English Tutor Name Role Phone Rajendra Yoo MD Unavailable [...] on Encounter DISABILITY EXAMINATION [facility] , [address] [address] [facility] [address], [place], [address], [place] tel:[phone] [facility] My back hurts alot (chief complaint) Body mass index (BMI) 45.0-49.9, adultLow back pain Fredo Drew. [address] [facility] [address] [place], [place], [id number]. tel:[phone] Family History Family Member Type Diagnosis Age At Onset Mother Problem (finding) Alive and well Father Problem (finding) Alive and well Payers Payer name Insurance type Covered democrat ID Authoriza tion(s) No Information Social History [...]
--- OUTSIDE RECORDS SUMMARY | 2024-10-17 18:56 | XMS_ITS | CONTINUITY OF CARE DOCUMENT ---
Author Name moses kameronlynnette Address Unknown Organization [facility] Address [address] [address] [place] [address] Phone [phone] Care Team Providers Care Tower Air Traffic Control Specialist Name Role Phone Kimberly HASKINS, Sourav Unavailable [phone] VINAY STEIN MD Unavailable [phone] VINAY STEIN MD Unavailable [phone] PROBLEMS Condition Status Date Provider Notes Hypercholesterolemia [...] Reese Atrial fibrillation, paroxysmal active Warren Salcedo Cardiology examination active Rizwan Hurley ach Bradycardia active Rizwan Fuentes ENCOUNTERS Date Type Provider Location Encounter Diag nosis - In-person encounter Office Visit Sourav Harris MD [facility] Cardiology examinationBradycardia - In-person encounter Office Visit Sourav Harris MD [facility] - In-person encounter Office Visit Sourav Harris MD [facility] - In-person encounter Office Visit Sourav Harris MD [facility] - In-person encounter Office Visit Sourav Harris MD [facility] - In-person encounter Office Visit Sourav Harris MD [facility] Atrial fibrillation, paroxysmal - In-person encounter Office Visit Sourav Harris MD [facility] PACs - In-person encounter Office Visit Sourav Harris MD [facility] Chest painHypertensionChronic back painObstructive sleep apneaMorbid obesityCOPDIndigestion VITAL SIGNS Date Observation Value Provider Body Mass Index (Ratio) 41.74 kg/m2 Sixto Fuentes blood pressure, diastolic 43 mm[Hg] emeli Contreras blood pressure, systolic 135 mm[Hg] Juanitajennifer vinicius Contreras oxygen saturation, oximetry 97 % Christina Contreras pulse rate 47 /min Christina Contreras respiratory rate E&M 12 /min Christina Contreras weight E&M 334 [lb_av] Christina Contreras height E&M 75 [in_i] [facility] size regular emeli Contreras Body Mass Index (Ratio) 40.74 kg/m2 Grah am Sophie blood pressure, cuff size large Ke rri Yefri blood pressure, diastolic 86 mm[Hg] Ke rri Yefri blood pressure, systolic 142 mm[Hg] Jase Asif oxygen saturation, oximetry 98 % Tere Asif respiratory rate E&M 12 /min Tere G ruenenfelder pulse rate 61 /min Tere Gruenenfe lder weight E&M 326 [lb_av] Tere Gruenenfe lder height E&M 75 [in_i] Tere Gruenenfe lder Body Mass Index (Ratio) 41.99 kg/m2 [facility] blood pressure, cuff size large Ke rri Gruenenfelder blood pressure, diastolic 60 mm[Hg] Ke rri Gruenenfelder blood pressure, systolic 120 mm[Hg] Ker ri Gruenenfelder oxygen saturation, oximetry 95 % Tere Gruenenfelder respiratory rate E&M 14 /min Tere G ruenenfelder pulse rate 63 /min Tere Gruenenfe lder weight E&M 336 [lb_av] Tere Gruenenfe lder height E&M 75 [in_i] Tere Gruenenfe lder Body Mass Index (Ratio) 43.62 kg/m2 [facility] blood pressure, cuff size large Ke rri Gruenenfelder blood pressure, diastolic 72 mm[Hg] Ke rri Gruenenfelder blood pressure, systolic 126 mm[Hg] Ker ri Gruenenfelder oxygen saturation, oximetry 96 % Tere Gruenenfelder respiratory rate E&M 14 /min Tere G ruenenfelder pulse rate 61 /min Tere Gruenenfe lder weight E&M 349 [lb_av] Tere Gruenenfe lder height E&M 75 [in_i] Tere Gruenenfe lder Body Mass Index (Ratio) 42.49 kg/m2 Warren Ahmedzai blood pressure, diastolic 90 mm[Hg] Li [facility]Log[facility] blood pressure, systolic 141 mm[Hg] Jeannine [facility]Logic blood pressure, diastolic 90 mm[Hg] [facility] [place] blood pressure, systolic 141 mm[Hg] Gregg waldo [place] oxygen saturation, oximetry 97 % Sumi [place] pulse rate 66 /min Sumi Leeme n respiratory rate E&M 16 /min Britton youngblood [place] blood pressure, cuff size large [facility] [place] weight E&M 340 [lb_av] Sumi [facility] n height E&M 75 [in_i] Sumi [facility] n Body Mass Index (Ratio) 42.62 kg/m2 Warren Whitlockzai blood pressure, diastolic 79 mm[Hg] Ri lyndsay Ward blood pressure, systolic 116 mm[Hg] Percy aliyah Ward blood pressure, cuff size large Jeannie Ward pulse rate 55 /min Elida Myles [...] blood pressure, cuff size large Ke rri Gruenenfhailee blood pressure, diastolic 72 mm[Hg] Ke rri Gruenenfelder blood pressure, systolic 118 mm[Hg] Jase Vogtelder oxygen saturation, oximetry 96 % Tere Vogtelder respiratory rate E&M 18 /min Tere fullernfelder pulse rate 67 /min Tere Lindquist er weight E&M 364 [lb_av] Tere Lindquist er height E&M 75 [in_i] Tere Lindquist er Body Mass Index (Ratio) 43.24 kg/m2 Jonathan Harris MD blood pressure, resting Yes Ildefonso Phoenix NP blood pressure, cuff size large Ke casii Wallacenesivaeld blood pressure, diastolic 80 mm[Hg] Ke rri Seferinouenesivaelder blood pressure, systolic 122 mm[Hg] Jase Gonsaleznesivaelder oxygen saturation, oximetry 98 % Tere Vogtelder respiratory rate E&M 18 /min Tere fullernfelder pulse rate 66 /min Tere Lindquist er weight E&M 346 [lb_av] Tere Lindquist er height E&M 75 [in_i] Tere Lindquist [facility] [place] ALLERGIES No Known Drug Allergies RESULTS Date Observation Value Provider Reference Range Interpretation Location 5 B-type natriuretic peptide 24.7 pg/mL [facility] 0.0-100.0 5 magnesium, serum 2.3 mg/dL [facility] 1.6-2.3 5 prothrombin time (patient) 10.5 s [facility] 9.1-12.0 5 international normalized ratio (INR) 1.0 [facility] 0.9-1.2 5 lipoprotein, beta, serum, point, quantitative, calculated 129 mg/dL [facility] 0-99 High HDL cholesterol, serum 43 mg/dL [facility] >39 5 triglyceride, serum, random 70 mg/dL [facility] 0-149 5 cholesterol, serum 185 mg/dL [facility] [phone]/05/1 platelet count 242 X10E3/UL [facility] 519-311 4947/05/1 5 red blood cell distribution width 12.7 [...] 5 albumin/globulin ratio, serum 1.6 [facility] 1.2-2.2 5 globulin, serum 2.5 [facility] 1.5-4.5 5 albumin, serum 3.9 g/dL [facility] 3.8-4.8 5 protein, total, serum 6.4 g/dL [facility] 6.0-8.5 5 calcium, serum 8.6 mg/dL [facility] 8.6-10.2 5 carbon dioxide, venous blood 26 mmol/L [facility] 20-29 5 chloride, serum 102 mmol/L [facility] 96-106 5 potassium, serum 4.5 mmol/L [facility] 3.5-5.2 5 sodium, serum 141 mmol/L [facility] 487-868 2116/05/1 5 urea nitrogen/creatinine ratio, serum 15 [facility] [...] 50 mg tablet extended release 24 hr completed Take 1 tablet by mouth at bedtime - Rizwan Fuentes magnesium oxide 400 mg magnesium tablet active Take 1 tablet by mouth twice a day Warren Salcedo Eliquis 5 mg tablet active Warren Salcedo atorvastatin 20 mg tablet active TAKE 1 TABLET BY MOUTH ONCE DAILY Myriam Lewis NP omeprazole 40 mg capsule,delayed release(DR/EC) active 1 capsule twice a day Sourav Harris MD nitroglycerin 0.4 mg tablet, sublingual active DISSOLVE ONE TABLET UNDER TONGUE NEEDED FOR CHEST PAIN EVERY 5 MINUTES FOR 3 TOTAL DOSES. IF NO RELIEF AFTER THIRD DOSE, GO TO ER Roma Richmondenz Lipitor 80 mg tablet active 1 tablet once a day Sourav Harris MD diazepam 10 mg tablet active as needed Tere Asif METHOCARBAMOL 750 MG TABS active as needed Tere Gonsalezyosise ibuprofen 800 mg tablet active as needed Tere Gonsalezyosise ProAir HFA 90 mcg/actuation HFA aerosol inhaler active as directed Tere Asif Ventolin HFA 90 mcg/actuation HFA aerosol inhaler active 2 puff every four to six hours Tere Gonsalezyosise duloxetine 60 mg capsule,delayed release(DR/EC) active Take 1 once a day Tere Gentileisabellase lisinopril 40 mg tablet active Take 1 tablet by mouth once a day Warren Salcedo amlodipine 5 mg tablet completed 1 tablet by mouth once a day - Myriam Lewis NP prednisone 10 mg tablet active Take as directed Tere Nachonikki SOCIAL HISTORY Date Observation Value Provider alcohol use, average drinks per day 2 /d Rizwan Fuentes alcohol use, type beer Rizwan bernal alcohol use yes Rizwan Kelly passive cigarette sm becky exposure yes Rizwan Fuentes smoking status Never smoker Rizwan Hurley [facility] alcohol use, average drinks per day 2 /d Sourav Harris MD alcohol use, type beer Sourav lozano MD alcohol use yes Sourav naylor MD passive cigarette sm becky exposure yes Sourav Harris MD smoking status Never smoker Sourav jackson MD smoking status Never smoker Myriam garrett NP social history E&M S moking History: P juan m has never smoked. Warren Salcedo social history reviewed E&M revi ewed - no changes required Warren Salcedo Exercise counseling yes Tere walker passive cigarette sm becky exposure yes Tere Gentileaaron smoking status Never smoker Tere Gentilejosefjustin louise social history E&M S moking History: Katt mcgowan has never smoked. Warren Sorianojennifer social history reviewed E&M revi ewed - no changes required Warren Sorianojennifer Exercise counseling yes Gisselle Ray passive cigarette sm becky exposure yes Sumi Ray smoking status Never smoker Sumi ingram social history E&M S moking History: Katt mcgowan has never smoked. Warren Whitlockedilson social history reviewed E&M revi ewed - no changes required Warren Whitlockedilson Exercise counseling yes Elida Ward passive cigarette sm becky exposure yes Elida Ward smoking status Never smoker Elida Saez madelyn social history E&M S moking History: Katt mcgowan has never smoked. Chano Reese social history reviewed E&M revi ewed - no changes required Chano Reese Exercise counseling yes Tere camejonikki passive cigarette sm becky exposure yes Tere Gentileaaron smoking status Never smoker Tere Chelle gil alcohol use, frequency 2-3 times a week S wolf Phoenix NP alcohol use, type beer Lorena leon NP alcohol use, average drinks per day 2 /d Lorena Phoenix NP alcohol use yes Lorena Phoenix NP passive cigarette sm becky exposure yes Lorena Phoenix NP Exercise counseling yes Lorena hilton NP smoking status Never smoker Tere Chelle gil INSURANCE PROVIDERS Payer name Policy type / Coverage type [place] [employer] PPO O [id number] ADVANCE DIRECTIVES Name Date DISCUSSED - NO DECISION MADE TREATMENT PLAN Date Name Performer [id number],C, B P today: 120/60 P rior BP: [...] by mouth once a day Myriam Lewis NP [id number],C,EKG today SB 58 Myriam Lewis NP [id number],C,E KG today SB 58 T he following [...] (Nitroglycerin) ..... 1 tablet as needed Myriam Lewis NP [id number],C,V arying pressures at home with BPs as high as 160-170. Will keep him on Metoprolol 50 mg which he is taking BID, will increase his Lisinopril 20 mg to two tablets daily BP today: 126/72 P rior BP: 141/90 (07/01/2022) Labs Reviewed: C reat: 1.10 (09/12/2020) C hol: 185 (09/12/2020) HDL: 43 (09/12/2020) [facility] [id number],C,N o recent episodes. EKG todays showed sinus rhythm. 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 The average HR was 60bpm with a maximum rate of 115bpm and a minimum rate of 43bpm. VE?s were documented as triplets, couplets, trigeminal cycles, and isolated beats with a total burden of 1.63%. [facility] [id number],C,M ild Obstructive Airways Disease f rom PFT [facility] [id number],C, H is updated medication list for this problem includes: Atorvastatin 20 Mg Tablet (Atorvastatin) Lipitor 80 Mg Tablet (Atorvastatin) ..... 1 tablet once a day [facility] [id number],C,A dvised him to reduce salt intake. BP today: 141/90 P rior BP: 116/79 (03/18/2022) Labs Reviewed: C reat: 1.10 (09/12/2020) C hol: 185 (09/12/2020) HDL: 43 (09/12/2020) [facility] [id number],C,E cho showed normal LVEF. C hest pain is unlikley cardiac related. He is asymptmatic currently. [facility] [id number],C,E KG todays showed sinus rhythm. 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 The average HR was 60bpm with a maximum rate of 115bpm and a minimum rate of 43bpm. VE?s were documented as triplets, couplets, trigeminal cycles, and isolated beats with a total burden of 1.63%. [facility] [id number],C,No sxs curren tly [facility] [id number],C, B P today: 116/79 P rior BP: 118/72 (11/27/2020) Labs Reviewed: C reat: 1.10 (09/12/2020) C hol: 185 (09/12/2020) HDL: 43 (09/12/2020) Warren Salcedo [id number],S, Warren Soriano jennifer [id number],C,N ew finding of AFIB at the hospital after he injured himself from a slip and fall at work. I will arrange for telemetry to assess for AF burden. W ill check echo and PFTs as well. He has been started on Eliquis 5 mg BID Warren Salcedo [id number],B, r ega stress showed abnormal perfusion imaging [...] tablet by mouth once a day Orders: 9213 MOD 30-39min (CPT-41095) C omplete Echo (CPT-52596) A tamy Duplex Ultrasound (CPT-82240) Monitor - Telemetry (Mobile Cardiac) (CPT-07231) S chedule Followup (*) Sourav Harris MD [id number],S, n eeds AAA screening BP today: 118/72 P rior BP: 122/80 (09/11/2020) His updated medication list for this problem includes: Lisinopril 20 Mg Tablet (Lisinopril) ..... Take 1 twice a day Amlodipine 5 Mg Tablet (Amlodipine) ..... 1 tablet by mouth once a day Orders: E KG (CPT-07512) 9 9213 MOD 30-39min (CPT-44861) C omplete Echo (CPT-94582) A tamy Duplex Ultrasound (CPT-73421) M onitor - Telemetry (Mobile Cardiac) (CPT-51583) S chedule Followup (*) Sourav Harris MD [id number],S, a void NSAID if possible. t aking ibuprofen every other day O rders: 9213 MOD 30-39min (CPT-33950) C omplete Echo (CPT-86900) A tamy Duplex Ultrasound (CPT-58497) M onitor - Telemetry (Mobile Cardiac) (CPT-02077) Sourav Harris MD [id number],S, c an not tolerate CPAP Orders: 9213 MOD 30-39min (CPT-46031) C omplete Echo (CPT-89948) A tamy Duplex Ultrasound (CPT-52119) M onitor - Telemetry (Mobile Cardiac) (CPT-16345) Sourav Harris MD [id number],S, i mproved with exercise c [place] 1 week tele in 1 year Orders: 9213 MOD 30-39min (CPT-97341) C omplete Echo (CPT-09350) A tamy Duplex Ultrasound (CPT-92851) M onitor - Telemetry (Mobile Cardiac) (CPT-46486) Chano Reese [id number],S, w eight loss encouraged Chano Reese [id number],S, a void NSAID if possible. t aking ibuprofen every other day Chano Reese [id number],B, r ega stress showed abnormal perfusion imaging [...] tablet by mouth once a day Orders: 9213 MOD 30-39min (CPT-77989) C omplete Echo (CPT-21789) A tamy Duplex Ultrasound (CPT-13505) M onitor - Telemetry (Mobile Cardiac) (CPT-05362) Chano Mary Ann [id number],S, n eeds AAA screening BP today: 118/72 P rior BP: 122/80 (09/11/2020) His updated medication list for this problem includes: Lisinopril 20 Mg Tablet (Lisinopril) ..... Take 1 twice a day Amlodipine 5 Mg Tablet (Amlodipine) ..... 1 tablet by mouth once a day Orders: E KG (CPT-78174) 9 9214 MOD 30-39min (CPT-96775) C omplete Echo (CPT-26609) A tamy Duplex Ultrasound (CPT-81355) M onitor - Telemetry (Mobile Cardiac) (CPT-97231) Chano Mary Ann [id number],S, c an not tolerate CPAP Chano Reese Electrophysiology: H is updated medication list for this problem includes: Atorvastatin 20 Mg Tablet (Atorvastatin) ..... Take 1 tablet by mouth once daily Lipitor 80 Mg Tablet (Atorvastatin) ..... 1 tablet once a day C HOL: 185 (09/12/2020) LDL: 129 (09/12/2020) HDL: 43 (09/12/2020) T (09/12/2020) T his visit has been a part of the consistent, comprehensive, and ongoing management of the chronic medical condition(s) listed above for the patient. Rizwan Fuentes Electrophysiology Rizwan Beckwith Electrophysiology:chest pain noe e Rizwan Fuentes Electrophysiology:Hayes s had some increased BP readings recently. RPM shows recent average of 131/81 B P today: 135/43 P rior BP: 142/86 (04/28/2023) Labs Reviewed: C reat: 1.10 (09/12/2020) C hol: 185 (09/12/2020) HDL: 43 (09/12/2020) LDL: 129 (09/12/2020) T (09/12/2020) The following medications were removed from the medication list: Metoprolol Succinate 50 Mg Tablet Extended Release 24 Hr (Metoprolol succinate) ..... Take 1 tablet by mouth at bedtime His updated medication list for this problem includes: Lisinopril 40 Mg Tablet (Lisinopril) ..... Take 1 tablet by mouth once a day This visit has been a part of the consistent, comprehensive, and ongoing management of the chronic medical condition(s) listed above for the patient. Rizwan Fuentes Electrophysiology: B radycardia today; check monitor and echo discontinue any beta nya Rizwan Fuentes Electrophysiology Ashkan Velagurjit rodriguez Electrophysiology:EK G today sinus bradycardia H is [...] by mouth once a day Myriam Lewis NP Electrophysiology:EKG today SB 5 8 Myriam Lewis NP Electrophysiology:EK G today SB 58 T he [...] (Nitroglycerin) ..... 1 tablet as needed Myriam Lewis NP Electrophysiology:Julieta winston pressures at home with BPs as high as 160-170. Will keep him on Metoprolol 50 mg which he is taking BID, will increase his Lisinopril 20 mg to two tablets daily BP today: 126/72 P rior BP: 141/90 (07/01/2022) Labs Reviewed: C reat: 1.10 (09/12/2020) C hol: 185 (09/12/2020) HDL: 43 (09/12/2020) [facility] Electrophysiology:No recent episodes. EKG todays showed sinus rhythm. 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 The average HR was 60bpm with a maximum rate of 115bpm and a minimum rate of 43bpm. VE?s were documented as triplets, couplets, trigeminal cycles, and isolated beats with a total burden of 1.63%. [facility] Cardiology:Mild Obst ructive Airways Disease f rom PFT [facility] Cardiology: H is updated medication list for this problem includes: Atorvastatin 20 Mg Tablet (Atorvastatin) Lipitor 80 Mg Tablet (Atorvastatin) ..... 1 tablet once a day [facility] Cardiology:Advised h im to reduce salt intake. BP today: 141/90 P rior BP: 116/79 (03/18/2022) Labs Reviewed: C reat: 1.10 (09/12/2020) C hol: 185 (09/12/2020) HDL: 43 (09/12/2020) [facility] Cardiology:Echo show ed normal LVEF. C hest pain is unlikley cardiac related. He is asymptmatic currently. [facility] Cardiology:EKG today s showed sinus rhythm. 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 The average HR was 60bpm with a maximum rate of 115bpm and a minimum rate of 43bpm. VE?s were documented as triplets, couplets, trigeminal cycles, and isolated beats with a total burden of 1.63%. [facility] Electrophysiology:No sxs current ly [facility] Electrophysiology: B P today: 116/79 P rior BP: 118/72 (11/27/2020) Labs Reviewed: C reat: 1.10 (09/12/2020) C hol: 185 (09/12/2020) HDL: 43 (09/12/2020) [facility] Electrophysiology Warren Salcedo Electrophysiology:Ne w finding of AFIB at the hospital after he injured himself from a slip and fall at work. I will arrange for telemetry to assess for AF burden. W ill check echo and PFTs as well. He has been started on Eliquis 5 mg BID Warren Salcedo Electrophysiology Fo llow up : r ega [...] tablet by mouth once a day Orders: 9213 MOD 30-39min (CPT-77952) C omplete Echo (CPT-62492) A tamy Duplex Ultrasound (CPT-50445) M onitor - Telemetry (Mobile Cardiac) (CPT-41963) S chedule Followup (*) Sourav Harris MD Electrophysiology Fo llow up : n eeds AAA screening BP today: 118/72 P rior BP: 122/80 (09/11/2020) His updated medication list for this problem includes: Lisinopril 20 Mg Tablet (Lisinopril) ..... Take 1 twice a day Amlodipine 5 Mg Tablet (Amlodipine) ..... 1 tablet by mouth once a day Orders: E KG (CPT-68036) 9213 MOD 30-39min (CPT-57761) C omplete Echo (CPT-30415) A tamy Duplex Ultrasound (CPT-92655) M onitor - Telemetry (Mobile Cardiac) (CPT-00018) S chedule Followup (*) Sourav Harris MD Electrophysiology Fo llow up : a void NSAID if possible. t aking ibuprofen every other day O rders: 9213 MOD 30-39min (CPT-79843) C omplete Echo (CPT-87153) A tamy Duplex Ultrasound (CPT-88500) M onitor - Telemetry (Mobile Cardiac) (CPT-53306) Sourav Harris MD Electrophysiology F ollow up : c an not tolerate CPAP Orders: 9213 MOD 30-39min (CPT-52387) C omplete Echo (CPT-25120) A tamy Duplex Ultrasound (CPT-61815) M onitor - Telemetry (Mobile Cardiac) (CPT-44817) Sourav Harris MD Electrophysiology Fo llow up : i mproved with exercise c [place] 1 week tele in 1 year Orders: 9213 MOD 30-39min (CPT-59241) C omplete Echo (CPT-17878) A tamy Duplex Ultrasound (CPT-88665) M onitor - Telemetry (Mobile Cardiac) (CPT-63301) Chano Reese Electrophysiology Fo llow up : [...] tablet by mouth once a day Orders: 9213 MOD 30-39min (CPT-54121) C omplete Echo (CPT-49798) A tamy Duplex Ultrasound (CPT-44622) M onitor - Telemetry (Mobile Cardiac) (CPT-88864) Chano Reese Electrophysiology Fo llow up : n eeds AAA screening BP today: 118/72 P rior BP: 122/80 (09/11/2020) His updated medication list for this problem includes: Lisinopril 20 Mg Tablet (Lisinopril) ..... Take 1 twice a day Amlodipine 5 Mg Tablet (Amlodipine) ..... 1 tablet by mouth once a day Orders: E KG (CPT-32450) 9 9214 MOD 30-39min (CPT-90772) C omplete Echo (CPT-89253) A tamy Duplex Ultrasound (CPT-24323) M onitor - Telemetry (Mobile Cardiac) (CPT-39632) Chano Reese Electrophysiology Fo llow up : c an not tolerate CPAP Chano Reese Electrophysiology Ne w Patient - call patient please:PPI one capsule twice a day - total duration of treatment 2 months Sourav Harris MD Electrophysiology Ne w Patient - call patient please:avoid NSAID if possible. Orders: S tress Regadenoson (CPT-67044) C omplete Echo (CPT-99541) C OMPREHENSIVE METABOLIC PANEL, W/EGFR (98131) L IPID PANEL (7600) C BC (H/H, RBC, INDICES, WBC, PLT) (1759) M AGNESIUM (622) B TYPE NATRIURETIC PEPTIDE (BNP) (14092) P ROTHROMBIN TIME WITH INR (8847) T SH, free T4, total T3 (7444) 9 9205 HIGH 60-74 min (CPT-06621) Sourav aHrris MD Electrophysiology Ne w Patient - call patient please: H is updated medication list for this problem includes: Proair Hfa 108 (90 Base) Mcg/act Inhalation Aerosol Solution (Albuterol sulfate) ..... As directed Ventolin Hfa 108 (90 Base) Mcg/act Inhalation Aerosol Solution (Albuterol sulfate) ..... 2 puffs every 4-6 hours Orders: B TYPE NATRIURETIC PEPTIDE (BNP) (33664) P ROTHROMBIN TIME WITH INR (8847) T SH, free T4, total T3 (7444) 9 9205 HIGH 60-74 min (CPT-52198) Sourav Harris MD Electrophysiology Ne w Patient - call patient please:weight loss encouraged O rders: S tress Regadenoson (CPT-22744) C omplete Echo (CPT-09439) C OMPREHENSIVE METABOLIC PANEL, W/EGFR (84410) L IPID PANEL (7600) C BC (H/H, RBC, INDICES, WBC, PLT) (1759) M AGNESIUM (622) B TYPE NATRIURETIC PEPTIDE (BNP) (73596) P ROTHROMBIN TIME WITH INR (8847) T SH, free T4, total T3 (7444) 9 9205 HIGH 60-74 min (CPT-15666) Sourav Harris MD Electrophysiology Ne w Patient - call patient please:can not tolerate CPAP O rders: S tress Regadenoson (CPT-15016) C omplete Echo (CPT-05452) C OMPREHENSIVE METABOLIC PANEL, W/EGFR (37487) L IPID PANEL (7600) C BC (H/H, RBC, INDICES, WBC, PLT) (1759) M AGNESIUM (622) B TYPE NATRIURETIC PEPTIDE (BNP) (11992) P ROTHROMBIN TIME WITH INR (8847) T SH, free T4, total T3 (7444) 9 9205 HIGH 60-74 min (CPT-35579) Sourav Harris MD Electrophysiology Ne w Patient - call patient please:controlled Will decrease amlodipine to 5 mg daily Orders: S tress Regadenoson (CPT-13467) C omplete Echo (CPT-01967) C OMPREHENSIVE METABOLIC PANEL, W/EGFR (52564) L IPID PANEL (7600) C BC (H/H, RBC, INDICES, WBC, PLT) (1759) M AGNESIUM (622) B TYPE NATRIURETIC PEPTIDE (BNP) (88320) P ROTHROMBIN TIME WITH INR (8847) T SH, free T4, total T3 (7444) 9 9205 HIGH 60-74 min (CPT-08347) His updated medication list for this problem includes: Lisinopril 20 Mg Oral Tablet (Lisinopril) ..... Take one pill twice a day Amlodipine Besylate 5 Mg Oral Tablet (Amlodipine besylate) ..... One tab by mouth daily BP today: 122/80 Sourav Harris MD Electrophysiology Ne w Patient - call patient please:Stress test E cho L christopher Phoenix NP Electrophysiology Ne w Patient - call patient please:controlled Will decrease amlodipine to 5 mg daily Lorena Alban [employer] Electrophysiology Ne w Patient - call patient please:can not tolerate CPAP Lorena Alban [employer] Electrophysiology Ne w Patient - call patient please:weight loss encouraged Lorena Phoenix [employer] Date Name Carotid Duplex Bilat eral Monitor - Telemetry (Mobile Cardiac) Complete Echo Aorta Duplex Ultraso und Complete Echo Aorta Duplex Ultraso und Monitor - Telemetry (Mobile Cardiac) DLCO - 94153 FRC - 46782 FVC - 53929 Complete Echo Monitor - Telemetry (Mobile Cardiac) Aorta Duplex Ultraso und Complete Echo TSH, free T4, total T3 PROTHROMBIN TIME WIT H INR B TYPE NATRIURETIC P EPTIDE (BNP) MAGNESIUM CBC (H/H, RBC, INDIC ES, WBC, PLT) LIPID PANEL COMPREHENSIVE METABO LIC PANEL, W/EGFR Complete Echo Stress Regadenoson HISTORY OF PROCEDURES Procedure Date Procedure Name Provider Procedure Notes S tatus Complex e/m visit add on Sourav Harris MD completed EKG Sourav fitzpatrick MD completed EKG Sourav fitzpatrick MD completed Schedule Followup Sourav woodson MD [address] Harris completed EKG Sourav fitzpatrick MD completed EKG Sourav fitzpatrick MD completed Spirometry Sourav fitzpatrick MD completed FVC / MVV with bronchodilator - 67339 Sourav Harris MD completed FRC - 50023 Sourav fitzpatrick MD completed SpO2 w/o 6min walk/titration Sourav Harris MD completed SVC - 74819 Sourav fitzpatrick MD completed DLCO - 65034 Sourav fitzpatrick MD completed EKG Sourav fitzpatrick MD completed Schedule Followup Sourav woodson MD fu in 1 year completed EKG Sourav fitzpatrick MD completed Spirometry Sourav fitzpatrick MD completed FVC / MVV with bronchodilator - 09247 Sourav Harris MD completed FR - 03301 Sourav fitzpatrick MD completed SVC - 87717 Sourav fitzpatrick MD completed EKG Sourav fitzpatrick MD completed
--- OUTSIDE RECORDS SUMMARY | 2024-10-17 18:56 | XMS_ITS | Clinical Summary ---
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
--- OUTSIDE RECORDS SUMMARY | 2024-10-17 18:56 | XMS_ITS | Referral Summary ---
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
--- OUTSIDE RECORDS SUMMARY | 2024-10-17 18:56 | XMS_ITS | Patient Health Record ---
Author Organization [facility] Address [address] [place] [phone] Support Name Relationship Address Phone Malachi Tobin Guarantor Unknown [phone] Reason For Referral No Information Plan Of Treatment Pending Test Test Name Order Date Urinalysis, Routine 10/14/2022 Vision Screening 10/14/2022 Vision Screening 10/21/2022 Hearing Screening 10/14/2022 Insurance Providers Payer Name Payer Address Payer Phone Subscriber Number Group Number Insured Name Patient Relationship to Insured Coverage Start Date Coverage End Date Hina BURR Physical Recerts/ [email or web address] [phone] Malachi Tobin Self - patient is the insured
[2024-10-17 19:02] VITALS: BP 127/68; PULSE 64; RESP 16; TEMP 36.4; O2SAT 97
--- OUTSIDE RECORDS SUMMARY | 2024-10-17 19:26 | XMS_ITS | Clinical Summary ---
Author Organization [facility] [employer] Address [address] [facility] [place] [address] Care Team Providers Care Journeyman Carpenter Name Role Phone Erin Nicole APRN-PRODUCTION SUPPORT ANALYST Primary Care Provider [phone] Source Comments [facility] [employer],non-owned Affiliates and Associated Physician Practices is amultiple site organization consisting of ambulatory clinics and hospital sitesin [place], [place], [place] and [place]. This disclosure is being madepursuant to the Care Everywhere program and may not contain all information available regarding this patient. 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
--- OUTSIDE RECORDS SUMMARY | 2024-10-17 19:27 | XMS_ITS | Encounter Summary ---
Author Organization [facility] Address [address] [place] [id number] Care Team Providers Care Binding Nicker Name Role Phone Erin Nicole SUJATHA Primary Care Provider [phone] Encounter Details Date Type Department Care Team (Late Contact Info) Description 02/16/2023 [employer] Message Enc [facility] Medical [facility] [address] [address] 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 Not on file Not on file Not on file Not on file Not on file Not on file documented as of this encounter Plan of Treatment Upcoming Encounters Date Type Department Care Team (Late Contact Info) Description 11/28/2024 11:20 AM CDT Office Visit [facility] Medical Group Multispecialty Care - [facility] [address] [facility], [address] [place] [address] Prachi Mojica MD [address] [place] [address] documented as of this encounter Visit Diagnoses Not on filedocumented in this encounter Additional Health Concerns Assessment Noted Time PHQ-9 Depression Total Score: 1 02/07/20 23 2:52 PM CDT documented as of this encounter Care Teams Binding Nicker Relationship Specialty Start Date End Date Erin Nicole FNP [address] [place] [address] PCP - General Nurse Practitioner Family 12/06/18 documented as of this encounter
--- OUTSIDE RECORDS SUMMARY | 2024-10-17 19:27 | XMS_ITS | Clinical Summary ---
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
--- OUTSIDE RECORDS SUMMARY | 2024-10-17 19:27 | XMS_ITS | Encounter Summary ---
Author Organization [facility] Address [address] [place] [address] Care Team Providers Care Urology Physician Assistant Name Role Phone Corey Erin SUJATHA Primary Care Provider [phone] Renny Weaver MD Unavailable [phone] Encounter Details Date Type Department Care Team (Late st Contact Info) Description 12/02/2019 Prep for Procedure [facility] Pre-Admission Testing [place], [place] [id number] Denis Higgins MD [address] [place] [id number] Social History Tobacco Use Types Packs/Day [...] Sex Assigned at Male 06/04/2024 9:38 AM VICE PRESIDENT BIOSTATISTICS Legal Sex Male 10:27 PM VICE PRESIDENT BIOSTATISTICS Gender Identity Male 06/04/2024 9:38 AM VICE PRESIDENT BIOSTATISTICS Sexual Orientation Not on file 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 Not on file Not [...] Description 11/28/2024 11:20 AM CDT Office Visit [facility] Medical Group Multispecialty Care - [facility] [address] [facility], [address] [place] [address] Prachi Mojica MD [address] [place] [address] documented as of this encounter Visit Diagnoses Diagnosis Preop examination- Primary Preoperative examination, unspecified documented in this encounter Additional Health Concerns Infection Onset Date Last Indicated Resolved Time COVID-19 Rule Out 02/01/2020 02/01/2020 02/02/2020 1:26 PM CDT COVID-19 Rule Out 03/17/2020 09/11/2019 03/17/2020 10:13 AM VICE PRESIDENT BIOSTATISTICS COVID-19 Rule Out 05/26/2020 05/30/2020 06/02/2020 12:34 AM VICE PRESIDENT BIOSTATISTICS COVID-19 Rule Out 04/13/2022 04/13/2022 04/20/2022 12:32 AM VICE PRESIDENT BIOSTATISTICS Assessment Noted Time PHQ-9 Depression Total Score: 5 05/31/19 20 1:19 PM VICE PRESIDENT BIOSTATISTICS documented as of this encounter Care Teams Urology Physician Assistant Relationship Specialty Start Date End Date Erin Nicole FNP [address] [place] [id number] PCP - General Nurse Practitioner Family 12/06/18 Renny Weaver MD [address] [place] [address] PCP - Med Group - [facility] Attributed Provider 03/05/19 05/01/20 documented as of this encounter
--- OUTSIDE RECORDS SUMMARY | 2024-10-17 19:27 | XMS_ITS | CONTINUITY OF CARE DOCUMENT ---
Author Name moses kameronlynnette Address Unknown Organization [facility] Address [address] [place] [address] Phone [phone] Care Team Providers Care Home Visits Nurse Name Role Phone Kimberly HASKINS, Sourav Unavailable VINAY STEIN MD Unavailable [phone] VINAY STEIN MD Unavailable [phone] PROBLEMS Condition Status Date Provider Notes Hypercholesterolemia [...] In-person encounter Office Visit Sourav Harris MD [facility] Cardiology examinationBradycardia - In-person encounter Office Visit Sourav Harris MD [facility] - In-person encounter Office Visit Sourav Harris MD [facility] - In-person encounter Office Visit Sourav Harris MD [facility] - In-person encounter Office Visit Sourav Harris MD [facility] - In-person encounter Office Visit Sourav Harris MD [facility] Atrial fibrillation, paroxysmal - In-person encounter Office Visit Sourav Harris MD [facility] PACs - In-person encounter Office Visit Sourav Harris MD [facility] Chest painHypertensionChronic back painObstructive sleep apneaMorbid [...] [lb_av] Christina Contreras height E&M 75 [in_i] [facility], [facility] regular emeli [...] lder Body Mass Index (Ratio) 41.99 kg/m2 [facility] blood pressure, cuff size large Ke rri [...] lder Body Mass Index (Ratio) 43.62 kg/m2 [facility] blood pressure, cuff size large Ke rri [...] blood pressure, diastolic 90 mm[Hg] [facility] [place] blood pressure, systolic 141 mm[Hg] Gregg waldo [place] oxygen saturation, oximetry 97 % Sumi [place] pulse rate 66 /min Sumi Leepr n respiratory rate E&M 16 /min Britton youngblood [place] blood pressure, cuff size large [facility] [place] weight E&M 340 [lb_av] Sumi [facility] n height E&M 75 [in_i] Sumi [facility] n Body Mass Index (Ratio) 42.62 [...] er height E&M 75 [in_i] Tere Lindquist formerly named [facility] ALLERGIES No Known Drug Allergies RESULTS Date [...] 0-149 5 cholesterol, serum 185 mg/dL [facility] [phone]/05/1 platelet count 242 X10E3/UL [facility] [phone]/05/1 5 red blood cell distribution width 12.7 [...] 3.5-5.2 5 sodium, serum 141 mmol/L [facility] [phone]/05/1 5 urea nitrogen/creatinine ratio, serum 15 [employer] [...] release(DR/EC) active 1 capsule twice a day Suorav Harris MD nitroglycerin 0.4 mg tablet, sublingual [...] Fuentes smoking status Never smoker Rizwan Hurley [facility] alcohol use, average drinks per day 2 [...] Payer name Policy type / Coverage type [place] [employer] ID HUMA[employer] PPO O [id number] ADVANCE DIRECTIVES Name Date DISCUSSED - NO DECISION MADE TREATMENT PLAN Date Name Performer [id number],C, B P today: 120/60 P rior BP: [...] mouth once a day Myriam Lewis NP [id number],C,EKG today SB 58 Myriam Lewis NP [id number],C,E KG today SB 58 T he following [...] 1 tablet as needed Myriam Lewis NP [id number],C,V arying pressures at home with BPs as high as 160-170. Will keep him on Metoprolol 50 mg which he is taking BID, will increase his Lisinopril 20 mg to two tablets daily BP today: 126/72 P rior BP: 141/90 (07/01/2022) Labs Reviewed: C reat: 1.10 (09/12/2020) C hol: 185 (09/12/2020) HDL: 43 (09/12/2020) [facility] [id number],C,N o recent episodes. EKG todays showed sinus rhythm. groundwater monitoring technician showed Sinus Rhythm with occasional PVCs and rare PACs. The average HR was 60bpm with a maximum rate of 115bpm and a minimum rate of 43bpm. VE?s were documented as triplets, couplets, trigeminal cycles, and isolated beats with a total burden of 1.63%. [facility] [id number],C,M ild Obstructive Airways Disease f rom PFT [facility] [id number],C, H is updated medication list for this problem includes: Atorvastatin 20 Mg Tablet (Atorvastatin) Lipitor 80 Mg Tablet (Atorvastatin) ..... 1 tablet once a day [facility] [id number],C,A dvised him to reduce salt intake. BP today: 141/90 P rior BP: 116/79 (03/18/2022) Labs Reviewed: C reat: 1.10 (09/12/2020) C hol: 185 (09/12/2020) HDL: 43 (09/12/2020) [facility] [id number],C,E cho showed normal LVEF. C hest pain is unlikley cardiac related. He is asymptmatic currently. [facility] [id number],C,E KG todays showed sinus rhythm. groundwater monitoring technician showed Sinus Rhythm with occasional PVCs and rare PACs. The average HR was 60bpm with a maximum rate of 115bpm and a minimum rate of 43bpm. VE?s were documented as triplets, couplets, trigeminal cycles, and isolated beats with a total burden of 1.63%. [facility] [id number],C,No sxs curren tly [facility] [id number],C, B P today: 116/79 P rior BP: 118/72 (11/27/2020) Labs Reviewed: C reat: 1.10 (09/12/2020) C hol: 185 (09/12/2020) HDL: 43 (09/12/2020) Warren Salcedo [id number],S, Warren Soriano jennifer [id number],C,N ew finding of AFIB at the hospital after he injured himself from a slip and fall at work. I will arrange for telemetry to assess for AF burden. W ill check echo and PFTs as well. He has been started on Eliquis 5 mg BID Warren Salcedo [id number],B, r ega stress showed abnormal perfusion imaging [...] once a day Orders: 9213 MOD 30-39min (CPT-37214) C omplete Echo (CPT-08412) A tamy Duplex Ultrasound (CPT-29969) Monitor - Telemetry (Mobile Cardiac) (CPT-24273) S chedule Followup (*) Sourav Harris MD [id number],S, n eeds AAA screening BP today: 118/72 P rior BP: 122/80 (09/11/2020) His updated medication list for this problem includes: Lisinopril 20 Mg Tablet (Lisinopril) ..... Take 1 twice a day Amlodipine 5 Mg Tablet (Amlodipine) ..... 1 tablet by mouth once a day Orders: E KG (CPT-49460) 9 9213 MOD 30-39min (CPT-97031) C omplete Echo (CPT-36372) A tamy Duplex Ultrasound (CPT-28891) M onitor - Telemetry (Mobile Cardiac) (CPT-58302) S chedule Followup (*) Sourav Harris MD [id number],S, a void NSAID if possible. t aking ibuprofen every other day O rders: 9213 MOD 30-39min (CPT-67065) C omplete Echo (CPT-99393) A tamy Duplex Ultrasound (CPT-44176) M onitor - Telemetry (Mobile Cardiac) (CPT-09729) Sourav Harris MD [id number],S, c an not tolerate CPAP Orders: 9213 MOD 30-39min (CPT-51537) C omplete Echo (CPT-49771) A tamy Duplex Ultrasound (CPT-59591) M onitor - Telemetry (Mobile Cardiac) (CPT-90131) Sourav Harris MD [id number],S, i mproved with exercise c [place] 1 week tele in 1 year Orders: 9213 MOD 30-39min (CPT-75804) C omplete Echo (CPT-01116) A tamy Duplex Ultrasound (CPT-50150) M onitor - Telemetry (Mobile Cardiac) (CPT-05422) Chano Reese [id number],S, w eight loss encouraged Chano Reese [id number],S, a void NSAID if possible. t aking ibuprofen every other day Chano Reese [id number],B, r ega stress showed abnormal perfusion imaging [...] once a day Orders: 9213 MOD 30-39min (CPT-26218) C omplete Echo (CPT-65395) A tamy Duplex Ultrasound (CPT-33172) M onitor - Telemetry (Mobile Cardiac) (CPT-50432) Chano Mary Ann [id number],S, n eeds AAA screening BP today: 118/72 P rior BP: 122/80 (09/11/2020) His updated medication list for this problem includes: Lisinopril 20 Mg Tablet (Lisinopril) ..... Take 1 twice a day Amlodipine 5 Mg Tablet (Amlodipine) ..... 1 tablet by mouth once a day Orders: E KG (CPT-38408) 9 9214 MOD 30-39min (CPT-14264) C omplete Echo (CPT-39430) A tamy Duplex Ultrasound (CPT-17387) M onitor - Telemetry (Mobile Cardiac) (CPT-10971) Chano Mary Ann [id number],S, c an not tolerate CPAP Chano Reese [...] C hol: 185 (09/12/2020) HDL: 43 (09/12/2020) [facility] Electrophysiology:No recent episodes. EKG todays showed sinus rhythm. groundwater monitoring technician showed Sinus Rhythm with occasional PVCs and rare PACs. The average HR was 60bpm with a maximum rate of 115bpm and a minimum rate of 43bpm. VE?s were documented as triplets, couplets, trigeminal cycles, and isolated beats with a total burden of 1.63%. [facility] Cardiology:Mild Obst ructive Airways Disease f rom PFT [facility] Cardiology: H is updated medication list for this problem includes: Atorvastatin 20 Mg Tablet (Atorvastatin) Lipitor 80 Mg Tablet (Atorvastatin) ..... 1 tablet once a day [facility] Cardiology:Advised h im to reduce salt intake. BP today: 141/90 P rior BP: 116/79 (03/18/2022) Labs Reviewed: C reat: 1.10 (09/12/2020) C hol: 185 (09/12/2020) HDL: 43 (09/12/2020) [facility] Cardiology:Echo show ed normal LVEF. C hest pain is unlikley cardiac related. He is asymptmatic currently. [facility] Cardiology:EKG today s showed sinus rhythm. groundwater monitoring technician showed Sinus Rhythm with occasional PVCs and rare PACs. The average HR was 60bpm with a maximum rate of 115bpm and a minimum rate of 43bpm. VE?s were documented as triplets, couplets, trigeminal cycles, and isolated beats with a total burden of 1.63%. [facility] Electrophysiology:No sxs current ly [facility] Electrophysiology: B P today: 116/79 P rior BP: 118/72 (11/27/2020) Labs Reviewed: C reat: 1.10 (09/12/2020) C hol: 185 (09/12/2020) HDL: 43 (09/12/2020) [facility] Electrophysiology Warren Salcedo Electrophysiology:Ne w finding of [...] once a day Orders: 9213 MOD 30-39min (CPT-78418) C omplete Echo (CPT-40117) A tamy Duplex Ultrasound (CPT-41607) M onitor - Telemetry (Mobile Cardiac) (CPT-32134) S chedule Followup (*) Sourav Harris MD Electrophysiology Fo llow up : n eeds AAA screening BP today: 118/72 P rior BP: 122/80 (09/11/2020) His updated medication list for this problem includes: Lisinopril 20 Mg Tablet (Lisinopril) ..... Take 1 twice a day Amlodipine 5 Mg Tablet (Amlodipine) ..... 1 tablet by mouth once a day Orders: E KG (CPT-90139) 9213 MOD 30-39min (CPT-51844) C omplete Echo (CPT-68972) A tamy Duplex Ultrasound (CPT-04902) M onitor - Telemetry (Mobile Cardiac) (CPT-80798) S chedule Followup (*) Sourav Harris MD Electrophysiology Fo llow up : a void NSAID if possible. t aking ibuprofen every other day O rders: 9213 MOD 30-39min (CPT-12486) C omplete Echo (CPT-77803) A tamy Duplex Ultrasound (CPT-55456) M onitor - Telemetry (Mobile Cardiac) (CPT-75836) Sourav Harris MD Electrophysiology F ollow up : c an not tolerate CPAP Orders: 9213 MOD 30-39min (CPT-24158) C omplete Echo (CPT-30236) A tamy Duplex Ultrasound (CPT-20946) M onitor - Telemetry (Mobile Cardiac) (CPT-06487) Sourav Harris MD Electrophysiology Fo llow up : i mproved with exercise c heck 1 week tele in 1 year Orders: 9213 MOD 30-39min (CPT-03263) C omplete Echo (CPT-68315) A tamy Duplex Ultrasound (CPT-13731) M onitor - Telemetry (Mobile Cardiac) (CPT-67552) Chano Reese Electrophysiology Fo llow up : [...] once a day Orders: 9213 MOD 30-39min (CPT-30607) C omplete Echo (CPT-42188) A tamy Duplex Ultrasound (CPT-56177) M onitor - Telemetry (Mobile Cardiac) (CPT-49429) Chano Reese Electrophysiology Fo llow up : n eeds AAA screening BP today: 118/72 P rior BP: 122/80 (09/11/2020) His updated medication list for this problem includes: Lisinopril 20 Mg Tablet (Lisinopril) ..... Take 1 twice a day Amlodipine 5 Mg Tablet (Amlodipine) ..... 1 tablet by mouth once a day Orders: E KG (CPT-73107) 9 9214 MOD 30-39min (CPT-19362) C omplete Echo (CPT-00997) A tamy Duplex Ultrasound (CPT-91187) M onitor - Telemetry (Mobile Cardiac) (CPT-57984) Chano Reese Electrophysiology Fo llow up : c an not tolerate CPAP Chano Reese Electrophysiology Ne w Patient - call patient please:PPI one capsule twice a day - total duration of treatment 2 months Sourav Harris MD Electrophysiology Ne w Patient - call patient please:avoid NSAID if possible. Orders: S tress Regadenoson (CPT-91346) C omplete Echo (CPT-97445) C OMPREHENSIVE METABOLIC PANEL, W/EGFR (89070) L IPID PANEL (7600) C BC (H/H, RBC, INDICES, WBC, PLT) (1759) M AGNESIUM (622) B TYPE NATRIURETIC PEPTIDE (BNP) (62758) P ROTHROMBIN TIME WITH INR (8847) T SH, free T4, total T3 (7444) 9 9205 HIGH 60-74 min (CPT-05407) Sourav Harris MD Electrophysiology Ne w Patient - call patient please: H is updated medication list for this problem includes: Proair Hfa 108 (90 Base) Mcg/act Inhalation Aerosol Solution (Albuterol sulfate) ..... As directed Ventolin Hfa 108 (90 Base) Mcg/act Inhalation Aerosol Solution (Albuterol sulfate) ..... 2 puffs every 4-6 hours Orders: B TYPE NATRIURETIC PEPTIDE (BNP) (75229) P ROTHROMBIN TIME WITH INR (8847) T SH, free T4, total T3 (7444) 9 9205 HIGH 60-74 min (CPT-70706) Sourav Harris MD Electrophysiology Ne w Patient - call patient please:weight loss encouraged O rders: S tress Regadenoson (CPT-69542) C omplete Echo (CPT-50465) C OMPREHENSIVE METABOLIC PANEL, W/EGFR (23789) L IPID PANEL (7600) C BC (H/H, RBC, INDICES, WBC, PLT) (1759) M AGNESIUM (622) B TYPE NATRIURETIC PEPTIDE (BNP) (46074) P ROTHROMBIN TIME WITH INR (8847) T SH, free T4, total T3 (7444) 9 9205 HIGH 60-74 min (CPT-84892) Sourav Harris MD Electrophysiology Ne w Patient - call patient please:can not tolerate CPAP O rders: S tress Regadenoson (CPT-65873) C omplete Echo (CPT-81100) C OMPREHENSIVE METABOLIC PANEL, W/EGFR (78604) L IPID PANEL (7600) C BC (H/H, RBC, INDICES, WBC, PLT) (1759) M AGNESIUM (622) B TYPE NATRIURETIC PEPTIDE (BNP) (80617) P ROTHROMBIN TIME WITH INR (8847) T SH, free T4, total T3 (7444) 9 9205 HIGH 60-74 min (CPT-46345) Sourav Harris MD Electrophysiology Ne w Patient - call patient please:controlled Will decrease amlodipine to 5 mg daily Orders: S tress Regadenoson (CPT-77137) C omplete Echo (CPT-42626) C OMPREHENSIVE METABOLIC PANEL, W/EGFR (04634) L IPID PANEL (7600) C BC (H/H, RBC, INDICES, WBC, PLT) (1759) M AGNESIUM (622) B TYPE NATRIURETIC PEPTIDE (BNP) (95626) P ROTHROMBIN TIME WITH INR (8847) T SH, free T4, total T3 (7444) 9 9205 HIGH 60-74 min (CPT-36862) His updated medication list for this problem [...] amlodipine to 5 mg daily Lorena Alban TOP CARRIER Electrophysiology Ne w Patient - call patient please:can not tolerate CPAP Lorena Alban TOP CARRIER Electrophysiology Ne w Patient - call patient please:weight loss encouraged Lorena Phoenix TOP CARRIER Date Name Carotid Duplex Bilat eral Monitor - Telemetry (Mobile Cardiac) Complete Echo Aorta Duplex Ultraso und Complete Echo Aorta Duplex Ultraso und Monitor - Telemetry (Mobile Cardiac) DLCO - 45887 FRC - 63300 FVC - 67032 Complete Echo Monitor - Telemetry (Mobile Cardiac) [...] completed FVC / MVV with bronchodilator - 84395 Sourav Harris MD completed FRC - 91508 Sourav fitzpatrick MD completed SpO2 w/o 6min walk/titration Sourav Harris MD completed SVC - 14926 Sourav fitzpatrick MD completed DLCO - 81447 Sourav fitzpatrick MD completed EKG Sourav fitzpatrick MD completed Schedule Followup Sourav woodson MD fu in 1 year completed EKG Sourav fitzpatrick MD completed Spirometry Sourav fitzpatrick MD completed FVC / MVV with bronchodilator - 00960 Sourav Harris MD completed FR - 82783 Sourav fitzpatrick MD completed SVC - 23792 Sourav fitzpatrick MD completed EKG Sourav fitzpatrick MD completed
--- OUTSIDE RECORDS SUMMARY | 2024-10-17 19:27 | XMS_ITS | Encounter Summary ---
Author Organization [facility] Address [address] [place] [address] Care Team Providers Care Skull Grinder Name Role Phone Erin Nicole Primary Care Provider [phone] Reason for Visit * Reason Onset Date Comments Prior Authorization 10/14/2024 nystatin (MY COSTATIN) powder Encounter Details Date Type Department Care Team (Late st Contact Info) Description 10/14/2024 Telephone [facility] Medical [facility] Family & Internal Medicine [id number] [place] [address] Erin Nicole FNP [facility] [place] [address] Prior Authorization (nystatin (MYCOSTATIN) powder) Social History Tobacco Use Types Packs/Day Years [...] Sex Assigned at Male 06/04/2024 9:38 AM CLINICAL TEAM MANAGER Legal Sex Male 10:27 PM CLINICAL TEAM MANAGER Gender Identity Male 06/04/2024 9:38 AM CLINICAL TEAM MANAGER Sexual Orientation Not on file 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 Asking if it could be resent. Please advise. nystatin (MYCOSTATIN) powder [facility] [address] [place] [address] * Mar Grey MA - 10/16/2024 11:17 AM CDT Called and spoke to Esther Barnett: PA approved for Nystatin 475174 unit/Gm Powder. Case # [id number] Approval Auth #[id number]. Expires 04/30/25/nallely faria * Mar Grey MA - 10/14/2024 2:09 PM CDT PA pending via EPIC nystatin (MYCOSTATIN) powder ./nallely faria documented in this encounter Plan of Treatment Upcoming Encounters Date Type Department Care Team (Late st Contact Info) Description 11/28/2024 11:20 AM CDT Office Visit [facility] Medical Group Multispecialty Care - [facility] [address] [facility], [address] [place] [address] Prachi Mojica MD [address] [place] [address] documented as of this encounter Visit Diagnoses Diagnosis Skin irritation Unspecified disorder of skin and subcutaneous tissue documented in this encounter Additional Health Concerns Assessment Noted Time PHQ-9 Depression Total Score: 24 025 9:38 AM CLINICAL TEAM MANAGER documented as of this encounter Care Teams Skull Grinder Relationship Specialty Start Date End Date Erin Nicole FNP [address] [place] [address] PCP - General Nurse Practitioner Family 12/06/18 documented as of this encounter
--- OUTSIDE RECORDS SUMMARY | 2024-10-17 19:27 | XMS_ITS | Referral Summary ---
Author Organization [facility] Address [address] [place] [address] Care Team Providers Care Religious Studies Professor Name Role Phone Erin Nicole NP Primary [...] on file Legal Sex Male 6:40 PM SATURATOR Gender Identity Not on file Sexual Orientation Not on file Plan of Treatment Not on file Insurance [employer] CHOICE MEDICARE PPO Care Teams Religious Studies Professor Relationship Specialty Start Date End Date Erin Nicole NP [address] [place] [address] PCP - General Nurse Practitioner 08/17/22
--- OUTSIDE RECORDS SUMMARY | 2024-10-17 19:27 | XMS_ITS | Encounter Summary ---
Author Organization [facility] Address [address] [place] [address] Care Team Providers Care Automotive Diagnostic Technician Name Role Phone Corey Erin SUJATHA Primary Care Provider [phone] Renny Weaver MD Unavailable [phone] Encounter Details Date Type Department Care Team (Late st Contact Info) Description 01/29/2020 Prep for Procedure [facility] Pre-Admission Testing [address] [place], [place] [id number] Denis Higgins MD [address] [place] [address] Social History Tobacco Use Types Packs/Day [...] Sex Assigned at Male 06/04/2024 9:38 AM DIESEL SERVICE TECHNICIAN Legal Sex Male 10:27 PM DIESEL SERVICE TECHNICIAN Gender Identity Male 06/04/2024 9:38 AM DIESEL SERVICE TECHNICIAN Sexual Orientation Not on file 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 on file Not on file Not [...] Description 11/28/2024 11:20 AM CDT Office Visit [facility] Medical Group Multispecialty Care - [facility] [address] [facility], [address] [place] [address] Prachi Mojica MD [address] [place] [address] documented as of this encounter Results * PRE-SURGICAL/PRE-PROCEDURE CORONAVIRUS (COVID 19) (02/01/2020 11:55 AM CDT) CORONAVIRUS SARS COV 2 PCR (RESP) NOT DETECTED NOT DETECTED 02/02/2020 1:26 PM CDT [facility] Comment: A Not Detected (negative) test [...] providers and patients using the following websites: https://www.[employer]/home/Covid-19/HCP/NAAT/fact-sheet2 https://www.[employer]/home/Covid-19/Patients/NAAT/ fact-sheet2 This test has been authorized by the FDA under an Emergency Use Authorization (EUA) for use by authorized laboratories. Due to the current public health emergency, [facility] is receiving a high volume of samples [...] about COVID-19 can be found at the [facility] website: www.[employer]/Covid19. Test performed at [facility] [place] [address] [place] [address] Director: ART BROCK DO,MPH FIRST TEST NO 02/01/2020 3:53 PM CDT [facility] EMPLOYED IN HEALTHCARE NO 02/01/2020 3:53 PM CDT [facility] SYMPTOMATIC DEFINED BY CDC NO 02/01/2020 3:53 PM CDT [facility] DATE OF SYMPTOM ONSET NO 02/01/2020 5:08 PM CDT [facility] HOSPITALIZATION STATUS NO 02/01/2020 3:53 PM CDT [facility] PATIENT IN ICU NO 02/01/2020 3:53 PM CDT [facility] RESIDENT OF [facility] NO 02/01/2020 3:53 PM CDT [facility] NOT 02/01/2020 5:08 PM CDT [facility] PATIENT'S RACE WHITE OR 02/01/2020 3:53 PM CDT [facility] ETHNICITY NONHISPANIC 02/01/2020 3:53 PM CDT [facility] SOURCE (QST) NASOPHARYNGEAL SWAB 02/01/2020 3:53 PM CDT [facility] NASOPHARYNGEAL SWAB / Unknown 02/01/2020 11:55 AM CDT us Denis Higgins MD MICROBIOLOGY - GENERAL CECILE KUNZ Final Result [facility] [address] [place] [address], [place] [phone] [facility] [address] [place] [address], documented in this encounter Visit Diagnoses Diagnosis Preop examination- Primary Preoperative examination, unspecified documented in this encounter Additional Health Concerns Infection Onset Date Last Indicated Resolved Time COVID-19 Rule Out 02/01/2020 02/01/2020 02/02/2020 1:26 PM CDT COVID-19 Rule Out 03/17/2020 09/11/2019 03/17/2020 10:13 AM DIESEL SERVICE TECHNICIAN COVID-19 Rule Out 05/26/2020 05/30/2020 06/02/2020 12:34 AM DIESEL SERVICE TECHNICIAN COVID-19 Rule Out 04/13/2022 04/13/2022 04/20/2022 12:32 AM DIESEL SERVICE TECHNICIAN Assessment Noted Time PHQ-9 Depression Total Score: 5 05/31/19 20 1:19 PM DIESEL SERVICE TECHNICIAN documented as of this encounter Care Teams Automotive Diagnostic Technician Relationship Specialty Start Date End Date Erin Nicole FNP [address] [place] [address] PCP - General Nurse Practitioner Family 12/06/18 Renny Weaver MD [address] [place] [address] PCP - Med Group - [facility] Attributed Provider 03/05/19 05/01/20 documented as of this encounter
--- OUTSIDE RECORDS SUMMARY | 2024-10-17 19:27 | XMS_ITS | Clinical Summary ---
Author Organization [facility] Address [address] [place] [address] Care Team Providers Care Photo Print Specialist Name Role Phone Erin Nicole SUJATHA Primary Care Provider [phone] Allergies No known active allergies Medications Cholecalciferol (VITAMIN D) 2000 units Tab Take 1 tablet (50 mcg total) by mouth daily. 30 tablet Active hydrocortisone 2.5 % Cream cream Apply 1 each topically 2 (two) times daily as needed (rash). 019 Active magnesium 250 MG tabletIndications :Leg cramp Take 2 tablets (500 mg total) by mouth daily. 30 tablet 020 Active Multiple Vitamins-Minerals (MENS MULTIVITAMIN OR) Take 1 tablet by mouth daily. Active SYRINGE-NEEDLE, DISP, 3 ML (LUER LOCK SAFETY SYRINGES) 25G X 1 3 ML MiscIndications:V itamin B 12 deficiency 1 Device by Does not apply route monthly. 50 each 020 Active nitroglycerin 0.[address] 1 tablet (0.4 mg total) under the tongue every 15 (fifteen) minutes as needed. Active folic acid 400 MCG tablet daily. Active fluticasone furoate-vilantero l (BREO ELLIPTA) 100-25 MCG/INH inhaler Breo Ellipta 100 mcg-25 mcg/dose powder for inhalation TAKE 1 PUFF BY MOUTH EVERY DAY Active triamcinolone (KENALOG) 0.1 % ointmentIndicatio ns:Rash Apply topically 3 (three) times daily as needed. To legs and areas of concern 454 g 1 022 Active Cyanocobalamin (VITAMIN B-12) 50 MCG Tab Active lisinopril (PRINIVIL) 40 MG tabletIndications :Essential hypertension take 1 tablet by mouth every day 90 tablet 3 024 Active omeprazole (PRILOSEC) 40 MG capsuleIndication s:GERD (gastroesophageal reflux disease) TAKE 1 CAPSULE (40 MG TOTAL) BY MOUTH DAILY. 90 capsule 024 Active traZODone (DESYREL) 100 MG tabletIndications :Primary insomnia Take 2 tablets (200 mg total) by mouth nightly as needed. FOR SLEEP 180 tablet 1 024 Active neomycin-polymyxi n-dexamethasone (MAXITROL) 3.5-52899-4.1 SuspensionIndicat ions:Ear pain Place into both eyes 4 (four) times daily. 5 mL 025 Active DULoxetine (CYMBALTA) 20 MG capsuleIndication s:Mild episode of recurrent major depressive disorder,Other chronic pain Take 1 capsule (20 mg total) by mouth daily. 90 capsule 1 025 Active hydroCHLOROthiazi de (MICROZIDE) 12.5 MG capsuleIndication s:Essential hypertension,Loca lized swelling of both lower legs Take 1 capsule (12.5 mg total) by mouth every morning. 90 capsule 025 Active HYDROcodone-aceta minophen (NORCO) 5-325 MG tabletIndications :Chronic Pain Take 1-2 tablets by mouth every 8 (eight) hours as needed for Pain. Indications: Chronic Pain 120 tablet 025 Active ibuprofen (MOTRIN) 800 MG tabletIndications :Osteoarthritis of multiple joints, unspecified osteoarthritis type Take 1 tablet (800 mg total) by mouth every 8 (eight) hours as needed. 90 tablet 025 Active methocarbamol (ROBAXIN) 750 MG TabIndications:Os teoarthritis of multiple joints, unspecified osteoarthritis type Take 1 tablet (750 mg total) by mouth 4 (four) times daily. TAKE ONE TABLET (750 MG TOTAL) BY MOUTH FOUR (4) TIMES DAILY NEEDED FOR PAIN. 120 tablet 025 Active atorvastatin (LIPITOR) 20 MG tabletIndications :Hypercholesterol emia TAKE 1 TABLET BY MOUTH EVERY DAY 90 tablet 1 025 Active diazePAM (VALIUM) 5 MG tabletIndications :Other chronic pain,DDD (degenerative disc disease), cervical,DDD (degenerative disc disease), lumbar TAKE 1-2 TABS BY MOUTH EVERY 12 HOURS NEEDED FOR ANXIETY/MUSCLE SPASMS. DONT TAKE W/ HYDROCODONE 60 tablet 1 025 Active nystatin (MYCOSTATIN) powderIndications :Skin irritation Apply topically 3 (three) times daily. 60 g 025 Active methocarbamol (ROBAXIN) 750 MG TabIndications:Os teoarthritis of multiple joints, unspecified osteoarthritis type TAKE 1 TABLET BY MOUTH FOUR TIMES DAILY NEEDED (PAIN). 120 tablet 025 2024 Discontinued(R eorder) atorvastatin (LIPITOR) 20 MG tabletIndications :Hypercholesterol emia TAKE 1 TABLET BY MOUTH EVERY DAY 90 tablet 025 2024 Discontinued ibuprofen (MOTRIN) 800 MG tabletIndications :Osteoarthritis of multiple joints, unspecified osteoarthritis type Take 1 tablet (800 mg total) by mouth every 8 (eight) hours as needed. 90 tablet 025 2024 Discontinued(R eorder) HYDROcodone-aceta minophen (NORCO) 5-325 MG tabletIndications :Chronic Pain Take 1-2 tablets by mouth every 8 (eight) hours as needed for Pain. Indications: Chronic Pain 120 tablet 025 2024 Discontinued(R eorder) diazePAM (VALIUM) 5 MG tabletIndications :Other chronic pain,DDD (degenerative disc disease), cervical,DDD (degenerative disc disease), lumbar TAKE 1-2 TABS BY MOUTH EVERY 12 HOURS NEEDED FOR ANXIETY/MUSCLE SPASMS. DONT TAKE W/ HYDROCODONE 60 tablet 1 025 2024 Discontinued(R eorder) nystatin (MYCOSTATIN) powderIndications :Skin irritation Apply topically 3 (three) times daily. 60 g 025 2024 Discontinued(R eorder) Hospital, Clinic, or [...] Unsatisfactory living conditions 06/08/2022 Paroxysmal atrial fibrillation ([facility]) 03/18/2022 Sciatica 03/16/2022 Fall, subsequent encounter 03/16/2022 Chronic a-fib ([facility]) 03/16/2022 Renal mass 02/14/2022 Tendinopathy [...] Problem Noted Date Diagnosed Date Resolved Date Laceration of scalp, subsequent encounter 08/30/2024 08/30/2024 Localized swelling of both lower legs 07/14/2021 02/08/2023 Premature atrial contraction 11/27/2020 02/08/2023 Chest pain, unspecified type 09/14/2020 02/08/2023 Chronic obstructive pulmonar y disease ([facility]) 09/11/2020 07/08/2021 Traumatic injury of external genitalia 09/08/2020 05/09/2023 Sinus node dysfunction ([facility]) 09/11/2019 09/14/2020 Chronic coughing 08/13/2019 [...] Encounters Date Type Department Care Team Description 10/14/2024 Telephone [facility] Family & Internal Medicine [address] [phone] Erin Nicole FNP Prior Authorization (nystatin (MYCOSTATIN) powder) 10/11/[address] [phone] Erin Nicole FNP Derm Problem 10/07/[address] [phone] Erin Nicole FNP Question 10/04/2024 Scan [facility] Scanned[facility] 10/01/2024 Scan [facility] Scanned[facility] Echo (SCAN); Vascular Lab Study (SCAN) 09/30/[address] [phone] Erin Nicole FNP Medication Request 09/27/2024 Scan [facility] Scanned[facility] 09/09/[address] [phone] Erin Nicole FNP Referral 08/30/2024 1:00 PM CDT Office Visit [address] [phone] Erin Nicole FNP Fall (Patient presenting to the office for a recent fall on 08/22/2024 ago- has 10 stitches in left wrist- also hit head but did not hurt-) 08/30/2024 Travel 08/24/2024 Scan [facility] Scanned[facility] MRI (SCAN) 08/23/[address] [phone] Erin Nicole FNP Refill Request 08/23/[address] [phone] Erin Nicole FNP Advice 08/22/2024 Scan [facility] Scanned, [facility] CT (SCAN); Image (SCAN) 07/31/2024 Telephone [facility] Family & Internal Medicine [address] [phone] Erin Nicole FNP Refill Request from Last 3 Months Immunizations Immunization Administration [...] Sex Assigned at Male 06/04/2024 9:38 AM CAPACITOR PACK PRESS OPERATOR Legal Sex Male 10:27 PM CAPACITOR PACK PRESS OPERATOR Gender Identity Male 06/04/2024 9:38 AM CAPACITOR PACK PRESS OPERATOR Sexual Orientation Not on file 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 Not on file Not on file Not on file Not on file Not on file Not on file Last Filed Vital Signs Vital Sign Reading Time Taken Comments Blood Pressure 126/80 08/30/2024 1:15 PM CDT Pulse 55 08/30/2024 1:15 PM CDT Temperature 36.6 C (97.9 F) 08/30/2024 1:15 PM CDT Respiratory Rate 18 08/30/2024 1:15 PM CDT Oxygen Saturation 96% 08/30/2024 1:15 PM CDT Inhaled Oxygen Concentration - - Weight 146.5 kg (323 lb) 08/30/2024 1:15 PM CDT Height 190.5 cm (6' 3) 08/30/2024 1:15 PM CDT Body Mass Index 40.37 08/30/2024 1:15 PM CDT Plan of Treatment Upcoming Encounters Date Type Department Care Team (Late st Contact Info) Description 11/28/2024 11:20 AM CDT Office Visit [facility] Multispecialty Care - [address], [address] [place] [phone] Prachi Mojica MD [address] [place] [address] Health Maintenance Due Date Last Done Comments Zoster Vaccines (1 of 2) 09/07/2003 Annual Medicare Wellness Visit 2018 COVID-19 Vaccine (6 - Pfizer risk season) 2024 06/27/2024, 04/28/2023, 04/16/2021, Additional history exists Colorectal Cancer Screening Colonoscopy (10 Years) 09/21/2028 09/21/2018 DTaP, Tdap and Td Vaccines (2 - Td or Tdap) 12/09/2033 12/10/2023 AAA SCREENING Completed 10/03/2019 Pneumococcal Vaccine: 50+ Years Completed 12/29/2020, 05/31/2019 Hepatitis C Completed 07/08/2021 RSV Immunization or 60+ Years Completed 04/28/2023 PHQ-2 (Physician [place]) Completed 06/04/2024 Meningococcal B Vaccine Aged Out No l onger eligible based on patient's age to complete this topic Meningococcal Vaccine Aged Out No vicky marlon eligible based on patient's age to complete this topic RSV Immunizations Under 20 Months Aged Out No longer eligible based on patient's age to complete this topic Procedures Procedure Name Priority Date/Time Associated Diagnosis Comments VASCULAR LAB GENERIC (SCAN ORDER) 10/01/2024 ECHO GENERIC (SCAN ORDER) 10/01/2024 SUTURE REMOVAL Routine 08/30/2024 1:15 PM CDT Laceration of left hand without foreign body, subsequent encounter MRI GENERIC 08/24/2024 MRI GENERIC 08/24/2024 MRI GENERIC 08/24/2024 CT GENERIC 08/22/2024 CT GENERIC 08/22/2024 IMAGE GENERIC 08/22/2024 IMAGE GENERIC 08/22/2024 IMAGE GENERIC 08/22/2024 IMAGE GENERIC 08/22/2024 HEPATITIS C ANTIBODY 07/08/2021 3:20 PM CAPACITOR PACK PRESS OPERATOR CT ABD+PEL W CON STAT 10/03/2019 3:51 PM CDT Generalized abdominal pain Fever, unspecified fever cause Dysuria COLONOSCOPY GENERIC (SCAN ORDER) Routine 09/21/2018 from Last 3 Months or Most Recently Relevant to Health Maintenance Results * VASCULAR LAB GENERIC (SCAN ORDER) (10/01/2024) 10/01/2024 [facility] Scanned SCANNING Final Resu lt * ECHO GENERIC (SCAN ORDER) (10/01/2024) Anatomical Region Laterality Modality Other 10/01/2024 Result [facility] Scanned SCANNING Final Resu lt * SUTURE REMOVAL (08/30/2024 1:15 PM CDT) Narrative Erin Nicole FNP - 08/30/2024 1:15 PM CDT SUJATHA Almeida 08/30/2024 3:36 PM Suture Removal Date/Time: 08/30/2024 1:15 PM Performed by: SUJATHA Almeida Authorized by: SUJATHA Almeida Body area: upper extremity Location details: left hand Wound Appearance: red and tender Sutures Removed: 10 Post-removal: dressing applied and Steri-Strips applied Patient tolerance: patient tolerated the procedure well with no immediate complications Result [facility] Erin SOLARES PROCEDURE/MINOR SURGICAL ORDER JIGNESH Final Result * MRI GENERIC (08/24/2024) Only the most recent of3 resultswithin the time period is included. Anatomical Region Laterality Modality Other 08/24/2024 Result [facility] Scanned SCANNING Final Resu lt * CT GENERIC (08/22/2024) Only the most recent of2 resultswithin the time period is included. Anatomical Region Laterality Modality Other 08/22/2024 Result [facility] Scanned SCANNING Final Resu lt * IMAGE GENERIC (08/22/2024) Only the most recent of4 resultswithin the time period is included. Anatomical Region Laterality Modality Other 08/22/2024 Result [facility] Scanned SCANNING Final Resu lt * HEPATITIS C ANTIBODY (07/08/2021 3:20 PM CAPACITOR PACK PRESS OPERATOR) HEPATITIS C AB <0.1 0.0 - 0.9 s/co ratio [facility] 1 Comment: Negative: < 0.8 Indeterminate: 0.8 - 0.9 Positive: > 0.9 The CDC recommends that a positive HCV antibody result be followed up with a HCV Nucleic Acid Amplification test (937668). 07/08/2021 3:20 PM CAPACITOR PACK PRESS OPERATOR 07/08/2021 Narrative [facility] - 07/09/2021 12:10 PM CAPACITOR PACK PRESS OPERATOR Performed at: 01 - [facility] [address] [id number] Customer Support Specialist: Blaise Kirk PhD, Phone: [phone] us Erin [facility] Final Result Performing Organization Address City/State/[facility] Co de Phone Number [facility] [address] [place] [address] [facility] 1 * CT ABD+PEL W CON (10/03/2019 3:51 PM CDT) Anatomical Region Laterality Modality Abdomen Computed Tomogra phy 10/03/2019 3:51 PM CDT us Renny Weaver MD CT Final Result * COLONOSCOPY (09/21/2018) Erin SOLARES SCANNING Final Result from Last 3 Months or Most Recently Relevant to Health Maintenance Insurance [employer] Care Teams Photo Print Specialist Relationship Specialty Start Date End Date Erin Nicole FNP [address] [place] [address] PCP - General Nurse Practitioner Family 12/06/18
--- OUTSIDE RECORDS SUMMARY | 2024-10-17 19:27 | XMS_ITS | Continuity of Care Document ---
Author Organization [facility] Address [address] [facility] [address] [place] [address] Phone Care Team Providers Care Plate Washer Name Role Phone Rajendra Yoo MD Unavailable [...] on Encounter DISABILITY EXAMINATION [facility] , [address] [facility] [address], [place], [address], [place] tel:[phone] [facility] My back hurts alot (chief complaint) Body mass index (BMI) 45.0-49.9, adultLow back pain Fredo Drew. [address] [facility] [address] [place], [place], [id number]. tel:[phone] Family History Family Member Type Diagnosis Age [...]
--- NOTE | 2024-10-17 19:44 | ED.FALL ---
HPI - Fall General Chief Complaint: Fall Stated Complaint: fall, avulsion right elbow Time Seen by Provider: 10/17/24 19:15 History of Present Illness HPI Narrative: 69-year-old male presents emergency department for a mechanical fall that occurred prior to arrival. Patient was doing yard work and tripped on a brick, landed on his right elbow obtained a skin tear. He did not hit his head or lose consciousness. Also reporting right hip pain from the fall. He is not anticoagulated. Tdap is up-to-date. Related Data Home Medications ?Medication ?Instructions ?Recorded ?Confirmed ?Last Taken ?Type albuterol sulfate 90 mcg/actuation 1 puff inhalation Q4H PRN 05/03/22 05/03/22 Unknown History aerosol inhaler diazepam 10 mg tablet (Valium) 10 mg PO TID PRN 05/03/22 05/03/22 Unknown History hydrochlorothiazide 12.5 mg tablet 12.5 mg PO DAILY 05/03/22 05/03/22 Unknown History lisinopril 20 mg tablet 20 mg PO DAILY 05/03/22 05/03/22 Unknown History methocarbamol 750 mg tablet 750 mg PO TID 05/03/22 05/03/22 Unknown History Allergies Allergy/AdvReac Type Severity Reaction Status Date / Time No Known Allergies Allergy Unknown Verified 08/22/24 18:37 Review of Systems Review of Systems: All systems reviewed & are unremarkable except as noted in HPI and below PMFSH Past Medical History Medical History Lumbar spondylosis Lumbar radiculopathy Carpal tunnel syndrome Chronic back pain Depression Arthritis GERD (gastroesophageal reflux disease) Gallstones Head ache Seasonal allergies Bronchitis Hypertension Sleep apnea Obesity Surgical History Surgical History History of carpal tunnel release History of ankle surgery Bilateral tendon repair H/O colonoscopy Social History Social History Smoking status: Never smoker Gender identity (if verbalized by the patient): Male Exam Narrative: GENERAL: Well-appearing, well-nourished, and in no acute distress. HEAD: Normocephalic, atraumatic. EYES: EOMI. ENT: Nares clear, no rhinorrhea or epistaxis. Mucous membranes moist. NECK: No midline cervical spinous tenderness, crepitus, step-offs or deformities BACK: No midline thoracolumbar spinous tenderness, crepitus, step-offs or deformities CHEST: Clear to auscultation. No respiratory distress. No tenderness to chest wall HEART: Regular rate and rhythm. No murmur heard. Normal peripheral pulses. ABDOMEN: Soft, nontender, nondistended, normal active bowel sounds. EXTREMITIES: RUE: Skin tear and abrasion with mild active capillary oozing to the right elbow with no foreign bodies deep structures visualized, no lacerations. Full active and passive range of motion elbow. No tenderness or edema to remainder of extremity. Radial pulse 2 +. Radial, median and ulnar nerves are intact. RLE: Minimal tenderness to the right lateral hip with superficial overlying skin abrasion with no active bleeding. No obvious deformity. Full active and passive range of motion of hip. No tenderness remainder of extremity. DP pulse 2 +. Sensation intact. Compartments soft throughout SKIN: Warm, dry, no rash. NEURO: No focal deficits. Alert and oriented x3 Course Vital Signs Vital signs: Vital Signs Temperature 97.6 F 10/17/24 19:02 Pulse Rate 64 10/17/24 19:02 Respiratory Rate 16 10/17/24 19:02 Blood Pressure 127/68 10/17/24 19:02 Pulse Oximetry 97 10/17/24 19:02 Oxygen Delivery Room Air 10/17/24 19:02 Temperature 97.6 F 10/17/24 19:02 Pulse Rate 64 10/17/24 19:02 Respiratory Rate 16 10/17/24 19:02 Blood Pressure 127/68 10/17/24 19:02 Pulse Oximetry 97 10/17/24 19:02 Oxygen Delivery Room Air 10/17/24 19:02 MDM - Fall MDM Narrative Medical decision making narrative: 69-year-old male presents to the emergency department for right elbow pain/skin tear and right hip pain after mechanical fall that occurred prior to arrival. Patient tripped while doing yard work. He did not hit his head or lose consciousness. He is not anticoagulated. Vital signs are stable. Exam is notable for the above. X-rays of the right hip and elbow show no acute osseous findings. Successful hemostasis obtained with silver nitrate cauterization of the right elbow abrasion. Abrasions cleansed and dressed by nursing staff. Will provide bacitracin and discussed wound care and follow-up with PCP. Discussed strict ED return precautions. Patient is agreeable with the plan verbalized understanding. Discharged in stable condition. Discharge Plan Discharge Clinical Impression: Abrasion, Fall Patient Disposition: Home Condition: Stable Instructions: Antibiotic Form, Abrasion (ED), Skin Tear (ED) Additional Instructions: You were evaluated in the emergency department after a fall. X-rays of your right hip and elbow showed no broken bones. The abrasions were cleansed with saline and dressed. Please change dressings twice daily and use the bacitracin as directed. Follow-up closely with her primary care provider. Return to the emergency department if you develop bleeding that is uncontrolled, surrounding redness, fever, drainage or other concerning symptoms. Patient Language: Surinamese Prescriptions: New bacitracin zinc 500 unit/gram ointment 1 applic topical BID Qty: 14 0RF No Action lisinopril 20 mg tablet 20 mg PO DAILY albuterol sulfate 90 mcg/actuation HFA aerosol inhaler 1 puff inhalation Q4H PRN diazepam [Valium] 10 mg tablet 10 mg PO TID PRN hydrochlorothiazide 12.5 mg tablet 12.5 mg PO DAILY methocarbamol 750 mg tablet 750 mg PO TID ciprofloxacin HCl [Cipro] 500 mg tablet 500 mg PO Q12H Qty: 14 0RF ondansetron HCl 4 mg tablet 4 mg PO Q8H PRN (Reason: nausea and vomiting) 4 Days Qty: 10 0RF montelukast [Singulair] 10 mg tablet 10 mg PO HS Qty: 14 0RF Follow-up/Referrals: TORRIE,BRYNN BINGHAM [Primary Care Provider] -
[2024-10-17] MEDS: ACETAMINOPHEN 500 MG TABLET 1000 MG PO (20:02)
== END 2024-10-17 21:45 | disposition home or self-care (01) ==
PROVIDERS: Emergency Provider Physician Assistant; PCP Nurse Practitioner Family
DX: S51.011A Laceration without foreign body of right elbow, initial encounter (principal); I10 Essential (primary) hypertension; G47.30 Sleep apnea, unspecified; K21.9 Gastro-esophageal reflux disease without esophagitis; M19.90 Unspecified osteoarthritis, unspecified site; F32.A Depression, unspecified; W18.09XA Striking against other object with subsequent fall, initial encounter
CPT/HCPCS: 73080; 73502; 99284; A9270

== ENCOUNTER 2024-10-17 23:56 | Emergency (ER) | payer MEDICARE, SELFPAY ==
--- NOTE | ~2024-10-17 | CT_ITS ---
CT angiogram of the right upper extremity CLINICAL HISTORY: Large hematoma TECHNIQUE: Following intravenous administration of 150 cc of Omnipaque 350 contrast material, axial i maging of the right upper extremity was performed, from the level of the glenohumeral joint through t he fingers. Sagittal and coronal reformatted images were constructed. Dose reduction technique was us ed on this scan by utilizing automated exposure control and iterative reconstruction technique. The d ose-length product (DLP) was 581.76 mGy-cm. Findings: No fracture or dislocation seen. Osseous alignment appears anatomic throughout the upper ex tremity. There is mild to moderate degenerative joint disease at the elbow. There is moderate to adva nced degenerative change at the AC joint. There is an 8.6 x 3.9 x 11.6 cm masslike lesion at the lateral aspect of the right upper extremity at the level of the distal humerus, most compatible with large hematoma. There is surrounding subcutane ous soft tissue edema at the lateral and posterior aspect of the forearm extending to the level of th e proximal forearm. There is small focal area of active extravasation within the hematoma arising fro m a relatively distal portion of a branch of the brachial artery (series 4 images 94-97). Remaining vasculature appears unremarkable. No significant abnormality seen otherwise in the forearm or hand. IMPRESSION: 8.6 x 3.9 x 11.6 cm masslike hematoma at the lateral aspect of the right upper extremity at the level of the distal humerus with small focal area of active extravasation, as detailed above. Reviewed, dictated and finalized at location . IMPRESSION: 8.6 x 3.9 x 11.6 cm masslike hematoma at the lateral aspect of the right upper extremity at the level of the distal humerus with small focal area of active ex travasation, as detailed above.
--- OUTSIDE RECORDS SUMMARY | 2024-10-17 23:58 | XMS_ITS | Encounter Summary ---
Author Organization [facility] Address [address] [place] [address] Care Team Providers Care Water Analyst Name Role Phone Corey Erin SUJATHA Primary Care Provider [phone] Renny Weaver MD Unavailable [phone] Encounter Details Date Type Department Care Team (Late st Contact Info) Description 12/02/2019 Prep for Procedure [facility] Pre-Admission Testing [place], [place] [id number] Denis Higgins MD [address] [place] [address] Social History Tobacco Use Types Packs/Day [...] Sex Assigned at Male 06/04/2024 9:38 AM SITE PROMOTION AGENT Legal Sex Male 10:27 PM SITE PROMOTION AGENT Gender Identity Male 06/04/2024 9:38 AM SITE PROMOTION AGENT Sexual Orientation Not on file 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 [address] [facility], [address] [place] [address] Prachi Mojica MD [address] [place] [address] documented as of this encounter Visit Diagnoses Diagnosis Preop examination- Primary Preoperative examination, unspecified documented in this encounter Additional Health Concerns Infection Onset Date Last Indicated Resolved Time COVID-19 Rule Out 02/01/2020 02/01/2020 02/02/2020 1:26 PM CDT COVID-19 Rule Out 03/17/2020 09/11/2019 03/17/2020 10:13 AM SITE PROMOTION AGENT COVID-19 Rule Out 05/26/2020 05/30/2020 06/02/2020 12:34 AM SITE PROMOTION AGENT COVID-19 Rule Out 04/13/2022 04/13/2022 04/20/2022 12:32 AM SITE PROMOTION AGENT Assessment Noted Time PHQ-9 Depression Total Score: 5 05/31/19 20 1:19 PM SITE PROMOTION AGENT documented as of this encounter Care Teams Water Analyst Relationship Specialty Start Date End Date Erin Nicole FNP [address] [place] [address] PCP - General Nurse Practitioner Family 12/06/18 Renny Weaver MD [address] [place] [address] PCP - Med Group - [facility] Attributed Provider 03/05/19 05/01/20 documented as of this encounter
--- OUTSIDE RECORDS SUMMARY | 2024-10-17 23:58 | XMS_ITS | Patient Health Record ---
Author Organization [facility] Address [address] [place] [phone] Support Name Relationship Address Phone Malachi Tobin Guarantor Unknown [phone] Reason For Referral No Information Plan Of Treatment Pending Test Test Name Order Date Urinalysis, Routine 10/14/2022 Vision Screening 10/14/2022 Vision Screening 10/21/2022 Hearing Screening 10/14/2022 Insurance Providers Payer Name Payer Address Payer Phone Subscriber Number Group Number Insured Name Patient Relationship to Insured Coverage Start Date Coverage End Date Hina BURR Physical Recerts/ [email or web address]/[email or web address] Malachi Tobin Self - patient is the insured
--- OUTSIDE RECORDS SUMMARY | 2024-10-17 23:58 | XMS_ITS | Continuity of Care Document ---
Author Organization [facility] Address [address] [facility] [address] [place] [address] Phone Care Team Providers Care Checker Cashier Name Role Phone Rajendra Yoo MD Unavailable [...] on Encounter DISABILITY EXAMINATION [facility] , [address] [facility] [address], [place], [address], [place] tel:[phone] [facility] My back hurts alot (chief complaint) Body mass index (BMI) 45.0-49.9, adultLow back pain Fredo Drew. [address] [facility] [address] [place], [place], [id number]. tel:[phone] Family History Family Member Type Diagnosis Age [...]
--- OUTSIDE RECORDS SUMMARY | 2024-10-17 23:58 | XMS_ITS | Referral Summary ---
Author Organization [facility] Address [address] [place] [phone] Care Team Providers Care Sausage Tier Name Role Phone Erin Nicole NP Primary [...] on file Legal Sex Male 6:40 PM AUDIT SENIOR ASSOCIATE Gender Identity Not on file Sexual Orientation Not on file Plan of Treatment Not on file Insurance [employer] CHOICE MEDICARE PPO Care Teams Sausage Tier Relationship Specialty Start Date End Date Erin Nicole NP [address] [place] [address] PCP - General Nurse Practitioner 08/17/22
--- OUTSIDE RECORDS SUMMARY | 2024-10-17 23:58 | XMS_ITS | Encounter Summary ---
Author Organization [facility] Address [address] [place] [address] Care Team Providers Care Manager Sales Name Role Phone Erin Nicole Primary Care Provider [phone] Reason for Visit * Reason Onset Date Comments Prior Authorization 10/14/2024 nystatin (MY COSTATIN) powder Encounter Details Date Type Department Care Team (Late st Contact Info) Description 10/14/2024 Telephone [facility] Family & Internal Medicine [address] [place] [address] Erin Nicole FNP [facility] [place] [address] Prior Authorization (nystatin (MYCOSTATIN) powder) [...] Sex Assigned at Male 06/04/2024 9:38 AM MACHINE WASHER Legal Sex Male 10:27 PM MACHINE WASHER Gender Identity Male 06/04/2024 9:38 AM MACHINE WASHER Sexual Orientation Not on file 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 Please advise. nystatin (MYCOSTATIN) powder [facility] [id number] [place] [address] * Mar Grey MA - 10/16/2024 11:17 AM CDT Called and spoke to Esther Barnett: PA approved for Nystatin [id number] unit/Gm Powder. Case # [id number] Approval Auth #[id number]. Expires 04/30/25/nallely faria * Mar Grey MA - 10/14/2024 2:09 PM CDT PA pending via EPIC nystatin (MYCOSTATIN) powder ./nallely faria documented in this encounter Plan of Treatment Upcoming Encounters Date Type Department Care Team (Late st Contact Info) Description 11/28/2024 11:20 AM CDT Office Visit [facility] Multispecialty Care - [facility] [address] [facility], [address] [place] [address] Prachi Mojica MD [address] [place] [address] documented as of this encounter Visit Diagnoses Diagnosis Skin irritation Unspecified disorder of skin and subcutaneous tissue documented in this encounter Additional Health Concerns Assessment Noted Time PHQ-9 Depression Total Score: 24 025 9:38 AM MACHINE WASHER documented as of this encounter Care Teams Manager Sales Relationship Specialty Start Date End Date Erin Nicole FNP [address] [place] [address] PCP - General Nurse Practitioner Family 12/06/18 documented as of this encounter
--- OUTSIDE RECORDS SUMMARY | 2024-10-17 23:58 | XMS_ITS | Clinical Summary ---
Author Organization [facility] Address [address] [place] [address] Care Team Providers Care Machined Parts Quality Inspector Name Role Phone Erin Nicole NP Primary [...] on file Legal Sex Male 6:40 PM FEDERAL JAVA DEVELOPER Gender Identity Not on file Sexual Orientation [...] Insurance [employer] CHOICE MEDICARE PPO Care Teams Machined Parts Quality Inspector Relationship Specialty Start Date End Date Erin Nicole NP [address] [place] [address] PCP - General Nurse Practitioner 08/17/22
--- OUTSIDE RECORDS SUMMARY | 2024-10-17 23:58 | XMS_ITS | Encounter Summary ---
Author Organization [facility] Address [address] [place] [address] Care Team Providers Care Die Casting Machine Setter Name Role Phone Corey Erin SUJATHA Primary Care Provider [phone] Renny Weaver MD Unavailable [phone] Encounter Details Date Type Department Care Team (Late st Contact Info) Description 01/29/[address] 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 on file Not [...] Description 11/28/2024 11:20 AM CDT Office Visit [facility] Multispecialty Care - [facility] [address] [facility], [address] [place] [address] Prachi Mojica MD 3 [place] [address] documented as of this encounter Results * PRE-SURGICAL/PRE-PROCEDURE CORONAVIRUS (COVID 19) (02/01/2020 11:55 AM CDT) CORONAVIRUS SARS COV 2 PCR (RESP) NOT DETECTED NOT DETECTED 02/02/2020 1:26 PM CDT [facility] Comment: A Not Detected (negative) test result [...] providers and patients using the following websites: https://[email or web address].[email or web address]/home/Covid-19/HCP/NAAT/fact-sheet2 https://www.SYSTRAN.Sohalo/home/Covid-19/Patients/NAAT/ fact-sheet2 This test has been authorized by the FDA under an Emergency Use Authorization (EUA) for use by authorized laboratories. Due to the current public health emergency, [facility] is receiving a high volume of samples [...] about COVID-19 can be found at the [facility] website: www.[email or web address].[email or web address]/[email or web address]. Test performed at [facility] [place] [address] [place] [address] Director: ART BROCK DO,MPH FIRST TEST NO 02/01/2020 3:53 PM CDT [facility] EMPLOYED IN HEALTHCARE NO 02/01/2020 3:53 PM CDT [facility] SYMPTOMATIC DEFINED BY CDC NO 02/01/2020 3:53 PM CDT [facility] DATE OF SYMPTOM ONSET NO 02/01/2020 5:08 PM CDT [facility] HOSPITALIZATION STATUS NO 02/01/2020 3:53 PM CDT [facility] PATIENT IN ICU NO 02/01/2020 3:53 PM CDT [facility] RESIDENT OF [facility] NO 02/01/2020 3:53 PM CDT [facility] NOT 02/01/2020 5:08 PM CDT [facility] PATIENT'S RACE WHITE OR 02/01/2020 3:53 PM CDT [facility] ETHNICITY NONHISPANIC 02/01/2020 3:53 PM CDT [facility] SOURCE (QST) NASOPHARYNGEAL SWAB 02/01/2020 3:53 PM CDT [facility] NASOPHARYNGEAL SWAB / Unknown 02/01/2020 11:55 AM CDT us Denis Higgins MD MICROBIOLOGY - GENERAL CECILE KUNZ Final Result [facility] [address] [place] [address], [place] [phone] [facility] [address] [place] [address], documented in this encounter Visit Diagnoses Diagnosis Preop examination- Primary Preoperative examination, unspecified documented in this encounter Additional Health Concerns Infection Onset Date Last Indicated Resolved Time COVID-19 Rule Out 02/01/2020 02/01/2020 02/02/2020 1:26 PM CDT COVID-19 Rule Out 03/17/2020 09/11/2019 03/17/2020 10:13 AM HEEL DIPPER COVID-19 Rule Out 05/26/2020 05/30/2020 06/02/2020 12:34 AM HEEL DIPPER COVID-19 Rule Out 04/13/2022 04/13/2022 04/20/2022 12:32 AM HEEL DIPPER Assessment Noted Time PHQ-9 Depression Total Score: 5 05/31/19 20 1:19 PM HEEL DIPPER documented as of this encounter Care Teams Die Casting Machine Setter Relationship Specialty Start Date End Date Erin Nicole FNP [address] [place] [address] PCP - General Nurse Practitioner Family 12/06/18 Renny Weaver MD [address] [place] [address] PCP - Med Group - [facility] Attributed Provider 03/05/19 05/01/20 documented as of this encounter
--- OUTSIDE RECORDS SUMMARY | 2024-10-17 23:58 | XMS_ITS | Clinical Summary ---
Author Organization [facility] Address [address] [place] [address] Care Team Providers Care Spinning Frame Tender Name Role Phone Erin Nicole SUJATHA Primary Care Provider [phone] Allergies No known active allergies Medications Cholecalciferol [...] tablet 1 024 Active neomycin-polymyxi n-dexamethasone (MAXITROL) 3.5-18420-8.1 SuspensionIndicat ions:Ear pain Place into both eyes [...] Unsatisfactory living conditions 06/08/2022 Paroxysmal atrial fibrillation ([facility]) 03/18/2022 Sciatica 03/16/2022 Fall, subsequent encounter 03/16/2022 Chronic a-fib ([facility]) 03/16/2022 Renal mass 02/14/2022 Tendinopathy of right [...] 09/14/2020 02/08/2023 Chronic obstructive pulmonar y disease ([facility]) 09/11/2020 07/08/2021 Traumatic injury of external genitalia 09/08/2020 05/09/2023 Sinus node dysfunction ([facility]) 09/11/2019 09/14/2020 Chronic coughing 08/13/2019 02/06/2023 History [...] Type Department Care Team Description 10/14/2024 Telephone [facility] Family & Internal Medicine [address] [address] Erin Nicole FNP Prior Authorization (nystatin (MYCOSTATIN) powder) 10/11/[address] [phone] Erin Nicole FNP Derm Problem 10/07/[address] [phone] Erin Nicole FNP Question 10/04/2024 Scan [facility] Scanned, [facility] 10/01/2024 Scan [facility] Scanned, [facility] Echo (SCAN); Vascular Lab Study (SCAN) 09/30/[address] [phone] Erin Nicole FNP Medication Request 09/27/2024 Scan [facility] Scanned, [facility] 09/09/[address] [phone] Erin Nicole FNP Referral 08/30/2024 1:00 PM CDT Office Visit [address] [phone] Erin Nicole FNP Fall (Patient presenting to the office for a recent fall on 08/22/2024 ago- has 10 stitches in left wrist- also hit head but did not hurt-) 08/30/2024 Travel 08/24/2024 Scan [facility] Scanned, [facility] MRI (SCAN) 08/23/[address] [phone] Erin Nicole FNP Refill Request 08/23/[address] [phone] Erin Nicole FNP Advice 08/22/2024 Scan [facility] Scanned, [facility] CT (SCAN); Image (SCAN) 07/31/2024 Telephone [facility] Family & Internal Medicine [address] [phone] Erin Nicole FNP Refill Request [...] Sex Assigned at Male 06/04/2024 9:38 AM MANAGER VALIDATION Legal Sex Male 10:27 PM MANAGER VALIDATION Gender Identity Male 06/04/2024 9:38 AM MANAGER VALIDATION Sexual Orientation Not on file 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 Not on file [...] Description 11/28/2024 11:20 AM CDT Office Visit [facility] Multispecialty Care - [address], [address] [place] [phone] Prachi Mojica MD [address] [place] [address] Health Maintenance Due Date Last Done Comments [...] or 60+ Years Completed 04/28/2023 PHQ-2 (Physician [place]) Completed 06/04/2024 Meningococcal B Vaccine Aged Out [...] 08/22/2024 HEPATITIS C ANTIBODY 07/08/2021 3:[address] ABD+PEL W CON STAT 10/03/2019 3:51 [...] Anatomical Region Laterality Modality Other 10/01/2024 Result [facility] Scanned SCANNING Final Resu lt * SUTURE [...] procedure well with no immediate complications Result [facility] Erin SOLARES PROCEDURE/MINOR SURGICAL ORDER JIGNESH Final Result * MRI GENERIC (08/24/2024) Only the most recent of3 resultswithin the time period is included. Anatomical Region Laterality Modality Other 08/24/2024 Result [facility] Scanned SCANNING Final Resu lt * CT GENERIC (08/22/2024) Only the most recent of2 resultswithin the time period is included. Anatomical Region Laterality Modality Other 08/22/2024 Result [facility] Scanned SCANNING Final Resu lt * IMAGE GENERIC (08/22/2024) Only the most recent of4 resultswithin the time period is included. Anatomical Region Laterality Modality Other 08/22/2024 Result [facility] Scanned SCANNING Final Resu lt * HEPATITIS C ANTIBODY (07/08/2021 3:20 PM MANAGER VALIDATION) HEPATITIS C AB <0.1 0.0 - 0.9 s/co ratio [facility] 1 Comment: Negative: < 0.8 Indeterminate: 0.8 - 0.9 Positive: > 0.9 The CDC recommends that a positive HCV antibody result be followed up with a HCV Nucleic Acid Amplification test (372376). 07/08/2021 3:20 PM MANAGER VALIDATION 07/08/2021 Narrative [facility] - 07/09/2021 12:10 PM MANAGER VALIDATION Performed at: 01 - [facility] [address] [id number] Gauntlet Pairer: Blaise Kirk PhD, Phone: [phone] us Erin [facility] Final Result Performing Organization Address City/State/[facility] Co de Phone Number [facility] [address] [place] [address] [facility] 1 * CT ABD+PEL W CON (10/03/2019 3:51 PM CDT) Anatomical Region Laterality Modality Abdomen Computed Tomogra phy 10/03/2019 3:51 PM CDT us Renny Weaver MD CT Final Result * COLONOSCOPY (09/21/2018) Erin SOLARES SCANNING Final Result from Last 3 Months or Most Recently Relevant to Health Maintenance Insurance [employer] Care Teams Spinning Frame Tender Relationship Specialty Start Date End Date Erin Nicole FNP [address] [place] [address] PCP - General Nurse Practitioner Family 12/06/18
--- OUTSIDE RECORDS SUMMARY | 2024-10-17 23:58 | XMS_ITS | Clinical Summary ---
Author Organization [facility] Address [address] [place] [address] Care Team Providers Care Silk Blocker Name Role Phone Erin Nicole APRN-JUDICIAL REPORTER Primary Care Provider [phone] Source Comments [facility],non-owned Affiliates and Associated Physician Practices is amultiple site organization consisting of ambulatory clinics and hospital sitesin [place], [place], [place] and [place]. This disclosure is being madepursuant to the Care Everywhere program and may not contain all information available regarding this patient. Last updated 18.[facility] Allergies No known active allergies Medications * [...] on file Legal Sex Male 9:05 AM ADVERTISING SPECIALIST Gender Identity Not on file Sexual Orientation [...] GENERIC COMMERCIAL GENERIC PAYOR GENERIC Care Teams Silk Blocker Relationship Specialty Start Date End Date Erin Nicole APRN-JUDICIAL REPORTER [address] [place] [address] PCP - General 07/03/19
--- OUTSIDE RECORDS SUMMARY | 2024-10-17 23:58 | XMS_ITS | CONTINUITY OF CARE DOCUMENT ---
Author Name moses kameronlynnette Address Unknown Organization [facility] Address [address] [facility] [address] [place] [address] Phone [phone] Care Team Providers Care Top Ironer Name Role Phone Kimberly HASKINS, Sourav Unavailable [phone] VINAY STEIN MD Unavailable [phone] VINAY STEIN MD Unavailable [phone] PROBLEMS Condition Status Date Provider Notes Hypercholesterolemia [...] In-person encounter Office Visit Sourav Harris MD [facility] Cardiology examinationBradycardia - In-person encounter Office Visit Sourav Harris MD [facility] - In-person encounter Office Visit Sourav Harris MD [facility] - In-person encounter Office Visit Sourav Harris MD [facility] - In-person encounter Office Visit Sourav Harris MD [facility] - In-person encounter Office Visit Sourav Harris MD [facility] Atrial fibrillation, paroxysmal - In-person encounter Office Visit Sourav Harris MD [facility] PACs - In-person encounter Office Visit Sourav Harris MD [facility] Chest painHypertensionChronic back painObstructive sleep apneaMorbid obesityCOPDIndigestion VITAL SIGNS Date Observation Value Provider Body Mass Index (Ratio) 41.74 kg/m2 Sixto Fuentes blood pressure, diastolic 43 mm[Hg] emeli Contreras blood pressure, systolic 135 mm[Hg] Juanitajennifer ivnicius Contreras oxygen saturation, oximetry 97 % Christina Contreras pulse rate 47 /min Christina Contreras respiratory rate E&M 12 /min Christina Contreras weight E&M 334 [lb_av] Christina Contreras height E&M 75 [in_i] [facility], [facility] regular emeli [...] lder Body Mass Index (Ratio) 41.99 kg/m2 [facility] blood pressure, cuff size large Ke rri [...] lder Body Mass Index (Ratio) 43.62 kg/m2 [facility] blood pressure, cuff size large Ke rri [...] blood pressure, diastolic 90 mm[Hg] [facility] [place] blood pressure, systolic 141 mm[Hg] Gregg waldo [place] oxygen saturation, oximetry 97 % Sumi [place] pulse rate 66 /min Sumi Leepr n respiratory rate E&M 16 /min Britton youngblood [place] blood pressure, cuff size large [facility] [place] weight E&M 340 [lb_av] Sumi [facility] n height E&M 75 [in_i] Sumi [facility] n Body Mass Index (Ratio) 42.62 kg/m2 [...] blood pressure, cuff size large Ke rri Gruenenfhialee blood pressure, diastolic 72 mm[Hg] Ke rri [...] er height E&M 75 [in_i] Tere Lindquist [facility] ALLERGIES No Known Drug Allergies RESULTS Date [...] 0-149 5 cholesterol, serum 185 mg/dL [employer] [phone]/05/1 platelet count 242 X10E3/UL [employer] [phone]/05/1 5 red blood cell distribution width 12.7 [...] 3.5-5.2 5 sodium, serum 141 mmol/L [employer] [phone]/05/1 5 urea nitrogen/creatinine ratio, serum 15 [employer] [...] Fuentes smoking status Never smoker Rizwan Hur[facility] alcohol use, average drinks per day 2 [...] Payer name Policy type / Coverage type [place] [employer] ID [employer] PPO O [id number] ADVANCE DIRECTIVES Name Date DISCUSSED - NO DECISION MADE TREATMENT PLAN Date Name Performer [id number],C, B P today: 120/60 P rior BP: [...] mouth once a day Myriam Lewis NP [id number],C,EKG today SB 58 Myriam Lewis NP [id number],C,E KG today SB 58 T he following [...] 1 tablet as needed Myriam Lewis NP [id number],C,V arying pressures at home with BPs as high as 160-170. Will keep him on Metoprolol 50 mg which he is taking BID, will increase his Lisinopril 20 mg to two tablets daily BP today: 126/72 P rior BP: 141/90 (07/01/2022) Labs Reviewed: C reat: 1.10 (09/12/2020) C hol: 185 (09/12/2020) HDL: 43 (09/12/2020) [facility] [id number],C,N o recent episodes. EKG todays showed sinus rhythm. surveillance system monitor showed Sinus Rhythm with occasional PVCs and rare PACs. The average HR was 60bpm with a maximum rate of 115bpm and a minimum rate of 43bpm. VE?s were documented as triplets, couplets, trigeminal cycles, and isolated beats with a total burden of 1.63%. [facility] [id number],C,M ild Obstructive Airways Disease f rom PFT [facility] [id number],C, H is updated medication list for this problem includes: Atorvastatin 20 Mg Tablet (Atorvastatin) Lipitor 80 Mg Tablet (Atorvastatin) ..... 1 tablet once a day [facility] [id number],C,A dvised him to reduce salt intake. BP today: 141/90 P rior BP: 116/79 (03/18/2022) Labs Reviewed: C reat: 1.10 (09/12/2020) C hol: 185 (09/12/2020) HDL: 43 (09/12/2020) [facility] [id number],C,E cho showed normal LVEF. C hest pain is unlikley cardiac related. He is asymptmatic currently. [facility] [id number],C,E KG todays showed sinus rhythm. surveillance system monitor showed Sinus Rhythm with occasional PVCs and rare PACs. The average HR was 60bpm with a maximum rate of 115bpm and a minimum rate of 43bpm. VE?s were documented as triplets, couplets, trigeminal cycles, and isolated beats with a total burden of 1.63%. [facility] [id number],C,No sxs curren tly [facility] [id number],C, B P today: 116/79 P rior BP: 118/72 (11/27/2020) Labs Reviewed: C reat: 1.10 (09/12/2020) C hol: 185 (09/12/2020) HDL: 43 (09/12/2020) Warren Salcedo [id number],S, Warren Soriano jennifer [id number],C,N ew finding of AFIB at the hospital after he injured himself from a slip and fall at work. I will arrange for telemetry to assess for AF burden. W ill check echo and PFTs as well. He has been started on Eliquis 5 mg BID Warren Salcedo [id number],B, r ega stress showed abnormal perfusion imaging [...] once a day Orders: 9213 MOD 30-39min (CPT-59096) C omplete Echo (CPT-88162) A tamy Duplex Ultrasound (CPT-53942) Monitor - Telemetry (Mobile Cardiac) (CPT-02944) S chedule Followup (*) Sourav Harris MD [id number],S, n eeds AAA screening BP today: 118/72 P rior BP: 122/80 (09/11/2020) His updated medication list for this problem includes: Lisinopril 20 Mg Tablet (Lisinopril) ..... Take 1 twice a day Amlodipine 5 Mg Tablet (Amlodipine) ..... 1 tablet by mouth once a day Orders: E KG (CPT-12611) 9 9213 MOD 30-39min (CPT-71195) C omplete Echo (CPT-63208) A tamy Duplex Ultrasound (CPT-69755) M onitor - Telemetry (Mobile Cardiac) (CPT-13546) S chedule Followup (*) Sourav Harris MD [id number],S, a void NSAID if possible. t aking ibuprofen every other day O rders: 9213 MOD 30-39min (CPT-48166) C omplete Echo (CPT-01949) A tamy Duplex Ultrasound (CPT-93934) M onitor - Telemetry (Mobile Cardiac) (CPT-15484) Sourav Harris MD [id number],S, c an not tolerate CPAP Orders: 9213 MOD 30-39min (CPT-62544) C omplete Echo (CPT-61334) A tamy Duplex Ultrasound (CPT-34703) M onitor - Telemetry (Mobile Cardiac) (CPT-63636) Sourav Harris MD [id number],S, i mproved with exercise c [place] 1 week tele in 1 year Orders: 9213 MOD 30-39min (CPT-78695) C omplete Echo (CPT-55351) A tamy Duplex Ultrasound (CPT-60522) M onitor - Telemetry (Mobile Cardiac) (CPT-79470) Chano Reese [id number],S, w eight loss encouraged Chano Reese [id number],S, a void NSAID if possible. t aking ibuprofen every other day Chano Reese [id number],B, r ega stress showed abnormal perfusion imaging [...] once a day Orders: 9213 MOD 30-39min (CPT-85785) C omplete Echo (CPT-22585) A tamy Duplex Ultrasound (CPT-75399) M onitor - Telemetry (Mobile Cardiac) (CPT-30603) Chano Mary Ann [id number],S, n eeds AAA screening BP today: 118/72 P rior BP: 122/80 (09/11/2020) His updated medication list for this problem includes: Lisinopril 20 Mg Tablet (Lisinopril) ..... Take 1 twice a day Amlodipine 5 Mg Tablet (Amlodipine) ..... 1 tablet by mouth once a day Orders: E KG (CPT-82891) 9 9214 MOD 30-39min (CPT-12260) C omplete Echo (CPT-64383) A tamy Duplex Ultrasound (CPT-00081) M onitor - Telemetry (Mobile Cardiac) (CPT-42840) Chano Mary Ann [id number],S, c an not tolerate CPAP Chano Reese [...] C hol: 185 (09/12/2020) HDL: 43 (09/12/2020) [facility] Electrophysiology:No recent episodes. EKG todays showed sinus rhythm. surveillance system monitor showed Sinus Rhythm with occasional PVCs and rare PACs. The average HR was 60bpm with a maximum rate of 115bpm and a minimum rate of 43bpm. VE?s were documented as triplets, couplets, trigeminal cycles, and isolated beats with a total burden of 1.63%. [facility] Cardiology:Mild Obst ructive Airways Disease f rom PFT [facility] Cardiology: H is updated medication list for this problem includes: Atorvastatin 20 Mg Tablet (Atorvastatin) Lipitor 80 Mg Tablet (Atorvastatin) ..... 1 tablet once a day [facility] Cardiology:Advised h im to reduce salt intake. BP today: 141/90 P rior BP: 116/79 (03/18/2022) Labs Reviewed: C reat: 1.10 (09/12/2020) C hol: 185 (09/12/2020) HDL: 43 (09/12/2020) [facility] Cardiology:Echo show ed normal LVEF. C hest pain is unlikley cardiac related. He is asymptmatic currently. [facility] Cardiology:EKG today s showed sinus rhythm. surveillance system monitor showed Sinus Rhythm with occasional PVCs and rare PACs. The average HR was 60bpm with a maximum rate of 115bpm and a minimum rate of 43bpm. VE?s were documented as triplets, couplets, trigeminal cycles, and isolated beats with a total burden of 1.63%. [facility] Electrophysiology:No sxs current ly [facility] Electrophysiology: B P today: 116/79 P rior BP: 118/72 (11/27/2020) Labs Reviewed: C reat: 1.10 (09/12/2020) C hol: 185 (09/12/2020) HDL: 43 (09/12/2020) [facility] Electrophysiology Warren Salcedo Electrophysiology:Ne w finding of [...] once a day Orders: 9213 MOD 30-39min (CPT-53171) C omplete Echo (CPT-22585) A tamy Duplex Ultrasound (CPT-78278) M onitor - Telemetry (Mobile Cardiac) (CPT-06995) S chedule Followup (*) Sourav Harris MD Electrophysiology Fo llow up : n eeds AAA screening BP today: 118/72 P rior BP: 122/80 (09/11/2020) His updated medication list for this problem includes: Lisinopril 20 Mg Tablet (Lisinopril) ..... Take 1 twice a day Amlodipine 5 Mg Tablet (Amlodipine) ..... 1 tablet by mouth once a day Orders: E KG (CPT-53408) 9213 MOD 30-39min (CPT-78633) C omplete Echo (CPT-59417) A tamy Duplex Ultrasound (CPT-10375) M onitor - Telemetry (Mobile Cardiac) (CPT-73845) S chedule Followup (*) Sourav Harris MD Electrophysiology Fo llow up : a void NSAID if possible. t aking ibuprofen every other day O rders: 9213 MOD 30-39min (CPT-26884) C omplete Echo (CPT-90344) A tamy Duplex Ultrasound (CPT-17158) M onitor - Telemetry (Mobile Cardiac) (CPT-64813) Sourav Harris MD Electrophysiology Fo llow up : c an not tolerate CPAP Orders: 9213 MOD 30-39min (CPT-03534) C omplete Echo (CPT-62102) A tamy Duplex Ultrasound (CPT-05795) M onitor - Telemetry (Mobile Cardiac) (CPT-07524) Sourav Harris MD Electrophysiology Fo llow up : i mproved with exercise c [place] 1 week tele in 1 year Orders: 9213 MOD 30-39min (CPT-01774) C omplete Echo (CPT-80650) A tamy Duplex Ultrasound (CPT-81542) M onitor - Telemetry (Mobile Cardiac) (CPT-48291) Chano Reese Electrophysiology Fo llow up : [...] once a day Orders: 9213 MOD 30-39min (CPT-13277) C omplete Echo (CPT-63828) A tamy Duplex Ultrasound (CPT-33069) M onitor - Telemetry (Mobile Cardiac) (CPT-49343) Chano Reese Electrophysiology Fo llow up : n eeds AAA screening BP today: 118/72 P rior BP: 122/80 (09/11/2020) His updated medication list for this problem includes: Lisinopril 20 Mg Tablet (Lisinopril) ..... Take 1 twice a day Amlodipine 5 Mg Tablet (Amlodipine) ..... 1 tablet by mouth once a day Orders: E KG (CPT-40068) 9 9214 MOD 30-39min (CPT-53380) C omplete Echo (CPT-49187) A tamy Duplex Ultrasound (CPT-30188) M onitor - Telemetry (Mobile Cardiac) (CPT-67873) Chano Reese Electrophysiology Fo llow up : c an not tolerate CPAP Chano Reese Electrophysiology Ne w Patient - call patient please:PPI one capsule twice a day - total duration of treatment 2 months Sourav Harris MD Electrophysiology Ne w Patient - call patient please:avoid NSAID if possible. Orders: S tress Regadenoson (CPT-00396) C omplete Echo (CPT-37473) C OMPREHENSIVE METABOLIC PANEL, W/EGFR (43585) L IPID PANEL (7600) C BC (H/H, RBC, INDICES, WBC, PLT) (1759) M AGNESIUM (622) B TYPE NATRIURETIC PEPTIDE (BNP) (21054) P ROTHROMBIN TIME WITH INR (8847) T SH, free T4, total T3 (7444) 9 9205 HIGH 60-74 min (CPT-70665) Sourav Harris MD Electrophysiology Ne w Patient - call patient please: H is updated medication list for this problem includes: Proair Hfa 108 (90 Base) Mcg/act Inhalation Aerosol Solution (Albuterol sulfate) ..... As directed Ventolin Hfa 108 (90 Base) Mcg/act Inhalation Aerosol Solution (Albuterol sulfate) ..... 2 puffs every 4-6 hours Orders: B TYPE NATRIURETIC PEPTIDE (BNP) (84122) P ROTHROMBIN TIME WITH INR (8847) T SH, free T4, total T3 (7444) 9 9205 HIGH 60-74 min (CPT-47413) Sourav Harris MD Electrophysiology Ne w Patient - call patient please:weight loss encouraged O rders: S tress Regadenoson (CPT-73974) C omplete Echo (CPT-89900) C OMPREHENSIVE METABOLIC PANEL, W/EGFR (41236) L IPID PANEL (7600) C BC (H/H, RBC, INDICES, WBC, PLT) (1759) M AGNESIUM (622) B TYPE NATRIURETIC PEPTIDE (BNP) (49575) P ROTHROMBIN TIME WITH INR (8847) T SH, free T4, total T3 (7444) 9 9205 HIGH 60-74 min (CPT-81373) Sourav Harris MD Electrophysiology Ne w Patient - call patient please:can not tolerate CPAP O rders: S tress Regadenoson (CPT-67024) C omplete Echo (CPT-94533) C OMPREHENSIVE METABOLIC PANEL, W/EGFR (80689) L IPID PANEL (7600) C BC (H/H, RBC, INDICES, WBC, PLT) (1759) M AGNESIUM (622) B TYPE NATRIURETIC PEPTIDE (BNP) (51743) P ROTHROMBIN TIME WITH INR (8847) T SH, free T4, total T3 (7444) 9 9205 HIGH 60-74 min (CPT-28081) Sourav Harris MD Electrophysiology Ne w Patient - call patient please:controlled Will decrease amlodipine to 5 mg daily Orders: S tress Regadenoson (CPT-87016) C omplete Echo (CPT-81186) C OMPREHENSIVE METABOLIC PANEL, W/EGFR (02235) L IPID PANEL (7600) C BC (H/H, RBC, INDICES, WBC, PLT) (1759) M AGNESIUM (622) B TYPE NATRIURETIC PEPTIDE (BNP) (76259) P ROTHROMBIN TIME WITH INR (8847) T SH, free T4, total T3 (7444) 9 9205 HIGH 60-74 min (CPT-77419) His updated medication list for this problem [...] amlodipine to 5 mg daily Lorena Alban [employer]AT DIESEL MOTOR MECHANIC Electrophysiology Ne w Patient - call patient please:can not tolerate CPAP Lorena Alban [employer] MOTOR MECHANIC Electrophysiology Ne w Patient - call patient please:weight loss encouraged Lorena Phoenix [employer] MOTOR MECHANIC Date Name Carotid Duplex Bilat eral Monitor - Telemetry (Mobile Cardiac) Complete Echo Aorta Duplex Ultraso und Complete Echo Aorta Duplex Ultraso und Monitor - Telemetry (Mobile Cardiac) DLCO - 93161 FRC - 41995 FVC - 56642 Complete Echo Monitor - Telemetry (Mobile Cardiac) [...] completed FVC / MVV with bronchodilator - 67252 Sourav Harris MD completed FRC - 09129 Sourav fitzpatrick MD completed SpO2 w/o 6min walk/titration Sourav Harris MD completed SVC - 48014 Sourav fitzpatrick MD completed DLCO - 36143 Sourav fitzpatrick MD completed EKG Sourav fitzpatrick MD completed Schedule Followup Sourav woodson MD fu in 1 year completed EKG Sourav fitzpatrick MD completed Spirometry Sourav fitzpatrick MD completed FVC / MVV with bronchodilator - 30182 Sourav Harris MD completed FR - 28770 Sourav fitzpatrick MD completed SVC - 15032 Sourav fitzpatrick MD completed EKG Sourav fitzpatrick MD completed
--- OUTSIDE RECORDS SUMMARY | 2024-10-17 23:58 | XMS_ITS | Encounter Summary ---
Author Organization [facility] Address [address] [place] [address] Care Team Providers Care Mac Developer Name Role Phone Eirn Nicole SUJATHA Primary Care Provider [phone] Encounter Details Date Type Department Care Team (Late Contact Info) Description 02/16/2023 [employer] Message Enc [facility] Medical [facility] Family & Internal Medicine [address] [address] [facility] Provider phone number Social History Tobacco Use [...] Sex Assigned at Male 06/04/2024 9:38 AM SLAT BASKET TOP MAKER Legal Sex Male 10:27 PM SLAT BASKET TOP MAKER Gender Identity Male 06/04/2024 9:38 AM SLAT BASKET TOP MAKER Sexual Orientation Not on file 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 Not on file Not on file Not on file Not on file Not on file Not on file documented as of this encounter Plan of Treatment Upcoming Encounters Date Type Department Care Team (Late Contact Info) Description 11/28/2024 11:20 AM CDT Office Visit [facility] Multispecialty Care - [facility] [address] [facility], [address] [place] [address] Prachi Mojica MD [address] [place] [address] documented as of this encounter Visit Diagnoses Not on filedocumented in this encounter Additional Health Concerns Assessment Noted Time PHQ-9 Depression Total Score: 1 02/07/20 23 2:52 PM CDT documented as of this encounter Care Teams Mac Developer Relationship Specialty Start Date End Date Erin Nicole FNP [address] [place] [address] PCP - General Nurse Practitioner Family 12/06/18 documented as of this encounter
[2024-10-18 00:05] VITALS: BP 143/98; PULSE 61; RESP 16; TEMP 36.7; O2SAT 100
--- OUTSIDE RECORDS SUMMARY | 2024-10-18 00:25 | XMS_ITS | Encounter Summary ---
Author Organization [facility] Address [address] [place] [address] Care Team Providers Care Building And Construction Manager Name Role Phone Corey Erin SUJATHA Primary Care Provider [phone] Renny Weaver MD Unavailable [phone] Encounter Details Date Type Department Care Team (Late st Contact Info) Description 12/02/2019 Prep for Procedure [facility] Pre-Admission Testing [place], [place] [id number] Denis Higgins MD [address] [place] [address] Social History Tobacco Use Types Packs/Day [...] Sex Assigned at Male 06/04/2024 9:38 AM ARTICULATION OFFICER Legal Sex Male 10:27 PM ARTICULATION OFFICER Gender Identity Male 06/04/2024 9:38 AM ARTICULATION OFFICER Sexual Orientation Not on file 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 Not on file Not [...] [facility] Care - [facility] [address] [facility], [address] [place] [address] Prachi Mojica MD [address] [place] [address] documented as of this encounter Visit Diagnoses Diagnosis Preop examination- Primary Preoperative examination, unspecified documented in this encounter Additional Health Concerns Infection Onset Date Last Indicated Resolved Time COVID-19 Rule Out 02/01/2020 02/01/2020 02/02/2020 1:26 PM CDT COVID-19 Rule Out 03/17/2020 09/11/2019 03/17/2020 10:13 AM ARTICULATION OFFICER COVID-19 Rule Out 05/26/2020 05/30/2020 06/02/2020 12:34 AM ARTICULATION OFFICER COVID-19 Rule Out 04/13/2022 04/13/2022 04/20/2022 12:32 AM ARTICULATION OFFICER Assessment Noted Time PHQ-9 Depression Total Score: 5 05/31/19 20 1:19 PM ARTICULATION OFFICER documented as of this encounter Care Teams Building And Construction Manager Relationship Specialty Start Date End Date Erin Nicole FNP [address] [place] [address] PCP - General Nurse Practitioner Family 12/06/18 Renny Weaver MD [address] [place] [address] PCP - Med Group - [facility] Attributed Provider 03/05/19 05/01/20 documented as of this encounter
--- OUTSIDE RECORDS SUMMARY | 2024-10-18 00:25 | XMS_ITS | Clinical Summary ---
Author Organization [facility] Address [address] [facility] [place] [address] Care Team Providers Care Radiographer Technologist Name Role Phone Erin Nicole APRN-RINKMAN Primary Care Provider [phone] Source Comments [facility],non-owned Affiliates and Associated Physician Practices is amultiple site organization consisting of ambulatory clinics and hospital sitesin [place], [place], [place] and [place]. This disclosure is being madepursuant to the Care Everywhere program and may not contain all information available regarding this patient. 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
--- OUTSIDE RECORDS SUMMARY | 2024-10-18 00:25 | XMS_ITS | CONTINUITY OF CARE DOCUMENT ---
Author Name moses kameronlynnette Address Unknown Organization [facility] Address [address] [facility] [address] [place] [address] Phone [phone] Care Team Providers Care Dielectric Press Operator Name Role Phone Kimberly HASKINS, Sourav Unavailable VINAY STEIN MD Unavailable VINAY STEIN MD Unavailable [phone] PROBLEMS Condition Status Date Provider Notes Hypercholesterolemia [...] In-person encounter Office Visit Sourav Harris MD [facility] Cardiology examinationBradycardia - In-person encounter Office Visit Sourav Harris MD [facility] - In-person encounter Office Visit Sourav Harris MD [facility] - In-person encounter Office Visit Sourav Harris MD [facility] - In-person encounter Office Visit Sourav Harris MD [facility] - In-person encounter Office Visit Sourav Harris MD [facility] Atrial fibrillation, paroxysmal - In-person encounter Office Visit Sourav Harris MD [facility] PACs - In-person encounter Office Visit Sourav Harris MD [facility] Chest painHypertensionChronic back painObstructive sleep [...] [lb_av] Christina Contreras height E&M 75 [in_i] [facility], [facility] size regular emeli [...] lder Body Mass Index (Ratio) 41.99 kg/m2 [facility] blood pressure, cuff size large Ke rri [...] lder Body Mass Index (Ratio) 43.62 kg/m2 [facility] blood pressure, cuff size large Ke rri [...] blood pressure, diastolic 90 mm[Hg] St leo [place] blood pressure, systolic 141 mm[Hg] Gregg waldo [place] oxygen saturation, oximetry 97 % Sumi [place] pulse rate 66 /min Sumi Leeaz n respiratory rate E&M 16 /min Britton youngblood [place] blood pressure, cuff size large [facility] leo [place] weight E&M 340 [lb_av] Sumi [facility] n height E&M 75 [in_i] Sumi [facility] n Body Mass Index (Ratio) [...] Gruenenfelder blood pressure, systolic 118 mm[Hg] Jase Vgotelder oxygen saturation, oximetry 96 % Tere Vogtelder [...] er height E&M 75 [in_i] Tere Lindquist [facility] ALLERGIES No Known Drug Allergies RESULTS Date [...] 0-149 5 cholesterol, serum 185 mg/dL [facility] [phone]/05/1 platelet count 242 X10E3/UL [facility] [phone]/05/1 5 red blood cell distribution width 12.7 [...] 3.5-5.2 5 sodium, serum 141 mmol/L [facility] [phone]/05/1 5 urea nitrogen/creatinine ratio, serum 15 [employer] [...] Fuentes smoking status Never smoker Rizwan Hurley [facility] alcohol use, average drinks per day 2 [...] Payer name Policy type / Coverage type [employer]on [employer] party ID HUMANA PPO O [id number] ADVANCE DIRECTIVES Name Date DISCUSSED - NO DECISION MADE TREATMENT PLAN Date Name Performer [id number],C, B P today: 120/60 P rior BP: [...] mouth once a day Myriam Lewis NP [id number],C,EKG today SB 58 Myriam Lewis NP [id number],C,E KG today SB 58 T he following [...] 1 tablet as needed Myriam Lewis NP [id number],C,V arying pressures at home with BPs as high as 160-170. Will keep him on Metoprolol 50 mg which he is taking BID, will increase his Lisinopril 20 mg to two tablets daily BP today: 126/72 P rior BP: 141/90 (07/01/2022) Labs Reviewed: C reat: 1.10 (09/12/2020) C hol: 185 (09/12/2020) HDL: 43 (09/12/2020) [facility] [id number],C,N o recent episodes. EKG todays showed sinus rhythm. carpenter mate showed Sinus Rhythm with occasional PVCs and rare PACs. The average HR was 60bpm with a maximum rate of 115bpm and a minimum rate of 43bpm. VE?s were documented as triplets, couplets, trigeminal cycles, and isolated beats with a total burden of 1.63%. [facility] [id number],C,M ild Obstructive Airways Disease f rom PFT [facility] [id number],C, H is updated medication list for this problem includes: Atorvastatin 20 Mg Tablet (Atorvastatin) Lipitor 80 Mg Tablet (Atorvastatin) ..... 1 tablet once a day [facility] [id number],C,A dvised him to reduce salt intake. BP today: 141/90 P rior BP: 116/79 (03/18/2022) Labs Reviewed: C reat: 1.10 (09/12/2020) C hol: 185 (09/12/2020) HDL: 43 (09/12/2020) [facility] [id number],C,E cho showed normal LVEF. C hest pain is unlikley cardiac related. He is asymptmatic currently. [facility] [id number],C,E KG todays showed sinus rhythm. carpenter mate showed Sinus Rhythm with occasional PVCs and rare PACs. The average HR was 60bpm with a maximum rate of 115bpm and a minimum rate of 43bpm. VE?s were documented as triplets, couplets, trigeminal cycles, and isolated beats with a total burden of 1.63%. [facility] [id number],C,No sxs curren tly [facility] [id number],C, B P today: 116/79 P rior BP: 118/72 (11/27/2020) Labs Reviewed: C reat: 1.10 (09/12/2020) C hol: 185 (09/12/2020) HDL: 43 (09/12/2020) Warren Salcedo [id number],S, Warren Soriano jennifer [id number],C,N ew finding of AFIB at the hospital after he injured himself from a slip and fall at work. I will arrange for telemetry to assess for AF burden. W ill check echo and PFTs as well. He has been started on Eliquis 5 mg BID Warren Salcedo [id number],B, r ega stress showed abnormal perfusion imaging [...] once a day Orders: 9213 MOD 30-39min (CPT-66219) C omplete Echo (CPT-92187) A tamy Duplex Ultrasound (CPT-50003) Monitor - Telemetry (Mobile Cardiac) (CPT-97029) S chedule Followup (*) Sourav Harris MD [id number],S, n eeds AAA screening BP today: 118/72 P rior BP: 122/80 (09/11/2020) His updated medication list for this problem includes: Lisinopril 20 Mg Tablet (Lisinopril) ..... Take 1 twice a day Amlodipine 5 Mg Tablet (Amlodipine) ..... 1 tablet by mouth once a day Orders: E KG (CPT-89215) 9 9213 MOD 30-39min (CPT-93690) C omplete Echo (CPT-11052) A tamy Duplex Ultrasound (CPT-50773) M onitor - Telemetry (Mobile Cardiac) (CPT-90736) S chedule Followup (*) Sourav Harris MD [id number],S, a void NSAID if possible. t aking ibuprofen every other day O rders: 9213 MOD 30-39min (CPT-71012) C omplete Echo (CPT-72437) A tamy Duplex Ultrasound (CPT-68536) M onitor - Telemetry (Mobile Cardiac) (CPT-61315) Sourav Harris MD [id number],S, c an not tolerate CPAP Orders: 9213 MOD 30-39min (CPT-91017) C omplete Echo (CPT-24666) A tamy Duplex Ultrasound (CPT-36509) M onitor - Telemetry (Mobile Cardiac) (CPT-47442) Sourav Harris MD [id number],S, i mproved with exercise c [place] 1 week tele in 1 year Orders: 9213 MOD 30-39min (CPT-78136) C omplete Echo (CPT-80056) A tamy Duplex Ultrasound (CPT-87253) M onitor - Telemetry (Mobile Cardiac) (CPT-66436) Chano Reese [id number],S, w eight loss encouraged Chano Reese [id number],S, a void NSAID if possible. t aking ibuprofen every other day Chano Reese [id number],B, r ega stress showed abnormal perfusion imaging [...] once a day Orders: 9213 MOD 30-39min (CPT-55846) C omplete Echo (CPT-24527) A tamy Duplex Ultrasound (CPT-99213) M onitor - Telemetry (Mobile Cardiac) (CPT-36546) Chano Mary Ann [id number],S, n eeds AAA screening BP today: 118/72 P rior BP: 122/80 (09/11/2020) His updated medication list for this problem includes: Lisinopril 20 Mg Tablet (Lisinopril) ..... Take 1 twice a day Amlodipine 5 Mg Tablet (Amlodipine) ..... 1 tablet by mouth once a day Orders: E KG (CPT-12520) 9 9214 MOD 30-39min (CPT-58283) C omplete Echo (CPT-21319) A tamy Duplex Ultrasound (CPT-77329) M onitor - Telemetry (Mobile Cardiac) (CPT-64114) Chano Mary Ann [id number],S, c an not tolerate CPAP Chano Reese [...] C hol: 185 (09/12/2020) HDL: 43 (09/12/2020) [facility] Electrophysiology:No recent episodes. EKG todays showed sinus rhythm. carpenter mate showed Sinus Rhythm with occasional PVCs and rare PACs. The average HR was 60bpm with a maximum rate of 115bpm and a minimum rate of 43bpm. VE?s were documented as triplets, couplets, trigeminal cycles, and isolated beats with a total burden of 1.63%. [facility] Cardiology:Mild Obst ructive Airways Disease f rom PFT [facility] Cardiology: H is updated medication list for this problem includes: Atorvastatin 20 Mg Tablet (Atorvastatin) Lipitor 80 Mg Tablet (Atorvastatin) ..... 1 tablet once a day [facility] Cardiology:Advised h im to reduce salt intake. BP today: 141/90 P rior BP: 116/79 (03/18/2022) Labs Reviewed: C reat: 1.10 (09/12/2020) C hol: 185 (09/12/2020) HDL: 43 (09/12/2020) [facility] Cardiology:Echo show ed normal LVEF. C hest pain is unlikley cardiac related. He is asymptmatic currently. [facility] Cardiology:EKG today s showed sinus rhythm. carpenter mate showed Sinus Rhythm with occasional PVCs and rare PACs. The average HR was 60bpm with a maximum rate of 115bpm and a minimum rate of 43bpm. VE?s were documented as triplets, couplets, trigeminal cycles, and isolated beats with a total burden of 1.63%. [facility] Electrophysiology:No sxs current ly [facility] Electrophysiology: B P today: 116/79 P rior BP: 118/72 (11/27/2020) Labs Reviewed: C reat: 1.10 (09/12/2020) C hol: 185 (09/12/2020) HDL: 43 (09/12/2020) [facility] Electrophysiology Warren Salcedo Electrophysiology:Ne w finding of [...] once a day Orders: 9213 MOD 30-39min (CPT-28761) C omplete Echo (CPT-32944) A tamy Duplex Ultrasound (CPT-74623) M onitor - Telemetry (Mobile Cardiac) (CPT-89497) S chedule Followup (*) Sourav Harris MD Electrophysiology Fo llow up : n eeds AAA screening BP today: 118/72 P rior BP: 122/80 (09/11/2020) His updated medication list for this problem includes: Lisinopril 20 Mg Tablet (Lisinopril) ..... Take 1 twice a day Amlodipine 5 Mg Tablet (Amlodipine) ..... 1 tablet by mouth once a day Orders: E KG (CPT-60250) 9213 MOD 30-39min (CPT-34242) C omplete Echo (CPT-55730) A tamy Duplex Ultrasound (CPT-45945) M onitor - Telemetry (Mobile Cardiac) (CPT-78319) S chedule Followup (*) Sourav Harris MD Electrophysiology Fo llow up : a void NSAID if possible. t aking ibuprofen every other day O rders: 9213 MOD 30-39min (CPT-69323) C omplete Echo (CPT-43231) A tamy Duplex Ultrasound (CPT-47670) M onitor - Telemetry (Mobile Cardiac) (CPT-70611) Sourav Harris MD Electrophysiology Fo llow up : c an not tolerate CPAP Orders: 9213 MOD 30-39min (CPT-76219) C omplete Echo (CPT-17905) A tamy Duplex Ultrasound (CPT-15715) M onitor - Telemetry (Mobile Cardiac) (CPT-30170) Sourav Harirs MD Electrophysiology Fo llow up : i mproved with exercise c heck 1 week tele in 1 year Orders: 9213 MOD 30-39min (CPT-26279) C omplete Echo (CPT-09932) A tamy Duplex Ultrasound (CPT-68590) M onitor - Telemetry (Mobile Cardiac) (CPT-65659) Chano Reese Electrophysiology Fo llow up : [...] once a day Orders: 9213 MOD 30-39min (CPT-09318) C omplete Echo (CPT-14171) A tamy Duplex Ultrasound (CPT-50175) M onitor - Telemetry (Mobile Cardiac) (CPT-16282) Chano Reese Electrophysiology Fo llow up : n eeds AAA screening BP today: 118/72 P rior BP: 122/80 (09/11/2020) His updated medication list for this problem includes: Lisinopril 20 Mg Tablet (Lisinopril) ..... Take 1 twice a day Amlodipine 5 Mg Tablet (Amlodipine) ..... 1 tablet by mouth once a day Orders: E KG (CPT-34047) 9 9214 MOD 30-39min (CPT-07825) C omplete Echo (CPT-41675) A tamy Duplex Ultrasound (CPT-54216) M onitor - Telemetry (Mobile Cardiac) (CPT-83762) Chano Reese Electrophysiology Fo llow up : c an not tolerate CPAP Chano Reese Electrophysiology Ne w Patient - call patient please:PPI one capsule twice a day - total duration of treatment 2 months Sourav Harris MD Electrophysiology Ne w Patient - call patient please:avoid NSAID if possible. Orders: S tress Regadenoson (CPT-62000) C omplete Echo (CPT-51317) C OMPREHENSIVE METABOLIC PANEL, W/EGFR (51061) L IPID PANEL (7600) C BC (H/H, RBC, INDICES, WBC, PLT) (1759) M AGNESIUM (622) B TYPE NATRIURETIC PEPTIDE (BNP) (26716) P ROTHROMBIN TIME WITH INR (8847) T SH, free T4, total T3 (7444) 9 9205 HIGH 60-74 min (CPT-08116) Sourav Harris MD Electrophysiology Ne w Patient - call patient please: H is updated medication list for this problem includes: Proair Hfa 108 (90 Base) Mcg/act Inhalation Aerosol Solution (Albuterol sulfate) ..... As directed Ventolin Hfa 108 (90 Base) Mcg/act Inhalation Aerosol Solution (Albuterol sulfate) ..... 2 puffs every 4-6 hours Orders: B TYPE NATRIURETIC PEPTIDE (BNP) (56216) P ROTHROMBIN TIME WITH INR (8847) T SH, free T4, total T3 (7444) 9 9205 HIGH 60-74 min (CPT-37957) Sourav Harris MD Electrophysiology Ne w Patient - call patient please:weight loss encouraged O rders: S tress Regadenoson (CPT-73362) C omplete Echo (CPT-70676) C OMPREHENSIVE METABOLIC PANEL, W/EGFR (60459) L IPID PANEL (7600) C BC (H/H, RBC, INDICES, WBC, PLT) (1759) M AGNESIUM (622) B TYPE NATRIURETIC PEPTIDE (BNP) (86822) P ROTHROMBIN TIME WITH INR (8847) T SH, free T4, total T3 (7444) 9 9205 HIGH 60-74 min (CPT-16014) Sourav Harris MD Electrophysiology Ne w Patient - call patient please:can not tolerate CPAP O rders: S tress Regadenoson (CPT-81649) C omplete Echo (CPT-28731) C OMPREHENSIVE METABOLIC PANEL, W/EGFR (54558) L IPID PANEL (7600) C BC (H/H, RBC, INDICES, WBC, PLT) (1759) M AGNESIUM (622) B TYPE NATRIURETIC PEPTIDE (BNP) (39693) P ROTHROMBIN TIME WITH INR (8847) T SH, free T4, total T3 (7444) 9 9205 HIGH 60-74 min (CPT-40391) Sourav Harris MD Electrophysiology Ne w Patient - call patient please:controlled Will decrease amlodipine to 5 mg daily Orders: S tress Regadenoson (CPT-93159) C omplete Echo (CPT-67841) C OMPREHENSIVE METABOLIC PANEL, W/EGFR (89632) L IPID PANEL (7600) C BC (H/H, RBC, INDICES, WBC, PLT) (1759) M AGNESIUM (622) B TYPE NATRIURETIC PEPTIDE (BNP) (30686) P ROTHROMBIN TIME WITH INR (8847) T SH, free T4, total T3 (7444) 9 9205 HIGH 60-74 min (CPT-70558) His updated medication list for this problem [...] amlodipine to 5 mg daily Lorena Alban TOOLROOM HELPER Electrophysiology Ne w Patient - call patient please:can not tolerate CPAP Lorena Alban TOOLROOM HELPER Electrophysiology Ne w Patient - call patient please:weight loss encouraged Lorena Phoenix TOOLROOM HELPER Date Name Carotid Duplex Bilat eral Monitor - Telemetry (Mobile Cardiac) Complete Echo Aorta Duplex Ultraso und Complete Echo Aorta Duplex Ultraso und Monitor - Telemetry (Mobile Cardiac) DLCO - 49182 FRC - 24922 FVC - 86109 Complete Echo Monitor - Telemetry (Mobile Cardiac) [...] completed FVC / MVV with bronchodilator - 50858 Sourav Harris MD completed FRC - 38571 Sourav fitzpatrick MD completed SpO2 w/o 6min walk/titration Sourav Harris MD completed SVC - 12391 Sourav fitzpatrick MD completed DLCO - 55564 Sourav fitzpatrick MD completed EKG Sourav fitzpatrick MD completed Schedule Followup Sourav woodson MD fu in 1 year completed EKG Sourav fitzpatrick MD completed Spirometry Sourav fitzpatrick MD completed FVC / MVV with bronchodilator - 60123 Sourav Harris MD completed FR - 83356 Sourav fitzpatrick MD completed SVC - 18957 Sourav fitzpatrick MD completed EKG Sourav fitzpatrick MD completed
--- OUTSIDE RECORDS SUMMARY | 2024-10-18 00:25 | XMS_ITS | Clinical Summary ---
Author Organization [facility] Address [address] [place] [phone] Care Team Providers Care Marine Designer Name Role Phone Erin Nicole NP Primary Care Provider [phone] Allergies No known active allergies Medications betamethasone [...] on file Legal Sex Male 6:40 PM CLAIM EXAMINER Gender Identity Not on file Sexual Orientation [...] Insurance [employer] CHOICE MEDICARE PPO Care Teams Marine Designer Relationship Specialty Start Date End Date Erin Nicole NP [address] [place] [address] PCP - General Nurse Practitioner 08/17/22
--- OUTSIDE RECORDS SUMMARY | 2024-10-18 00:25 | XMS_ITS | Referral Summary ---
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
--- OUTSIDE RECORDS SUMMARY | 2024-10-18 00:25 | XMS_ITS | Encounter Summary ---
Author Organization [facility] Address [address] [place] [address] Care Team Providers Care Outside Medical Sales Representative Name Role Phone Corey Erin SUJATHA Primary Care Provider [phone] Renny Weaver MD Unavailable Encounter Details Date Type Department Care Team (Late st Contact Info) Description 01/29/[address] [facility] Pre-Admission Testing [place], [place] [id number] Denis Higgins MD [address] [place] [address] Social History Tobacco Use Types Packs/Day [...] Sex Assigned at Male 06/04/2024 9:38 AM SYSTEMS SOFTWARE MANAGER Legal Sex Male 10:27 PM SYSTEMS SOFTWARE MANAGER Gender Identity Male 06/04/2024 9:38 AM SYSTEMS SOFTWARE MANAGER Sexual Orientation Not on file Occupation Industry Job Start Date Job End Date [employer] Not on file Not on file Not [...] Description 11/28/2024 11:20 AM CDT Office Visit [facility] Multispecialty Care - [facility] [address], [address] [place] [address] Prachi Mojica MD [address] [place] [address] documented as of this encounter Results * PRE-SURGICAL/PRE-PROCEDURE CORONAVIRUS (COVID 19) (02/01/2020 11:55 AM CDT) CORONAVIRUS SARS COV 2 PCR (RESP) NOT DETECTED NOT DETECTED 02/02/2020 1:26 PM CDT [facility] Comment: A Not Detected (negative) test [...] providers and patients using the following websites: https://www.[employer]/home/Covid-19/HCP/NAAT/fact-sheet2 https://www.[employer]/home/Covid-19/Patients/NAAT/ fact-sheet2 This test has been authorized by the FDA under an Emergency Use Authorization (EUA) for use by authorized laboratories. Due to the current public health emergency, [facility] is receiving a high volume of samples [...] about COVID-19 can be found at the [facility] website: www.[employer]/Covid19. Test performed at [facility] [place] [address] [place] [address] Director: ART BROCK DO,MPH FIRST TEST NO 02/01/2020 3:53 PM CDT [facility] EMPLOYED IN HEALTHCARE NO 02/01/2020 3:53 PM CDT [facility] SYMPTOMATIC DEFINED BY CDC NO 02/01/2020 3:53 PM CDT [facility] DATE OF SYMPTOM ONSET NO 02/01/2020 5:08 PM CDT [facility] HOSPITALIZATION STATUS NO 02/01/2020 3:53 PM CDT [facility] PATIENT IN ICU NO 02/01/2020 3:53 PM CDT [facility] RESIDENT OF [facility] NO 02/01/2020 3:53 PM CDT [facility] NOT 02/01/2020 5:08 PM CDT [facility] PATIENT'S RACE WHITE OR 02/01/2020 3:53 PM CDT [facility] ETHNICITY NONHISPANIC 02/01/2020 3:53 PM CDT [facility] SOURCE (QST) NASOPHARYNGEAL SWAB 02/01/2020 3:53 PM CDT [facility] NASOPHARYNGEAL SWAB / Unknown 02/01/2020 11:55 AM CDT us Denis Higgins MD MICROBIOLOGY - GENERAL CECILE KUNZ Final Result [facility] [address] [place] [address], [place] [phone] [facility] [address] [place] [address], documented in this encounter Visit Diagnoses Diagnosis Preop examination- Primary Preoperative examination, unspecified documented in this encounter Additional Health Concerns Infection Onset Date Last Indicated Resolved Time COVID-19 Rule Out 02/01/2020 02/01/2020 02/02/2020 1:26 PM CDT COVID-19 Rule Out 03/17/2020 09/11/2019 03/17/2020 10:13 AM SYSTEMS SOFTWARE MANAGER COVID-19 Rule Out 05/26/2020 05/30/2020 06/02/2020 12:34 AM SYSTEMS SOFTWARE MANAGER COVID-19 Rule Out 04/13/2022 04/13/2022 04/20/2022 12:32 AM SYSTEMS SOFTWARE MANAGER Assessment Noted Time PHQ-9 Depression Total Score: 5 05/31/19 20 1:19 PM SYSTEMS SOFTWARE MANAGER documented as of this encounter Care Teams Outside Medical Sales Representative Relationship Specialty Start Date End Date Erin Nicole FNP [address] [place] [phone] PCP - General Nurse Practitioner Family 12/06/18 Renny Weaver MD [address] [place] [address] PCP - Med Group - [facility] Attributed Provider 03/05/19 05/01/20 documented as of this encounter
--- OUTSIDE RECORDS SUMMARY | 2024-10-18 00:25 | XMS_ITS | Continuity of Care Document ---
Author Organization [facility] Address [address] [facility] [address] [place] [address] Phone Care Team Providers Care Capital Equipment Specialist Name Role Phone Rajendra Yoo MD Unavailable [...] on Encounter DISABILITY EXAMINATION [facility] , [address] [facility] [address], [place], [address], [place] tel:[phone] [facility] My back hurts alot (chief complaint) Body mass index (BMI) 45.0-49.9, adultLow back pain Fredo Drew. [address] [facility] [address] [place], [place], [id number]. tel:[phone] Family History Family Member Type Diagnosis Age [...]
--- OUTSIDE RECORDS SUMMARY | 2024-10-18 00:25 | XMS_ITS | Clinical Summary ---
Author Organization [facility] Address [address] [place] [address] Care Team Providers Care Grinding Room Inspector Name Role Phone Erin Nicole SUJATHA Primary Care Provider [phone] Allergies No known active allergies Medications Cholecalciferol [...] tablet 1 024 Active neomycin-polymyxi n-dexamethasone (MAXITROL) [id number] SuspensionIndicat ions:Ear pain Place into both eyes [...] Unsatisfactory living conditions 06/08/2022 Paroxysmal atrial fibrillation ([facility]) 03/18/2022 Sciatica 03/16/2022 Fall, subsequent encounter 03/16/2022 Chronic a-fib ([facility]) 03/16/2022 Renal mass 02/14/2022 [...] 09/14/2020 02/08/2023 Chronic obstructive pulmonar y disease ([facility]) 09/11/2020 07/08/2021 Traumatic injury of external genitalia 09/08/2020 05/09/2023 Sinus node dysfunction ([facility]) 09/11/2019 09/14/2020 Chronic coughing [...] Type Department Care Team Description 10/14/2024 Telephone [facility] Family & Internal Medicine [address] [phone] Erin Nicole FNP Prior Authorization (nystatin (MYCOSTATIN) powder) 10/11/[address] [phone] Erin Nicole FNP Derm Problem 10/07/[address] [phone] Erin Nicole FNP Question 10/04/2024 Scan [facility] Scanned, [facility] 10/01/2024 Scan [facility] Scanned, [facility] Echo (SCAN); Vascular Lab Study (SCAN) 09/30/[address] [phone] Erin Nicole FNP Medication Request 09/27/2024 Scan [facility] Scanned, [facility] 09/09/[address] [phone] Erin Nicole FNP Referral 08/30/2024 1:00 PM CDT Office Visit [address] [phone] Erin Nicole FNP Fall (Patient presenting to the office for a recent fall on 08/22/2024 ago- has 10 stitches in left wrist- also hit head but did not hurt-) 08/30/2024 Travel 08/24/2024 Scan [facility] Scanned, [facility] MRI (SCAN) 08/23/[address] [phone] Erin Nicole FNP Refill Request 08/23/[address] [phone] Erin Nicole FNP Advice 08/22/2024 Scan [facility] Scanned, Doc [facility] CT (SCAN); Image (SCAN) 07/31/2024 Telephone [facility] Family & Internal Medicine [address] [phone] Erin Nicole FNP Refill Request [...] Sex Assigned at Male 06/04/2024 9:38 AM DISPLAY COORDINATOR Legal Sex Male 10:27 PM DISPLAY COORDINATOR Gender Identity Male 06/04/2024 9:38 AM DISPLAY COORDINATOR Sexual Orientation Not on file 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 Not on file [...] [facility] Multispecialty Care - [address], [address] [place] [phone] Prachi Mojica MD [address] [place] [address] Health Maintenance Due Date Last Done Comments [...] or 60+ Years Completed 04/28/2023 PHQ-2 ([facility]) Completed 06/04/2024 Meningococcal B Vaccine Aged Out [...] 08/22/2024 HEPATITIS C ANTIBODY 07/08/2021 3:[address] ABD+PEL W CON STAT 10/03/2019 [...] Anatomical Region Laterality Modality Other 10/01/2024 Result [facility] Scanned SCANNING Final Resu lt * [...] procedure well with no immediate complications Result [facility] Erin [facility] PROCEDURE/MINOR SURGICAL ORDER JIGNESH Final Result * MRI GENERIC (08/24/2024) Only the most recent of3 resultswithin the time period is included. Anatomical Region Laterality Modality Other 08/24/2024 Result [facility] Scanned SCANNING Final Resu lt * CT GENERIC (08/22/2024) Only the most recent of2 resultswithin the time period is included. Anatomical Region Laterality Modality Other 08/22/2024 Result [facility] Scanned SCANNING Final Resu lt * IMAGE GENERIC (08/22/2024) Only the most recent of4 resultswithin the time period is included. Anatomical Region Laterality Modality Other 08/22/2024 Result [facility] Scanned SCANNING Final Resu lt * HEPATITIS C ANTIBODY (07/08/2021 3:20 PM DISPLAY COORDINATOR) HEPATITIS C AB <0.1 0.0 - 0.9 s/co ratio [facility] 1 Comment: Negative: < 0.8 Indeterminate: 0.8 - 0.9 Positive: > 0.9 The CDC recommends that a positive HCV antibody result be followed up with a HCV Nucleic Acid Amplification test (191450). 07/08/2021 3:20 PM DISPLAY COORDINATOR 07/08/2021 Narrative [facility] - 07/09/2021 12:10 PM DISPLAY COORDINATOR Performed at: 01 - [facility] [address] [id number] Affirmative Action Specialist: Blaise Kirk PhD, Phone: [phone] us Erin [facility] Final Result Performing Organization Address City/State/[facility] Co de Phone Number [facility] [address] [place] [address] [facility] 1 * CT ABD+PEL W CON (10/03/2019 3:51 PM CDT) Anatomical Region Laterality Modality Abdomen Computed Tomogra phy 10/03/2019 3:51 PM CDT us Renny Weaver MD CT Final Result * COLONOSCOPY (09/21/2018) Erin [facility] Final Result from Last 3 Months or Most Recently Relevant to Health Maintenance Insurance [employer] Care Teams Grinding Room Inspector Relationship Specialty Start Date End Date Erin Nicole FNP [address] [place] [id number] PCP - General Nurse Practitioner Family 12/06/18
--- OUTSIDE RECORDS SUMMARY | 2024-10-18 00:25 | XMS_ITS | Encounter Summary ---
Author Organization [facility] Address [address] [place] [address] Care Team Providers Care Sleeping Room Cleaner Name Role Phone Erin Nicole SUJATHA Primary Care Provider [phone] Encounter Details Date Type Department Care Team (Late Contact Info) Description 02/16/2023 AdXpose Message Enc [facility] Medical [facility] Family & Internal Medicine [address] [phone] [facility] Provider phone number Social History Tobacco [...] Sex Assigned at Male 06/04/2024 9:38 AM RIPSHEAR OPERATOR Legal Sex Male 10:27 PM RIPSHEAR OPERATOR Gender Identity Male 06/04/2024 9:38 AM RIPSHEAR OPERATOR Sexual Orientation Not on file 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 on file Not on file Not on file Not on file Not on file Not on file documented as of this encounter Plan of Treatment Upcoming Encounters Date Type Department Care Team (Late Contact Info) Description 11/28/2024 11:20 AM CDT Office Visit [facility] Multispecialty Care - [facility] [address] [facility], [address] [place] [address] Prachi Mojica MD [address] [place] [address] documented as of this encounter Visit Diagnoses Not on filedocumented in this encounter Additional Health Concerns Assessment Noted Time PHQ-9 Depression Total Score: 1 02/07/20 23 2:52 PM CDT documented as of this encounter Care Teams Sleeping Room Cleaner Relationship Specialty Start Date End Date Erin Nicole FNP [address] [place] [id number] PCP - General Nurse Practitioner Family 12/06/18 documented as of this encounter
[2024-10-18] MEDS: MORPHINE SULFATE (*CRX) 4 MG/ML INJ IV PUSH (00:32)
[2024-10-18 00:35] LABS: Basophils Absolute Auto 0.1 K/mm3 (0.0-0.1); Basophils Percent Auto 0.9 % (0.2-1.2); Eosinophils Absolute Auto 0.2 K/mm3 (0-0.3); Hematocrit 40.8 % (42.0-52.0); Hemoglobin 13.4 g/dL (14.0-18.0); Immature Granulocyte Absolute 0.09 K/mm3 (0.00-0.031); Immature Granulocyte Percent A 1.3 % (0-0.5); Lymphocytes Absolute Auto 1.67 K/mm3 (0.9-3.2); Lymphocytes Percent Auto 23.9 % (18.3-44.2); Mean Corpuscular HGB Conc 32.8 g/dl (32-36); Mean Corpuscular Hemoglobin 31.7 pg (26-34); Mean Corpuscular Volume 96.5 fl (80-100); Mean Platelet Volume 10.4 fl (7.4-10.4); Monocytes Absolute Auto 0.8 K/mm3 (0.1-0.6); Monocytes Percent Auto 10.7 % (2.6-8.5); Neutrophils Absolute Auto 4.2 K/mm3 (1.3-6.7); Neutrophils Percent Auto 60.2 % (45.5-73.1); Platelet Count Result 178 k/mm3 (150-375); Red Blood Count 4.23 M/mm3 (4.6-6.20); Red Cell Distribution Width 14.5 % (11.5-14.5)
[2024-10-18 00:43] LABS: Alanine Aminotransferase 17 U/L (6-50); Albumin Level 3.9 g/dL (3.5-5.1); Alkaline Phosphatase 76 U/L (38-126); Anion Gap 7 mmol/L (4-12); Aspartate Amino Transferase 29 U/L (17-59); Bilirubin,Total 0.6 mg/dL (0.2-1.3); Blood Urea Nitrogen 21 mg/dL (9-20); Calcium 8.4 mg/dL (8.4-10.2); Carbon Dioxide 24 mmol/L (22-30); Chloride 104 mmol/L (98-107); Estimated CRCL calculation 84 ml/min; Estimated Glomerular Filt Rate > 60; Glucose 100 mg/dL (65-110); Sodium 135 mmol/L (137-145); Total Protein 6.7 g/dL (6.3-8.2)
[2024-10-18 00:47] LABS: INR 1.1; Prothrombin Time 14.2 Seconds (11.1-14.7)
[2024-10-18 00:48] LABS: Partial Thromboplastin Time 28.3 Seconds (22.3-36.8)
--- NOTE | 2024-10-18 01:16 | ED_ITS ---
HPI - Extremity Injury (Upper) General Chief Complaint: Extremity Injury, Upper <Marybeth Da Silva PA-C - Last Filed: 10/19/24 02:19> Stated Complaint: arm swelling <Marybeth Da Silva PA-C - Last Filed: 10/19/24 02:19> Time Seen by Provider: 10/18/24 00:09 <Marybeth Da Silva PA-C - Last Filed: 10/19/24 02:19> History of Present Illness HPI narrative: 69-year-old male presents to the emergency department for right upper extremity swelling x45 minutes. Patient was seen in our ED earlier this evening at 7:45 p.m. after a mechanical fall. Patient was working in his garden when he tripped and fall, landed on his right elbow and obtained a skin tear along with an abrasion to his right hip. X-rays at that time were negative. Patient was neurovascularly intact with no deformities or edema and compartments were soft. Abrasions/skin tears were cleansed and dressed. He did have small areas of capillary bleeding to the elbow that were cauterized with silver nitrate with successful hemostasis. Pt was discharged after his 2 hour long ED stay with no evidence of hematoma. Patient states after discharge he went to the bar to hang out with his friend. While sitting at the bar notice that the bandage to the right arm began to feel tighter than it previously was. States he looked down at his arm and noticed that his humerus had acutely swelled. Pt removed the bandage and presented back to the ED. He denies injury since he was discharged. He denies use of anticoagulants. He denies numbness or tingling to remainder of extremity. <Marybeth Da Silva PA-C - Last Filed: 10/19/24 02:19> Related Data Home Medications: Home Medications ?Medication ?Instructions ?Recorded ?Confirmed ?Last Taken ?Type albuterol sulfate 90 mcg/actuation 1 puff inhalation Q4H PRN 05/03/22 05/03/22 Unknown History aerosol inhaler diazepam 10 mg tablet (Valium) 10 mg PO TID PRN 05/03/22 05/03/22 Unknown History hydrochlorothiazide 12.5 mg tablet 12.5 mg PO DAILY 05/03/22 05/03/22 Unknown History lisinopril 20 mg tablet 20 mg PO DAILY 05/03/22 05/03/22 Unknown History methocarbamol 750 mg tablet 750 mg PO TID 05/03/22 05/03/22 Unknown History <Marybeth Da Silva PA-C - Last Filed: 10/19/24 02:19> Allergies/Adverse Reactions: Allergies Allergy/AdvReac Type Severity Reaction Status Date / Time No Known Allergies Allergy Unknown Verified 08/22/24 18:37 <Marybeth Da Silva PA-C - Last Filed: 10/19/24 02:19> Review of Systems 2 Review of Systems: All systems reviewed & are unremarkable except as noted in HPI and below <Marybeth Da Silva PA-C - Last Filed: 10/19/24 02:19> [facility] Past Medical History Medical History: Medical History Lumbar spondylosis Lumbar radiculopathy Carpal tunnel syndrome Chronic back pain Depression Arthritis GERD (gastroesophageal reflux disease) Gallstones Head ache Seasonal allergies Bronchitis Hypertension Sleep apnea Obesity <Marybeth Da Silva PA-C - Last Filed: 10/19/24 02:19> Surgical History Surgical History: Surgical History History of carpal tunnel release History of ankle surgery Bilateral tendon repair H/O colonoscopy <Marybeth Da Silva PA-C - Last Filed: 10/19/24 02:19> Social History Social History: Social History Smoking status: Never smoker Gender identity (if verbalized by the patient): Male <Marybeth Da Silva PA-C - Last Filed: 10/19/24 02:19> Exam 2 Narrative: GENERAL: Well-appearing, well-nourished, and in no acute distress. HEAD: Normocephalic, atraumatic. EYES: EOMI. ENT: Nares clear, no rhinorrhea or epistaxis. Mucous membranes moist. NECK: Supple. CHEST: Clear to auscultation. No respiratory distress. HEART: Regular rate and rhythm. No murmur heard. Normal peripheral pulses. EXTREMITIES: RUE: Large hematoma developing to the right bicep with overlying skin tear, mild weeping, no active bleeding. Compartments remain soft. Full range of motion of elbow. No edema or swelling to remainder of extremity. Radial and ulnar pulses are 2+. Sensation intact throughout. Radial, median and ulnar nerves are intact. SKIN: Warm, dry, no rash. NEURO: No focal deficits. Alert and oriented x3 <Marybeth Da Silva PA-C - Last Filed: 10/19/24 02:19> Course INSURANCE LOSS CONTROL SURVEYOR/PA Physician Supervision For this patient encounter, I reviewed the INSURANCE LOSS CONTROL SURVEYOR or PA documentation, treatment plan, and medical decision making; and I had [id number] time with this patient. <Moose Melo MD - Last Filed: 10/18/24 07:04> Vital Signs Vital signs: Vital Signs Temperature 98.0 F 10/18/24 00:05 Pulse Rate 61 10/18/24 00:05 Respiratory Rate 16 10/18/24 00:05 Blood Pressure 143/98 H 10/18/24 00:05 Pulse Oximetry 100 10/18/24 00:05 Oxygen Delivery Room Air 10/18/24 00:05 Temperature 98.0 F 10/18/24 00:05 Pulse Rate 60 10/18/24 03:37 Respiratory Rate 12 10/18/24 03:37 Blood Pressure 143/78 H 10/18/24 03:02 Pulse Oximetry 98 10/18/24 03:37 Oxygen Delivery Room Air 10/18/24 00:05 <Marybeth Da Silva PA-C - Last Filed: 10/19/24 02:19> Vital Signs Temperature 98.0 F 10/18/24 00:05 Pulse Rate 61 10/18/24 00:05 Respiratory Rate 16 10/18/24 00:05 Blood Pressure 143/98 H 10/18/24 00:05 Pulse Oximetry 100 10/18/24 00:05 Oxygen Delivery Room Air 10/18/24 00:05 Temperature 98.0 F 10/18/24 00:05 Pulse Rate 60 10/18/24 03:37 Respiratory Rate 12 10/18/24 03:37 Blood Pressure 143/78 H 10/18/24 03:02 Pulse Oximetry 98 10/18/24 03:37 Oxygen Delivery Room Air 10/18/24 00:05 <Moose Melo MD - Last Filed: 10/18/24 07:04> MDM - Extremity Injury (Upper) MDM Narrative Medical decision making narrative: 69-year-old male presents emergency department for acute swelling to his right upper extremity that started 45 minutes prior to arrival. Patient was seen in our ED earlier yesterday evening after mechanical fall where he obtained an abrasion to his right elbow. X-rays are unremarkable. Patient had no edema or evidence of hematoma on exam. He was discharged after to our ED stay with a bandage. He noticed 45 minutes ago that the bandage felt tight, looked down and noticed he had developed significant swelling to the right humerus. He removed the bandage which reported back to the emergency department. He is not anticoagulated. Vital signs are stable. Exam is notable for large developing hematoma to the right humerus. Patient is neurovascularly intact, no numbness or tingling. Pulses are intact. Compartments are soft. Given presentation, I am concern for vascular injury. Will obtain lab work, coags, CTA of the upper extremity and provide morphine for pain control and closely monitor. Lab work shows no leukocytosis. Hemoglobin is 13.4 which is consistent with prior. Chemistries are unremarkable. Coags normal. CTA of the right upper extremity shows in real hematoma involving the posterior lateral aspect of the distal brachial region estimated at 4 x 8.4 x 11.2 cm. There is active arterial extravasation within the hematoma extending from the brachial arterial branch. There is surrounding infiltrate of hemorrhagic products noted along the posterior aspect of the distal brachial region, elbow and proximal forearm. Patient re-evaluated compartments remain soft. Patient remains neurovascularly intact and is resting comfortably in exam bed. Vitals remain stable. Plan to transfer to [place] ED to ED for trauma evaluation. Discussed case with [facility] ED physician, Dr. Ynaez, who accepts patient for transfer. <Marybeth Da Silva PA-C - Last Filed: 10/19/24 02:19> Lab Data Result diagrams: 10/18/24 00:28 10/18/24 00:28 <Marybeth Da Silva PA-C - Last Filed: 10/19/24 02:19> Labs: Lab Results 10/18/24 Range/Units 00:28 WBC 7.0 (4.5-10.0) K/mm3 RBC 4.23 L (4.6-6.20) M/mm3 Hgb 13.4 L (14.0-18.0) g/dL Hct 40.8 L (42.0-52.0) % MCV 96.5 (80-100) fl MCH 31.7 (26-34) pg MCHC 32.8 (32-36) g/dl RDW 14.5 (11.5-14.5) % Plt Count 178 (150-375) k/mm3 MPV 10.4 (7.4-10.4) fl Immature Gran % (Auto) 1.3 H (0-0.5) % Neut % (Auto) 60.2 (45.5-73.1) % Lymph % (Auto) 23.9 (18.3-44.2) % Bartholomew % (Auto) 10.7 H (2.6-8.5) % Eos % (Auto) 3.0 (0-4.4) % Baso % (Auto) 0.9 (0.2-1.2) % Lymph # (Auto) 1.67 (0.9-3.2) K/mm3 Bartholomew # (Auto) 0.8 H (0.1-0.6) K/mm3 Eos # (Auto) 0.2 (0-0.3) K/mm3 Baso # (Auto) 0.1 (0.0-0.1) K/mm3 Abs Immat Gran (auto) 0.09 H (0.00-0.031) K/mm3 Absolute Neuts (auto) 4.2 (1.3-6.7) K/mm3 Absolute Nucleated RBC 0.000 (0.0-0.012) K/mm3 Nucleated RBC % 0.0 (0.0-0.2) % PT 14.2 (11.1-14.7) Seconds INR 1.1 APTT 28.3 (22.3-36.8) Seconds Sodium 135 L (137-145) mmol/L Potassium 4.0 (3.4-5.0) mmol/L Chloride 104 (98-107) mmol/L Carbon Dioxide 24 (22-30) mmol/L Anion Gap 7 (4-12) mmol/L BUN 21 H (9-20) mg/dL Creatinine 1.15 (0.7-1.3) mg/dL Estim Creat Clear Calc 84 ml/min Estimated GFR > 60 (59 - ) Glucose 100 (65-110) mg/dL Calcium 8.4 (8.4-10.2) mg/dL Total Bilirubin 0.6 (0.2-1.3) mg/dL AST 29 (17-59) U/L ALT 17 (6-50) U/L Alkaline Phosphatase 76 (38-126) U/L Total Protein 6.7 (6.3-8.2) g/dL Albumin 3.9 (3.5-5.1) g/dL <Marybeth Da Silva PA-C - Last Filed: 10/19/24 02:19> Lab Results 10/18/24 Range/Units 00:28 WBC 7.0 (4.5-10.0) K/mm3 RBC 4.23 L (4.6-6.20) M/mm3 Hgb 13.4 L (14.0-18.0) g/dL Hct 40.8 L (42.0-52.0) % MCV 96.5 (80-100) fl MCH 31.7 (26-34) pg MCHC 32.8 (32-36) g/dl RDW 14.5 (11.5-14.5) % Plt Count 178 (150-375) k/mm3 MPV 10.4 (7.4-10.4) fl Immature Gran % (Auto) 1.3 H (0-0.5) % Neut % (Auto) 60.2 (45.5-73.1) % Lymph % (Auto) 23.9 (18.3-44.2) % Bartholomew % (Auto) 10.7 H (2.6-8.5) % Eos % (Auto) 3.0 (0-4.4) % Baso % (Auto) 0.9 (0.2-1.2) % Lymph # (Auto) 1.67 (0.9-3.2) K/mm3 Bartholomew # (Auto) 0.8 H (0.1-0.6) K/mm3 Eos # (Auto) 0.2 (0-0.3) K/mm3 Baso # (Auto) 0.1 (0.0-0.1) K/mm3 Abs Immat Gran (auto) 0.09 H (0.00-0.031) K/mm3 Absolute Neuts (auto) 4.2 (1.3-6.7) K/mm3 Absolute Nucleated RBC 0.000 (0.0-0.012) K/mm3 Nucleated RBC % 0.0 (0.0-0.2) % PT 14.2 (11.1-14.7) Seconds INR 1.1 APTT 28.3 (22.3-36.8) Seconds Sodium 135 L (137-145) mmol/L Potassium 4.0 (3.4-5.0) mmol/L Chloride 104 (98-107) mmol/L Carbon Dioxide 24 (22-30) mmol/L Anion Gap 7 (4-12) mmol/L BUN 21 H (9-20) mg/dL Creatinine 1.15 (0.7-1.3) mg/dL Estim Creat Clear Calc 84 ml/min Estimated GFR > 60 (59 - ) Glucose 100 (65-110) mg/dL Calcium 8.4 (8.4-10.2) mg/dL Total Bilirubin 0.6 (0.2-1.3) mg/dL AST 29 (17-59) U/L ALT 17 (6-50) U/L Alkaline Phosphatase 76 (38-126) U/L Total Protein 6.7 (6.3-8.2) g/dL Albumin 3.9 (3.5-5.1) g/dL <Moose Melo MD - Last Filed: 10/18/24 07:04> Discharge Plan Discharge Clinical Impression: Hematoma of right upper extremity <Marybeth Da Silva PA-C - Last Filed: 10/19/24 02:19> Patient Disposition: Acute Care Hospital <Marybeth Da Silva PA-C - Last Filed: 10/19/24 02:19> Condition: Stable <Marybeth Da Silva PA-C - Last Filed: 10/19/24 02:19> Patient Language: Guamanian <Marybeth Da Silva PA-C - Last Filed: 10/19/24 02:19> Prescriptions: No Action lisinopril 20 mg tablet 20 mg PO DAILY albuterol sulfate 90 mcg/actuation HFA aerosol inhaler 1 puff inhalation Q4H PRN diazepam [Valium] 10 mg tablet 10 mg PO TID PRN hydrochlorothiazide 12.5 mg tablet 12.5 mg PO DAILY methocarbamol 750 mg tablet 750 mg PO TID ciprofloxacin HCl [Cipro] 500 mg tablet 500 mg PO Q12H Qty: 14 0RF ondansetron HCl 4 mg tablet 4 mg PO Q8H PRN (Reason: nausea and vomiting) 4 Days Qty: 10 0RF bacitracin zinc 500 unit/gram ointment 1 applic topical BID Qty: 14 0RF montelukast [Singulair] 10 mg tablet 10 mg PO HS Qty: 14 0RF <Marybeth Da Silva PA-C - Last Filed: 10/19/24 02:19> Follow-up/Referrals: TORRIE,BRYNN BINGHAM [Primary Care Provider] - <Marybeth Da Silva PA-C - Last Filed: 10/19/24 02:19>
[2024-10-18 02:35] VITALS: BP 139/78; PULSE 54; O2SAT 98
[2024-10-18 03:02] VITALS: BP 143/78; PULSE 45; RESP 12; O2SAT 98
[2024-10-18 03:37] VITALS: PULSE 60; RESP 12; O2SAT 98
--- NOTE | 2024-10-18 04:05 | PC.NURSE ---
Patient given 4mg morphine before leaving with EMS. MAR currently not working.
== END 2024-10-18 04:15 | disposition short-term general hospital (02) ==
LOC: ANHED 10-18 00:23
PROVIDERS: Emergency Provider Physician Assistant; PCP Nurse Practitioner Family
DX: S45.191A Other specified injury of brachial artery, right side, initial encounter (principal); I10 Essential (primary) hypertension; E66.9 Obesity, unspecified; Z68.41 Body mass index [BMI] 40.0-44.9, adult; G47.30 Sleep apnea, unspecified; K21.9 Gastro-esophageal reflux disease without esophagitis; M19.90 Unspecified osteoarthritis, unspecified site; F32.A Depression, unspecified; Z79.899 Other long term (current) drug therapy; W01.0XXA Fall on same level from slipping, tripping and stumbling without subsequent striking against object, initial encounter
CPT/HCPCS: 36415; 73206; 80053; 85025; 85610; 85730; 96374; 99285; J2270; Q9967

== ENCOUNTER 2024-10-27 00:58 | Emergency (ER) | payer MEDICARE, SELFPAY ==
[2024-10-27] VITALS (24 sets, daily range): BP systolic 108–144; BP diastolic 61–80; PULSE 53–72; RESP 9–27; TEMP 36.6–36.8; O2SAT 95–100
--- NOTE | ~2024-10-27 | CT_ITS ---
CT scan of the right upper extremity CLINICAL HISTORY: Reevaluate hematoma TECHNIQUE: Following intravenous initiation of 100 cc of Omnipaque 350 contrast material, axial imagi ng of the right upper extremity was performed. Sagittal and coronal reformatted images were construct ed. Dose reduction technique was used on this scan by utilizing automated exposure control and iterat bill reconstruction technique. The dose-length product (DLP) was 926.89 mGy-cm. Comparison: 10/18/2024 FINDINGS: Again identified is a large hematoma in the upper portion of the right arm, at the level of the distal humerus, measuring up to approximately 7.8 x 7.0 x 12.0 cm in size. There is some areas o f amorphous increased hyperdensity in the central portion of the lesion. No acute fracture or dislocation. There is moderate to advanced degenerative change of the radiocapit ellar articulation. There is moderate degenerative change of the ulnohumeral joint. No significant justina int effusion evident. No other soft tissue mass or fluid collection evident. IMPRESSION: 7.8 x 7.0 x 12.0 cm hematoma in the upper arm at the level of the distal humerus. Evaluation for acti ve extravasation is limited due to timing of the contrast bolus. Consider CT angiogram to better eval uate for active extravasation, as indicated. Mild amorphous hyperdensity centrally within the hematom a could reflect normal evolution of blood products versus the possibility of active bleeding. Degenerative change of the elbow joint, as detailed above. Reviewed, dictated and finalized at [facility]. IMPRESSION: 7.8 x 7.0 x 12.0 cm hematoma in the upper arm at the level of the distal humeru s. Evaluation for active extravasation is limited due to timing of the contrast bolus. Consider CT angiogram to better evaluate for active extravasation, as i ndicated. Mild amorphous hyperdensity centrally within the hematoma could refle ct normal evolution of blood products versus the possibility of active bleeding . Degenerative change of the elbow joint, as detailed above.
--- NOTE | 2024-10-27 04:02 | ED.WOUNDLAC ---
HPI - Wound/Laceration General Chief Complaint: Wound/Laceration Stated Complaint: R ARM WOUND Time Seen by Provider: 10/27/24 03:52 Source: patient Mode of arrival: ambulatory Limitations: no limitations History of Present Illness HPI narrative: Patient presents with report of a persistent right arm wound. Patient was here in the emergency department twice last week. He had initially presented with a small wound along his proximal right arm. This has been addressed and he had been discharged home but within 12 hours presented again because he experienced acute swelling. For this expanding hematoma with concern for extravasation and persistent bleeding he was transferred to [place]. Patient states that he was there approximately 1 week. He states that he received pain medication throughout the stay but other than that, no surgical intervention was performed. He was discharged home and advised to follow-up with [facility], but this is his PCP. He has an appointment with them Monday but does not know what they will be able to do. He rates the pain at 7/10 severity. He states at he was receiving antibiotics while in the hospital. He states the swelling has not increased but it also has not been significantly decreasing in size. He states this causes intermittent pain to shoot down to his forearm and into his shoulder and this is particularly worse when he goes to wipe himself.. He has been taking 500 mg of acetaminophen x2 tablets every 4 hours. Patient does not know if any particular specialty and mons evaluated him such is General surgery, Interventional Radiology, vascular surgery, etc.. Related Data Home Medications ?Medication ?Instructions ?Recorded ?Confirmed ?Last Taken ?Type albuterol sulfate 90 mcg/actuation 1 puff inhalation Q4H PRN 05/03/22 10/25/24 Unknown History aerosol inhaler diazepam 10 mg tablet (Valium) 10 mg PO TID PRN 05/03/22 10/25/24 Unknown History hydrochlorothiazide 12.5 mg tablet 12.5 mg PO DAILY 05/03/22 10/25/24 Unknown History lisinopril 20 mg tablet 20 mg PO DAILY 05/03/22 10/25/24 Unknown History methocarbamol 750 mg tablet 750 mg PO TID 05/03/22 10/25/24 Unknown History Allergies Allergy/AdvReac Type Severity Reaction Status Date / Time No Known Allergies Allergy Unknown Verified 10/27/24 02:11 [facility] Past Medical History Medical History Hematoma of right upper extremity 10/18/24 Lumbar spondylosis Lumbar radiculopathy Carpal tunnel syndrome Chronic back pain Depression Arthritis GERD (gastroesophageal reflux disease) Gallstones Head ache Seasonal allergies Bronchitis Hypertension Sleep apnea Obesity Surgical History Surgical History History of carpal tunnel release History of ankle surgery Bilateral tendon repair H/O colonoscopy Social History Social History (Updated 10/25/24 @ 13:42 by Lori Ingram MA) Smoking status: Never smoker Do You Feel Safe in your Home?: Yes Lack of Transportation: No Lack of Food: Never True Current Housing: I Have Housing Concerned About Future Housing: No Difficulty Paying Gas/Electric Bills: YES Difficulty Paying for Meds: Decline to Answer Currently Unemployed: No Education: High School Diploma/GED Difficulty w/ Childcare or Family Care: No Gender identity (if verbalized by the patient): Male Exam Narrative: GENERAL: Well-appearing, well-nourished, and in no acute distress. HEAD: Normocephalic, atraumatic. EYES: Non injected, non icteric ENT: Nares clear, no rhinorrhea or epistaxis. Gross auditory acuity intact. NECK: Supple. No meningismus. CHEST: Speaking in full sentences. No respiratory distress. HEART: Regular rate and rhythm. 2+ radial pulse and brisk capillary refill. ABDOMEN: Obese but Soft, nondistended. EXTREMITIES: Normal range of motion. SKIN: Warm, dry, no rash. There is a well healing wound overlying a large fleshy but mobile hematoma along right upper extremity. NEURO: No focal deficits. Alert and oriented. Answering questions. Following commands. Normal speech without aphasia or dysarthria. Sensation intact throughout right upper extremity including throughout proximal arm, forearm, and into the hand/wrist. PSYCH: Normal mood and affect. Course Vital Signs Vital signs: Vital Signs Temperature 98.2 F 10/27/24 01:00 Pulse Rate 72 10/27/24 01:00 Respiratory Rate 16 10/27/24 01:00 Blood Pressure 114/71 10/27/24 01:00 Pulse Oximetry 100 10/27/24 01:00 Oxygen Delivery Room Air 10/27/24 01:00 Temperature 98 F 10/27/24 02:02 Pulse Rate 57 L 10/27/24 07:45 Respiratory Rate 16 10/27/24 07:45 Blood Pressure 144/80 H 10/27/24 07:42 Pulse Oximetry 98 10/27/24 07:45 Oxygen Delivery Room Air 10/27/24 02:02 MDM - Wound/Laceration MDM Narrative Medical decision making narrative: Patient presents with concern for a right arm wound/hematoma. He was seen here last week twice and when he presented the 2nd time which was less than 12 hours after the 1st, it was noted that he has had a large expanding hematoma with concern for active extravasation for which he was transferred to [place]. No surgical intervention in been performed. Patient states that the hematoma is not increasing in size but is certainly not decreasing. In the emergency department they are afebrile with vital signs within normal limits. Normocytic anemia, stable from previous. I did discuss with on-call general surgeon Dr Reyes the possibility of surgical aspiration/evacuation. Only one area of this hematoma appears somewhat superficial. The rest appears intramuscular. Recommends follow up with team from [place]. Patient otherwise stable for discharge to do this. Advised to review his discharge paperwork to see what members of his care team he can follow-up with. Recommended he can also call the medical office to obtain this information. His primary care physician who is to see on Monday, may be able to help find out this information so he can follow up at [facility]. Images were pushed to [facility] and he was also provided a disc of images obtained today so that he can take these to any follow-up appointments. In general however, suspect natural progression and reabsorption of hematoma which could take several weeks. Patient provided short course of opiate/narcotic medication in the interim. Lab Data Attestation: I reviewed the patient's lab results. 10/27/24 05:14 10/27/24 05:14 Labs: Lab Results 10/27/24 Range/Units 05:14 WBC 6.7 (4.5-10.0) K/mm3 RBC 4.30 L (4.6-6.20) M/mm3 Hgb 13.7 L (14.0-18.0) g/dL Hct 41.9 L (42.0-52.0) % MCV 97.4 (80-100) fl MCH 31.9 (26-34) pg MCHC 32.7 (32-36) g/dl RDW 14.2 (11.5-14.5) % Plt Count 201 (150-375) k/mm3 MPV 10.3 (7.4-10.4) fl Immature Gran % (Auto) 0.2 (0-0.5) % Neut % (Auto) 53.6 (45.5-73.1) % Lymph % (Auto) 31.0 (18.3-44.2) % Charlton % (Auto) 9.6 H (2.6-8.5) % Eos % (Auto) 4.4 (0-4.4) % Baso % (Auto) 1.2 (0.2-1.2) % Lymph # (Auto) 2.06 (0.9-3.2) K/mm3 Charlton # (Auto) 0.6 (0.1-0.6) K/mm3 Eos # (Auto) 0.3 (0-0.3) K/mm3 Baso # (Auto) 0.1 (0.0-0.1) K/mm3 Abs Immat Gran (auto) 0.01 (0.00-0.031) K/mm3 Absolute Neuts (auto) 3.6 (1.3-6.7) K/mm3 Absolute Nucleated RBC 0.000 (0.0-0.012) K/mm3 Nucleated RBC % 0.0 (0.0-0.2) % Sodium 141 (137-145) mmol/L Potassium 3.9 (3.4-5.0) mmol/L Chloride 107 (98-107) mmol/L Carbon Dioxide 27 (22-30) mmol/L Anion Gap 7 (4-12) mmol/L BUN 23 H (9-20) mg/dL Creatinine 1.12 (0.7-1.3) mg/dL Estim Creat Clear Calc 81 ml/min Estimated GFR > 60 (59 - ) Glucose 93 (65-110) mg/dL Calcium 8.6 (8.4-10.2) mg/dL Acetaminophen < 10 L (10-30) ug/mL Imaging Data Radiologist's impression: IMPRESSION: 7.8 x 7.0 x 12.0 cm hematoma in the upper arm at the level of the distal humerus. Evaluation for active extravasation is limited due to timing of the contrast bolus. Consider CT angiogram to better evaluate for active extravasation, as indicated. Mild amorphous hyperdensity centrally within the hematoma could reflect normal evolution of blood products versus the possibility of active bleeding. Degenerative change of the elbow joint, as detailed above. Discharge Plan Discharge Clinical Impression: Normocytic anemia, Hematoma of right upper extremity Patient Disposition: Home Condition: Stable Instructions: Antibiotic Form, Anemia (ED), Hematoma (ED) Additional Instructions: The hematoma and pain from this should start to improve over the next few weeks but it might take that long. Recommend following up with the specialists who cared for you at [facility]. Review your discharge paperwork or call the medical information office there to see who it was and from what specialty (interventional radiology, general surgery, vascular surgery) to try to establish a follow up appointment with them if not improving. You are being provided a disc of your images from today. You can use the pain medications have been prescribed. Return if the arm becomes firm, you lose feeling/sensation, or other new or worsening symptoms. Patient Language: [place]rugu[place] Prescriptions: New oxycodone 5 mg tablet 5 mg PO Q8H PRN (Reason: pain) 5 Days Qty: 14 0RF No Action lisinopril 20 mg tablet 20 mg PO DAILY albuterol sulfate 90 mcg/actuation HFA aerosol inhaler 1 puff inhalation Q4H PRN diazepam [Valium] 10 mg tablet 10 mg PO TID PRN hydrochlorothiazide 12.5 mg tablet 12.5 mg PO DAILY methocarbamol 750 mg tablet 750 mg PO TID ciprofloxacin HCl [Cipro] 500 mg tablet 500 mg PO Q12H Qty: 14 0RF ondansetron HCl 4 mg tablet 4 mg PO Q8H PRN (Reason: nausea and vomiting) 4 Days Qty: 10 0RF bacitracin zinc 500 unit/gram ointment 1 applic topical BID Qty: 14 0RF montelukast [Singulair] 10 mg tablet 10 mg PO HS Qty: 14 0RF Follow-up/Referrals: TORRIE,BRYNN BINGHAM [Primary Care Provider] - Stand Alone Forms: Work/School Release IP Time of Disposition: 07:46
[2024-10-27] MEDS: HYDROmorphone HCL INJ (*CRX) 2 MG/ML VIAL 1 MG IV PUSH (05:15)
[2024-10-27 05:20] LABS: Basophils Absolute Auto 0.1 K/mm3 (0.0-0.1); Basophils Percent Auto 1.2 % (0.2-1.2); Eosinophils Absolute Auto 0.3 K/mm3 (0-0.3); Eosinophils Percent Auto 4.4 % (0-4.4); Hematocrit 41.9 % (42.0-52.0); Hemoglobin 13.7 g/dL (14.0-18.0); Immature Granulocyte Absolute 0.01 K/mm3 (0.00-0.031); Immature Granulocyte Percent A 0.2 % (0-0.5); Lymphocytes Absolute Auto 2.06 K/mm3 (0.9-3.2); Mean Corpuscular HGB Conc 32.7 g/dl (32-36); Mean Corpuscular Hemoglobin 31.9 pg (26-34); Mean Corpuscular Volume 97.4 fl (80-100); Mean Platelet Volume 10.3 fl (7.4-10.4); Monocytes Absolute Auto 0.6 K/mm3 (0.1-0.6); Monocytes Percent Auto 9.6 % (2.6-8.5); Neutrophils Absolute Auto 3.6 K/mm3 (1.3-6.7); Neutrophils Percent Auto 53.6 % (45.5-73.1); Platelet Count Result 201 k/mm3 (150-375); Red Cell Distribution Width 14.2 % (11.5-14.5); White Blood Count 6.7 K/mm3 (4.5-10.0)
[2024-10-27 05:33] LABS: Acetaminophen < 10 ug/mL (10-30); Anion Gap 7 mmol/L (4-12); Blood Urea Nitrogen 23 mg/dL (9-20); Calcium 8.6 mg/dL (8.4-10.2); Carbon Dioxide 27 mmol/L (22-30); Chloride 107 mmol/L (98-107); Estimated CRCL calculation 81 ml/min; Estimated Glomerular Filt Rate > 60; Glucose 93 mg/dL (65-110); Potassium 3.9 mmol/L (3.4-5.0); Sodium 141 mmol/L (137-145)
== END 2024-10-27 08:23 | disposition home or self-care (01) ==
PROVIDERS: Emergency Provider Student in an Organized Health Care Education/Training Program; PCP Nurse Practitioner Family
DX: S40.021A Contusion of right upper arm, initial encounter (principal); D64.9 Anemia, unspecified; F32.A Depression, unspecified; M19.90 Unspecified osteoarthritis, unspecified site; K21.9 Gastro-esophageal reflux disease without esophagitis; I10 Essential (primary) hypertension; G47.30 Sleep apnea, unspecified; X58.XXXA Exposure to other specified factors, initial encounter
CPT/HCPCS: 36415; 73201; 80048; 80143; 85025; 96374; 99284; J1171; Q9967